=== PATIENT | male | born 1935 | race Caucasian/White ===

== ENCOUNTER → 2016-04-06 | Outpatient (CLI) | payer MEDICARE ==
--- NOTE | 2016-04-07 08:28 | XR ---
EXAMINATION TYPE: XR chest 2V DATE OF EXAM: 04/06/2016 4:08 PM COMPARISON: 01/22/2016 INDICATION: Short of breath heart failure TECHNIQUE: Frontal and lateral views of the chest are obtained. FINDINGS: The heart size is enlarged. The pulmonary vasculature is normal. Small left pleural effusion is present. Minimal right pleural effusion may be present. There are smal l infiltrates adjacent to the pleural effusions IMPRESSION: 1. Small bilateral pleural effusions with mild adjacent atelectasis. 2. Follow-up is recommended.
== END | disposition home or self-care (01) ==
LOC: RADXRMAIN 15:45
PROVIDERS: ATTEND Internal Medicine
DX: J90 Pleural effusion, not elsewhere classified (principal); J98.11 Atelectasis
CPT/HCPCS: 71020

== ENCOUNTER 2016-04-16 10:09 | Inpatient (IN) | payer MEDICARE, SELFPAY ==
[2016-04-16] MEDS ORDERED: SODIUM CHLORIDE 0.9% 1,000 ML IV STA (10:25)
[2016-04-16] MEDS ORDERED: HYDROmorphone 1 MG/ML 1 ML SYRINGE IVP STA (10:25)
[2016-04-16] MEDS ORDERED: ONDANSETRON 4 MG/2 ML VIAL IVP STA (10:25)
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
[2016-04-16 11:35] LABS: Anisocytosis Slight; Basophils # (A) 0.1 k/uL (0-0.2); Basophils % (A) 1 %; CH 25.6; CHCM 29.8; Eosinophils # (A) 0.1 k/uL (0-0.7); Eosinophils % (A) 2 %; HCT 42.2 % (39.0-53.0); HDW 3.63; HGB 12.7 gm/dL (13.0-17.5); Hypochromasia Marked; Luc # (Auto) 0.24; Luc % (Auto) 4; Lymphocytes # (A) 1.1 k/uL (1.0-4.8); Lymphocytes % (A) 17 %; MCH 25.9 pg (25.0-35.0); MCHC 30.1 g/dL (31.0-37.0); MCV 86.2 fL (80.0-100.0); Mean Platelet Volume 7.8; Monocytes # (A) 0.6 k/uL (0-1.0); Monocytes % (A) 10 %; Neutrophils # (A) 4.3 k/uL (1.3-7.7); Neutrophils % (A) 67 %; Poikilocytosis Slight; RBC 4.89 m/uL (4.30-5.90); WBC 6.5 k/uL (3.8-10.6); WBC (Perox) 6.78
[2016-04-16 11:43] LABS: Potassium 4.9 mmol/L (3.5-5.1); Total Bilirubin 0.5 mg/dL (0.2-1.3); Total Protein 7.2 g/dL (6.3-8.2)
--- NOTE | 2016-04-16 11:46 | XR ---
EXAMINATION TYPE: XR chest 1V DATE OF EXAM: 04/16/2016 11:39 AM COMPARISON: Chest x-ray April 06, 2016. Older chest x-ray January 22, 2016. HISTORY: Difficulty breathing and chest pain TECHNIQUE: Single frontal view of the chest is obtained. FINDINGS: Sternal wires are redemonstrated. Superior wire is broken similar prior. There is cardiome candace with dual lead pacemaker in aftereffect thoracic aorta redemonstrated. There is persistent small to moderate size left pleural effusion and left basilar atelectasis and/or infiltrate. There is tiny right pleural effusion with patchy right basilar atelectasis again seen. Upper lungs are clear witho ut pneumothorax. Osseous structures are intact. IMPRESSION: Cardiomegaly with small to moderate-sized left and tiny right pleural effusion with left basilar infiltrate and/or atelectasis and patchy right basilar atelectasis all redemonstrated. No si gnificant change from most recent study.
--- NOTE | 2016-04-16 11:48 | XR ---
EXAMINATION TYPE: XR KUB DATE OF EXAM: 04/16/2016 11:37 AM CLINICAL HISTORY: Difficulty breathing and right upper quadrant pain for 2 days. TECHNIQUE: 2 upright KUB images of the abdomen are obtained. COMPARISON: CT abdomen and pelvis December 18, 2015. FINDINGS: Scattered gas is seen in non-distended small bowel loops. Gas and fecal material is seen in non-distended colon. There is cardiomegaly with small to moderate size left greater than right ple ural effusions and associated left basilar atelectasis and/or infiltrate. Cholecystectomy clips are n ow present. Mild to moderate joint space loss in both hips is redemonstrated. No pneumoperitoneum is seen. IMPRESSION: Overall nonobstructive bowel gas pattern.
[2016-04-16] MEDS ORDERED: RX INFO: IV CONTRAST WAS GIVEN 1 EACH MISC MISCELLANE PRN (12:01)
[2016-04-16 12:48] LABS: INR 1.2 (<1.1); Partial Thromboplastin Time 25.6 sec (22.0-30.0); Prothrombin Time 11.9 sec (9.0-12.0)
--- NOTE | 2016-04-16 12:58 | CT ---
EXAMINATION TYPE: CT abdomen pelvis wo con DATE OF EXAM: 04/16/2016 12:50 PM COMPARISON: NONE INDICATION: RUQ pain DLP: 1639 mGycm, Automated exposure control for dose reduction was used. CONTRAST: None Study performed without Oral Contrast TECHNIQUE: Axial images were obtained from above the diaphragm to the pubic rami in the axial plane a t 5 mm thick sections. Reconstructed images are reviewed on the computer in the coronal plane. FINDINGS: Limited CT sections are obtained the lung bases. There is a small right minimal left pleural effusio n. Some adjacent atelectasis the left base.. CT ABDOMEN: Ascites is within the abdomen adjacent to the liver and spleen. Some fluid is within the mesentery and paracolic gutters. Fluid is within the pelvis. Liver: Normal Spleen: Normal Pancreas: Normal Adrenal glands: The adrenal glands are normal. Gallbladder: Surgically absent Kidneys: No masses are evident. No hydronephrosis is present. 2.8 cm cyst measuring 30 Houn[place] u nits on the posterior lateral mid right kidney. Aorta: Vascular calcification is within the aorta. Inferior vena cava: Normal. CT PELVIS: Loops of bowel within the abdomen and pelvis are normal. Appendix: Normal as visualized. Urinary bladder: Normal. Genitourinary structures: Prostate is slight prominence with calcification. Osseous structures: No suspicious lytic or sclerotic lesions. Sacroiliac joint degenerative changes a re present. L5-S1 degenerative disc changes are present. Some facet degenerative changes are in the l ower lumbar spine. IMPRESSIONS: 1. Ascites. 2. Bilateral pleural effusions
[2016-04-16] MEDS ORDERED: ONDANSETRON 4 MG/2 ML VIAL IVP PRN (13:32)
[2016-04-16] MEDS ORDERED: HYDROcodone/APAP 5-325MG 1 EACH TAB PO PRN (13:32)
[2016-04-16] MEDS ORDERED: NALOXONE 0.4 MG/ML 1 ML VIAL IV PRN (13:32)
[2016-04-16 14:40] LABS: Appearance,Urine Cloudy (Clear); Bacteria,Urine Rare /hpf; Bilirubin,Urine Negative (Negative); Glucose,Urine (UA) Negative (Negative); Ketones,Urine Trace (Negative); Leukocyte Esterase,Urine Negative (Negative); Mucus,Urine Occasional /hpf; Nitrite,Urine Negative (Negative); PH, Urine 5.5 (5.0-8.0); Particle Count 17674; Protein,Urine 1+ (Negative); RBC,Urine 2 /hpf (0-5); Specific Gravity,Urine 1.025 (1.001-1.035); Squamous Epithelial Cell,Urine <1 /hpf (0-4); UA Billing (MACRO vs. MICRO) MICRO; WBC,Urine 2 /hpf (0-5)
[2016-04-16] MEDS: CARBIDOPA-LEVODOPA ER 50-200MG 1 EACH TABLET.ER PO SCH ×2 (16:28→21:05)
[2016-04-16 16:51] LABS: Glucose,Whole Blood 110 mg/dL (75-99)
[2016-04-16] MEDS ORDERED: FUROSEMIDE 10 MG/ML 10 ML VIAL IV STA (16:54)
[2016-04-16] MEDS: INSULIN LISPRO (humaLOG) 300 UNIT/3 ML VIAL SQ SCH (17:20)
[2016-04-16] MEDS: glipiZIDE 5 MG TAB PO SCH (17:22)
[2016-04-16] MEDS: metFORMIN 500 MG TAB PO SCH (17:22)
[2016-04-16] MEDS: PRIMIDONE 50 MG TAB PO SCH ×2 (17:22→21:05)
--- NOTE | 2016-04-16 20:25 | HP ---
DATE OF ADMISSION: Mr. Paiz is an 80-year-old gentleman whose chief complaint is abdominal pain. HISTORY OF PRESENT ILLNESS: The patient this morning developed abdominal pain, right upper quadrant area. He states it bothered him to the point where he could not breathe. He has also been having abdominal distention for the past several days. He states he was unable to get his pants on because of the abdominal distention. No fever or chills associated with this. No nausea or vomiting. He states he has been having his bowel movements without any evidence of hematochezia. The patient does have a history of gallbladder surgery back in December of 2015. He was also admitted back in February, when a dual-chamber pacemaker was exchanged for sick sinus syndrome. The patient does have a history of coronary artery disease along with the above and does have chronic systolic congestive heart failure with ejection fraction depressed at 40% on his last echo back in January of last year. He does have history of hypertension, hyperlipidemia and type 2 diabetes along with obesity. His coronary artery disease bypass grafting was done back in the year 1999. His initial dual-chamber pacemaker for syncope was placed back in 2007 and apparently redone last year. He has also had a history of tremors along with Parkinson disease, for which he has been followed by Dr. Mcfarlane. There is a history of BPH, diffuse degenerative joint disease, underlying history of depression. There is also history of colonic polyps with previous cecal ( ) polyps removed in 2013 and he has had previous carpal tunnel release besides the coronary artery bypass. MEDICATIONS: Please refer to the list. Should include: 1. Metformin 500 mg twice a day. 2. Glipizide 10 mg twice a day. 3. Amlodipine 5 mg twice a day. 4. Mysoline 50 mg 4 times a day for his tremor. 5. Pravastatin 20 mg at bedtime. 6. Potassium chloride 10 mEq daily. 7. Paxil 20 mg in the morning. 8. Multiple vitamin. 9. Centrum Silver daily. 10. Losartan 25 mg daily. 11. Insulin NovoLog 14 units before supper and 14 before breakfast. 12. Lasix 40 mg a twice a day at home now. 13. Pepcid 20 mg daily. 14. Sinemet 50/200 three times a day, and his carbidopa-levodopa ER. 15. Vitamin D replacement with calcium 600/400 daily. 16. Lioresal 10 mg at bedtime. 17. Atenolol 50 mg twice a day. 18. Aspirin 325 mg daily. NO KNOWN ALLERGIES. REVIEW OF SYSTEMS: At this point negative for any fever or chills. Minimal cough. He did have shortness of breath associated with his abdominal pain. GI symptoms as mentioned above in history of present illness. He has had some increasing edema intermittently. FAMILY HISTORY: Positive for coronary artery disease. SOCIAL HISTORY: He does live locally with his in an apartment. He is a former smoker. He does not drink alcohol to any great extent. On physical examination, temperature is 97.1, pulse of 88 and regular. Respirations are 18 and unlabored, blood pressure 122/85. He is 98% saturated on 4 L. He did apparently drop his oxygen saturation down into the 80s, requiring high-flow cannula. HEENT is unremarkable. NECK: Supple without adenopathy or bruits detected. Lungs reveal diminished breath sounds at the bases bilaterally. Heart tones were regular without definitive murmur or rubs heard. Abdomen is markedly distended with high-pitched bowel sounds; at this point no marked tenderness elicited on exam. No marked organomegaly found. Genital and rectal deferred. EXTREMITIES: Two plus edema bilaterally with some streaking erythema bilaterally, but mostly on the left in the lower extremity. Neurologically he is alert and oriented. Cranial nerves are intact. He is moving all extremities without focal weakness. Patient's chest x-ray revealed some atelectatic and possible effusion in the left lung base and cardiomegaly. CT scan of the abdomen showed ascites present. OVERALL IMPRESSION: 1. New-onset ascites with abdominal pain and some increasing shortness of breath, likely related to the abdominal distention. Question ascites from fluid backup versus spontaneous peritonitis versus other underlying etiologies, although no definite other cause is seen on the initial CT scan. Liver function tests were good. Also underlying pancreatitis with elevated amylase. The patient may have an element of acute on chronic congestive heart failure with systolic dysfunction and fluid overload. 2. Underlying cellulitis of the lower extremities. 3. Past medical problems as related and stated above in the past medical history. OVERALL IMPRESSIONS AND PLANS: At this point patient has been admitted. He is receiving IV Lasix. We will repeat labs, including his amylase, lipase, electrolytes in the morning along with checking cholesterol and thyroid function. Antibiotics initiated for the lower leg cellulitis; question possible peritonitis pending evaluation by Gastroenterology and Surgery. Also will ask Cardiology to see in light of his multiple problems and risk factors for further recommendations and treatment. This was discussed with staff today and at bedside with the patient.
[2016-04-16 21:00] LABS: Glucose,Whole Blood 147 mg/dL (75-99)
[2016-04-16] MEDS: HEPARIN SODIUM,PORCINE 5,000 UNIT/ML 1 ML VIAL SQ SCH (21:05)
[2016-04-16] MEDS: amLODIPine 5 MG TAB PO SCH (21:05)
[2016-04-16] MEDS: PRAVASTATIN SODIUM 20 MG TAB PO SCH (21:06)
[2016-04-16] MEDS: ATENOLOL 50 MG TAB PO SCH (21:06)
[2016-04-16] MEDS: BACLOFEN 10 MG TAB PO SCH (21:06)
[2016-04-17] MEDS: FUROSEMIDE 10 MG/ML 10 ML VIAL IV SCH ×3 (00:17→20:48)
[2016-04-17 07:09] LABS: Glucose,Whole Blood 112 mg/dL (75-99)
[2016-04-17] MEDS: INSULIN LISPRO (humaLOG) 300 UNIT/3 ML VIAL SQ SCH ×2 (07:35→17:51)
--- NOTE | 2016-04-17 08:28 | P.PN ---
Progress Note - Text The patient is an 80-year-old gentleman who presented yesterday to the emergency room with abdominal pain along with increasing shortness of breath and abdominal distention. A CAT scan did show the development of ascites. He did have a elevated amylase on presentation. And there is a history of chronic congestive heart failure with systolic dysfunction. Patient has been receiving IV Lasix and IV Kefzol through the night. He did have an area of cellulitis of the lower extremities. This morning he is sitting up in bed and feels somewhat better. Denies any abdominal pain or shortness of breath. No chest pain. Vital signs reveal temperature of 96.9 with a pulse of 105. Respirations were 21 but her down to 15 now. Blood pressure is 123/78 and he is 99% saturated on high flow. Lungs are generally clear but diminished at bases. Heart tones are regular. Abdomen is still somewhat distended but no tenderness to palpation or organomegaly detected. Grade 1 edema. The previous erythema is somewhat silo tender on the left lower extremity. No new neurological deficits. Laboratory values from this morning are pending. His blood sugar is 112. Impressions and plan: We will continue present treatment with antibiotics and IV Lasix. Consultations have been placed with gastroenterology and his surgeon Dr. 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 Repeat labs are pending. Further recommendations pending results of above.
[2016-04-17] MEDS: metFORMIN 500 MG TAB PO SCH ×2 (08:29→17:51)
[2016-04-17] MEDS: glipiZIDE 5 MG TAB PO SCH ×2 (08:29→17:50)
[2016-04-17] MEDS: amLODIPine 5 MG TAB PO SCH ×2 (08:30→20:49)
[2016-04-17] MEDS: CARBIDOPA-LEVODOPA ER 50-200MG 1 EACH TABLET.ER PO SCH ×3 (08:31→20:48)
[2016-04-17] MEDS: HEPARIN SODIUM,PORCINE 5,000 UNIT/ML 1 ML VIAL SQ SCH ×2 (08:31→20:48)
[2016-04-17] MEDS: FAMOTIDINE 20 MG TAB PO SCH (08:31)
[2016-04-17] MEDS: ATENOLOL 50 MG TAB PO SCH ×2 (08:31→20:49)
[2016-04-17] MEDS: PARoxetine 20 MG TAB PO SCH (08:32)
[2016-04-17] MEDS: PRIMIDONE 50 MG TAB PO SCH ×4 (08:33→20:49)
[2016-04-17 08:43] LABS: Calcium 8.9 mg/dL (8.4-10.2)
[2016-04-17] MEDS ORDERED: LOSARTAN 25 MG TAB PO SCH (09:00)
[2016-04-17] MEDS ORDERED: POTASSIUM CHLORIDE ER 10 MEQ TAB.ER.PRT PO SCH (09:00)
[2016-04-17] MEDS ORDERED: FUROSEMIDE 40 MG TAB PO SCH (09:00)
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
[2016-04-17 09:44] LABS: ALT 19 U/L (21-72); AST 37 U/L (17-59); Alkaline Phosphatase 159 U/L (38-126); Anion Gap 11 mmol/L; Blood Urea Nitrogen 45 mg/dL (9-20); Calcium 8.8 mg/dL (8.4-10.2); Carbon Dioxide 30 mmol/L (22-30); Chloride 99 mmol/L (98-107); Glucose 131 mg/dL (74-99); Iron 23 ug/dL (49-181); Non-African American GFR(MDRD) 36 (>60 ml/min/1.73 sqM); Potassium 6.1 mmol/L (3.5-5.1); Sodium 140 mmol/L (137-145); Total Bilirubin 0.4 mg/dL (0.2-1.3); Total Protein 6.5 g/dL (6.3-8.2)
[2016-04-17 09:54] LABS: % Iron Saturation 7.8 % (20-50); Total Iron Binding Capacity 296 ug/dL (261-462)
[2016-04-17] MEDS ORDERED: SODIUM POLYSTYRENE SULFONATE 15 GM/60 ML BOTTLE PO STA (10:55)
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
[2016-04-17 13:29] LABS: Hepatitis B Surface Ag Index 0.06
--- NOTE | 2016-04-17 13:30 | US ---
EXAMINATION TYPE: US paracentesis abd w/image DATE OF EXAM: 04/17/2016 1:20 PM CLINICAL HISTORY: Ascites The procedure was discussed with the patient. The risks, complications, benefits, and alternatives we re discussed and any questions were answered. Informed consent was obtained. The patient was placed s upine on the ultrasound table and prepped and draped in the usual sterile fashion. All elements of maximal barrier technique were utilized. Under ultrasound guidance, access into the left lower quadrant was obtained, via the paracentesis catheter system and direct ultrasound guidance . Approximately 3.2 liters of straw-colored fluid was removed. The patient was stable throughout the pr ocedure and remained stable upon discharge from Department of Radiology. Sample sent to the departmen t of pathology for analysis. IMPRESSION: Successful therapeutic and diagnostic paracentesis under ultrasound guidance.
[2016-04-17 13:34] LABS: Hepatitis B Core IgM Index 0.04
[2016-04-17 13:46] LABS: Hepatitis C Virus IgG Index 0.03
[2016-04-17 13:54] LABS: Hepatitis C Virus IgG Ab Negative (Negative)
[2016-04-17 15:28] VITALS: BMI 19.8
[2016-04-17 17:07] LABS: Glucose,Whole Blood 156 mg/dL (75-99)
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
[2016-04-17 18:53] LABS: RBC, Body Fluid 2590 /uL
[2016-04-17 19:34] LABS: ANA w/Reflex to Titer NEGATIVE (NEGATIVE)
[2016-04-17] MEDS: BISACODYL 5 MG TABLET.DR PO PRN (20:48)
[2016-04-17] MEDS: BACLOFEN 10 MG TAB PO SCH (20:49)
[2016-04-17] MEDS: PRAVASTATIN SODIUM 20 MG TAB PO SCH (20:54)
[2016-04-17 21:54] LABS: Glucose,Whole Blood 96 mg/dL (75-99)
[2016-04-18 07:48] LABS: Anisocytosis Slight; Aty Lym Flag Slight; CH 25.4; CHCM 28.9; HCT 38.5 % (39.0-53.0); HDW 3.46; HGB 11.5 gm/dL (13.0-17.5); Hypochromasia Marked; MCH 26.2 pg (25.0-35.0); MCHC 29.8 g/dL (31.0-37.0); MCV 88.1 fL (80.0-100.0); Mean Platelet Volume 8.1; Poikilocytosis Slight; RBC 4.37 m/uL (4.30-5.90); RDW 17.6 % (11.5-15.5); WBC 6.4 k/uL (3.8-10.6); WBC (Perox) 6.93
[2016-04-18 08:10] LABS: Calcium 8.1 mg/dL (8.4-10.2)
[2016-04-18 08:16] LABS: Potassium 5.3 mmol/L (3.5-5.1)
[2016-04-18 08:27] LABS: Add Differential Manual Differential
[2016-04-18 08:28] LABS: Manual Review Performed; Nucleated Red Blood Cells 0 /100 WBC (0-0); Total Cells Counted 100
[2016-04-18] MEDS: HEPARIN SODIUM,PORCINE 5,000 UNIT/ML 1 ML VIAL SQ SCH ×2 (08:37→20:34)
[2016-04-18] MEDS: FUROSEMIDE 10 MG/ML 10 ML VIAL IV SCH ×2 (08:37→20:35)
[2016-04-18] MEDS: PRIMIDONE 50 MG TAB PO SCH ×4 (08:37→20:34)
[2016-04-18] MEDS: FAMOTIDINE 20 MG TAB PO SCH (08:37)
[2016-04-18] MEDS: amLODIPine 5 MG TAB PO SCH ×2 (08:37→20:34)
[2016-04-18] MEDS: CARBIDOPA-LEVODOPA ER 50-200MG 1 EACH TABLET.ER PO SCH ×3 (08:38→20:34)
[2016-04-18] MEDS: ATENOLOL 50 MG TAB PO SCH ×2 (08:38→20:34)
[2016-04-18] MEDS: PARoxetine 20 MG TAB PO SCH (08:38)
[2016-04-18 08:46] LABS: Glucose,Whole Blood 68 mg/dL (75-99)
[2016-04-18 08:46] LABS: Glucose,Whole Blood 80 mg/dL (75-99)
[2016-04-18 08:46] LABS: Glucose,Whole Blood 45 mg/dL (75-99)
[2016-04-18 08:46] LABS: Glucose,Whole Blood 60 mg/dL (75-99)
[2016-04-18 08:46] LABS: Glucose,Whole Blood 47 mg/dL (75-99)
[2016-04-18 08:46] LABS: Glucose,Whole Blood 48 mg/dL (75-99)
[2016-04-18 08:46] LABS: Glucose,Whole Blood 57 mg/dL (75-99)
[2016-04-18] MEDS: INSULIN LISPRO (humaLOG) 300 UNIT/3 ML VIAL SQ SCH ×2 (09:07→17:55)
[2016-04-18] MEDS: metFORMIN 500 MG TAB PO SCH ×2 (10:28→17:56)
[2016-04-18] MEDS: glipiZIDE 5 MG TAB PO SCH ×2 (10:28→17:56)
--- NOTE | 2016-04-18 10:52 | P.PN ---
Progress Note - Text The patient is an 80-year-old gentleman who presented 2 days previous to the emergency room with abdominal pain and distention associated with increasing shortness of breath. Patient was found to have new onset of ascites. Patient has been seen by gastroenterology and has had lab testing and abdominal paracentesis with removal of about 3 L of fluid yesterday. Patient is seen ambulating in his room and feels better. He has had some constipation. Denies any nausea or vomiting. No chest pain or shortness of breath at this time. He has also been on Kefzol for cellulitis of the lower extremities along with possibility of spontaneous peritonitis. Notes from surgery, gastroenterology and cardiology have been regarded. Vital signs reveal temperature of 97.6 with a pulse of 99 respirations 18. Blood pressure is 112/73 and he is 95% saturated on 2 L. Head and neck exam unremarkable. Lung and heart exam was clear. Abdomen is a little less tense. No marked tenderness. No unusual edema. Erythema is clearing. No focal neurological deficits. Laboratory values: White count 6.4 with a hemoglobin 11.5 and a platelet count of 163. Sodium was 138 with a potassium of 5.3 which is down from yesterday. BUN of 47 with creatinine of 1.5 giving him a GFR of 44. Blood sugars were running low this morning in the 40-60 range. Other fluid studies have revealed 2590 RBCs with 100 nucleated cells, 28% polynuclear and 72% mononuclear. Serology studies for hepatitis A, B, C have been negative. Distress impressions and plans: Discussed with patient and staff. With physical therapy today. We will await further consultation recommendations. Plans are for likely discharge to home tomorrow. And will likely need to await further results of pending studies. Patient's medications for blood sugar have been held this morning and decrease dose have been ordered for this evening.
[2016-04-18 11:32] LABS: Glucose,Whole Blood 163 mg/dL (75-99)
--- NOTE | 2016-04-18 11:50 | P.PN ---
Subjective Principal diagnosis: Congestive heart failure This is an 80-year-old gentleman who follows regularly with Dr. Cardona in the office, he has a known history of coronary artery disease with prior bypass surgery, hypertension, hyperlipidemia, diabetes, peripheral vascular disease, underwent an echocardiogram with Doppler study in January 2016 which revealed an ejection fraction of 40-45% with evidence of moderate tricuspid regurg and moderate to severe pulmonary hypertension. Patient also has history of prior pacemaker implantation. Patient presented to the hospital with symptoms mainly of progressive abdominal distention as well as associated discomfort in the abdomen. He has also noticed an increase in the amount of swelling in his bilateral legs. He has gained approximately 60 pounds over the past few months. Patient underwent a CAT scan of the abdomen and pelvis which revealed bilateral pleural effusion and associated ascites. He also underwent a chest x- ray which revealed pleural effusion, BNP level was elevated and for this reason patient was initiated on IV Lasix by Dr. White. GI consult is also requested to rule out any gastrointestinal etiology for the patient's ascites. According to the patient, he has been putting out significant amounts of urine in the past 24 hours although his weight is not reflective of this. Laboratory data was reviewed this morning, potassium 5.3, BUN 47, creatinine 1.5, down from 1.8 yesterday. was seen and examined, states that his breathing is stable, he does feel that he has lost a significant amount of weight although again the scale was not reflective of this. Continues to have a significant amount of peripheral edema, and associated abdominal distention. Patient also underwent a paracentesis under ultrasound guidance. 3.2 L of straw-colored fluid was removed. Objective - Vital Signs Vital signs: Vital Signs Temp 97.6 F 04/18/16 07:00 Pulse 99 04/18/16 07:00 Resp 18 04/18/16 07:00 BP 112/73 04/18/16 07:00 Pulse Ox 95 04/18/16 07:00 Intake & Output 04/17/16 04/18/16 04/18/16 18:59 06:59 18:59 Intake Total 200 865 Output Total 3210 Balance -3210 200 865 Weight 62.5 kg Intake: Oral 200 865 Output: Other 3210 Other: # Voids 4 3 # Bowel Movements 1 - Exam PHYSICAL EXAMINATION: HEENT: [Head is atraumatic, normocephalic. Pupils equal, round. Neck is supple. There is elevated jugular venous pressure.] HEART EXAMINATION: Heart S1 and S2 systolic murmur is heard. CHEST EXAMINATION: Lungs are clear with diminished air entry to bilateral bases. ABDOMEN: [ Firm, distended, mild tenderness noted EXTREMITIES:[ 1+ peripheral pulses with 3+ evidence of peripheral edema bilaterally ,significant redness noted to the left lower leg. NEUROLOGIC [patient is awake, alert and oriented -3.] . - Labs CBC & Chem 7: 04/18/16 07:28 04/18/16 07:28 Labs: Abnormal Lab Results - Last 24 Hours (Table) 04/17/16 04/17/16 04/18/16 Range/Units 07:48 17:01 07:23 Hgb (13.0-17.5) gm/dL Hct (39.0-53.0) % MCHC (31.0-37.0) g/dL RDW (11.5-15.5) % Potassium 6.1 H (3.5-5.1) mmol/L BUN 45 H (9-20) mg/dL Creatinine 1.80 H (0.66-1.25) mg/dL Glucose 131 H (74-99) mg/dL POC Glucose (mg/dL) 156 H 60 L (75-99) mg/dL Calcium (8.4-10.2) mg/dL Iron 23 L (49-181) ug/dL % Saturation 7.8 L (20-50) % ALT 19 L (21-72) U/L Alkaline Phosphatase 159 H (38-126) U/L Albumin 3.2 L (3.5-5.0) g/dL 04/18/16 04/18/16 04/18/16 Range/Units 07:28 07:28 07:39 Hgb 11.5 L (13.0-17.5) gm/dL Hct 38.5 L (39.0-53.0) % MCHC 29.8 L (31.0-37.0) g/dL RDW 17.6 H (11.5-15.5) % Potassium 5.3 H (3.5-5.1) mmol/L BUN 47 H (9-20) mg/dL Creatinine 1.51 H (0.66-1.25) mg/dL Glucose 54 L (74-99) mg/dL POC Glucose (mg/dL) 45 L (75-99) mg/dL Calcium 8.1 L (8.4-10.2) mg/dL Iron (49-181) ug/dL % Saturation (20-50) % ALT (21-72) U/L Alkaline Phosphatase (38-126) U/L Albumin (3.5-5.0) g/dL 04/18/16 04/18/16 04/18/16 Range/Units 07:41 07:53 08:09 Hgb (13.0-17.5) gm/dL Hct (39.0-53.0) % MCHC (31.0-37.0) g/dL RDW (11.5-15.5) % Potassium (3.5-5.1) mmol/L BUN (9-20) mg/dL Creatinine (0.66-1.25) mg/dL Glucose (74-99) mg/dL POC Glucose (mg/dL) 48 L 47 L 57 L (75-99) mg/dL Calcium (8.4-10.2) mg/dL Iron (49-181) ug/dL % Saturation (20-50) % ALT (21-72) U/L Alkaline Phosphatase (38-126) U/L Albumin (3.5-5.0) g/dL 04/18/16 04/18/16 Range/Units 08:25 11:14 Hgb (13.0-17.5) gm/dL Hct (39.0-53.0) % MCHC (31.0-37.0) g/dL RDW (11.5-15.5) % Potassium (3.5-5.1) mmol/L BUN (9-20) mg/dL Creatinine (0.66-1.25) mg/dL Glucose (74-99) mg/dL POC Glucose (mg/dL) 68 L 163 H (75-99) mg/dL Calcium (8.4-10.2) mg/dL Iron (49-181) ug/dL % Saturation (20-50) % ALT (21-72) U/L Alkaline Phosphatase (38-126) U/L Albumin (3.5-5.0) g/dL Microbiology - Last 24 Hours (Table) 04/17/16 12:29 Gram Stain - Preliminary Ascites Fluid Body Fluid Culture - Preliminary 04/17/16 12:29 Anaerobic Culture - Preliminary Ascites Fluid Assessment and Plan (1) Systolic CHF, acute on chronic Status: Acute (2) Ischemic cardiomyopathy Status: Acute (3) Tricuspid regurgitation Status: Acute (4) Pulmonary HTN Status: Acute (5) Renal failure Status: Acute (6) Hx of CABG Status: Acute (7) Pacemaker Status: Acute (8) HTN (hypertension) Status: Acute (9) Diabetes Status: Acute (10) Hyperlipemia Status: Acute (11) Ascites Status: Acute Plan: Cardiology's perspective, we'll recommend to continue current dose of IV Lasix. Patient has been encouraged to keep his legs elevated. TE to monitor intake and output along with daily weights closely. We will convert his IV over to a Hep-Lock. DNP note has been reviewed, I agree with a documented findings and plan of care. Patient was seen and examined.
--- NOTE | 2016-04-18 12:16 | P.PN ---
Subjective Principal diagnosis: Abdominal pain, ascites The patient is seen on rounds. He underwent a large-volume paracentesis yesterday. He feels better. No nausea or vomiting. Objective - Vital Signs Vital signs: Vital Signs Temp 97.6 F 04/18/16 07:00 Pulse 99 04/18/16 07:00 Resp 18 04/18/16 07:00 BP 112/73 04/18/16 07:00 Pulse Ox 95 04/18/16 07:00 Intake & Output 04/17/16 04/18/16 04/18/16 18:59 06:59 18:59 Intake Total 200 865 Output Total 3210 Balance -3210 200 865 Weight 62.5 kg Intake: Oral 200 865 Output: Other 3210 Other: # Voids 4 3 # Bowel Movements 1 - Constitutional General appearance: Present: cooperative, no acute distress - Gastrointestinal General gastrointestinal: Present: distended. Absent: tenderness - Labs CBC & Chem 7: 04/18/16 07:28 04/18/16 07:28 Labs: Abnormal Lab Results - Last 24 Hours (Table) 04/17/16 04/17/16 04/18/16 Range/Units 07:48 17:01 07:23 Hgb (13.0-17.5) gm/dL Hct (39.0-53.0) % MCHC (31.0-37.0) g/dL RDW (11.5-15.5) % Potassium 6.1 H (3.5-5.1) mmol/L BUN 45 H (9-20) mg/dL Creatinine 1.80 H (0.66-1.25) mg/dL Glucose 131 H (74-99) mg/dL POC Glucose (mg/dL) 156 H 60 L (75-99) mg/dL Calcium (8.4-10.2) mg/dL Iron 23 L (49-181) ug/dL % Saturation 7.8 L (20-50) % ALT 19 L (21-72) U/L Alkaline Phosphatase 159 H (38-126) U/L Albumin 3.2 L (3.5-5.0) g/dL 04/18/16 04/18/16 04/18/16 Range/Units 07:28 07:28 07:39 Hgb 11.5 L (13.0-17.5) gm/dL Hct 38.5 L (39.0-53.0) % MCHC 29.8 L (31.0-37.0) g/dL RDW 17.6 H (11.5-15.5) % Potassium 5.3 H (3.5-5.1) mmol/L BUN 47 H (9-20) mg/dL Creatinine 1.51 H (0.66-1.25) mg/dL Glucose 54 L (74-99) mg/dL POC Glucose (mg/dL) 45 L (75-99) mg/dL Calcium 8.1 L (8.4-10.2) mg/dL Iron (49-181) ug/dL % Saturation (20-50) % ALT (21-72) U/L Alkaline Phosphatase (38-126) U/L Albumin (3.5-5.0) g/dL 04/18/16 04/18/16 04/18/16 Range/Units 07:41 07:53 08:09 Hgb (13.0-17.5) gm/dL Hct (39.0-53.0) % MCHC (31.0-37.0) g/dL RDW (11.5-15.5) % Potassium (3.5-5.1) mmol/L BUN (9-20) mg/dL Creatinine (0.66-1.25) mg/dL Glucose (74-99) mg/dL POC Glucose (mg/dL) 48 L 47 L 57 L (75-99) mg/dL Calcium (8.4-10.2) mg/dL Iron (49-181) ug/dL % Saturation (20-50) % ALT (21-72) U/L Alkaline Phosphatase (38-126) U/L Albumin (3.5-5.0) g/dL 04/18/16 04/18/16 Range/Units 08:25 11:14 Hgb (13.0-17.5) gm/dL Hct (39.0-53.0) % MCHC (31.0-37.0) g/dL RDW (11.5-15.5) % Potassium (3.5-5.1) mmol/L BUN (9-20) mg/dL Creatinine (0.66-1.25) mg/dL Glucose (74-99) mg/dL POC Glucose (mg/dL) 68 L 163 H (75-99) mg/dL Calcium (8.4-10.2) mg/dL Iron (49-181) ug/dL % Saturation (20-50) % ALT (21-72) U/L Alkaline Phosphatase (38-126) U/L Albumin (3.5-5.0) g/dL Microbiology - Last 24 Hours (Table) 04/17/16 12:29 Gram Stain - Preliminary Ascites Fluid Body Fluid Culture - Preliminary 04/17/16 12:29 Anaerobic Culture - Preliminary Ascites Fluid Assessment and Plan (1) Abdominal pain Status: Acute (2) Ascites Status: Acute Plan: The patient's pain is likely on the basis of an acute development of the ascites. He is currently nonsurgical. Continue medical workup. We'll follow on a prn basis.
--- NOTE | 2016-04-18 15:13 | PN ---
DATE OF SERVICE: 04/18/2016 Patient is an 80-year-old pleasant, white male admitted to the hospital with new onset ascites. He underwent large volume paracentesis yesterday and approximately 3.5 L of fluid was removed. The patient is feeling much better today. He is still having lower extremity edema, presently on IV Lasix 80 mg q.12 hours and diuresing well. He reports no symptoms. On physical examination, he appears comfortable. No apparent distress. Vital signs are stable. Blood pressure is 126/86, pulse rate 82, temperature 97.6. HEENT EXAMINATION: Unremarkable. Conjunctivae pink. Sclerae anicteric. Oral cavity, no lesions. NECK: No JVD or lymph node enlargement. Chest was clear to auscultation. HEART: Regular rate and rhythm. ABDOMEN: Slightly distended. Some free fluid noted. EXTREMITIES: 3+ pedal edema. SKIN: No rashes. NEURO: He is alert and oriented x3. No focal deficits. LABS: WBC 6.4, hemoglobin 11.5, platelets are 163. BUN 47, creatinine 1.51. Iron studies so far have been negative. Iron saturation 7.8%. Fluid analysis showed RBC 2590, WBC 28. Hepatitis A, B, and C were negative. IMPRESSION: New onset ascites, status post large volume paracentesis for diagnostic and therapeutic purposes yesterday. Fluid analysis for albumin and protein are still pending. At this point possibility of underlying cirrhosis of the liver is being considered probably related to fatty liver disease. He is on IV Lasix 80 mg q.12 hours and diuresing well. RECOMMENDATIONS: 1. Continue with gentle diuresis. 2. Low salt diet. 3. If the patient is discharged home tomorrow he can follow up with me on an outpatient basis in 1 to 2 weeks for further management of ascites and workup for the etiology.
[2016-04-18 16:45] LABS: Glucose,Whole Blood 160 mg/dL (75-99)
[2016-04-18] MEDS: PRAVASTATIN SODIUM 20 MG TAB PO SCH (20:34)
[2016-04-18] MEDS: BACLOFEN 10 MG TAB PO SCH (20:34)
[2016-04-18 21:41] LABS: Glucose,Whole Blood 92 mg/dL (75-99)
[2016-04-19 07:26] LABS: Glucose,Whole Blood 126 mg/dL (75-99)
[2016-04-19 08:32] VITALS: BP 128/83; PULSE 101; RESP 18; TEMP 97
[2016-04-19] MEDS: FUROSEMIDE 10 MG/ML 10 ML VIAL IV SCH (08:36)
[2016-04-19] MEDS: PRIMIDONE 50 MG TAB PO SCH (08:36)
[2016-04-19] MEDS: metFORMIN 500 MG TAB PO SCH (08:37)
[2016-04-19] MEDS: HEPARIN SODIUM,PORCINE 5,000 UNIT/ML 1 ML VIAL SQ SCH (08:37)
[2016-04-19] MEDS: CARBIDOPA-LEVODOPA ER 50-200MG 1 EACH TABLET.ER PO SCH (08:37)
[2016-04-19] MEDS: ATENOLOL 50 MG TAB PO SCH (08:37)
[2016-04-19] MEDS: glipiZIDE 5 MG TAB PO SCH (08:38)
[2016-04-19] MEDS: amLODIPine 5 MG TAB PO SCH (08:38)
[2016-04-19] MEDS: FAMOTIDINE 20 MG TAB PO SCH (08:38)
[2016-04-19] MEDS: PARoxetine 20 MG TAB PO SCH (08:38)
[2016-04-19] MEDS: INSULIN LISPRO (humaLOG) 300 UNIT/3 ML VIAL SQ SCH (08:39)
[2016-04-19] MEDS: BISACODYL 5 MG TABLET.DR PO PRN (08:43)
--- NOTE | 2016-04-19 10:50 | P.PN ---
Progress Note - Text The patient is a 80-year-old gentleman who presented 3 days previous to emergency room with abdominal pain and distention with increasing shortness of breath and was found to have new onset of ascites. He has undergone large volume paracentesis 2 days ago and is feeling better. Patient did have some lower extremity edema and cellulitis and he has been on furosemide. He has also been on Kefzol. Physical therapy has been up and around ambulating on his own. No nausea vomiting or chest pain. Vital signs reveal temperature of 97 with a pulse of 100 and respirations 18 and nonlabored. Blood pressure is 128/83 and he is 100% saturated on 2 L nasal cannula. Head and neck exam unremarkable. Lung and heart exam clear. Abdomen is still distended but nontender. Improved from previous prior to paracentesis. Patient still has 1+ edema and mild erythema of the right lower extremity. Blood sugars presently in the low 100s. Impressions and plans Anticipating discharge home today. Patient to follow-up with myself in the office next week. He will call tomorrow for appointment. He is also to keep his regular appointments with cardiology. It is recommended he make an appointment with Dr. Roxie Nogueira, gastroenterology over the next 1-2 weeks. Patient has follow-up with testing and peritoneal fluid follow-up. Patient can resume his home medications. With acetaminophen for pain if needed. He is to hold his losartan. Decrease metformin to 500 mg before dinner only. Decrease his Glucotrol to 10 mg before breakfast, once daily only. Continue amlodipine at 5 mg twice a day. Continue primidone at 50 mg 4 times a day for tremors. Continue Pravastatin 20 mg at at bedtime for cholesterol Patient to stop his potassium replacement at this time. Can continue his Paxil 20 mg daily. Can continue with vitamin replacement Centrum Silver. Continue with his 14 units of insulin before breakfast and supper. NovoLog. Lasix to be 40 mg tablets 1-1/2 or 60 mg total twice a day. Pepcid 20 mg daily. Carbidopa/levodopa 50-200 extended release 13 times a day. For Parkinson. Can resume his calcium replacement. Baclofen 10 mg at at bedtime. Atenolol 50 mg twice a day. And aspirin 325 mg daily. We will send in Keflex 500 mg 3 times a day for another 5 days to complete his course. This will be sent to his [facility]'s pharmacy. Patient to monitor daily weights.
--- NOTE | 2016-04-19 11:31 | PN ---
Patient is an 80-year-old white male admitted to the hospital with new onset ascites and underwent large volume paracentesis 2 days ago and approximately 3.5 liters removed. Since then he is feeling better. He continues to be on aggressive IV diuresis with Lasix and his lower extremity swelling also improving. He denies any abdominal pain. Reports no nausea or vomiting. On physical examination appears comfortable in no apparent distress. Vitals as are stable. Blood pressure 126/71, temperature 97.4, pulse rate 84, respirations 18. HEENT examination unremarkable. Conjunctivae pink. Sclerae anicteric. Oral cavity, no lesions. NECK: No JVD or lymph node enlargement. Chest was clear to auscultation. HEART: Regular rate and rhythm. ABDOMEN: Distended. Free fluid noted. EXTREMITIES: 2+ pedal edema. SKIN: No rashes. NEURO: Alert and oriented x3. No focal deficits. Labs from today, not done. IMPRESSION: 1. New onset ascites, possibly underlying occult chronic liver disease, cirrhosis cannot be excluded, status post large volume paracentesis, analysis of the fluid is still pending at the time of this dictation. 2. History of congestive heart failure. 3. Long-standing history of diabetes mellitus. 4. Morbid obesity. RECOMMENDATIONS: 1. At this time will await the results of the paracentesis. 2. He can be discharged home today with outpatient follow up in a week and further management plans will be made in regards to the ascites. Thank you for this consultation.
[2016-04-19 11:53] LABS: Glucose,Whole Blood 202 mg/dL (75-99)
--- NOTE | 2016-04-21 18:42 | DS ---
DATE OF ADMISSION: 04/16/2016 DATE OF DISCHARGE: 04/19/2016 Mr. Bob Paiz is an 80-year-old gentleman who presented to the emergency room with abdominal distention and pain associated with shortness of breath, gradually worsening over the past 10 to 14 days despite outpatient diuretics. He also developed some lower extremity edema and erythema. Patient has no history of liver disease but did have a history of heavy alcohol usage for many years, but he apparently quit over 30 years ago. On presentation to the ER, a CT scan showed ascites and some bilateral pleural effusions. Patient was admitted and started on antibiotics. Consultation was obtained with Gastroenterology and Surgery, who had performed a laparoscopic cholecystectomy back last December, and Cardiology, who sees the patient regularly as an outpatient. Please refer to their respective notes. Initial labs revealed a BUN of 36, creatinine 1.4, bilirubin 0.5, AST 40 with an ALT 30, alkaline phosphatase of 187 and lipase of 355, amylase 90, albumin 3.6 and white count 6.5 with hemoglobin 12.7, MCV 86, platelet count of 212. His INR was 1.2. With Lasix, patient did diuresis to some extent but was still fairly uncomfortable. EKG revealed an accelerated junctional rhythm with low-voltage QRS. Patient underwent laboratory evaluation for the underlying osteoporosis. SIMONE screen was negative tumor marker. AFP was 2.2. Alpha-1 antitrypsin 232. Ceruloplasmin of 41.5. Hepatitis A, B and C workup was negative, with hepatitis A IgM antibodies, hepatitis B surface antigen, hepatitis B core, IgM antibody and hepatitis C IgG antibody. All were negative. Anti-smooth muscle antibody was 12. Iron was 23 with iron-binding capacity 296 with percent saturation of 7.8. TSH was normal at 1.9. Lipase was elevated up to 824 at one point. Potassium did also increase up to 6.1 with a BUN of 45 and creatinine of 1.8, giving him a GFR of 36. Ferritin level was normal at 41. Approximately 3 liters of fluid was removed revealing 2590 RBCs, 100 nucleated cells, 28 polynuclear WBCs and 72 mononuclear WBCs. Potassium improved down to 5.3, BUN was 47, creatinine 1.51 with a GFR of 44 on discharge. The patient was ambulated. Physical Therapy also treated the patient. Medications were adjusted and it was recommended: 1. Continue with acetaminophen for pain. 2. Recommend he hold his losartan. 3. Decrease his metformin to 500 mg before dinner only. 4. Decrease his Glucotrol to 10 mg before breakfast. 5. Continue amlodipine at 5 mg twice a day. 6. Continue his Primidone at 50 mg 4 times a day. 7. Continue pravastatin 20 mg at bedtime. 8. Recommend he stop potassium. 9. Recommend he continue his Paxil at 20 mg daily. 10. He may continue with his Centrum Silver vitamins. 11. Continue with his 14 units of insulin before breakfast and supper. 12. Lasix to be continued at 40 mg tablets with 1-1/2 or 60 mg total twice a day. 13. He is to continue taking his Pepcid 20 mg daily. 14. Continue his carbidopa/levodopa 50/200 extended-release 1 tablet 3 times daily for his Parkinson's. 15. Continue calcium replacement. 16. Baclofen 10 mg at night. 17. Atenolol 50 mg twice a day. 18. Aspirin 325 daily. 19. Keflex 500 mg 3 times a day for another 5 days. This was sent to his [facility]. He is to follow up with me next week in the office, follow up regularly with Cardiology, and also an appointment with Dr. Roxie Nogueira over the next 10 to 14 days. FINAL DISCHARGE DIAGNOSES: 1. 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 Other etiologies and cytology still pending of the peritoneal fluid. 2. Patient also had acute hyperkalemia that has improved. 3. Patient has a history of cholecystectomy back in December 2015. 4. History of dual-chamber pacemaker for sick sinus syndrome. 5. History of coronary artery disease. 6. Chronic systolic congestive heart failure with ejection fraction of 40% on echo in January 2016. 7. Underlying hypertension. 8. Hyperlipidemia. 9. Type 2 diabetes with obesity. 10. Previous coronary artery bypass done in the year 1999. 11. History of Parkinson's. 12. History of tremors, which is followed by neurology Dr. Mcfarlane. 13. Underlying history of benign prostatic hypertrophy. 14. History of degenerative joint disease. 15. History of depression. 16. Previous history of colonic polyps with removal in 2013. 17. Previous carpal tunnel release bilaterally. Prognosis is overall guarded. Activities as tolerated. Diabetic diet as tolerated.
== END 2016-04-19 13:28 | disposition home health service (06) | DRG 432 ==
LOC: EC 10:09 → 5MS5E 13:32 → 4MS4W 14:51
PROVIDERS: ADMIT Internal Medicine; ATTEND Internal Medicine
PROC: 0W9G3ZZ Drainage of Peritoneal Cavity, Percutaneous Approach (ICD-10-PCS; principal; 2016-04-17)
DX: K70.31 Alcoholic cirrhosis of liver with ascites (principal); I50.23 Acute on chronic systolic (congestive) heart failure; E11.22 Type 2 diabetes mellitus with diabetic chronic kidney disease; E11.51 Type 2 diabetes mellitus with diabetic peripheral angiopathy without gangrene; K86.1 Other chronic pancreatitis; K85.90 Acute pancreatitis without necrosis or infection, unspecified; I27.2 Other secondary pulmonary hypertension; I13.0 Hypertensive heart and chronic kidney disease with heart failure and stage 1 through stage 4 chronic kidney disease, or unspecified chronic kidney disease; L03.115 Cellulitis of right lower limb; L03.116 Cellulitis of left lower limb; E78.5 Hyperlipidemia, unspecified; E87.5 Hyperkalemia; G20 Parkinson's disease; I07.1 Rheumatic tricuspid insufficiency; I25.10 Atherosclerotic heart disease of native coronary artery without angina pectoris; I25.2 Old myocardial infarction; I25.5 Ischemic cardiomyopathy; I48.2 Chronic atrial fibrillation; N18.9 Chronic kidney disease, unspecified; N40.0 Benign prostatic hyperplasia without lower urinary tract symptoms; Z79.82 Long term (current) use of aspirin; Z82.49 Family history of ischemic heart disease and other diseases of the circulatory system; Z86.010 Personal history of colon polyps; Z87.891 Personal history of nicotine dependence; Z95.0 Presence of cardiac pacemaker; Z95.1 Presence of aortocoronary bypass graft; Z96.1 Presence of intraocular lens; Z79.899 Other long term (current) drug therapy; Z79.4 Long term (current) use of insulin
CPT/HCPCS: 36415; 49083; 71010; 74000; 74176; 80048; 80053; 80061; 80074; 81001; 82042; 82103; 82105; 82150; 82390; 82728; 82945; 83516; 83540; 83550; 83690; 83880; 84157; 84165; 84443; 85025; 85610; 85730; 86038; 87070; 87075; 87205; 88108; 88305; 89050; 96361; 96374; 96375; 99285

== ENCOUNTER 2016-04-22 12:17 | Day surgery (SDC) | payer MEDICARE ==
[2016-04-22 12:41] VITALS: BP 153/85; PULSE 64; RESP 20; TEMP 97.4
[2016-04-22 12:56] LABS: Mean Platelet Volume 8.1
[2016-04-22 13:19] LABS: INR 1.3 (<1.1); Prothrombin Time 12.8 sec (9.0-12.0)
--- NOTE | 2016-04-22 16:16 | US ---
Discontinued paracentesis HISTORY: Ascites Ultrasound scanning shows moderate ascites. Patient rescheduled due to anticoagulation.
== END 2016-04-22 13:50 | disposition other institution (70) ==
LOC: RADPROMAIN 12:17
PROVIDERS: ATTEND Internal Medicine Gastroenterology
DX: R18.8 Other ascites (principal); Z53.8 Procedure and treatment not carried out for other reasons; Z79.01 Long term (current) use of anticoagulants
CPT/HCPCS: 36415; 76705; 82565; 85049; 85610

== ENCOUNTER 2016-04-22 13:43 | Inpatient (IN) | payer MEDICARE, SELFPAY ==
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
[2016-04-22 14:59] LABS: Anisocytosis Slight; Basophils # (A) 0.1 k/uL (0-0.2); Basophils % (A) 1 %; CH 25.4; CHCM 29.8; Eosinophils % (A) 1 %; HCT 42.1 % (39.0-53.0); HDW 3.66; HGB 12.6 gm/dL (13.0-17.5); Hypochromasia Marked; Luc # (Auto) 0.23; Luc % (Auto) 4; Lymphocytes # (A) 0.8 k/uL (1.0-4.8); Lymphocytes % (A) 13 %; MCH 25.6 pg (25.0-35.0); MCHC 29.9 g/dL (31.0-37.0); MCV 85.6 fL (80.0-100.0); Mean Platelet Volume 8.1; Monocytes # (A) 0.7 k/uL (0-1.0); Monocytes % (A) 11 %; Neutrophils # (A) 4.3 k/uL (1.3-7.7); Neutrophils % (A) 71 %; Poikilocytosis Slight; RBC 4.92 m/uL (4.30-5.90); WBC (Perox) 6.12
[2016-04-22 15:07] LABS: ALT 22 U/L (21-72); AST 67 U/L (17-59); Alkaline Phosphatase 192 U/L (38-126); Anion Gap 11 mmol/L; Blood Urea Nitrogen 42 mg/dL (9-20); Calcium 8.7 mg/dL (8.4-10.2); Carbon Dioxide 31 mmol/L (22-30); Chloride 96 mmol/L (98-107); Glucose 129 mg/dL (74-99); Non-African American GFR(MDRD) 52 (>60 ml/min/1.73 sqM); Potassium 4.8 mmol/L (3.5-5.1); Sodium 138 mmol/L (137-145); Total Bilirubin 0.6 mg/dL (0.2-1.3)
--- NOTE | 2016-04-22 15:07 | XR ---
EXAMINATION TYPE: XR chest 2V DATE OF EXAM: 04/22/2016 3:01 PM COMPARISON: Chest x-ray from 6 days ago. HISTORY: Left-sided chest pain and difficulty in breathing. TECHNIQUE: Frontal and lateral views of the chest are obtained. FINDINGS: Sternal wires and mediastinal clips are redemonstrated. Superior wire is broken similar to prior. There is persistent cardiomegaly with small to moderate-sized left greater than right pleural effusions. There is associated bibasilar atelectasis and/or infiltrate. Upper lungs are clear without pneumothorax. Osseous structures are intact. IMPRESSION: Overall stable findings, cardiomegaly with small to moderate-sized left greater than rig ht pleural effusions and associated bibasilar atelectasis and/or infiltrate all redemonstrated.
[2016-04-22 15:20] LABS: INR 1.3 (<1.1); Prothrombin Time 12.7 sec (9.0-12.0)
[2016-04-22 15:27] LABS: Creatine Kinase MB 1.1 ng/mL (0.0-2.4); Troponin I 0.013 ng/mL (0.000-0.034)
[2016-04-22] MEDS ORDERED: NITROGLYCERIN OINT 1 INCH/GM PACKET TOPICAL STA (16:26)
[2016-04-22] MEDS ORDERED: FUROSEMIDE 10 MG/ML 10 ML VIAL IV STA (16:26)
[2016-04-22] MEDS ORDERED: NITROGLYCERIN OINT 1 INCH/GM PACKET TOPICAL SCH (18:00)
[2016-04-22 18:34] LABS: Glucose,Whole Blood 113 mg/dL (75-99)
[2016-04-22] MEDS: INSULIN LISPRO (humaLOG) 300 UNIT/3 ML VIAL SQ SCH (18:34)
[2016-04-22] MEDS: glipiZIDE 5 MG TAB PO SCH (18:46)
[2016-04-22] MEDS: PRIMIDONE 50 MG TAB PO SCH ×2 (18:47→21:30)
[2016-04-22] MEDS: ATENOLOL 50 MG TAB PO SCH (21:29)
[2016-04-22] MEDS: CARBIDOPA-LEVODOPA ER 50-200MG 1 EACH TABLET.ER PO SCH (21:30)
[2016-04-22] MEDS: NITROGLYCERIN OINT 1 INCH/GM PACKET TOPICAL SCH (21:30)
[2016-04-22 22:09] LABS: Glucose,Whole Blood 140 mg/dL (75-99)
[2016-04-22] MEDS: FUROSEMIDE 10 MG/ML 10 ML VIAL IV SCH (23:05)
[2016-04-23 05:17] LABS: Glucose,Whole Blood 126 mg/dL (75-99)
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
[2016-04-23] MEDS: glipiZIDE 5 MG TAB PO SCH ×2 (08:47→17:02)
[2016-04-23] MEDS: INSULIN LISPRO (humaLOG) 300 UNIT/3 ML VIAL SQ SCH ×2 (08:48→17:19)
[2016-04-23] MEDS: FUROSEMIDE 10 MG/ML 10 ML VIAL IV SCH ×2 (08:49→17:03)
[2016-04-23] MEDS: BACLOFEN 10 MG TAB PO SCH (08:49)
[2016-04-23] MEDS: ATENOLOL 50 MG TAB PO SCH ×2 (08:49→20:55)
[2016-04-23] MEDS: ATORVASTATIN 20 MG TAB PO SCH (08:49)
[2016-04-23] MEDS: CARBIDOPA-LEVODOPA ER 50-200MG 1 EACH TABLET.ER PO SCH ×3 (08:50→20:55)
[2016-04-23] MEDS: CALCIUM CARB-VIT D 500MG-200UN 1 EACH TAB PO SCH (08:50)
[2016-04-23] MEDS: FAMOTIDINE 20 MG TAB PO SCH (08:51)
[2016-04-23] MEDS: LOSARTAN 25 MG TAB PO SCH (08:51)
[2016-04-23] MEDS: PARoxetine 20 MG TAB PO SCH (08:51)
[2016-04-23] MEDS: POTASSIUM CHLORIDE ER 10 MEQ TAB.ER.PRT PO SCH (08:52)
[2016-04-23] MEDS: MULTIVITAMINS, THERA 1 EACH TAB PO SCH (08:52)
[2016-04-23] MEDS: PRIMIDONE 50 MG TAB PO SCH ×4 (08:52→20:55)
[2016-04-23] MEDS: NITROGLYCERIN OINT 1 INCH/GM PACKET TOPICAL SCH ×4 (09:26→20:55)
[2016-04-23 11:38] LABS: Glucose,Whole Blood 246 mg/dL (75-99)
--- NOTE | 2016-04-23 12:19 | CONS ---
DATE OF CONSULTATION: CHIEF COMPLAINT: Leg edema and shortness of breathReyes Rojas is an 80-year-old gentleman with history of coronary artery disease, status post CABG, ischemic cardiomyopathy with an ejection fraction of 40 to 45% moderate to severe pulmonary hypertension, sick sinus syndrome, status post permanent pacemaker placement who presented to hospital with bilateral leg edema, and abdominal distention. He presented to the hospital complaining of bilateral leg edema. Patient was in the hospital last week with very similar symptoms was discharged home, comes back in as the symptoms are not improving. He denies chest pain, paroxysmal nocturnal dyspnea or orthopnea. His admission weight was 120 kg. Today it is 117. Patient is being treated with intravenous diuretics for acute exacerbation of chronic systolic heart failure. I am going to continue the Lasix, probably add Metalazone to what he is on currently and I expect him to diurese well and hopefully discharge home over the next 24 to 48 hours. Past medical history is significant for coronary artery disease, status post CABG, chronic systolic heart failure, insulin-requiring diabetes, hypertension, valvular heart disease. Medications at home included: 1. Coumadin 5 mg daily. 2. Lasix 60 mg b.i.d. 3. Keflex 500 t.i.d. 4. Lipitor 20 mg daily. 5. Tenormin 50 b.i.d. 6. Insulin. 7. Pepcid. 8. Glucophage. 9. Glucotrol. 10. Norvasc 5 b.i.d. 11. Mysoline q.i.d. 12. K-Dur 10 mEq daily. 13. Paxil. 14. Multivitamins. 15. Cozaar. Known drug allergies. FAMILY HISTORY: Negative for premature coronary artery disease. SOCIAL HISTORY: Denies current smoking, ETOH abuse, or drug abuse. REVIEW OF SYSTEMS: HEENT: Is unremarkable. CARDIAC: As described above. RESPIRATORY: As described above. GI: Significant for abdominal distention. GENITOURINARY: Negative. MUSCULOSKELETAL: Significant for arthritis. PSYCHOSOCIAL: Negative. ENDOCRINE: Negative. CONSTITUTIONAL: Negative. Oncological: Negative. DERM: Negative. HEMATOLOGICAL: Negative. The rest of the system review is not relevant. On exam, heart rate is 70 beats per minute, blood pressure is 130/70, respirations 18, O2 sat is 95% on room air. There is no jugular venous distention. Chest exam reveals good air entry bilaterally. I do not have any crackles or rhonchi. Heart exam reveals first and second heart sounds. Systolic murmur at the left lower sternal border. ABDOMEN: Soft. Abdomen soft appears distended. Exam of the extremities reveal bilateral pitting edema. His chest x-ray shows cardiomegaly with bilateral pleural effusions, left more than right. Labs show that the hemoglobin is 12.6, platelet count is 197. Potassium is 4.8. Creatinine is 1.3 with a BUN of 42. The patient usually runs a BUN of 22 and definitely this has worsened. Three sets of cardiac enzymes are negative. BNP is elevated. ASSESSMENT: 1. Acute exacerbation of chronic systolic heart failure. 2. Ascites. 3. Coronary artery disease, status post coronary artery bypass grafting. 4. Hypertension. 5. Insulin-requiring diabetes. PLAN: We will continue the IV Lasix and add Metalazone.
[2016-04-23 14:46] VITALS: BMI 37.0
[2016-04-23 16:46] LABS: Glucose,Whole Blood 92 mg/dL (75-99)
[2016-04-23] MEDS: WARFARIN 5 MG TAB PO SCH (17:02)
[2016-04-23 20:43] LABS: Glucose,Whole Blood 43 mg/dL (75-99)
[2016-04-23 20:58] LABS: Glucose,Whole Blood 76 mg/dL (75-99)
[2016-04-24 00:34] LABS: Glucose,Whole Blood 128 mg/dL (75-99)
[2016-04-24 00:34] LABS: Glucose,Whole Blood 123 mg/dL (75-99)
[2016-04-24] MEDS: FUROSEMIDE 10 MG/ML 10 ML VIAL IV SCH ×4 (00:37→23:47)
[2016-04-24 06:10] LABS: Anisocytosis Slight; Aty Lym Flag Slight; CH 25.2; CHCM 28.7; HCT 40.9 % (39.0-53.0); HDW 3.39; HGB 11.9 gm/dL (13.0-17.5); Hypochromasia Marked; MCH 25.6 pg (25.0-35.0); MCHC 29.1 g/dL (31.0-37.0); MCV 87.9 fL (80.0-100.0); Mean Platelet Volume 8.4; RBC 4.66 m/uL (4.30-5.90); RDW 17.9 % (11.5-15.5); WBC 6.3 k/uL (3.8-10.6)
[2016-04-24 06:19] LABS: Calcium 8.7 mg/dL (8.4-10.2); Potassium 4.9 mmol/L (3.5-5.1); Total Bilirubin 0.4 mg/dL (0.2-1.3); Total Protein 6.4 g/dL (6.3-8.2)
[2016-04-24 06:23] LABS: INR 1.4 (<1.1); Prothrombin Time 13.7 sec (9.0-12.0)
[2016-04-24 06:39] LABS: Add Differential Manual Differential
[2016-04-24 06:43] LABS: Large Platelets Present; Manual Review Performed; Nucleated Red Blood Cells 0 /100 WBC (0-0); Polychromasia Present; Target Cells Present; Total Cells Counted 200
[2016-04-24 06:55] LABS: Glucose,Whole Blood 136 mg/dL (75-99)
[2016-04-24] MEDS ORDERED: INSULIN LISPRO (humaLOG) 300 UNIT/3 ML VIAL SQ ONE (07:47)
[2016-04-24] MEDS: glipiZIDE 5 MG TAB PO SCH ×2 (08:19→18:19)
[2016-04-24] MEDS: ATORVASTATIN 20 MG TAB PO SCH (08:20)
[2016-04-24] MEDS: CALCIUM CARB-VIT D 500MG-200UN 1 EACH TAB PO SCH (08:20)
[2016-04-24] MEDS: ATENOLOL 50 MG TAB PO SCH ×2 (08:20→20:13)
[2016-04-24] MEDS: BACLOFEN 10 MG TAB PO SCH (08:20)
[2016-04-24] MEDS: NITROGLYCERIN OINT 1 INCH/GM PACKET TOPICAL SCH ×4 (08:21→20:13)
[2016-04-24] MEDS: CARBIDOPA-LEVODOPA ER 50-200MG 1 EACH TABLET.ER PO SCH ×3 (08:21→20:13)
[2016-04-24] MEDS: LOSARTAN 25 MG TAB PO SCH (08:21)
[2016-04-24] MEDS: FAMOTIDINE 20 MG TAB PO SCH (08:21)
[2016-04-24] MEDS: METOLAZONE 2.5 MG TAB PO SCH (08:21)
[2016-04-24] MEDS: PRIMIDONE 50 MG TAB PO SCH ×4 (08:22→20:13)
[2016-04-24] MEDS: PARoxetine 20 MG TAB PO SCH (08:22)
[2016-04-24] MEDS: MULTIVITAMINS, THERA 1 EACH TAB PO SCH (08:22)
[2016-04-24] MEDS: POTASSIUM CHLORIDE ER 10 MEQ TAB.ER.PRT PO SCH (08:22)
--- NOTE | 2016-04-24 08:30 | P.PN ---
Progress Note - Text The patient is an 80-year-old gentleman who presented with shortness of breath, edema and abdominal distention. This was not responding to outpatient Lasix. Along with his other cardiac medications. Patient does have acute on chronic systolic congestive heart failure as he has had a previous ejection fraction of 40% and along with this he has underlying coronary artery disease with previous bypass, atrial fibrillation, and hypertensive heart disease. Plus he does have underlying diabetes and does have a dual-chamber pacemaker. And patient is obese. Patient has been seen by cardiology. Patient has been maintained on his Lasix 60 mg every 8 hours and Zaroxolyn 2.5 mg has been added. Chest x-ray did show a left pleural effusion. His weight apparently is staying at about 119.6 kg. It does not appear that we are getting accurate outputs. Although it does appear that he is voiding numerous times. Vital signs reveal temperature 97.4 with a pulse of 86 and respirations 20. Blood pressure is 162/93 and he is 92% saturated on 2 L. Lung sounds do seem to be somewhat improved on the left base. No wheezing. Heart tones irregular but controlled. Abdomen obese. 2-3+ grade edema bilaterally. No new neurological changes. Patient does have Parkinson disease. Laboratory values: White count is 6.3 with a hemoglobin 11.9 and a platelet count of 170. INR this morning is 1.4 he is on 5 mg of Coumadin. Sodium is 135 with a potassium 4.9. CO2 content is 25. BUN has risen to 57 with creatinine of 1.7 given him a GFR of 39. Blood sugars 136. Albumin is 3.1. AST is elevated at 87 and alk phos is 174 but bilirubin was normal at 0.4. Impressions and plans: He has been seen by cardiology. Metolazone added. Continue with IV Lasix. Patient clinically feels better. He is still appearing fluid overloaded. Discussed with cardiology Dr. Nogueira. Discussed with patient at bedside. We'll continue hopefully to diuresis. Basic metabolic panel and INR ordered for tomorrow.
[2016-04-24] MEDS: INSULIN LISPRO (humaLOG) 300 UNIT/3 ML VIAL SQ SCH ×2 (08:49→18:21)
[2016-04-24 11:52] LABS: Glucose,Whole Blood 176 mg/dL (75-99)
--- NOTE | 2016-04-24 11:58 | PN ---
This is an 80-year-old gentleman who is admitted to the hospital with acute exacerbation of chronic systolic heart failure and moderate to severe pulmonary hypertension. The patient is on IV diuretics and I added metolazone to what he was on. He is putting out urine okay, but we still do not see much change in his weight, but weights have been notoriously unreliable on this floor. On exam, patient is afebrile, heart rate is 93 beats per minutes, blood pressure is 131/81, respiratory rate is 18. Chest exam reveals diminished air entry at the bases. Heart exam reveals first and second heart sounds and a systolic murmur in the left lower sternal border. Abdomen is soft. Exam of extremities revealed bilateral pitting edema. Chest x-ray shows bilateral effusions. Labs showed that the hemoglobin is 11.9, platelet count is 170. Potassium is 4.9. BUN is 57. Creatinine is 1.7. ASSESSMENT: Acute exacerbation of chronic systolic heart failure. PLAN: Patient will continue with the IV diuretics and Zaroxolyn that he is currently on. If he does not improve any further, we will increase the dose of Zaroxolyn. INR today is subtherapeutic, but he is on Coumadin, which we will optimize.
[2016-04-24 14:37] LABS: Glucose,Whole Blood 207 mg/dL (75-99)
[2016-04-24 16:51] LABS: Glucose,Whole Blood 190 mg/dL (75-99)
[2016-04-24] MEDS: WARFARIN 5 MG TAB PO SCH (18:20)
[2016-04-24 20:34] LABS: Glucose,Whole Blood 129 mg/dL (75-99)
[2016-04-25 05:26] LABS: Glucose,Whole Blood 93 mg/dL (75-99)
[2016-04-25] MEDS: glipiZIDE 5 MG TAB PO SCH ×2 (06:47→17:24)
[2016-04-25 06:51] LABS: INR 1.5 (<1.1); Prothrombin Time 15.1 sec (9.0-12.0)
[2016-04-25 07:13] LABS: Calcium 8.6 mg/dL (8.4-10.2); Potassium 4.6 mmol/L (3.5-5.1)
[2016-04-25] MEDS: INSULIN LISPRO (humaLOG) 300 UNIT/3 ML VIAL SQ SCH ×2 (07:19→17:24)
[2016-04-25] MEDS: FUROSEMIDE 10 MG/ML 10 ML VIAL IV SCH ×3 (08:06→23:34)
[2016-04-25] MEDS: ATORVASTATIN 20 MG TAB PO SCH (08:07)
[2016-04-25] MEDS: ATENOLOL 50 MG TAB PO SCH ×2 (08:07→20:25)
[2016-04-25] MEDS: BACLOFEN 10 MG TAB PO SCH (08:08)
[2016-04-25] MEDS: CARBIDOPA-LEVODOPA ER 50-200MG 1 EACH TABLET.ER PO SCH ×3 (08:08→20:25)
[2016-04-25] MEDS: FAMOTIDINE 20 MG TAB PO SCH (08:08)
[2016-04-25] MEDS: METOLAZONE 2.5 MG TAB PO SCH (08:08)
[2016-04-25] MEDS: LOSARTAN 25 MG TAB PO SCH (08:08)
[2016-04-25] MEDS: PRIMIDONE 50 MG TAB PO SCH ×4 (08:09→20:25)
[2016-04-25] MEDS: NITROGLYCERIN OINT 1 INCH/GM PACKET TOPICAL SCH ×4 (08:09→20:25)
[2016-04-25] MEDS: PARoxetine 20 MG TAB PO SCH (08:09)
[2016-04-25] MEDS: POTASSIUM CHLORIDE ER 10 MEQ TAB.ER.PRT PO SCH (08:09)
--- NOTE | 2016-04-25 10:13 | P.PN ---
Progress Note - Text The patient is an 80-year-old gentleman who presented with shortness of breath, edema and abdominal distention which he was not responding to outpatient Lasix and his other cardiac medications. He does have acute on chronic systolic congestive heart failure with previous ejection fraction of 40% and underlying coronary artery disease with previous bypass, atrial fibrillation and hypertensive heart disease. He also has history of diabetes and a previous dual chamber pacemaker placement. He is obese. 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 He appears to be diuresing with Lasix 60 every 8 hours and cardiology has added Zaroxolyn 2.5 mg daily. Patient states he feels somewhat better. He is going to the bathroom a lot. Less short of breath with exertion. His weight is down about 2-1/2 kg this morning. Vital signs reveal temperature of 96.7 with a pulse of 79 and respirations 20. Blood pressure is 119/67 and he is 94% saturated on 2 L nasal cannula. Breath sounds are diminished at bases. Heart tones are slightly irregular but rate is controlled. Abdomen feels a bit better but still somewhat tight. No tenderness. Also there still 2+ lower extremity edema. No new neurological changes. Laboratory values: INR is 1.5 this morning. Sodium is 139 with potassium 4.6. BUN is 61 with a creatinine 1.61 given him a GFR 41. Blood sugar was 93. Impressions and plans: We will continue at this time to diuresis with Lasix and Zaroxolyn pending further recommendations from cardiology. We will increase his Coumadin from 5 up to 7.5 mg daily and repeat INR. Also need to follow his blood sugars and renal function. A basic metabolic panel ordered for the morning. Discussed with patient at bedside.
[2016-04-25 12:28] LABS: Glucose,Whole Blood 185 mg/dL (75-99)
[2016-04-25] MEDS: CALCIUM CARB-VIT D 500MG-200UN 1 EACH TAB PO SCH (12:33)
[2016-04-25] MEDS: MULTIVITAMINS, THERA 1 EACH TAB PO SCH (12:33)
[2016-04-25 16:54] LABS: Glucose,Whole Blood 213 mg/dL (75-99)
[2016-04-25] MEDS ORDERED: WARFARIN 7.5 MG TAB PO SCH (18:00)
[2016-04-25] MEDS ORDERED: DOCUSATE 100 MG CAP PO PRN (18:20)
[2016-04-25 20:36] LABS: Glucose,Whole Blood 172 mg/dL (75-99)
[2016-04-26 06:02] LABS: Glucose,Whole Blood 187 mg/dL (75-99)
[2016-04-26 06:15] LABS: INR 2.4 (<1.1); Prothrombin Time 23.2 sec (9.0-12.0)
[2016-04-26 06:19] LABS: Calcium 8.8 mg/dL (8.4-10.2); Potassium 3.9 mmol/L (3.5-5.1)
[2016-04-26] MEDS: glipiZIDE 5 MG TAB PO SCH ×2 (06:51→17:17)
[2016-04-26] MEDS: INSULIN LISPRO (humaLOG) 300 UNIT/3 ML VIAL SQ SCH ×2 (07:16→17:19)
[2016-04-26] MEDS: FUROSEMIDE 10 MG/ML 10 ML VIAL IV SCH (08:05)
[2016-04-26] MEDS: POTASSIUM CHLORIDE ER 10 MEQ TAB.ER.PRT PO SCH (08:08)
[2016-04-26] MEDS: PRIMIDONE 50 MG TAB PO SCH ×4 (08:08→22:17)
[2016-04-26] MEDS: PARoxetine 20 MG TAB PO SCH (08:08)
[2016-04-26] MEDS: ATORVASTATIN 20 MG TAB PO SCH (08:09)
[2016-04-26] MEDS: BACLOFEN 10 MG TAB PO SCH (08:09)
[2016-04-26] MEDS: ATENOLOL 50 MG TAB PO SCH ×2 (08:10→22:17)
[2016-04-26] MEDS: CALCIUM CARB-VIT D 500MG-200UN 1 EACH TAB PO SCH (08:10)
[2016-04-26] MEDS: CARBIDOPA-LEVODOPA ER 50-200MG 1 EACH TABLET.ER PO SCH ×3 (08:10→22:17)
[2016-04-26] MEDS: NITROGLYCERIN OINT 1 INCH/GM PACKET TOPICAL SCH ×4 (08:11→22:19)
[2016-04-26] MEDS: FAMOTIDINE 20 MG TAB PO SCH (08:13)
[2016-04-26] MEDS: METOLAZONE 2.5 MG TAB PO SCH (08:13)
[2016-04-26] MEDS: LOSARTAN 25 MG TAB PO SCH (08:14)
--- NOTE | 2016-04-26 09:45 | P.PN ---
Progress Note - Text The patient is a 80-year-old gentleman who was admitted on the with shortness of breath and increasing edema and ascites. He was not responding to outpatient Lasix and his other medications. Patient has been on IV Lasix 60 mg every 8 hours along with Zaroxolyn 2.5 mg daily. Clinically the patient states he feels better. Less short of breath. It appears yesterday he had almost a liter of fluid out. Weight is down from 117.1 kg to 114.3 kg. Temperature is 97.3 with a pulse of 76 and irregular. Respirations are 18. Blood pressure 145/71 and he is 98% saturated on 2 L. Head and neck exam unremarkable. Lungs seem to be clear at the left base than previous. No wheezing or rhonchi. Abdomen is still somewhat distended but nontender. Still grade 2 edema of the lower extremities with pitting. Laboratory values reveal his INR to be 2.4 this morning Sodium is 141 with potassium 3.9 and a CO2 content of 39. BUN is 58 with creatinine 1.45 resulting in a GFR of 47. Blood sugar is 172. Impressions and plans: Patient overall does appear to be responding to treatment with decreasing weight and improvement in his respiratory status. Patient still has fluid retention especially of the abdomen with ascites and lower extremities. We will continue with his IV Lasix and Zaroxolyn. We have decreased his Coumadin back to 5 mg. Labs to be checked again in the morning. Lantus insulin at 6 units at night will be started also. Patient to be educated on its use as may need to take as an outpatient.
[2016-04-26 12:01] LABS: Glucose,Whole Blood 145 mg/dL (75-99)
[2016-04-26] MEDS: MULTIVITAMINS, THERA 1 EACH TAB PO SCH (12:27)
[2016-04-26] MEDS: FUROSEMIDE 20 MG TAB PO SCH (15:25)
[2016-04-26] MEDS ORDERED: FUROSEMIDE 40 MG TAB PO SCH (16:00)
--- NOTE | 2016-04-26 16:10 | PN ---
This is an 80-year-old gentleman with a history of CAD, previous bypass surgery. Presented here with exacerbation of CHF. On a combination of metolazone, Lasix. He seems to have improved clinically. He is doing much better this morning, breathing is easier. Denies any chest pain. Will switch him from IV to oral Lasix, increase activity and continue metolazone for now. I will obtain a BMP level tomorrow morning and based on clinical course, I will make further recommendations. Patient is now on a combination of metolazone 2.5 mg daily and Lasix and switch from IV to oral and patient has shown some improvement clinically. Will continue current medical regimen. Physical exam revealed blood pressure of 140/70, pulse rate of 68 per minute. He remains in atrial fib. PT, INR is acceptable at 2.4. JVD is 1 cm, no carotid bruit. S1, S2 with irregular rhythm. Short systolic murmur noted. Lungs reveal improved air entry. Abdomen is soft. Lower extremities reveal bilateral 1+ edema. Central nervous system grossly within normal limits. Plan is to continue diuresis from switching from IV to oral and continue current medications. Check BMP in the morning.
[2016-04-26 17:05] LABS: Glucose,Whole Blood 175 mg/dL (75-99)
[2016-04-26] MEDS ORDERED: WARFARIN 5 MG TAB PO SCH (18:00)
[2016-04-26 20:48] LABS: Glucose,Whole Blood 150 mg/dL (75-99)
[2016-04-26] MEDS: INSULIN GLARGINE 100 UNIT/ML 10 ML VIAL SQ SCH (22:18)
[2016-04-27 05:53] LABS: Glucose,Whole Blood 141 mg/dL (75-99)
[2016-04-27 06:28] LABS: Blood Urea Nitrogen 43 mg/dL (9-20); Calcium 8.6 mg/dL (8.4-10.2); Chloride 88 mmol/L (98-107); Glucose 151 mg/dL (74-99); Non-African American GFR(MDRD) >60 (>60 ml/min/1.73 sqM); Sodium 137 mmol/L (137-145)
[2016-04-27 06:29] LABS: INR 3.1 (<1.1)
[2016-04-27 06:34] LABS: Anion Gap 9 mmol/L
[2016-04-27 06:39] LABS: Carbon Dioxide 40 mmol/L (22-30)
[2016-04-27] MEDS ORDERED: Potassium Replacement Protocol 1 EACH MISC MISCELLANE PRN (06:59)
[2016-04-27] MEDS: glipiZIDE 5 MG TAB PO SCH ×2 (07:06→17:01)
[2016-04-27] MEDS: INSULIN LISPRO (humaLOG) 300 UNIT/3 ML VIAL SQ SCH ×2 (07:55→17:01)
--- NOTE | 2016-04-27 08:12 | P.PN ---
Progress Note - Text The patient is an 80-year-old gentleman who approximately 5 days ago presented with shortness of breath, increasing edema and ascites. Zaroxolyn was added to his Lasix and he has been apparently diuresing better. He states he is less short of breath. Denies any chest pain. No nausea or vomiting. Patient's weight has decreased further from 114.3 kg to 112 kg. Other vitals reveal temperature 98.5 with a pulse of 95 irregular and respirations 18. Blood pressure is 154/102 and he is 92% saturated on 2 L. Lungs are generally clear. Heart tones are regular. Abdomen is still somewhat tense but nontender. Lower extremity edema persists 2+ bilaterally. No neurological changes. Laboratory: INR this morning is 3.1. Sodium was 137 with potassium of 3.0. Carbon dioxide is 40. BUN is 43 with a creatinine of 1.1 given him a GFR greater than 60. Impressions and plans: Patient will be placed on potassium protocol. Coumadin to be held today with INR 3.1. Cardiology notes regarded. Blood sugars appear to be stabilizing.
[2016-04-27] MEDS: CARBIDOPA-LEVODOPA ER 50-200MG 1 EACH TABLET.ER PO SCH ×3 (09:22→21:10)
[2016-04-27] MEDS: POTASSIUM CHLORIDE ER 20 MEQ TAB.ER PO SCH ×4 (09:22→17:01)
[2016-04-27] MEDS: ATORVASTATIN 20 MG TAB PO SCH (09:22)
[2016-04-27] MEDS: ATENOLOL 50 MG TAB PO SCH ×2 (09:22→21:07)
[2016-04-27] MEDS: CALCIUM CARB-VIT D 500MG-200UN 1 EACH TAB PO SCH (09:23)
[2016-04-27] MEDS: BACLOFEN 10 MG TAB PO SCH (09:23)
[2016-04-27] MEDS: LOSARTAN 25 MG TAB PO SCH (09:23)
[2016-04-27] MEDS: FAMOTIDINE 20 MG TAB PO SCH (09:23)
[2016-04-27] MEDS: METOLAZONE 2.5 MG TAB PO SCH (09:24)
[2016-04-27] MEDS: FUROSEMIDE 20 MG TAB PO SCH ×2 (09:24→15:09)
[2016-04-27] MEDS: NITROGLYCERIN OINT 1 INCH/GM PACKET TOPICAL SCH ×4 (09:24→21:08)
[2016-04-27] MEDS: PARoxetine 20 MG TAB PO SCH (09:24)
[2016-04-27] MEDS: PRIMIDONE 50 MG TAB PO SCH ×4 (09:25→21:08)
[2016-04-27] MEDS: POTASSIUM CHLORIDE ER 10 MEQ TAB.ER.PRT PO SCH (09:25)
[2016-04-27 11:33] LABS: Glucose,Whole Blood 130 mg/dL (75-99)
[2016-04-27] MEDS: MULTIVITAMINS, THERA 1 EACH TAB PO SCH (11:34)
[2016-04-27 16:35] LABS: Glucose,Whole Blood 227 mg/dL (75-99)
[2016-04-27] MEDS ORDERED: POTASSIUM CHLORIDE ER 20 MEQ TAB.ER PO ONE (20:00)
[2016-04-27 20:37] LABS: Glucose,Whole Blood 134 mg/dL (75-99)
[2016-04-27] MEDS: INSULIN GLARGINE 100 UNIT/ML 10 ML VIAL SQ SCH (21:07)
[2016-04-28 05:51] LABS: Glucose,Whole Blood 220 mg/dL (75-99)
[2016-04-28 06:50] LABS: Blood Urea Nitrogen 35 mg/dL (9-20); Calcium 8.3 mg/dL (8.4-10.2); Chloride 88 mmol/L (98-107); Glucose 241 mg/dL (74-99); Non-African American GFR(MDRD) >60 (>60 ml/min/1.73 sqM); Potassium 3.8 mmol/L (3.5-5.1); Sodium 137 mmol/L (137-145)
[2016-04-28 06:51] LABS: INR 2.1 (<1.1); Prothrombin Time 19.7 sec (9.0-12.0)
[2016-04-28 06:58] LABS: Anion Gap 8 mmol/L
[2016-04-28 07:08] LABS: Carbon Dioxide 41 mmol/L (22-30)
[2016-04-28] MEDS: glipiZIDE 5 MG TAB PO SCH (07:29)
[2016-04-28] MEDS: INSULIN LISPRO (humaLOG) 300 UNIT/3 ML VIAL SQ SCH (07:29)
[2016-04-28 07:47] VITALS: RESP 17; TEMP 98.4
[2016-04-28] MEDS: ATORVASTATIN 20 MG TAB PO SCH (07:48)
[2016-04-28] MEDS: FAMOTIDINE 20 MG TAB PO SCH (07:48)
[2016-04-28] MEDS: METOLAZONE 2.5 MG TAB PO SCH (07:48)
[2016-04-28] MEDS: CARBIDOPA-LEVODOPA ER 50-200MG 1 EACH TABLET.ER PO SCH (07:48)
[2016-04-28] MEDS: FUROSEMIDE 20 MG TAB PO SCH (07:49)
[2016-04-28] MEDS: POTASSIUM CHLORIDE ER 10 MEQ TAB.ER.PRT PO SCH (07:49)
[2016-04-28] MEDS: BACLOFEN 10 MG TAB PO SCH (07:49)
[2016-04-28] MEDS: ATENOLOL 50 MG TAB PO SCH (07:49)
[2016-04-28] MEDS: CALCIUM CARB-VIT D 500MG-200UN 1 EACH TAB PO SCH (07:49)
[2016-04-28] MEDS: NITROGLYCERIN OINT 1 INCH/GM PACKET TOPICAL SCH ×2 (07:50→11:04)
[2016-04-28] MEDS: LOSARTAN 25 MG TAB PO SCH (07:50)
[2016-04-28] MEDS: PARoxetine 20 MG TAB PO SCH (07:51)
[2016-04-28] MEDS: PRIMIDONE 50 MG TAB PO SCH ×2 (07:51→12:08)
--- NOTE | 2016-04-28 08:36 | P.DS ---
Providers Date of admission: 04/22/16 16:30 The patient is a 80-year-old gentleman who presented with shortness of breath. Increasing abdominal and lower leg edema. Has been hospitalized for new onset ascites and alcoholic cirrhosis. Patient also has acute on chronic systolic congestive heart failure with ejection fraction of 40%. Along with chronic atrial fibrillation. On presentation his chest x-ray showed a left pleural effusion and cardiomegaly and he had 2-3+ edema bilaterally and was short of breath. Laboratory values revealed a white count of 6 with a hemoglobin 12.6 and a platelet count of 197. BUN was 42 with creatinine 1.3 giving him stage III renal failure. GFR was 52. BNP was elevated 7360. Patient's EKG G showed atrial fibrillation with a controlled response and no ischemic changes. Patient was admitted. He received IV Lasix. He was seen by cardiology and please refer to their consultation and notes. Metolazone was added to his regimen. Patient appears to have clinically improved and has diuresed with a continuing weight loss and decrease in his edema and ascites. He has been seen by physical therapy to help with his endurance. His latest labs from today reveal an INR of 2.1. Sodium is 137 with potassium 3.8 and a CO2 content of 41. His BUN is 35 with creatinine of 1.11 given him a GFR now greater than 60. Blood sugar randomly was 241 and calcium 8.3. Discharge diagnoses: 1. Acute on chronic congestive heart failure with systolic dysfunction and ejection fraction of 40% associated with left pleural effusion and edema and ascites. 2. Chronic atrial fibrillation in the face of diastolic dysfunction. 3. Ascites secondary to liver cirrhosis and previous alcohol intake. 4. Coronary artery disease with previous bypass surgery in the year 1999 5. Hypertension and hypertensive heart disease 6. Hyperlipidemia 7. Type 2 diabetes and obesity 8. History of dual-chamber pacemaker placement for sick sinus syndrome 9. Previous cholecystectomy back in December 2015 10. Chronic kidney disease stage 3-4. 11. History of tremors and Parkinson's disease followed by neurology Dr. Maier on medication at 12. BPH 13. Degenerative joint disease diffuse 14. History of previous colonic polyps removed in 2013. 15. History of depression on Paxil. Discharge medications 1. Atenolol 50 mg twice a day 2. Lipitor 20 mg daily 3. Baclofen 10 mg daily 4. Calcium with vitamin D replacement of 500 one daily. 5. Sinemet ER 50-200, 1 tablet 3 times a day 6. Pepcid 20 mg daily 7. Glucotrol 10 mg twice a day 8. Lantus insulin increased to 10 units at bedtime nightly. 9. Humalog 10 units before breakfast and supper subcu. 10. Losartan 25 mg daily 11. Zaroxolyn 2.5 mg daily. 12. Potassium chloride 10 mEq twice a day. 13. Paxil 20 mg daily. 14. Mysoline 50 mg 4 times a day for tremors. 15. Coumadin 5 mg daily to alternate with 2.5 mg every day. To have INR and basic metabolic panel to be done weekly. Admission labs. Accu-Cheks to be done at breakfast and supper. Continue with physical and occupational therapy. Overall long-term prognosis is guarded. Although patient should do well with the physical and occupational therapies. Attending physician: Dalton Santiago Primary care physician: Dalton Santiago Plan - Discharge Summary Discharge Medication List Atenolol [Tenormin] 50 mg PO BID 11/20/13 [History] Baclofen [Lioresal] 10 mg PO DAILY 11/20/13 [History] Carbidopa/Levodopa [Carbidopa-Levo ER 50-200 Tab] 1 tab PO TID 11/20/13 [History ] Famotidine [Pepcid] 20 mg PO DAILY 11/20/13 [History] PARoxetine [Paxil] 20 mg PO QAM 11/20/13 [History] Potassium Chloride [K-Tab ER] 10 meq PO DAILY 11/20/13 [History] Primidone [Mysoline] 50 mg PO QID 11/20/13 [History] amLODIPine BESYLATE [Norvasc] 5 mg PO BID 11/20/13 [History] glipiZIDE [Glucotrol] 10 mg PO AC-BID 11/20/13 [History] metFORMIN HCL [Glucophage] 500 mg PO AC-BID 11/20/13 [History] Calcium Carbonate/Vitamin D3 [Calcium 600-Vit D3 400 Caplet] 1 tab PO DAILY 02/20 [History] Multivit-Min/FA/Lycopene/Lut [Centrum Silver Tablet] 1 tab PO DAILY 12/18/15 [ History] Aspirin 325 mg PO DAILY@1200 01/22/16 [History] Insulin Aspart [NovoLOG] 14 unit SQ AC-BRKFST 01/22/16 [History] Insulin Aspart [NovoLOG] 14 unit SQ AC-SUPPER 01/22/16 [History] Losartan [Cozaar] 25 mg PO DAILY 02/12/16 [History] Atorvastatin [Lipitor] 20 mg PO DAILY 04/22/16 [History] Cephalexin [Keflex] 500 mg PO TID 04/22/16 [History] Furosemide [Lasix] 60 mg PO BID 04/22/16 [History] Warfarin [Coumadin] 5 mg PO DAILY 04/22/16 [History] Follow up Appointment(s)/Referral(s): Dalton Santiago MD [Primary Care Provider] - 1-2 days
[2016-04-28 11:40] LABS: Glucose,Whole Blood 154 mg/dL (75-99)
[2016-04-28] MEDS: MULTIVITAMINS, THERA 1 EACH TAB PO SCH (12:08)
[2016-04-28 12:12] VITALS: BP 133/65; PULSE 80
--- NOTE | 2016-04-28 12:52 | P.PN ---
Subjective Principal diagnosis: Congestive heart failure This is an 80-year-old gentleman with history of coronary artery disease and prior bypass surgery, hypertension, hyperlipidemia, he presented to the hospital with symptoms of shortness of breath, had been diuresed on IV Lasix , changed over to oral diuretics. Feeling much better overall. Potassium today is 3.8, BUN 35, creatinine 1.1. Weight is down 1 kg today. Being scheduled to be transferred to rehab today. Objective - Vital Signs Vital signs: Vital Signs Temp 98.4 F 04/28/16 07:46 Pulse 80 04/28/16 12:00 Resp 17 04/28/16 12:00 BP 133/65 04/28/16 12:00 Pulse Ox 94 L 04/28/16 12:00 Intake & Output 04/27/16 04/28/16 04/28/16 18:59 06:59 18:59 Intake Total 1560 10 540 Balance 1560 10 540 Weight 111.9 kg Intake: IV 10 0.9 10 Oral 1560 540 Other: Voiding Method Toilet Toilet Urinal Urinal # Voids 1 - Exam PHYSICAL EXAMINATION: HEENT: Head is atraumatic, normocephalic. Pupils equal, round. Neck is supple. There is no elevated jugular venous pressure. HEART EXAMINATION: Heart S1, S2 normal. No murmur or gallop heard. CHEST EXAMINATION: Lungs are clear to auscultation and precussion. No chest wall tenderness is noted on palpation or with deep breathing. ABDOMEN: Soft, nontender. Bowel sounds are heard. No organomegaly noted. EXTREMITIES: 2+ peripheral pulses with 1+ evidence of peripheral edema and no calf tenderness noted. NEUROLOGIC patient is awake, alert and oriented -3. . - Labs CBC & Chem 7: 04/24/16 05:56 04/28/16 05:49 Labs: Abnormal Lab Results - Last 24 Hours (Table) 04/27/16 04/27/16 04/27/16 Range/Units 14:15 16:29 20:34 PT (9.0-12.0) sec Potassium 3.4 L (3.5-5.1) mmol/L Chloride (98-107) mmol/L Carbon Dioxide (22-30) mmol/L BUN (9-20) mg/dL Glucose (74-99) mg/dL POC Glucose (mg/dL) 227 H 134 H (75-99) mg/dL Calcium (8.4-10.2) mg/dL 04/28/16 04/28/16 04/28/16 Range/Units 05:42 05:49 05:49 PT 19.7 H (9.0-12.0) sec Potassium (3.5-5.1) mmol/L Chloride 88 L (98-107) mmol/L Carbon Dioxide 41 H* (22-30) mmol/L BUN 35 H (9-20) mg/dL Glucose 241 H (74-99) mg/dL POC Glucose (mg/dL) 220 H (75-99) mg/dL Calcium 8.3 L (8.4-10.2) mg/dL 04/28/16 Range/Units 11:38 PT (9.0-12.0) sec Potassium (3.5-5.1) mmol/L Chloride (98-107) mmol/L Carbon Dioxide (22-30) mmol/L BUN (9-20) mg/dL Glucose (74-99) mg/dL POC Glucose (mg/dL) 154 H (75-99) mg/dL Calcium (8.4-10.2) mg/dL Assessment and Plan (1) Systolic CHF, acute on chronic Status: Acute (2) Hx of CABG Status: Acute (3) Cellulitis Status: Acute (4) Diabetes Status: Acute (5) Hyperlipemia Status: Acute (6) Ischemic cardiomyopathy Status: Acute (7) Pacemaker Status: Acute (8) Pulmonary HTN Status: Acute (9) Renal failure Status: Acute Plan: From cardiology's perspective, we'll continue the patient on his current medications. He may be able to be transferred to rehab facility today. We will make him a follow-up appointment in the office post discharge. DNP note has been reviewed, I agree with a documented findings and plan of care. Patient was seen and examined.
== END 2016-04-28 13:23 | disposition home or self-care (01) | DRG 291 ==
LOC: EC 13:43 → 6SEL 16:30
PROVIDERS: ADMIT Internal Medicine; ATTEND Internal Medicine
DX: I13.0 Hypertensive heart and chronic kidney disease with heart failure and stage 1 through stage 4 chronic kidney disease, or unspecified chronic kidney disease (principal); I50.23 Acute on chronic systolic (congestive) heart failure; N18.4 Chronic kidney disease, stage 4 (severe); E11.22 Type 2 diabetes mellitus with diabetic chronic kidney disease; G20 Parkinson's disease; I27.2 Other secondary pulmonary hypertension; K86.1 Other chronic pancreatitis; I48.2 Chronic atrial fibrillation; K70.31 Alcoholic cirrhosis of liver with ascites; G25.0 Essential tremor; L03.90 Cellulitis, unspecified; E78.5 Hyperlipidemia, unspecified; I25.2 Old myocardial infarction; I25.10 Atherosclerotic heart disease of native coronary artery without angina pectoris; I25.5 Ischemic cardiomyopathy; I73.9 Peripheral vascular disease, unspecified; M19.90 Unspecified osteoarthritis, unspecified site; N40.0 Benign prostatic hyperplasia without lower urinary tract symptoms; Z79.01 Long term (current) use of anticoagulants; Z79.4 Long term (current) use of insulin; Z79.82 Long term (current) use of aspirin; Z82.49 Family history of ischemic heart disease and other diseases of the circulatory system; Z87.891 Personal history of nicotine dependence; Z95.0 Presence of cardiac pacemaker; Z95.1 Presence of aortocoronary bypass graft; Z96.1 Presence of intraocular lens; F32.9 Major depressive disorder, single episode, unspecified; Z79.84 Long term (current) use of oral hypoglycemic drugs
CPT/HCPCS: 36415; 71020; 76705; 80048; 80053; 82550; 82553; 82565; 83880; 84132; 84484; 85025; 85049; 85610; 85730; 93005; 96374; 99291

== ENCOUNTER 2016-07-15 08:48 | Day surgery (SDC) | payer MEDICARE, SELFPAY ==
[2016-07-10 15:18] VITALS: BMI 28.7
[~2016-07-15 08:48] MED LIST: LACTATED RINGERS 1,000 ML IV SCH; LIDOCAINE 1% 20 ML VIAL (10MG/ML) FOR IV START INTRADERMA PRN
[2016-07-15 09:21] VITALS: PULSE 70; RESP 18; TEMP 97
[2016-07-15 09:37] LABS: Glucose,Whole Blood 219 mg/dL (75-99)
[2016-07-15] MEDS ORDERED: PROPOFOL 10 MG/ML 20 ML VIAL IV ONE (10:56)
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
--- NOTE | 2016-07-15 11:23 | P.OP ---
Date of Procedure: 07/15/16 Preoperative Diagnosis: GI bleed History of colonic polyps Postoperative Diagnosis: Severe diverticulosis of sigmoid colon Procedure(s) Performed: Colonoscopy Anesthesia: MAC Surgeon: Taras Patel Pathology: none sent Condition: stable Disposition: PACU Description of Procedure: The patient's placed on the endoscopy table lateral position. He received IV sedation. Digital rectal exam was performed which revealed a few external hemorrhoids. The flexible colonoscope was then placed patient anus passed throughout the entire colon. The ileocecal valve sutures. The cecum, ascending and transverse colon appeared normal. In the descending colon was a few scattered diverticula. The sigmoid colon there was extensive diverticular changes with some scarring of the sigmoid colon. Scope was then brought back the rectum and this appeared normal. Scope was withdrawn for patient.
[2016-07-15 11:31] LABS: Glucose,Whole Blood 205 mg/dL (75-99)
[2016-07-15 11:51] VITALS: BP 117/67
== END 2016-07-15 12:07 | disposition home or self-care (01) ==
LOC: ORWHC2ENDO 08:48
PROVIDERS: ATTEND Surgery
DX: K57.30 Diverticulosis of large intestine without perforation or abscess without bleeding (principal); K64.4 Residual hemorrhoidal skin tags; Z86.010 Personal history of colon polyps; Z87.19 Personal history of other diseases of the digestive system; E11.9 Type 2 diabetes mellitus without complications; Z79.4 Long term (current) use of insulin; Z79.84 Long term (current) use of oral hypoglycemic drugs; I25.10 Atherosclerotic heart disease of native coronary artery without angina pectoris; I11.0 Hypertensive heart disease with heart failure; I50.9 Heart failure, unspecified; Z87.891 Personal history of nicotine dependence; E78.5 Hyperlipidemia, unspecified; I25.2 Old myocardial infarction; I48.2 Chronic atrial fibrillation; G20 Parkinson's disease; G25.0 Essential tremor; Z95.1 Presence of aortocoronary bypass graft; Z95.5 Presence of coronary angioplasty implant and graft; Z95.0 Presence of cardiac pacemaker; Z79.01 Long term (current) use of anticoagulants; Z79.899 Other long term (current) drug therapy
CPT/HCPCS: 45378; J2704

== ENCOUNTER → 2017-07-27 | Outpatient (CLI) | payer MEDICARE ==
[2017-07-27 10:26] LABS: Albumin 3.8 g/dL (3.5-5.0); Calcium 8.9 mg/dL (8.4-10.2); Potassium 4.9 mmol/L (3.5-5.1); Total Bilirubin 0.3 mg/dL (0.2-1.3); Total Protein 6.9 g/dL (6.3-8.2)
== END | disposition home or self-care (01) ==
LOC: LABWHC1 09:13
PROVIDERS: ATTEND Internal Medicine Interventional Cardiology
DX: E78.2 Mixed hyperlipidemia (principal)
CPT/HCPCS: 36415; 80053; 80061

== ENCOUNTER 2017-08-24 06:20 | Day surgery (SDC) | payer MEDICARE ==
[2017-08-18 11:57] VITALS: BMI 35.4
[~2017-08-24 06:20] MED LIST changes: +ALPRAZolam 0.25 MG TAB PO PRN; +ASPIRIN 325 MG TAB PO ONE; -LACTATED RINGERS 1,000 ML IV SCH; -LIDOCAINE 1% 20 ML VIAL (10MG/ML) FOR IV START INTRADERMA PRN; +SODIUM CHLORIDE 0.9% 1,000 ML in EMPTY BAG 1 BAG IV ONE
[2017-08-24] MEDS ORDERED: VERAPAMIL 2.5 MG/ML 2 ML AMP ONE (07:12)
[2017-08-24 07:19] VITALS: PULSE 70; TEMP 99.4
[2017-08-24] MEDS ORDERED: IV FLUID CONTINUATION 1,000 ML IV ONE (07:32)
[2017-08-24 07:38] LABS: Basophils % (A) 1 %; Eosinophils # (A) 0.2 k/uL (0-0.7); Eosinophils % (A) 3 %; HCT 39.6 % (39.0-53.0); HGB 13.6 gm/dL (13.0-17.5); Lymphocytes # (A) 1.1 k/uL (1.0-4.8); Lymphocytes % (A) 18 %; MCH 30.8 pg (25.0-35.0); MCHC 34.2 g/dL (31.0-37.0); Mean Platelet Volume 8.2; Monocytes # (A) 0.6 k/uL (0-1.0); Monocytes % (A) 10 %; Neutrophils # (A) 4.1 k/uL (1.3-7.7); Neutrophils % (A) 67 %; Platelet Count 157 k/uL (150-450); RDW 15.4 % (11.5-15.5); WBC 6.1 k/uL (3.8-10.6)
[2017-08-24] MEDS ORDERED: LIDOCAINE 1% INJ 10MG/ML (20 ML MDV) ONE (07:40)
[2017-08-24] MEDS ORDERED: fentaNYL (PF) 50 MCG/ML 2 ML AMP IV ONE (07:41)
[2017-08-24] MEDS ORDERED: fentaNYL (PF) 50 MCG/ML 2 ML AMP ONE (07:42)
[2017-08-24] MEDS ORDERED: LIDOCAINE 2% SYG (PF) 100 MG/5 ML MISCELLANE ONE (07:44)
[2017-08-24 07:47] LABS: Glucose,Whole Blood 165 mg/dL (75-99)
[2017-08-24 07:47] LABS: Calcium 8.8 mg/dL (8.4-10.2); Potassium 4.2 mmol/L (3.5-5.1)
[2017-08-24] MEDS ORDERED: diphenhydrAMINE 50 MG/ML 1 ML VIAL ONE (07:51)
[2017-08-24] MEDS ORDERED: diphenhydrAMINE 50 MG/ML 1 ML VIAL IVP ONE (07:53)
[2017-08-24] MEDS ORDERED: IOPAMIDOL-370 50ML BTL INJ ONE (08:13)
[2017-08-24] MEDS ORDERED: IOPAMIDOL-370 125ML BTL INJ ONE (08:13)
[2017-08-24] MEDS ORDERED: RX INFO: IV CONTRAST WAS GIVEN 1 EACH MISC MISCELLANE PRN (08:19)
[2017-08-24] MEDS ORDERED: SODIUM CHLORIDE 0.9% 1,000 ML IV SCH (08:30)
--- NOTE | 2017-08-24 08:56 | CC ---
CARDIAC CATHETERIZATION REPORT Mr. Paiz is an 82-year-old male with known history of persistent chronic atrial fibrillation, history of coronary artery disease who is scheduled to undergo total knee arthroplasty and was found to have evidence of lateral wall ischemia and has been complaining of chest discomfort. Because of his findings, recommendation was made regarding cardiac catheterization. The procedure as well as the risks and the complications were discussed with the patient who is in full understanding and agreement. PROCEDURE: Patient was brought to the laboratory tech in a fasting semi-sedated state after receiving fentanyl and Benadryl and achieving moderate conscious sedated state. Using Xylocaine anesthesia in the Seldinger technique, a 6-[place] sheath was introduced in the right femoral artery. Selective right and left coronary angiography performed using 5- [place], 4 bend right and left Dontae catheter. Multiple views of the coronary artery including hemiaxial views were obtained. Following that, the 5-[place] right Dontae catheter was used to cannulate the CRAWFORD to LAD, saphenous vein graft to diagonal and radial artery to the RCA. Images of the grafts were obtained. Following that, 6- [place] tight pigtail catheter was introduced in left ventricle and a 30-degree PONCE view of the left ventricle was obtained. Following that, catheter and sheaths were removed. Hemostasis was obtained with deployment of an Angio-Seal. There was no immediate complication. Patient was returned to his room in stable condition. FINDINGS: FLUOROSCOPY: There was severe calcification involving the left main and the LAD. LEFT MAIN: This is a large-sized vessel bifurcating in the left circumflex and left anterior descending artery. Left main coronary artery has a 40% plaque distally. LEFT ANTERIOR DESCENDING ARTERY: This vessel is heavily calcified in the proximal segment and shortly after that it is totally occluded with no antegrade flow. LEFT CIRCUMFLEX: This is a nondominant vessel, moderate in caliber giving rise to 4 obtuse marginal branches. The left circumflex is heavily calcified proximally, has a 67% stenosis in the proximal segment, has diffuse intimal disease throughout the course of the vessel. RIGHT CORONARY ARTERY: This vessel is dominant bifurcating distally to PDA and PLV. The stented segment in the mid RCA is patent. Prior to the stenting, there is an area of stenosis of about 70%. The rest of the vessel has diffuse intimal disease without any evidence of high-grade stenosis. CRAWFORD TO LAD: The distal anastomotic site is patent. The flow into the LAD is brisk. The LAD has 70% to 80% stenosis at the apex. The rest of the vessel has no high-grade stenosis. SAPHENOUS VEIN GRAFT TO THE DIAGONAL BRANCH: This graft is totally occluded with no antegrade flow. RADIAL ARTERY TO THE PDA: The proximal and distal anastomotic sites are patent. The flow into the PDA is brisk. There is no evidence of high-grade stenosis. COLLATERALS: There is collateral from the right PDA toward the diagonal branch. LEFT VENTRICULOGRAM: The left ventriculogram is performed in 30-degree PONCE view and revealed an overall preserved systolic function. Ejection fraction is estimated at 50% to 55%. There was mild inferior wall hypokinesis. There was no significant mitral regurgitation. HEMODYNAMICS: There was no gradient across the aortic valve. The left ventricle end- diastolic pressure was 16 to 18 mmHg. CONCLUSION: 1. Heavily calcified coronary arteries. 2. 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 3. Significant disease in the ostium of the left circumflex. 4. Significant disease in the proximal right coronary artery. 5. Patent CRAWFORD to LAD. 6. Patent radial graft to the RCA. 7. Totally occluded saphenous vein graft to diagonal branch. 8. Mildly impaired left ventricular systolic function. RECOMMENDATION: After reviewing the images and compared with the images obtained in 2007, his symptoms more likely are related to the occlusion of the graft to the diagonal branch. At this time, will maximize his medical therapy and depending on his progress, further recommendations will be made. Those findings and recommendation were discussed with the patient and his family who are in full understanding and agreement. Duration of the procedure is 20 minutes. MMODL / IJN: [id number] /
[2017-08-24] MEDS ORDERED: SPIRONOLACTONE 25 MG TAB PO SCH (09:00)
[2017-08-24] MEDS ORDERED: PRIMIDONE 50 MG TAB PO SCH (09:00)
[2017-08-24] MEDS ORDERED: NON-FORMULARY DRUG (Multivit-Min/Fa/Lycopen/Lutein [Centrum Silver Tablet] 1 TAB) PO SCH (09:00)
[2017-08-24] MEDS ORDERED: INSULIN NPL SQ SCH ×2 (09:00→17:30)
[2017-08-24] MEDS ORDERED: ISOSORBIDE MONONITRATE ER 30 MG TAB.ER.24H PO SCH (09:00)
[2017-08-24] MEDS ORDERED: NON-FORMULARY DRUG (Calcium Carbonate/Vitamin D3 [Calcium 600-Vit D3 400 Caplet] 1 TAB) PO SCH (09:00)
[2017-08-24] MEDS ORDERED: INSULIN LISPRO SQ SCH ×2 (09:00→17:30)
[2017-08-24] MEDS ORDERED: LOSARTAN 25 MG TAB PO SCH (09:00)
[2017-08-24] MEDS ORDERED: PARoxetine 20 MG TAB PO SCH (09:00)
[2017-08-24] MEDS ORDERED: CARBIDOPA-LEVODOPA ER 50-200MG 1 EACH TABLET.ER PO SCH (09:00)
[2017-08-24] MEDS ORDERED: FAMOTIDINE 20 MG TAB PO SCH (09:00)
[2017-08-24] MEDS ORDERED: ATENOLOL 25 MG TAB PO SCH (09:00)
[2017-08-24] MEDS ORDERED: ASPIRIN 325 MG TAB PO SCH (09:00)
--- NOTE | 2017-08-24 09:02 | LTR ---
August 24, 2017 Re: ChenchoBob Dear Dr. Santiago: I had the opportunity to perform cardiac catheterization on Mr. Paiz at [facility] on the 24 of August and a full copy of the procedure note will be forwarded to you. In brief, he was found to have chronic total occlusion of the right coronary artery with significant disease in the left circumflex, left main and the proximal right coronary artery. His graft to the LAD and to the right coronary artery are patent with chronic occlusion of the saphenous vein graft to the diagonal branch, which explains his symptoms and the results of his stress test. At this time, I will maximize his medical therapy and depending on his progress, further recommendation will be made. Thank you again for allowing me the opportunity to participate in his care. Please feel free to call for any questions. Sincerely yours, MD IMLLI Bianchi / ISABEL: [id number] /
[2017-08-24 09:19] VITALS: RESP 18
[2017-08-24] MEDS ORDERED: NON-FORMULARY DRUG (Potassium Chloride [K-Tab Er] 20 MEQ) PO SCH (12:30)
[2017-08-24 14:01] VITALS: BP 134/63
[2017-08-24] MEDS ORDERED: glipiZIDE 5 MG TAB PO SCH (17:30)
[2017-08-24] MEDS ORDERED: FUROSEMIDE 20 MG TAB PO SCH (21:00)
[2017-08-24] MEDS ORDERED: ATORVASTATIN 20 MG TAB PO SCH (21:00)
[2017-08-24] MEDS ORDERED: BACLOFEN 10 MG TAB PO SCH (21:00)
== END 2017-08-24 15:00 | disposition home or self-care (01) ==
LOC: CATHCVL 06:20
PROVIDERS: ATTEND Internal Medicine Interventional Cardiology
DX: I25.810 Atherosclerosis of coronary artery bypass graft(s) without angina pectoris (principal); I25.82 Chronic total occlusion of coronary artery; I25.10 Atherosclerotic heart disease of native coronary artery without angina pectoris; R94.39 Abnormal result of other cardiovascular function study; I48.2 Chronic atrial fibrillation; E78.2 Mixed hyperlipidemia; E11.22 Type 2 diabetes mellitus with diabetic chronic kidney disease; I12.9 Hypertensive chronic kidney disease with stage 1 through stage 4 chronic kidney disease, or unspecified chronic kidney disease; N18.9 Chronic kidney disease, unspecified; G20 Parkinson's disease; Z95.0 Presence of cardiac pacemaker; Z95.5 Presence of coronary angioplasty implant and graft; Z82.49 Family history of ischemic heart disease and other diseases of the circulatory system; Z79.82 Long term (current) use of aspirin; Z79.4 Long term (current) use of insulin; Z79.899 Other long term (current) drug therapy
CPT/HCPCS: 93459; 80048; 85025; C1760; C1894 ×2; C1769; J1200; J2001; J3010; Q9967 ×2

== ENCOUNTER 2017-10-03 10:36 | Inpatient (IN) | payer MEDICARE, OTHER ==
[2017-10-03] MEDS ORDERED: MORPHINE SULFATE 4 MG/ML SYRINGE IVP STA (10:55)
[2017-10-03] MEDS ORDERED: ASPIRIN 325 MG TAB PO STA (10:55)
[2017-10-03 10:59] LABS: Anisocytosis Slight; Basophils % (A) 1 %; Eosinophils # (A) 0.2 k/uL (0-0.7); Eosinophils % (A) 4 %; HGB 13.2 gm/dL (13.0-17.5); Lymphocytes # (A) 0.8 k/uL (1.0-4.8); Lymphocytes % (A) 15 %; MCH 29.8 pg (25.0-35.0); MCHC 32.1 g/dL (31.0-37.0); MCV 92.7 fL (80.0-100.0); Mean Platelet Volume 7.4; Monocytes # (A) 0.5 k/uL (0-1.0); Monocytes % (A) 9 %; Neutrophils # (A) 3.8 k/uL (1.3-7.7); Neutrophils % (A) 69 %; Platelet Count 165 k/uL (150-450); RBC 4.43 m/uL (4.30-5.90); WBC 5.6 k/uL (3.8-10.6)
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
[2017-10-03 11:07] LABS: Partial Thromboplastin Time 23.3 sec (22.0-30.0); Prothrombin Time 10.1 sec (9.0-12.0)
[2017-10-03 11:11] LABS: Calcium 8.8 mg/dL (8.4-10.2); Potassium 4.2 mmol/L (3.5-5.1); Total Bilirubin 0.4 mg/dL (0.2-1.3); Total Protein 7.3 g/dL (6.3-8.2)
[2017-10-03 11:12] LABS: Magnesium 2.2 mg/dL (1.6-2.3)
--- NOTE | 2017-10-03 11:13 | XR ---
EXAMINATION TYPE: XR chest 2V DATE OF EXAM: 10/03/2017 HISTORY: Chest Pain. REFERENCE: Previous study dated 04/22/2016. FINDINGS: There has been a midline sternotomy. There is a bipolar pacemaker in place on the left. The heart is enlarged. The left-sided pleural reaction has partially resolved. The right pleural effu teja has resolved. The right lung is clear. There is some atelectasis or pneumonia left lung base. IMPRESSION: 1. CARDIOMEGALY. 2. OVERALL IMPROVED APPEARANCE OF BOTH LUNGS.
[2017-10-03 11:35] LABS: Creatine Kinase MB 1.6 ng/mL (0.0-2.4); Troponin I 0.026 ng/mL (0.000-0.034)
[2017-10-03] MEDS ORDERED: NITROGLYCERIN-D5W PMX 50 MG in DEXTROSE/WATER 1 250ML.BAG IV ONE (15:10)
[2017-10-03] MEDS ORDERED: MORPHINE SULFATE 4 MG/ML SYRINGE IV PRN (15:46)
[2017-10-03] MEDS ORDERED: NALOXONE 0.4 MG/ML 1 ML VIAL IV PRN (15:46)
[2017-10-03] MEDS ORDERED: HYDROcodone/APAP 5-325MG 1 EACH TAB PO PRN (15:53)
[2017-10-03 16:33] LABS: Glucose,Whole Blood 145 mg/dL (75-99)
[2017-10-03 18:09] LABS: Glucose,Whole Blood 184 mg/dL (75-99)
[2017-10-03] MEDS: CARBIDOPA-LEVODOPA ER 50-200MG 1 EACH TABLET.ER PO SCH ×2 (18:16→22:13)
[2017-10-03] MEDS: FUROSEMIDE 40 MG TAB PO SCH (18:17)
[2017-10-03] MEDS: glipiZIDE 5 MG TAB PO SCH (18:17)
[2017-10-03] MEDS: metFORMIN 500 MG TAB PO SCH (18:17)
[2017-10-03] MEDS: INSULN ASP PRT/INSULIN ASPART 100 UNIT/ML 10 ML VIAL SQ SCH (18:29)
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
[2017-10-03] MEDS ORDERED: TEMAZEPAM 7.5 MG CAP PO PRN (20:35)
[2017-10-03] MEDS ORDERED: ACETAMINOPHEN TAB 500 MG TAB PO PRN (20:35)
[2017-10-03] MEDS: ATENOLOL 25 MG TAB PO SCH (20:46)
[2017-10-03] MEDS: BACLOFEN 10 MG TAB PO SCH (20:47)
[2017-10-03] MEDS ORDERED: ATORVASTATIN 20 MG TAB PO SCH (21:00)
[2017-10-03 21:07] LABS: Glucose,Whole Blood 187 mg/dL (75-99)
[2017-10-03] MEDS: PRIMIDONE 50 MG TAB PO SCH (22:13)
[2017-10-03 22:53] LABS: Creatine Kinase MB 3.4 ng/mL (0.0-2.4)
[2017-10-03 22:55] LABS: Troponin I 1.04 ng/mL (0.000-0.034)
[2017-10-04 06:37] LABS: Glucose,Whole Blood 115 mg/dL (75-99)
[2017-10-04 07:17] LABS: Anisocytosis Slight; Basophils % (A) 1 %; Eosinophils # (A) 0.2 k/uL (0-0.7); Eosinophils % (A) 4 %; HCT 37.7 % (39.0-53.0); HGB 12.1 gm/dL (13.0-17.5); Lymphocytes # (A) 0.8 k/uL (1.0-4.8); Lymphocytes % (A) 17 %; MCH 29.7 pg (25.0-35.0); MCHC 32.1 g/dL (31.0-37.0); MCV 92.7 fL (80.0-100.0); Mean Platelet Volume 7.1; Monocytes # (A) 0.4 k/uL (0-1.0); Monocytes % (A) 8 %; Neutrophils # (A) 3.2 k/uL (1.3-7.7); Neutrophils % (A) 67 %; Platelet Count 153 k/uL (150-450); RBC 4.06 m/uL (4.30-5.90); RDW 16.1 % (11.5-15.5); WBC 4.8 k/uL (3.8-10.6)
[2017-10-04 07:22] LABS: Albumin 3.7 g/dL (3.5-5.0); Calcium 8.7 mg/dL (8.4-10.2); Potassium 4.1 mmol/L (3.5-5.1); Total Bilirubin 0.2 mg/dL (0.2-1.3); Total Protein 6.8 g/dL (6.3-8.2)
[2017-10-04] MEDS: metFORMIN 500 MG TAB PO SCH (08:01)
[2017-10-04] MEDS: glipiZIDE 5 MG TAB PO SCH ×2 (08:01→17:17)
[2017-10-04] MEDS: INSULN ASP PRT/INSULIN ASPART 100 UNIT/ML 10 ML VIAL SQ SCH ×2 (08:02→17:17)
[2017-10-04] MEDS: CALCIUM CARBONATE 500 MG CHEWABLE PO SCH (08:05)
[2017-10-04] MEDS: ISOSORBIDE MONONITRATE ER 30 MG TAB.ER.24H PO SCH (08:05)
[2017-10-04] MEDS: PARoxetine 20 MG TAB PO SCH (08:05)
[2017-10-04] MEDS: CARBIDOPA-LEVODOPA ER 50-200MG 1 EACH TABLET.ER PO SCH ×3 (08:05→21:02)
[2017-10-04] MEDS: LOSARTAN 25 MG TAB PO SCH (08:05)
[2017-10-04] MEDS: FUROSEMIDE 40 MG TAB PO SCH ×2 (08:05→15:10)
[2017-10-04] MEDS: HYDROCHLOROTHIAZIDE 25 MG TAB PO SCH (08:05)
[2017-10-04] MEDS: PRIMIDONE 50 MG TAB PO SCH ×4 (08:05→21:02)
[2017-10-04] MEDS: SPIRONOLACTONE 25 MG TAB PO SCH (08:05)
[2017-10-04] MEDS: ATENOLOL 25 MG TAB PO SCH ×2 (08:06→19:46)
[2017-10-04] MEDS: amLODIPine 5 MG TAB PO SCH (08:06)
[2017-10-04] MEDS: FAMOTIDINE 20 MG TAB PO SCH (08:06)
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
[2017-10-04 08:20] LABS: Creatine Kinase MB 2.6 ng/mL (0.0-2.4); Troponin I 0.673 ng/mL (0.000-0.034)
--- NOTE | 2017-10-04 08:23 | P.PN ---
Progress Note - Text The patient is a 82-year-old gentleman who has known coronary artery disease but presented yesterday morning with chest pain and has been found to have increased troponin levels on the second and third determinations. Chest pain for the most part is gone although he states he had some episodes of jabbing pain that came and went. He denies any unusual shortness of breath at this time. He has had a previous catheterization back in August. He has had previous bypass surgery and does have chronic atrial fibrillation. Vital signs show a temperature of 97.6 with a pulse of 57 and respirations 18. Blood pressure 137/76 and he is 98% saturated on 2 L. Lung and heart exam is clear. Patient has some grade 1 edema bilaterally. He is alert and oriented. No focal weakness or cranial nerve deficits. Laboratory White count 4.8 with a hemoglobin 12.1 and a platelet count of 153. Sodium 139 with potassium 4.1. CO2 content was 35. BUN of 35 with creatinine 1.38 given him a GFR of 47. Blood sugar 1:15. Third troponin value increased to 1.04. CK is 90 but CK MBs were elevated at 3.4. Initial EKG showed some ST segment depressions in V5 and V6. Impressions and plans Patient with history of coronary artery disease presents with chest pain and enzymes consistent with a non-ST segment elevated myocardial infarction. Patient does have history of coronary artery bypass and atrial fibrillation. He is presently on a nitroglycerin drip. Other than aspirin though he is not on anticoagulation. Cardiology evaluation is in progress. Recommendations to follow. Discussed with patient and nursing staff this morning.
[2017-10-04] MEDS ORDERED: ASPIRIN 325 MG TAB PO SCH (09:00)
[2017-10-04] MEDS ORDERED: FUROSEMIDE 40 MG TAB PO SCH (09:00)
[2017-10-04] MEDS ORDERED: METOLAZONE 2.5 MG TAB PO SCH (09:00)
[2017-10-04] MEDS ORDERED: ATORVASTATIN 80 MG TAB PO STA (10:17)
[2017-10-04] MEDS ORDERED: ASPIRIN 325 MG TAB PO STA (10:17)
[2017-10-04] MEDS ORDERED: ALPRAZolam 0.5 MG TAB PO PRN (10:17)
[2017-10-04] MEDS ORDERED: ALPRAZolam 0.25 MG TAB PO PRN (10:17)
[2017-10-04] MEDS ORDERED: NITROGLYCERIN SL TABS 0.4 MG TAB SUBLINGUAL PRN (10:17)
[2017-10-04] MEDS ORDERED: SODIUM CHLORIDE 0.9% 1,000 ML in EMPTY BAG 1 BAG IV ONE (10:17)
[2017-10-04] MEDS ORDERED: HEPARIN SODIUM,PORCINE 5,000 UNIT/ML 1 ML VIAL IV PRN (10:19)
[2017-10-04] MEDS ORDERED: HEPARIN SODIUM,PORCINE 5,000 UNIT/ML 1 ML VIAL IV ONE (10:19)
--- NOTE | 2017-10-04 10:25 | P.PN ---
Progress Note - Text This is an addendum to the dictated cardiology consultation. The patient has a known history of CAD, post CABG, occluded graft to the diagonal branch with severe diffuse disease in the left circumflex who presented with symptoms of chest discomfort with mild elevation of the troponin. He has a history of chronic persistent atrial fibrillation, history of chronic kidney disease, hypertension and diabetes. He has dyspnea on exertion. On his physical examination his lungs are clear and he has a heart murmur with no significant peripheral edema. His EKG shows no acute changes but his troponin is mildly elevated. His renal functions are abnormal. The patient his family at length the options of repeating coronary angiography, the risk including worsening renal function in the limited options versus maximizing medical therapy. He'll be hydrated today and proceed with coronary angiography tomorrow unless there is a change in the status. I would add to his regimen heparin, Ranexa and Plavix. Depending on his progress further recommendations will be made. Thank you for this consult we will follow with you.
[2017-10-04] MEDS: HEPARIN SOD,PORK IN 0.45% NACL 25,000 UNIT in 0.45% NACL 1 500ML.BAG IV SCH (10:51)
[2017-10-04] MEDS: RANOLAZINE 500 MG TAB.ER.12H PO SCH ×2 (10:54→19:46)
[2017-10-04] MEDS: CLOPIDOGREL 75 MG TAB PO SCH (10:54)
[2017-10-04] MEDS: NITROGLYCERIN-D5W PMX 50 MG in DEXTROSE/WATER 1 250ML.BAG IV SCH (11:07)
[2017-10-04 12:15] LABS: Glucose,Whole Blood 150 mg/dL (75-99)
[2017-10-04] MEDS ORDERED: POTASSIUM CHLORIDE ER 20 MEQ TAB.ER PO SCH (12:30)
[2017-10-04 17:07] LABS: Glucose,Whole Blood 184 mg/dL (75-99)
[2017-10-04 17:18] LABS: Basophils % (A) 1 %; Eosinophils # (A) 0.2 k/uL (0-0.7); Eosinophils % (A) 3 %; HCT 37.4 % (39.0-53.0); HGB 12.3 gm/dL (13.0-17.5); Lymphocytes # (A) 1.1 k/uL (1.0-4.8); Lymphocytes % (A) 21 %; MCH 30.1 pg (25.0-35.0); MCV 91.3 fL (80.0-100.0); Mean Platelet Volume 7.3; Monocytes # (A) 0.4 k/uL (0-1.0); Monocytes % (A) 8 %; Neutrophils # (A) 3.3 k/uL (1.3-7.7); Neutrophils % (A) 64 %; Platelet Count 161 k/uL (150-450); RBC 4.09 m/uL (4.30-5.90); RDW 15.7 % (11.5-15.5); WBC 5.2 k/uL (3.8-10.6)
[2017-10-04 17:35] LABS: Partial Thromboplastin Time 38.2 sec (22.0-30.0); Prothrombin Time 10.2 sec (9.0-12.0)
[2017-10-04] MEDS: ATORVASTATIN 40 MG TAB PO SCH (19:46)
[2017-10-04] MEDS: BACLOFEN 10 MG TAB PO SCH (19:46)
[2017-10-04 20:54] LABS: Glucose,Whole Blood 139 mg/dL (75-99)
[2017-10-05 02:58] LABS: Glucose,Whole Blood 64 mg/dL (75-99)
[2017-10-05 03:35] LABS: Glucose,Whole Blood 136 mg/dL (75-99)
[2017-10-05] MEDS: RANOLAZINE 500 MG TAB.ER.12H PO SCH (05:53)
[2017-10-05] MEDS: CLOPIDOGREL 75 MG TAB PO SCH (05:53)
[2017-10-05] MEDS: PRIMIDONE 50 MG TAB PO SCH ×4 (05:53→20:43)
[2017-10-05] MEDS: amLODIPine 5 MG TAB PO SCH (05:53)
[2017-10-05] MEDS: CALCIUM CARBONATE 500 MG CHEWABLE PO SCH (05:53)
[2017-10-05] MEDS: PARoxetine 20 MG TAB PO SCH (05:53)
[2017-10-05] MEDS: FAMOTIDINE 20 MG TAB PO SCH (05:53)
[2017-10-05] MEDS: LOSARTAN 25 MG TAB PO SCH (05:53)
[2017-10-05] MEDS: CARBIDOPA-LEVODOPA ER 50-200MG 1 EACH TABLET.ER PO SCH ×3 (05:53→20:43)
[2017-10-05] MEDS: ATENOLOL 25 MG TAB PO SCH ×2 (05:53→20:42)
[2017-10-05] MEDS: ISOSORBIDE MONONITRATE ER 30 MG TAB.ER.24H PO SCH (05:53)
[2017-10-05] MEDS: ASPIRIN 81 MG PO SCH (05:53)
[2017-10-05 06:07] LABS: Glucose,Whole Blood 163 mg/dL (75-99)
[2017-10-05 06:37] LABS: Basophils % (A) 0 %; Eosinophils # (A) 0.1 k/uL (0-0.7); Eosinophils % (A) 2 %; HCT 36.6 % (39.0-53.0); HGB 11.6 gm/dL (13.0-17.5); Lymphocytes % (A) 21 %; MCH 29.2 pg (25.0-35.0); MCHC 31.6 g/dL (31.0-37.0); MCV 92.4 fL (80.0-100.0); Mean Platelet Volume 7.7; Monocytes # (A) 0.3 k/uL (0-1.0); Monocytes % (A) 6 %; Neutrophils # (A) 3.2 k/uL (1.3-7.7); Neutrophils % (A) 66 %; Platelet Count 147 k/uL (150-450); RBC 3.96 m/uL (4.30-5.90); RDW 15.7 % (11.5-15.5); WBC 4.9 k/uL (3.8-10.6)
[2017-10-05 07:05] LABS: Calcium 8.7 mg/dL (8.4-10.2); Potassium 3.6 mmol/L (3.5-5.1)
[2017-10-05] MEDS: glipiZIDE 5 MG TAB PO SCH ×2 (07:40→17:42)
[2017-10-05] MEDS: INSULN ASP PRT/INSULIN ASPART 100 UNIT/ML 10 ML VIAL SQ SCH ×2 (07:40→17:42)
--- NOTE | 2017-10-05 08:31 | P.PN ---
Progress Note - Text The patient is a 82-year-old gentleman with a history of coronary artery disease that presented 2 days ago with chest pain and blood testing consistent with a non-ST segment elevated myocardial infarction. Patient is known to have coronary artery disease and has had previous coronary artery bypass in the past and catheterization back in August of this year. Presently he denies any chest pain. Vital signs were temperature of 98.1 with a pulse of 66 and respirations 18. Blood pressure 142/65 and is 95% saturated on room air. Lung and heart examination is clear and regular. Abdomen nontender. No unusual edema. No focal neurological deficits. Laboratory White count 4.9 with a hemoglobin 11.6 and a platelet count of 147. PTT is 64.6 Sodium 137 with potassium 3.6. BUN of 33 with creatinine 1.4 given him a GFR of 46. Blood sugar of 147. Impressions and plans Discussed with the patient and son at bedside this morning. Patient himself seems to be somewhat agitated stating that if testing was not to be performed today that he would leave the hospital. A long discussion with again patient and son trying to explain overall situation with the patient. Need to be patient to work out a plan for his underlying coronary artery disease. Once again told patient that he just had a myocardial infarction and that we are trying with medications and possible other intervention to prevent future episodes of coronary artery disease with future myocardial infarctions or angina. Son at bedside appears to understand although patient still appears to be somewhat disagreeable. We'll await for further opinion from cardiology today.
[2017-10-05] MEDS ORDERED: fentaNYL (PF) 50 MCG/ML 2 ML AMP ONE (10:21)
[2017-10-05] MEDS ORDERED: diphenhydrAMINE 50 MG/ML 1 ML VIAL ONE (10:21)
[2017-10-05] MEDS ORDERED: LIDOCAINE 1% INJ 10MG/ML (20 ML MDV) ONE (10:22)
[2017-10-05] MEDS ORDERED: fentaNYL (PF) 50 MCG/ML 2 ML AMP IVP ONE (11:12)
[2017-10-05] MEDS ORDERED: diphenhydrAMINE 50 MG/ML 1 ML VIAL IVP ONE (11:12)
[2017-10-05] MEDS ORDERED: IV FLUID CONTINUATION 1,000 ML IV ONE (11:12)
[2017-10-05] MEDS ORDERED: LIDOCAINE 1% INJ 10MG/ML (20 ML MDV) SQ ONE (11:15)
[2017-10-05] MEDS ORDERED: CLOPIDOGREL 75 MG TAB ONE (11:27)
[2017-10-05] MEDS ORDERED: BIVALIRUDIN BOLUS 250 MG/50 ML IV ONE (11:35)
[2017-10-05] MEDS ORDERED: CLOPIDOGREL 75 MG TAB PO ONE (11:35)
[2017-10-05] MEDS ORDERED: BIVALIRUDIN 250 MG in SODIUM CHLORIDE 0.9% 50 ML IV ONE (11:50)
[2017-10-05] MEDS ORDERED: IOPAMIDOL-370 125ML BTL INJ ONE (11:52)
[2017-10-05] MEDS ORDERED: MAG HYDROX/AL HYDROX/SIMETH 30 ML CUP PO PRN (12:05)
[2017-10-05] MEDS ORDERED: RX INFO: IV CONTRAST WAS GIVEN 1 EACH MISC MISCELLANE PRN (12:05)
[2017-10-05] MEDS ORDERED: ATROPINE SULFATE 0.1 MG/ML 10ML SYRINGE IV PRN (12:05)
[2017-10-05] MEDS ORDERED: ZOLPIDEM 5 MG TAB PO PRN (12:05)
[2017-10-05] MEDS ORDERED: NITROGLYCERIN SL TABS 0.4 MG TAB SUBLINGUAL PRN (12:05)
[2017-10-05] MEDS: HEPARIN SOD,PORK IN 0.45% NACL 25,000 UNIT in 0.45% NACL 1 500ML.BAG IV SCH (12:12)
[2017-10-05] MEDS: NITROGLYCERIN-D5W PMX 50 MG in DEXTROSE/WATER 1 250ML.BAG IV SCH (12:13)
[2017-10-05] MEDS: FUROSEMIDE 40 MG TAB PO SCH (12:13)
[2017-10-05] MEDS ORDERED: SODIUM CHLORIDE 0.9% 1,000 ML IV SCH (12:15)
[2017-10-05] MEDS: HYDROCHLOROTHIAZIDE 25 MG TAB PO SCH (12:16)
[2017-10-05] MEDS: MULTIVITAMINS, THERA 1 EACH TAB PO SCH (12:16)
[2017-10-05] MEDS: SPIRONOLACTONE 25 MG TAB PO SCH (12:16)
--- NOTE | 2017-10-05 12:23 | CC ---
CARDIAC CATHETERIZATION REPORT Mr. Paiz is an 82-year-old male with known history of coronary artery disease, status post coronary artery bypass grafting, history of chronic kidney disease, persistent atrial fibrillation who presented with symptoms of chest discomfort and non ST-segment elevation myocardial infarction. A long discussion with the patient and his family were made regarding both options of medical maximizing medical therapy versus coronary angiography. The patient was in favor of coronary angiography. The procedures, risks and complication were discussed with the patient who is in full understanding and agreement. PROCEDURE: Patient was brought to the dental laboratory assistant in the fasting semi-sedated state after receiving fentanyl and Benadryl and achieving moderate conscious sedated state. Using Xylocaine anesthesia and Seldinger technique, a 6-Swazi sheath was introduced in the right femoral artery. Selective right and left angiography performed 6-Swazi 4 bend right and left Dontae catheter. Multiple views of the coronary artery including hemiaxial views were obtained. Following that, the 6-Swazi right Dontae was used to cannulate the saphenous vein graft to the right coronary artery. Following that, catheter removed, images were reviewed. 1. FLUOROSCOPY: There was severe calcification involving all the coronary arteries. 2. LEFT MAIN: This is a large-sized vessel bifurcating into left circumflex, left anterior descending artery, left main coronary artery, has a 40% to 50% plaque distally. 3. LEFT ANTERIOR DESCENDING ARTERY: This vessel is totally occluded proximally at the takeoff of the first septal move coordinator with no antegrade flow. 4. LEFT CIRCUMFLEX: This is a nondominant vessel, moderate in caliber, giving rise to four obtuse marginal branch. The left circumflex is heavily calcified. The proximal left circumflex has an area of stenosis of about 60% to 70% with diffuse disease throughout the course of the vessel. 5. RIGHT CORONARY ARTERY: This is a dominant vessel, bifurcating distally into PDA, posterolateral single branches, heavily calcified in the proximal mid segment of the right coronary artery. There is an 80% to 90% stenosis distally. The vessel feeds the PLV. The PDA appears to be totally occluded. 6. SAPHENOUS VEIN GRAFT TO THE RIGHT CORONARY ARTERY: The proximal distal anastomotic sites are patent. The flow into the PDA is brisk. There is no evidence of high- grade stenosis. 7. LEFT VENTRICULOGRAM: Left ventriculogram is not performed. CONCLUSION: 1. Heavily calcified coronary arteries. 2. Chronic occluded proximal left anterior descending artery. 3. Moderate diffuse disease in the left circumflex affecting the proximal segment of the circumflex. 4. Significant disease in the proximal mid segment of the right coronary artery was occluded PDA. The right coronary artery feeds the PLV. 5. Patent saphenous vein graft to the PDA. RECOMMENDATION: In view of the finding, I have recommended proceeding with angioplasty and stenting of the right coronary artery. The procedures, risks and complications were discussed with the patient who is in full understanding and agreement. MMBITA / LASHONN: [id number] /
[2017-10-05 12:53] LABS: Glucose,Whole Blood 127 mg/dL (75-99)
--- NOTE | 2017-10-05 15:05 | PTCA ---
PERCUTANEOUSTRANS CORORONARY ANGIOGRAPHY Mr. Paiz is an 82-year-old male with a known history of coronary disease status post bypass grafting, percutaneous revascularization who presented with non ST-segment elevation myocardial infarction, underwent cardiac catheterization, was found to have significant disease in the proximal mid segment of the right coronary artery. Recommendation was made regarding angioplasty and stenting. The procedures, risks and complication were discussed with the patient who is in full understanding and agreement. PROCEDURE: A 6-Pashto FR4 guiding catheter in the system. After cannulating the ostium of the vessel, a 0.014 balanced medium weight J-wire was advanced across the lesion, positioned distally. Then a 2.5 x 12 mm Trek balloon was advanced and one inflation at 14 atmospheres was done. Following that the balloon was removed and a 2.75 x 15 mm Xience Alpine stent was deployed post dilated at 16 atmospheres. After removing the balloon a 3.0 x 12 mm NC Trek balloon was advanced and one inflation at 14 atmospheres was done. Following that, the balloon and the guidewire were withdrawn back in the guiding catheter. Images were obtained and repeated. Those images reveal stable successful stenting. At that point, the guiding catheter, the balloon and the guidewire removed. The sheath was removed. Hemostasis was obtained with deployment of an Angio-Seal. There was no immediate complication. The patient was returned to his room in stable condition. Of note, the patient received Angiomax per protocol as well as oral loading dose of clopidogrel. He had no chest discomfort or significant EKG changes with the inflation. RESULTS: Successful stenting of the proximal mid segment of the right coronary artery with reduction of stenosis from 80% to less than 5%. RECOMMENDATION: The patient will be continued on aspirin, Plavix, beta emerson, and statin. The importance of dual antiplatelet treatment were discussed with the patient his family and they in full understanding and agreement. DURATION PROCEDURE: 35 minutes. MMODL / IJN: [id number] /
[2017-10-05 15:10] VITALS: BMI 35.4
--- NOTE | 2017-10-05 15:11 | LTR ---
October 05, [address] Santiago: I had the pleasure of performing cardiac catheterization, coronary angioplasty and stenting on Mr. Paiz at [facility] on October 05 and a full copy of the procedure note will be forwarded to you. In brief, he was found to have critical stenosis involving a heavily calcified proximal right coronary artery and underwent successful stenting of that vessel using a drug- eluting stent. I am hopeful this procedure will stabilized his status. Thank you again for allowing me to participate in his care. Please feel free to call for any questions. Sincerely, MILLI / LASHONN: [id number] /
[2017-10-05 16:25] LABS: Glucose,Whole Blood 149 mg/dL (75-99)
[2017-10-05] MEDS: BACLOFEN 10 MG TAB PO SCH (20:42)
[2017-10-05] MEDS: ATORVASTATIN 40 MG TAB PO SCH (20:42)
[2017-10-05 21:03] LABS: Glucose,Whole Blood 164 mg/dL (75-99)
[2017-10-06 02:10] LABS: Glucose,Whole Blood 91 mg/dL (75-99)
[2017-10-06] MEDS: glipiZIDE 5 MG TAB PO SCH (06:24)
[2017-10-06 06:57] LABS: Basophils % (A) 0 %; Eosinophils # (A) 0.1 k/uL (0-0.7); Eosinophils % (A) 2 %; HCT 33.9 % (39.0-53.0); HGB 11.2 gm/dL (13.0-17.5); Lymphocytes # (A) 0.8 k/uL (1.0-4.8); Lymphocytes % (A) 18 %; MCH 30.2 pg (25.0-35.0); MCHC 33.2 g/dL (31.0-37.0); Mean Platelet Volume 7.7; Monocytes # (A) 0.4 k/uL (0-1.0); Monocytes % (A) 9 %; Neutrophils # (A) 3.1 k/uL (1.3-7.7); Neutrophils % (A) 67 %; Platelet Count 116 k/uL (150-450); RBC 3.72 m/uL (4.30-5.90); RDW 15.8 % (11.5-15.5); WBC 4.5 k/uL (3.8-10.6)
[2017-10-06 07:32] LABS: Calcium 8.8 mg/dL (8.4-10.2); Potassium 3.7 mmol/L (3.5-5.1)
[2017-10-06] MEDS ORDERED: INSULN ASP PRT/INSULIN ASPART 100 UNIT/ML 10 ML VIAL SQ SCH ×2 (08:00→17:30)
--- NOTE | 2017-10-06 08:21 | P.PN ---
Progress Note - Text The patient is an 82-year-old gentleman who presented with an non-ST segment elevated of myocardial infarction. And was found on catheterization to have a proximal midsegment's blockage in the right coronary artery. The patient yesterday underwent successful stenting of the proximal midsegment. With stenosis ranging from 80% down to less than 5%. This morning he is sitting up in bed. States his pain is all gone. Denies any shortness of breath. No nausea or vomiting. Vital signs show a pulse 75 respirations 18 and blood pressure 121/65. He is 96 % saturated on room air and last recorded temperature was 98.9. Lung and heart examination is clear. Heart tones were regular. Abdomen is nontender. No unusual edema. No focal neurological changes. Laboratory White count 4.5 with a hemoglobin 11.2 and a platelet count of 116. Sodium is 136 with a potassium 3.7. BUN of 29 with creatinine 1.4 for given him a GFR 44. Blood sugar was 136 this morning. Impressions and plans Discussed with patient along with nursing staff and cardiology nurse this morning. Awaiting final opinion from cardiology regarding possible discharge. We will decrease his insulin from 40 units down to 30 units twice a day. Otherwise further recommendations pending cardiology.
[2017-10-06] MEDS: amLODIPine 5 MG TAB PO SCH (09:30)
[2017-10-06] MEDS: ASPIRIN 81 MG PO SCH (09:30)
[2017-10-06] MEDS: ATENOLOL 25 MG TAB PO SCH (09:30)
[2017-10-06] MEDS: CALCIUM CARBONATE 500 MG CHEWABLE PO SCH (09:31)
[2017-10-06] MEDS: CLOPIDOGREL 75 MG TAB PO SCH (09:32)
[2017-10-06] MEDS: FAMOTIDINE 20 MG TAB PO SCH (09:32)
[2017-10-06] MEDS: CARBIDOPA-LEVODOPA ER 50-200MG 1 EACH TABLET.ER PO SCH (09:32)
[2017-10-06] MEDS: ISOSORBIDE MONONITRATE ER 30 MG TAB.ER.24H PO SCH (09:33)
[2017-10-06] MEDS: LOSARTAN 25 MG TAB PO SCH (09:33)
[2017-10-06] MEDS: SPIRONOLACTONE 25 MG TAB PO SCH (09:33)
[2017-10-06] MEDS: HYDROCHLOROTHIAZIDE 25 MG TAB PO SCH (09:33)
[2017-10-06] MEDS: PRIMIDONE 50 MG TAB PO SCH ×2 (09:33→12:18)
[2017-10-06 09:36] LABS: Glucose,Whole Blood 297 mg/dL (75-99)
[2017-10-06] MEDS: PARoxetine 20 MG TAB PO SCH (09:41)
[2017-10-06 10:55] VITALS: RESP 20
--- NOTE | 2017-10-06 11:10 | P.PN ---
Subjective Progress Note Date: 10/06/17 This is a pleasant 82-year-old gentleman who follows regularly with Dr. Chaves in the office. He has a known history of coronary artery disease with prior bypass surgery in 1999 at which time he underwent a CRAWFORD to the LAD, saphenous vein graft to diagonal 1 and a radial RCA, subsequent to that patient did undergo angioplasty and stenting of the RCA in 2006. He has history also of hypertension, hyperlipidemia, diabetes, chronic persistent atrial fibrillation, prior pacemaker implantation family history of premature coronary artery disease. Most recently patient underwent a cardiac catheterization in August of this year by Dr. Chaves which revealed heavily calcified coronary arteries. Chronic total occlusion of the LAD. Significant disease in the ostium of the left circumflex, significant disease in the proximal RCA, patent CRAWFORD to the LAD, patent radial to the RCA, totally occluded saphenous vein graft to the diagonal branch and mildly impaired left ventricular systolic function. Medical therapy was advised at that time. Patient presents to the hospital on this occasion with symptoms of mid to left-sided chest pain which she states started while he was in confucianism yesterday, patient states the pain was quite severe, who was short of breath and mildly diaphoretic. Patient did have an episode of chest discomfort this morning as well which she described as a sharp pain. Chest wall very tender to touch this morning. Patient also mentioned that his in April of this year. EKG on arrival here showed atrial fibrillation subsequent EKG shows paced rhythm with underlying atrial fibrillation. Chest x-ray shows cardiomegaly. White blood cell count 4.8, hemoglobin 12.1, platelet count 153. Sodium 139, potassium 4.1 , BUN 35, creatinine 1.3. Troponins 0.026, 0.53, 1.04. Blood pressure this morning 137/76, heart rate in the 60s, temperature 97.6, 98% on 2 L. At the time of my exam this morning, patient is sitting up in a chair, denies any chest discomfort unless he touches chest wall which appears to be quite tender this morning. 10/06/2017 Patient was taken to the cardiac catheterization lab yesterday where he underwent angioplasty and stenting of the right coronary artery. He was seen and examined this morning, denied any chest pain or difficulty in breathing. Hemodynamically he is stable. Creatinine today is 1.4. EKG shows normal sinus rhythm with no changes from post-PCI. Objective - Vital Signs Vital signs: Vital Signs Temp 99.0 F 10/06/17 08:00 Pulse 64 10/06/17 08:00 Resp 20 10/06/17 08:00 BP 136/70 10/06/17 08:00 Pulse Ox 96 10/06/17 08:00 Intake & Output 10/05/17 10/06/17 10/06/17 18:59 06:59 18:59 Intake Total 755 500 300 Output Total 500 2 Balance 255 500 298 Weight 112.2 kg 113.9 kg Intake: IV 115 500 120 IV Fluid Continuation 1, 500 120 000 ml @ 0 mls/hr IV .STK -MED ONE Rx#:[id number] Nitroglycerin-D5w Pmx 50 3 mg In Dextrose/Water 1 250ml.bag @ 5 MCG/MIN 1.5 mls/hr IV .Q24H ONE Rx#: [id number] Intake, IV Titration 400 Amount Sodium Chloride 0.9% 1, 400 000 ml @ 100 mls/hr IV . Q10H [facility] Rx#:[id number] Oral 240 180 Output: Urine 500 2 Other: Voiding Method Toilet Toilet Urinal - Exam PHYSICAL EXAMINATION: GENERAL: 82-year-old gentleman in no acute distress at the time of my examination HEENT: Head is atraumatic, normocephalic. Pupils equal, round. Sclera anicteric. Conjunctiva are clear. Mucous membranes of the mouth are moist. Neck is supple. There is no elevated jugular venous pressure. No carotid bruit is heard. HEART EXAMINATION: Heart S1 S2 1 systolic ejection murmur is heard. CHEST EXAMINATION: Lungs are clear to auscultation and precussion. No chest wall tenderness is noted on palpation or with deep breathing. ABDOMEN: Soft, nontender. Bowel sounds are heard. No organomegaly noted. EXTREMITIES: 2+ peripheral pulses with no evidence of peripheral edema and no calf tenderness noted. Right groin is soft, no evidence of any hematoma. NEUROLOGIC patient is awake, alert and oriented ?-3. . - Labs CBC & Chem 7: 10/06/17 05:56 10/06/17 05:56 Labs: Abnormal Lab Results - Last 24 Hours (Table) 10/05/17 10/05/17 10/05/17 Range/Units 12:28 16:11 21:02 RBC (4.30-5.90) m/uL Hgb (13.0-17.5) gm/dL Hct (39.0-53.0) % RDW (11.5-15.5) % Plt Count (150-450) k/uL Lymphocytes # (1.0-4.8) k/uL Sodium (137-145) mmol/L BUN (9-20) mg/dL Creatinine (0.66-1.25) mg/dL Glucose (74-99) mg/dL POC Glucose (mg/dL) 127 H 149 H 164 H (75-99) mg/dL 10/06/17 10/06/17 10/06/17 Range/Units 05:56 05:56 09:32 RBC 3.72 L (4.30-5.90) m/uL Hgb 11.2 L (13.0-17.5) gm/dL Hct 33.9 L (39.0-53.0) % RDW 15.8 H (11.5-15.5) % Plt Count 116 L (150-450) k/uL Lymphocytes # 0.8 L (1.0-4.8) k/uL Sodium 136 L (137-145) mmol/L BUN 29 H (9-20) mg/dL Creatinine 1.44 H (0.66-1.25) mg/dL Glucose 136 H (74-99) mg/dL POC Glucose (mg/dL) 297 H (75-99) mg/dL Assessment and Plan Plan: Assessment and plan #1 non-ST elevation myocardial infarction, status post angioplasty and stenting of the RCA. #2 known history of coronary artery disease with prior bypass surgery in 1999, subsequent stenting of the mid RCA in 2006, patient did undergo cardiac catheterization in August of this year advised medical therapy at that time #3 persistent atrial fibrillation, patient had been on Coumadin in the past, this was discontinued because of GI bleed #4 hypertension #5 hyperlipidemia #6 diabetes #7 prior pacemaker implantation #8 renal insufficiency Plan From cardiology's perspective, patient may be able to be discharged home today. We will make him a follow-up appointment with Dr. Chaves in the office in one week. He will be discharged home on aspirin 81 mg daily, Plavix 75 mg daily, Norvasc 5 mg daily, atenolol 25 mg twice a day, Lipitor 40 mg daily, Imdur 30 mg daily, losartan 25 mg daily, Aldactone 25 mg daily, and sublingual nitroglycerin as needed for chest pain. DNP note has been reviewed, I agree with a documented findings and plan of care. Patient was seen and examined.
[2017-10-06 11:46] LABS: Glucose,Whole Blood 168 mg/dL (75-99)
[2017-10-06] MEDS: MULTIVITAMINS, THERA 1 EACH TAB PO SCH (12:17)
[2017-10-06 12:40] VITALS: BP 133/72; PULSE 63; TEMP 98
--- NOTE | 2017-10-07 08:49 | P.DS ---
Providers Date of admission: 10/03/17 15:46 Attending physician: Dalton Santiago Consults: 10/03/17 15:50 Consult Physician Routine Consulting Provider: Tierney Chaves Consult Reason/Comments: NSTEMI Do you want consulting provider notified?: Yes 10/05/17 12:05 Consult Physician Routine Consulting Provider: Cardiology Aubrey Consult Reason/Comments: Post Interventional patient Do you want consulting provider notified?: Already Contacted Primary care physician: Dalton Santiago The patient is a 82-year-old gentleman who initially presented with chest pain. Patient was found on second reading to have elevated troponin values. This was consistent with a non-ST segment elevated myocardial infarction. Patient was admitted and placed on IV nitroglycerin along with his other cardiac medications. Consultation was obtained with cardiology. The patient was taken to the cardiac catheterization lab on October 06 and underwent angioplasty and stenting of the right coronary artery. Patient did well with no post stenting changes in his EKG and no further chest pain or shortness of breath. The patient was ambulated on the floor without difficulties. Monitor pattern and vital signs were stable. Chest x-ray showed signs of cardiomegaly. Laboratory values revealed a white count of 4.8 with a hemoglobin of 12.1 and a platelet count of 153. Sodium was 139 with potassium 4.1. BUN of 35 with a creatinine 1.3. Troponin values 1 from initial 0.026 up to a high of 1.04 on the third determination. Plans are for discharge patient back to home. Patient is not on any Coumadin secondary to previous gastrointestinal hemorrhage per cardiology. Patient is to take Aspirin 81 mg daily Atorvastatin 40 mg at bedtime Plavix 75 mg daily His insulin because of some borderline sugars will be decreased from 40 units twice a day down to 30 units twice a day of his 70/30 NovoLog Mix. This may need to be adjusted further since family states patient very noncompliant with a diabetic diet. Nitroglycerin sublingual 0.4 mg when necessary Patient to continue atenolol 25 mg twice a day Baclofen 10 mg at bedtime Calcium carbonate 600 mg daily Carbidopa/levodopa 50-200, 3 times a day Pepcid 20 mg every morning Lasix 40 mg twice a day Patient will finish up course of cephalexin 500 mg 3 times a day for 7 days. He does have [place] one tablet daily when necessary for pain Hydrochlorothiazide 25 mg daily Isorbid mononitrate 30 mg daily Cozaar 25 mg daily Zaroxolyn 2.5 mg daily Paxil 20 mg daily Potassium chloride 10 mg tablets. 2 at lunch daily Mysoline 50 mg 4 times a day for tremors Aldactone 25 mg daily Amlodipine 5 mg daily Glucotrol 5 mg daily Metformin 500 mg daily Discharge diagnosis 1. Non-ST segment elevated myocardial infarction and now status post angioplasty and stenting of the right coronary artery. Patient presented with acute chest pain and myocardial infarction. With history of underlying coronary artery disease as per previous catheterizations. Also previous history of coronary artery bypass surgery and stenting. 2. Chronic atrial fibrillation. Not on anticoagulation secondary to previous gastrointestinal hemorrhage. 3. Type 2 diabetes on insulin. 4. Parkinson disease with tremor 5. Hypertension and hypertensive heart disease 6. Hyperlipidemia 7. Chronic systolic congestive heart failure 8. Obesity 9. History of depression 10. History of chronic kidney disease stage III 11. Diffuse degenerative joint disease 12. Previous surgeries that include coronary artery bypass, cardiac pacemaker, left carpal tunnel release, laparoscopic cholecystectomy in 2016. Patient to follow diabetic diet and resume home Accu-Cheks and monitoring. He is to follow-up with cardiology and myself over the next 3-5 days. He is to call office if any concerns or problems. Gradual increase in activity without heavy exertional activity. Prognosis is guarded at this time in light of advanced age and multiple problems as outlined above. Patient Condition at Discharge: Stable Plan - Discharge Summary New Discharge Prescriptions: New Aspirin 81 mg PO DAILY #30 chew Atorvastatin [Lipitor] 40 mg PO HS #30 tab Clopidogrel [Plavix] 75 mg PO DAILY #30 tab Nitroglycerin Sl Tabs [Nitrostat] 0.4 mg SUBLINGUAL Q5M PRN #25 tab PRN Reason: Chest Pain Insuln Asp Prt/Insulin Aspart [NovoLOG MIX 70-30 VIAL] 30 unit SQ AC-BRKFST vial Insuln Asp Prt/Insulin Aspart [NovoLOG MIX 70-30 VIAL] 30 unit SQ AC-SUPPER vial Continue Atenolol [Tenormin] 25 mg PO BID Potassium Chloride [K-Tab ER] 20 meq PO W/LUNCH Losartan [Cozaar] 25 mg PO QAM Furosemide [Lasix] 40 mg PO QAM Spironolactone [Aldactone] 25 mg PO QAM Isosorbide Mononitrate ER [Imdur] 30 mg PO DAILY #90 tab Hydrochlorothiazide [Hydrodiuril] 25 mg PO DAILY amLODIPine [Norvasc] 5 mg PO DAILY Furosemide [Lasix] 40 mg PO BID Discontinued Atorvastatin [Lipitor] 20 mg PO HS Aspirin 325 mg PO DAILY Insulin NPL/Insulin Lispro [humaLOG MIX 75-25 VIAL] 40 unit SQ QAM Insulin NPL/Insulin Lispro [humaLOG MIX 75-25 VIAL] 40 unit SQ W/SUPPER No Action PARoxetine [Paxil] 20 mg PO QAM Famotidine [Pepcid] 20 mg PO QAM Baclofen [Lioresal] 10 mg PO HS Primidone [Mysoline] 50 mg PO QID glipiZIDE [Glucotrol] 5 mg PO AC-BID Carbidopa/Levodopa [Carbidopa-Levo ER 50-200 Tab] 1 tab PO TID metFORMIN HCL [Glucophage] 500 mg PO AC-BID Cephalexin [Keflex] 500 mg PO TID Metolazone [Zaroxolyn] 2.5 mg PO DAILY HYDROcodone/APAP 5-325MG [[place] 5-325] 1 tab PO DAILY PRN PRN Reason: Pain Calcium Carbonate [Calcium] 600 mg PO DAILY Discharge Medication List Atenolol [Tenormin] 25 mg PO BID 11/20/13 [History] Baclofen [Lioresal] 10 mg PO HS 11/20/13 [History] Carbidopa/Levodopa [Carbidopa-Levo ER 50-200 Tab] 1 tab PO TID 11/20/13 [History ] Famotidine [Pepcid] 20 mg PO QAM 11/20/13 [History] PARoxetine [Paxil] 20 mg PO QAM 11/20/13 [History] Potassium Chloride [K-Tab ER] 20 meq PO W/LUNCH 11/20/13 [History] Primidone [Mysoline] 50 mg PO QID 11/20/13 [History] glipiZIDE [Glucotrol] 5 mg PO AC-BID 11/20/13 [History] Losartan [Cozaar] 25 mg PO QAM 02/12/16 [History] Furosemide [Lasix] 40 mg PO QAM 04/22/16 [History] Spironolactone [Aldactone] 25 mg PO QAM 07/10/16 [History] metFORMIN HCL [Glucophage] 500 mg PO AC-BID 08/18/17 [History] Isosorbide Mononitrate ER [Imdur] 30 mg PO DAILY #90 tab 08/24/17 [Rx] Calcium Carbonate [Calcium] 600 mg PO DAILY 10/03/17 [History] Cephalexin [Keflex] 500 mg PO TID 10/03/17 [History] Furosemide [Lasix] 40 mg PO BID 10/03/17 [History] HYDROcodone/APAP 5-325MG [[place] 5-325] 1 tab PO DAILY PRN 10/03/17 [History] Hydrochlorothiazide [Hydrodiuril] 25 mg PO DAILY 10/03/17 [History] Metolazone [Zaroxolyn] 2.5 mg PO DAILY 10/03/17 [History] amLODIPine [Norvasc] 5 mg PO DAILY 10/03/17 [History] Aspirin 81 mg PO DAILY #30 chew 10/06/17 [Rx] Atorvastatin [Lipitor] 40 mg PO HS #30 tab 10/06/17 [Rx] Clopidogrel [Plavix] 75 mg PO DAILY #30 tab 10/06/17 [Rx] Insuln Asp Prt/Insulin Aspart [NovoLOG MIX 70-30 VIAL] 30 unit SQ AC-BRKFST vial 10/06/17 [Rx] Insuln Asp Prt/Insulin Aspart [NovoLOG MIX 70-30 VIAL] 30 unit SQ AC-SUPPER vial 10/06/17 [Rx] Nitroglycerin Sl Tabs [Nitrostat] 0.4 mg SUBLINGUAL Q5M PRN #25 tab 10/06/17 [Rx ] Follow up Appointment(s)/Referral(s): [facility], [NON-STAFF] - Tierney Chaves MD [STAFF PHYSICIAN] - 10/11/17 3:30 pm Dalton Santiago MD [Primary Care Provider] - 10/12/17 2:30 pm () Patient Instructions/Handouts: *Surgery [facility] - After Heart Catheterization - Hvac Technician Residential Instructions, Heart Failure (DC), Heart Healthy Diet (DC), Safe Use of Antiplatelet Medication (DC), Coronary Intravascular Stent Placement (DC) Discharge Disposition: HOME WITH HOME HEALTH SERVICES
== END 2017-10-06 13:00 | disposition home health service (06) | DRG 247 ==
LOC: EC 10:36 → 6SEL 15:46
PROVIDERS: ADMIT Internal Medicine; ATTEND Internal Medicine
PROC: B2121ZZ Fluoroscopy of Single Coronary Artery Bypass Graft using Low Osmolar Contrast (ICD-10-PCS; 2017-10-05)
PROC: B2111ZZ Fluoroscopy of Multiple Coronary Arteries using Low Osmolar Contrast (ICD-10-PCS; 2017-10-05)
PROC: B2151ZZ Fluoroscopy of Left Heart using Low Osmolar Contrast (ICD-10-PCS; 2017-10-05)
PROC: 4A023N7 Measurement of Cardiac Sampling and Pressure, Left Heart, Percutaneous Approach (ICD-10-PCS; principal; 2017-10-05 10:30)
PROC: 027034Z Dilation of Coronary Artery, One Artery with Drug-eluting Intraluminal Device, Percutaneous Approach (ICD-10-PCS; 2017-10-05 10:30)
DX: I21.4 Non-ST elevation (NSTEMI) myocardial infarction (principal); I13.0 Hypertensive heart and chronic kidney disease with heart failure and stage 1 through stage 4 chronic kidney disease, or unspecified chronic kidney disease; I48.1 Persistent atrial fibrillation; I50.22 Chronic systolic (congestive) heart failure; E11.22 Type 2 diabetes mellitus with diabetic chronic kidney disease; E11.51 Type 2 diabetes mellitus with diabetic peripheral angiopathy without gangrene; E66.9 Obesity, unspecified; Z68.36 Body mass index [BMI] 36.0-36.9, adult; E78.5 Hyperlipidemia, unspecified; F32.9 Major depressive disorder, single episode, unspecified; F41.9 Anxiety disorder, unspecified; G20 Parkinson's disease; G25.0 Essential tremor; I25.10 Atherosclerotic heart disease of native coronary artery without angina pectoris; I25.2 Old myocardial infarction; I48.2 Chronic atrial fibrillation; M19.90 Unspecified osteoarthritis, unspecified site; N18.3 Chronic kidney disease, stage 3 (moderate); N40.0 Benign prostatic hyperplasia without lower urinary tract symptoms; Z79.4 Long term (current) use of insulin; Z79.82 Long term (current) use of aspirin; Z79.899 Other long term (current) drug therapy; Z80.0 Family history of malignant neoplasm of digestive organs; Z82.49 Family history of ischemic heart disease and other diseases of the circulatory system; Z86.010 Personal history of colon polyps; Z87.891 Personal history of nicotine dependence; Z95.0 Presence of cardiac pacemaker; Z98.49 Cataract extraction status, unspecified eye; Z96.1 Presence of intraocular lens; Z60.2 Problems related to living alone; Z80.8 Family history of malignant neoplasm of other organs or systems; Z95.1 Presence of aortocoronary bypass graft; Z95.5 Presence of coronary angioplasty implant and graft
CPT/HCPCS: 36415; 71046; 80048; 80053; 82272; 82550; 82553; 83036; 83735; 83880; 84484; 85025; 85610; 85730; 93005; 93455; 96365; 96366; 96375; 99285

== ENCOUNTER → 2017-12-16 | Outpatient (CLI) | payer MEDICARE, OTHER ==
[2017-12-16 11:27] LABS: Albumin 3.8 g/dL (3.5-5.0); Calcium 9.1 mg/dL (8.4-10.2); Total Bilirubin 0.3 mg/dL (0.2-1.3); Total Protein 7.4 g/dL (6.3-8.2)
== END ==
LOC: LABWHC1 09:38
PROVIDERS: ATTEND Internal Medicine Interventional Cardiology
DX: E78.2 Mixed hyperlipidemia (principal)
CPT/HCPCS: 36415; 80053; 80061

== ENCOUNTER → 2018-06-30 | Outpatient (CLI) | payer MEDICARE ==
[2018-06-30 16:13] LABS: LDL Cholesterol,Calculated 85.4 mg/dL (0.0-131.0); VLDL Calculation 25.6 mg/dL (5.00-40.00)
== END | disposition home or self-care (01) ==
LOC: LABWHC1 07:43
PROVIDERS: ATTEND Internal Medicine Interventional Cardiology
DX: E78.2 Mixed hyperlipidemia (principal)
CPT/HCPCS: 36415; 80061

== ENCOUNTER 2018-07-11 13:47 | Inpatient (IN) | payer MEDICARE, OTHER ==
[2018-07-11] MEDS ORDERED: SODIUM CHLORIDE 0.9% 500 ML 500 ML IV STA (14:25)
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
[2018-07-11 15:07] LABS: Basophils # (A) 0.1 k/uL (0-0.2); Basophils % (A) 1 %; Eosinophils # (A) 0.2 k/uL (0-0.7); Eosinophils % (A) 3 %; HGB 12.8 gm/dL (13.0-17.5); Lymphocytes # (A) 0.7 k/uL (1.0-4.8); Lymphocytes % (A) 14 %; MCH 30.1 pg (25.0-35.0); MCHC 32.8 g/dL (31.0-37.0); Mean Platelet Volume 7.6; Monocytes # (A) 0.4 k/uL (0-1.0); Monocytes % (A) 7 %; Neutrophils % (A) 74 %; Platelet Count 188 k/uL (150-450); RBC 4.26 m/uL (4.30-5.90); RDW 15.6 % (11.5-15.5); WBC 5.4 k/uL (3.8-10.6)
--- NOTE | 2018-07-11 15:07 | CT ---
EXAMINATION TYPE: CT brain wo con for TPA DATE OF EXAM: 07/11/2018 HISTORY: Neuro deficits. Automated Exposure Control for Dose Reduction was Utilized. TECHNIQUE: CT scan of the head is performed without contrast. COMPARISON: CT brain March 31, 2018. FINDINGS: There is no acute intracranial hemorrhage or midline shift identified. There is diffuse v entricular and sulcal prominence consistent with diffuse age-related cerebral atrophy. There is low- attenuation in the periventricular white matter consistent with chronic small vessel ischemic change. The globes are intact and the visualized sinuses are clear. Interval improvement in left maxillar y sinus disease noted. IMPRESSION: No acute intracranial hemorrhage or midline shift. There is moderate diffuse age-relate d cerebral atrophy and chronic small vessel ischemic change redemonstrated. No significant change fro m prior CT.
[2018-07-11 15:10] LABS: Albumin 3.8 g/dL (3.5-5.0); Calcium 8.9 mg/dL (8.4-10.2); Potassium 4.2 mmol/L (3.5-5.1); Total Bilirubin 0.5 mg/dL (0.2-1.3)
[2018-07-11 15:11] LABS: INR 0.9 (<1.2); Partial Thromboplastin Time 23.2 sec (22.0-30.0); Prothrombin Time 10.1 sec (9.0-12.0)
[2018-07-11 15:20] LABS: MCV 91.6 fL (80.0-100.0)
[2018-07-11 15:27] LABS: Creatine Kinase MB 0.9 ng/mL (0.0-2.4); Troponin I 0.017 ng/mL (0.000-0.034)
--- NOTE | 2018-07-11 15:37 | CT ---
EXAMINATION TYPE: CT angio head neck DATE OF EXAM: 07/11/2018 HISTORY: neuro deficits COMPARISON: NONE CT DLP: 640.9 mGycm. Automated Exposure Control for Dose Reduction was Utilized. TECHNIQUE: CTA scan of the head and neck are performed with IV Contrast, patient injected with 60 mL of Isovue 370, axial images are obtained, coronal and sagittal reformatted images are reviewed. Thre e-D reconstructed images are created on an independent workstation and reviewed. FINDINGS: Carotid/Vascular Structures: There is mild to moderate peripheral calcified plaque in the aortic arch . There is normal three-vessel origin from the aorta. Right common carotid artery shows normal origin from the right brachiocephalic artery. There is mild mixed plaque in the distal right common carotid artery. There is mild calcified plaque at right carotid bulb extending to proximal internal carotid artery. Mild calcified plaque supraclinoid segment is seen. No significant stenosis is present. There is patent right external carotid artery without significant stenosis. The left common carotid artery shows mild calcified plaque near origin as well as in the mid to dista l aspects. There is more moderate calcified plaque left carotid bulb extending into proximal internal carotid artery. A patent external carotid artery without significant plaque or stenosis. There is mi ld calcified plaque supraclinoid segment. No significant stenosis internal carotid artery is seen. There is mild calcified plaque along course of vertebral arteries. Vertebral arteries are patent to b asilar junction. There is a patent left posterior communicating artery. There is hypoplastic right po sterior communicating artery. No significant focal stenosis or aneurysmal changes seen. There is faustin nt anterior communicating artery filling right A2 segment. There is hypoplastic right A1 segment. No aneurysmal change is noted. Other: Partial visualization of left-sided pacemaker. Partial visualization of sternal wires and med iastinal clips from CABG procedure. IMPRESSION: 1. No significant stenosis in common or internal carotid arteries bilaterally. 2. No aneurysmal change at level of [place]. No significant stenosis is evident.
--- NOTE | 2018-07-11 16:37 | XR ---
EXAMINATION TYPE: XR chest 2V DATE OF EXAM: 07/11/2018 COMPARISON: Chest x-ray March 31, 2018. HISTORY: Altered mental status and weakness. TECHNIQUE: Frontal and lateral views of the chest are obtained. FINDINGS: There is chronic parenchymal changes with increasing lateral left basilar opacity. Overlyi ng sternal wires and mediastinal clips are redemonstrated. The cardiac silhouette size remains enlarg ed. Superior sternal wire is broken similar to prior. The osseous structures are intact. IMPRESSION: Cardiomegaly and chronic parenchymal changes with increasing lateral left basilar masslik e opacity, cannot exclude underlying neoplasm though likely reflects effusion with associated atelect asis and/or infiltrate. Advise follow-up CT.
[2018-07-11] MEDS ORDERED: NITROGLYCERIN SL TABS 0.4 MG TAB SUBLINGUAL PRN (18:24)
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
[2018-07-11 20:24] LABS: Glucose,Whole Blood 211 mg/dL (75-99)
[2018-07-11] MEDS: ATENOLOL 50 MG TAB PO SCH (21:49)
[2018-07-11] MEDS: INSULN ASP PRT/INSULIN ASPART 100 UNIT/ML 10 ML VIAL SQ SCH (21:49)
[2018-07-11] MEDS: PRIMIDONE 50 MG TAB PO SCH (21:49)
[2018-07-11] MEDS: ATORVASTATIN 40 MG TAB PO SCH (21:49)
[2018-07-11] MEDS: CARBIDOPA-LEVODOPA ER 50-200MG 1 EACH TABLET.ER PO SCH (21:49)
[2018-07-12 01:45] LABS: Cholesterol 164 mg/dL (<200); HDL Cholesterol 39 mg/dL (40-60); LDL Cholesterol,Calculated 89 mg/dL (0-99); Triglycerides 180 mg/dL (<150)
--- NOTE | 2018-07-12 03:20 | HP ---
HISTORY AND PHYSICAL CHIEF COMPLAINT: Mr. Paiz is an 83-year-old gentleman with chief complaint of left arm weakness and the paresthesias associated with this. HISTORY OF PRESENT ILLNESS: The patient presented to the emergency room earlier today. Apparently at 2 o'clock in the morning, he started having symptoms of left-sided numbness and weakness and when he woke up he denied any unusual visual disturbances or speech problems at that time. No headache, nausea, or vomiting. He states that he had paresthesias with tingling sensation down the left arm and the left. The patient apparently was able to walk around and eventually called his son. Family members apparently had further discussions amongst themselves and in the morning, brought the patient to the emergency room. PAST MEDICAL HISTORY: Is positive for chronic atrial fibrillation, but in the past he has been off of Coumadin for the past couple years because of some gastrointestinal rectal bleeding. I did not have records exactly the etiology. Apparently his cardiology took him off the Coumadin. He does have a history of diverticulosis of the colon and also colonic polyps. Other past medical history is positive for myocardial infarction which he had stenting of his right coronary artery. He also has type 2 diabetes for which he is on insulin. Parkinson disease with tremor, hypertension and hypertensive heart disease, hyperlipidemia, chronic systolic congestive heart failure, obesity, depression, chronic kidney disease stage 3, diffuse degenerative joint disease. PREVIOUS SURGERIES: Include also coronary artery bypass, previous pacemaker placement, left carpal tunnel release. He had a laparoscopic cholecystectomy in 2016. REVIEW OF SYSTEMS: He does have some intermittent headaches, but no major ones associated with this episode. He did have some decreased visual acuity he states with blurred vision of the left eye temporarily. He did not seem to have any speech problems according to him and his family. No nausea, vomiting. No unusual urinary or bowel symptoms. No blood in his stool. Apparently, he has been having some pain in the left flank when walking and has been worked up by Dr. Browne from Cardiology and does have an appointment with him later this week. FAMILY HISTORY: Positive for heart disease. SOCIAL HISTORY: Denies any alcohol intake. He is a former smoker. Apparently, he still lives by himself with family support and his approximately a couple years ago. PHYSICAL EXAMINATION: The patient is alert, lying in bed. He does have some diffuse tremors mostly of his upper extremities, more so on the right knee. The vital signs show temperature 98.3, pulse of 62, respirations 18, blood pressure 119/66, and he is 98% saturated on 2 L nasal cannula. Head is not stiff. No definite carotid bruits or adenopathy. Extraocular movements were intact. Pupils are equal and reactive. 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 Otherwise tremors makes it a little difficult, but otherwise he was able to lift his arms up without drifting. He seemed to have fairly preserved strength of the lower extremities. Neurologically on motor exam, he was clear. Heart exam is slightly irregular, but rate controlled. ABDOMEN: Obese and nontender. The extremities revealed somewhat cool extremities left with diminished pulses and somewhat cooler than the right and some discoloration on the dorsal insides of the left foot. LABORATORY VALUES: Revealed a white count of 5.4, hemoglobin 12.8, and a platelet count of 188. INR is 0.9 with a PTT of 23.2. Sodium 136 with a potassium 4.2 with a CO2 content of 35, BUN of 33 with creatinine 1.6. Initial blood sugar was 290. This has come down to 211, and his troponin was less than 0.017. Albumin was 3.8. Other liver tests were good. The patient's chest x-ray showed what appeared to be a somewhat increasing left lateral basilar opacity. There was some recommendation for possible followup CT scan of that area, but he did have a CT of the brain which did not show evidence of hemorrhage, and he did have a CT angiogram, which revealed no significant stenosis, no internal carotid arteries and no aneurysmal changes or no stenosis was noted of significance. IMPRESSION: 1. Transient ischemic attack with left arm weakness and paresthesias of the left upper and lower extremities with normal carotids on CT angiogram. Likely source could be the atrial fibrillation and left atrium and in the past Coumadin was held because of rectal possible diverticular bleeding, though I do not have definitive records. 2. Other history is the underlying atrial fibrillation. 3. Coronary artery disease with previous bypass surgery. 4. Abnormal chest x-ray as described above. 5. Other medical problems and comorbidities such as diabetes, hypertension, hyperlipidemia, Parkinson disease. 6. Please see list in the body of the past medical history. PLAN: At this time plans are for further neurology evaluation along with Cardiology evaluation and decide whether the patient should be tried back on any anticoagulation or not. Also, cardiology Dr. Browne has been evaluating the circulation of the left leg. At this time, we will continue his home medications for control of his chronic medical problems as stated above and as discussed with the patient and family at bedside this evening. MILLI / ISABEL: [id number] / MTDD
[2018-07-12 06:09] LABS: Glucose,Whole Blood 87 mg/dL (75-99)
[2018-07-12] MEDS ORDERED: RX INFO: IV CONTRAST WAS GIVEN 1 EACH MISC MISCELLANE PRN (07:41)
--- NOTE | 2018-07-12 07:43 | P.PN ---
Progress Note - Text Mr. Paiz is a 83-year-old gentleman who presented yesterday with left arm paresthesias and weakness. Patient does have a history of atrial fibrillation but has been off Coumadin in the past regarding previous gastrointestinal bleeding. Patient was on aspirin and Plavix. He has had coronary artery bypass surgery. He also has underlying Parkinson disease, hypertension, hyperlipidemia chronic systolic congestive heart failure, obesity, chronic kidney disease and diffuse degenerative joint disease. This morning he is sitting up at the side of the bed. He states he seems to have better use of his left arm and hand this morning. A vital sign show blood pressure 121/56 with a pulse of 62 and respirations 18. Lung and heart exam is clear and rate is controlled. He does have compression stockings intact. He seems to have better control and strength of his left arm this morning. Speech is intact. Blood Sugar 87 this morning. cholesterol was 164 with triglycerides 180 and LDL cholesterol of 89. HDL low at 39. Impressions and plans Patient with CVA and left upper extremity weakness which seems to have improved overnight. Please refer to neurology evaluation/consult. A possible source is his left atrium and atrial fibrillation. Carotid vascular study appears to be within normal limits. We'll await for further recommendations from cardiology. CT of the chest to evaluate the left lower lung mass.
[2018-07-12] MEDS ORDERED: SPIRONOLACTONE 25 MG TAB PO SCH (09:00)
[2018-07-12] MEDS ORDERED: ISOSORBIDE MONONITRATE ER 30 MG TAB.ER.24H PO SCH (09:00)
[2018-07-12] MEDS ORDERED: FAMOTIDINE 20 MG TAB PO SCH (09:00)
[2018-07-12] MEDS ORDERED: METOLAZONE 2.5 MG TAB PO SCH (09:00)
[2018-07-12] MEDS ORDERED: CLOPIDOGREL 75 MG TAB PO SCH (09:00)
[2018-07-12] MEDS ORDERED: PARoxetine 20 MG TAB PO SCH (09:00)
[2018-07-12] MEDS ORDERED: LOSARTAN 25 MG TAB PO SCH (09:00)
[2018-07-12] MEDS ORDERED: NON-FORMULARY DRUG (Aspirin Ec 81 MG) PO SCH (09:00)
[2018-07-12] MEDS ORDERED: INSULN ASP PRT/INSULIN ASPART 100 UNIT/ML 10 ML VIAL SQ SCH (09:00)
[2018-07-12] MEDS ORDERED: CALCIUM CARB-VIT D 500MG-200UN 1 EACH TAB PO SCH (09:00)
[2018-07-12] MEDS ORDERED: ASPIRIN 325 MG TAB PO SCH (09:00)
[2018-07-12] MEDS: PRIMIDONE 50 MG TAB PO SCH ×4 (09:02→20:18)
[2018-07-12] MEDS: ATENOLOL 50 MG TAB PO SCH ×2 (09:03→20:18)
[2018-07-12] MEDS: FUROSEMIDE 40 MG TAB PO SCH ×2 (09:03→19:41)
[2018-07-12] MEDS: CARBIDOPA-LEVODOPA ER 50-200MG 1 EACH TABLET.ER PO SCH ×3 (09:04→20:23)
--- NOTE | 2018-07-12 10:00 | CT ---
EXAMINATION TYPE: CT chest wo con DATE OF EXAM: 07/12/2018 COMPARISON: Radiograph 07/11/2018 HISTORY: 83-year-old male Left lower mass on CXR TECHNIQUE: Contiguous axial scanning of the chest without IV contrast. Coronal and sagittal reconstru ctions performed. CT DLP: 625.8 mGycm Automated exposure control for dose reduction was used. FINDINGS: Median sternotomy wires are present with post-CABG changes. Left anterior chest wall pacemaker genera tor with right atrial and right ventricular leads. Heart borderline to mildly enlarged without pericardial effusion. Ascending aorta is ectatic at 3.9 cm. Proximal arch ectatic at 2.8 cm. Mild atherosclerotic arch calc ifications with conventional arch vessel branching anatomy. Ectatic upper descending thoracic aorta a t 3.0 cm. Large caliber to the main right and left pulmonary artery segment 2.9 and 2.7 cm, respectively, sugge sting underlying pulmonary artery hypertension. No thoracic lymphadenopathy by CT size criteria. There is some narrowing of the lower trachea, iman, and mainstem bronchi that could reflect trachea l bronchomalacia. There is a small left pleural effusion with a subpleural mass in the left lower lobe measuring 5.2 cm . There are curvilinear densities extending from the mass to the infrahilar region. Additional patchy opacity with a curvilinear densities extending to the infrahilar region at the inferior lingula. Respiratory motion at the lower lungs limits assessment for small pulmonary nodules. Otherwise, no consolidation or pleural effusion seen. Visualized upper abdomen show some hypodense lesions within the kidneys measuring up to 2.8 cm mild t hickening of the left adrenal gland without discrete nodularity. Cholecystectomy clips. Subcentimeter hypodensity inferior mid liver to small for accurate CT characterization, probable cyst. Bones: No osseous destructive process. Moderate degenerative disc disease thoracolumbar junction. Ant erior endplate spondylosis thoracic spine. IMPRESSION: 1. SMALL LEFT PLEURAL EFFUSION. THERE IS AN ADJACENT 5.2 CM SUBPLEURAL LEFT LOWER LOBE MASS. HOWEVER, GIVEN THE CURVILINEAR DENSITIES EXTENDING FROM THE MASS TO THE INFRAHILAR REGION, ROUNDED ATELECTASI S IS SUSPECTED. THREE-MONTH FOLLOW-UP CT RECOMMENDED TO ENSURE STABILITY AND EXCLUDE NEOPLASM. ALSO, CORRELATE TO THE ETIOLOGY OF THE PATIENT'S PLEURAL EFFUSION, POSSIBLY INFLAMMATORY OR EXUDATIVE EF FUSION IF IT IS TO CAUSE ROUNDED ATELECTASIS. 2. SUSPECT ADDITIONAL PATCHY SCARRING/ATELECTASIS AT THE INFERIOR LINGULA WHICH SHOULD ALSO BE REASSE SSED AT FOLLOW-UP. 3. BORDERLINE TO MILD CARDIOMEGALY AND PULMONARY ARTERIAL HYPERTENSION.
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
[2018-07-12 10:49] VITALS: BMI 36.4
[2018-07-12 11:35] LABS: Glucose,Whole Blood 142 mg/dL (75-99)
--- NOTE | 2018-07-12 11:36 | P.PN ---
Subjective Progress Note Date: 07/12/18 Patient states his numbness of the left facial and left brachial region has resolved. No new neuro symptoms. He feels fine. Objective - Vital Signs Vital signs: Vital Signs Temp 98.2 F 07/11/18 19:20 Pulse 60 07/12/18 08:00 Resp 18 07/12/18 08:00 BP 121/57 07/12/18 08:00 Pulse Ox 92 L 07/12/18 08:00 Intake & Output 07/11/18 07/12/18 07/12/18 18:59 06:59 18:59 Intake Total 120 480 Balance 120 480 Weight 113.852 kg 112 kg 112 kg Intake: Oral 120 480 Other: Voiding Method Toilet # Voids 2 - Exam Patient is an elderly male, in no distress. Speech and language functions are normal. Cranial nerves are normal. Muscle strength normal - Labs CBC & Chem 7: 07/11/18 14:35 07/11/18 14:35 Labs: Abnormal Lab Results - Last 24 Hours (Table) 07/11/18 07/11/18 07/11/18 Range/Units 14:35 14:35 14:35 RBC 4.26 L (4.30-5.90) m/uL Hgb 12.8 L (13.0-17.5) gm/dL RDW 15.6 H (11.5-15.5) % Lymphocytes # 0.7 L (1.0-4.8) k/uL Sodium 136 L (137-145) mmol/L Chloride 92 L (98-107) mmol/L Carbon Dioxide 35 H (22-30) mmol/L BUN 33 H (9-20) mg/dL Creatinine 1.60 H (0.66-1.25) mg/dL Glucose 290 H (74-99) mg/dL POC Glucose (mg/dL) (75-99) mg/dL ALT 16 L (21-72) U/L Triglycerides 180 H (<150) mg/dL HDL Cholesterol 39 L (40-60) mg/dL 07/11/18 Range/Units 20:20 RBC (4.30-5.90) m/uL Hgb (13.0-17.5) gm/dL RDW (11.5-15.5) % Lymphocytes # (1.0-4.8) k/uL Sodium (137-145) mmol/L Chloride (98-107) mmol/L Carbon Dioxide (22-30) mmol/L BUN (9-20) mg/dL Creatinine (0.66-1.25) mg/dL Glucose (74-99) mg/dL POC Glucose (mg/dL) 211 H (75-99) mg/dL ALT (21-72) U/L Triglycerides (<150) mg/dL HDL Cholesterol (40-60) mg/dL Assessment and Plan Assessment: * Probable TIA, presenting with paresthesias involving the left facial brachial region. * Atrial fibrillation, currently not on anticoagulation * Hypertension * Diabetes, not well controlled * Obesity * CAD * PVD * Essential tremor Plan: Patient has TIA/small CVA, likely related to cardioembolism from atrial fibrillation. Suggest starting anticoagulation, unless contraindicated for any reasons. CTA of head and neck showed no large vessel stenosis. Optimize control of stroke risk factors including diabetes to target hemoglobin A1c <7.0, LDL <70. Cardiology has seen the patient, and patient apparently had GI bleed from Eliquis. Patient being considered for watchman device. Cardiology following.
[2018-07-12] MEDS ORDERED: MULTIVITAMINS, THERA 1 EACH TAB PO SCH (12:00)
[2018-07-12] MEDS ORDERED: POTASSIUM CHLORIDE ER 20 MEQ TAB.ER PO SCH (12:30)
--- NOTE | 2018-07-12 15:27 | CDI ---
Documentation Clarification Form Date: 07/12/2018 2:53:31 PM From: Oriana Goyal RN, CCDS Admit Date: 07/11/2018 4:20:00 PM Patient Name: Bob Paiz Visit Number: [id number] Discharge Date: ATTENTION: The Clinical Documentation Specialists (CDI) and [facility] Coding Staff appreciate your assistance in clarifying documentation. Please respond to the clarification below the line at the bottom and electronically sign. The CDI & [facility] Coding staff will review the response and follow-up if needed. Please note: Queries are made part of the Legal Health Record. If you have any questions, please contact the author of this message via ITS. Dr. Amarilys Amato Conflicting documentation has been found in the medical record: TIA or CVA. To accurately code the most clinically appropriate diagnosis clarification is needed History/Risk Factors: Chronic Afib, NIDDM type II, Coronary Artery disease, Hypertension, Vascular Disorder, Former smoker Clinical Indicators: 83 year-old male presents with complaints of left-sided facial numbness, left arm numbness and left arm weakness. CT brain: no acute intracranial hemorrhage or midline shift. There is moderate diffuse age-related cerebral atrophy and chronic small vessel ischemic change redemonstrated. ED impression: CVA 07/12/18 Attending: (Dr. Santiago) Patient with CVA with left arm weakness and paresthesias of the left upper lower extremities with normal carotids on CT angiogram. 07/11 Neurology consult: possible stroke/TIA, Plan: patient has TIA/small CVA, likely related to cardoembolism from afib. 07/12 Neurology consult probable TIA, Plan: patient has TIA/small CVA Treatment: Neurology consultation CT brain CTA of head and neck Neurological assessment per orders In your opinion, what is the most clinically appropriate diagnosis for this patient? CVA ruled in CVA ruled out TIA ruled in TIA ruled out Other explanation of clinical findings Unable to determine (no explanation for clinical findings) (Last Revision: June 2017) Initially CVA was suspected, however the symptoms resolved in 24 hours, therefore will call it a TIA. COCOD
[2018-07-12 16:56] LABS: Glucose,Whole Blood 129 mg/dL (75-99)
--- NOTE | 2018-07-12 17:57 | ECHOF ---
Referral Reason:afib MEASUREMENTS -------- HEIGHT: 175.3 cm WEIGHT: 111.6 kg BP: 121/57 IVSd: 1.5 cm (0.6 - 1.1) LVIDd: 4.8 cm (3.9 - 5.3) LVPWd: 1.4 cm (0.6 - 1.1) IVSs: 1.7 cm LVIDs: 4.1 cm LVPWs: 1.6 cm LA Diam: 4.4 cm (2.7 - 3.8) RVIDd: 4.0 cm (< 3.3) LAESV Index (A-L): 46.30 ml/m Ao Diam: 3.2 cm (2.0 - 3.7) AV Cusp: 1.1 cm (1.5 - 2.6) EPSS: 1.0 cm MV E Jamey: 1.19 m/s MV DecT: 196 ms MV A Jamey: 0.57 m/s MV E/A Ratio: 2.10 AV maxP.99 mmHg AV meanP.36 mmHg RAP: 5.00 mmHg RVSP: 41.89 mmHg MV EF SLOPE: 118.04 mm/s (70 - 150) MV EXCURSION: 17.57 mm (> 18.000) FINDINGS -------- Paced rhythm. This was a technically difficult study with suboptimal views. The left ventricular size is normal. There is moderate concentric left ventricular hypertrophy. O verall left ventricular systolic function is mild-moderately impaired with, an EF between 40 - 45 %. The right ventricle is moderately enlarged. LA is severely dilated >40 ml/m2 The right atrium is normal in size. 5 ml of Lumason was utilized for enhancement of images. Interatrial and interventricular septum intact. There is moderate aortic valve sclerosis. Peak/mean gradient across the Aortic Valve is 10.99mmHg / 6.36mmHg. The mitral valve leaflets are mildly thickened. Mild mitral annular calcification present. Modera te mitral regurgitation is present. Moderate tricuspid regurgitation present. There is mild pulmonary hypertension. The right ventric ular systolic pressure, as measured by Doppler, is 41.89mmHg. Trace/mild (physiologic) pulmonic regurgitation. The aortic root size is normal. Normal inferior vena cava with normal inspiratory collapse consistent with estimated right atrial pre ssure of 5 mmHg. There is no pericardial effusion. CONCLUSIONS -------- 1. Paced rhythm. 2. This was a technically difficult study with suboptimal views. 3. The left ventricular size is normal. 4. There is moderate concentric left ventricular hypertrophy. 5. Overall left ventricular systolic function is mild-moderately impaired with, an EF between 40 - 45 %. 6. The right ventricle is moderately enlarged. 7. LA is severely dilated >40 ml/m2 8. The right atrium is normal in size. 9. 5 ml of Lumason was utilized for enhancement of images. 10. Interatrial and interventricular septum intact. 11. There is moderate aortic valve sclerosis. 12. Peak/mean gradient across the Aortic Valve is 10.99mmHg / 6.36mmHg. 13. The mitral valve leaflets are mildly thickened. 14. Mild mitral annular calcification present. 15. Moderate mitral regurgitation is present. 16. Moderate tricuspid regurgitation present. 17. There is mild pulmonary hypertension. 18. The right ventricular systolic pressure, as measured by Doppler, is 41.89mmHg. 19. Trace/mild (physiologic) pulmonic regurgitation. 20. The aortic root size is normal. 21. Normal inferior vena cava with normal inspiratory collapse consistent with estimated right atrial pressure of 5 mmHg. 22. There is no pericardial effusion. ORE DIGGER: Christine Sky RDCS
[2018-07-12 20:11] VITALS: RESP 20
[2018-07-12] MEDS: ATORVASTATIN 40 MG TAB PO SCH (20:18)
[2018-07-12] MEDS: INSULN ASP PRT/INSULIN ASPART 100 UNIT/ML 10 ML VIAL SQ SCH (20:19)
[2018-07-12 21:01] LABS: Glucose,Whole Blood 157 mg/dL (75-99)
[2018-07-13 01:50] LABS: Glucose,Whole Blood 58 mg/dL (75-99)
[2018-07-13 02:07] LABS: Glucose,Whole Blood 96 mg/dL (75-99)
--- NOTE | 2018-07-13 07:59 | P.PN ---
Progress Note - Text The patient is an 83-year-old gentleman who presented 2 days previous with left arm paresthesias and weakness. He does have a history of atrial fibrillation and has been off anticoagulants because of previous serious gastrointestinal hemorrhage and he declines resuming any anticoagulants. Presently he is on aspirin. Clinically, neurologically he has improved. Speech and strength have been normalizing. Patient does have several comorbidities that have been previously listed. This morning his temperature is 98.5 with a pulse of 64 and respirations 20. Blood pressure 120/55 and he is 96% saturated on room air. Lung and heart exam is clear. No unusual edema. Once again neurologically he appears overall intact. He does have Parkinson disease and tremors. Strength though it appears to be fairly equal bilaterally this time. Blood sugar was 96 although he has had some lower blood sugars early in the morning. Impressions and plans Patient this morning is somewhat irritable. States that he wants to go home. Cardiology apparently discussed with him possibility of the workman procedure to prevent further blood clots from the left atrium. Also discussed with patient need to follow-up CAT scan of the chest in 3 months. Follow-up on abnormal findings in the left lower lung field as recommended by radiology. If okay with cardiology plans will be to discharge on aspirin therapy and follow-up as outpatient on the above matters with myself and cardiology.
[2018-07-13] MEDS ORDERED: ASPIRIN 81 MG PO SCH (09:00)
[2018-07-13 10:23] VITALS: BP 142/67; PULSE 68; TEMP 98.2
--- NOTE | 2018-07-13 12:38 | P.PN ---
Subjective Progress Note Date: 07/13/18 This is a pleasant 83-year-old gentleman who follows with Dr. Chaves in the office. He has a known history of coronary artery disease with prior bypass surgery in 1999 at which time he underwent a CRAWFORD to the LAD, saphenous vein graft to diagonal 1 and a radial to the RCA, subsequent to that patient did undergo angioplasty and stenting of the RCA in 2006. He also has a history of hypertension, hyperlipidemia, diabetes, chronic persistent atrial fibrillation, prior pacemaker implantation and family history of premature coronary artery disease. Patient did undergo cardiac catheterization in August at 2018 which revealed heavily calcified coronary arteries. Chronic total occlusion of the LAD. If he can disease in the ostium of the left circumflex, significant disease in the proximal RCA, patent CRAWFORD to the LAD, patent radial to the RCA, totally occluded saphenous vein graft to the diagonal branch and mildly impaired left ventricular systolic function, medical therapy was advised at that time. Patient presents to the hospital on this occasion with symptoms of left arm numbness and weakness,, patient states he also had numbness in the left side of his face, some visual disturbance in his left eye and mild facial drooping on the left. At the time of my examination this morning his symptoms have resolved. CAT scan of the brain was performed on arrival here which did not rev eal any acute intracranial hemorrhage or midline shift. There is moderate diffuse age-related cerebral atrophy and chronic small vessel ischemic change redemonstrated. Chest x-ray showed cardiomegaly and chronic parenchymal changes with increasing lateral left basilar masslike obesity, cannot exclude underlying neoplasm. CT angiography was performed which did not reveal any significant stenosis in the common or internal carotid arteries bilaterally. No aneurysmal change at the level of the ewiiaapaayp of Rudolph. EKG showed atrial fibrillation with a controlled ventricular response. CT of the chest was also performed which revealed small left pleural effusion. There is an adjacent 5.2 cm verduzco bpleural left lower lobe mass however given the curb Densities extending from the mass into the infrahilar region, rounded atelectasis is suspected. Additional patchy scarring or atelectasis is noted at the inferior lingula. Blood pressure on arrival here 158/80, heart rate in the 60s to 70s, 97% on room air. Afebrile. White blood cell count 5.4, hemoglobin 12.8, platelet count 188. Sodium 136, potassium 4.2, BUN 33 and creatinine 1.6. Troponin 0.017. 07/13/2018 Patient was seen and examined this morning, quite ornery with the staff and eager to be discharged home. Blood pressure 120/60 with a heart rate in the 60s, 96% on room air. Objective - Vital Signs Vital signs: Vital Signs Temp 98.2 F 07/13/18 08:00 Pulse 68 07/13/18 08:00 Resp 20 07/13/18 08:00 BP 142/67 07/13/18 08:00 Pulse Ox 96 07/13/18 08:00 Intake & Output 07/12/18 07/13/18 07/13/18 18:59 06:59 18:59 Intake Total 1320 150 240 Balance 1320 150 240 Weight 112 kg 112.4 kg Intake: Oral 1320 150 240 Other: Voiding Method Toilet Toilet # Voids 2 1 # Bowel Movements 0 - Exam PHYSICAL EXAMINATION: GENERAL: 83-year-old gentleman in no acute distress at the time of my examination HEENT: Head is atraumatic, normocephalic. Pupils equal, round. Sclera anicteric. Conjunctiva are clear. Mucous membranes of the mouth are moist. Neck is supple. There is no elevated jugular venous pressure. No carotid bruit is heard. HEART EXAMINATION: S1 and S2 irregularly irregular a systolic ejection murmur is heard CHEST EXAMINATION: Lungs are clear to auscultation and precussion. No chest wall tenderness is noted on palpation or with deep breathing. ABDOMEN: Soft, nontender. Bowel sounds are heard. No organomegaly noted. EXTREMITIES: 2+ peripheral pulses with no evidence of peripheral edema and no calf tenderness noted. NEUROLOGIC patient is awake, alert and oriented 3 - Labs CBC & Chem 7: 07/11/18 14:35 07/11/18 14:35 Labs: Abnormal Lab Results - Last 24 Hours (Table) 07/12/18 07/12/18 07/13/18 Range/Units 16:55 20:59 01:49 POC Glucose (mg/dL) 129 H 157 H 58 L (75-99) mg/dL Assessment and Plan Plan: Assessment and plan #1 possible TIA, presenting with paracentesis involving the left facial and arm #2 chronic persistent atrial fibrillation, patient had been on Coumadin in the past, this was discontinued in August 2017 because of GI bleed #3 hypertension #4 diabetes #5 coronary artery disease with prior bypass surgery in 1999 with subsequent stenting of the RCA in 2006 #6 hyperlipidemia #7 PVD #8 essential tremors #9 prior pacemaker implantation #10 renal insufficiency Plan Echocardiogram with Doppler study revealed an ejection fraction of 40-45%, LA is severely dilated, moderate aortic stenosis, moderate mitral regurgitation and moderate tricuspid regurg. Patient will be discharged home today, he has a follow-up appointment with Dr. Chaves in the office on which he has been advised to keep. DNP note has been reviewed, I agree with a documented findings and plan of care. Patient was seen and examined.
--- NOTE | 2018-07-14 11:25 | CDI ---
Documentation Clarification Form Date: 07/14/2018 10:50:39 AM From: Oriana Goyal RN, CCDS Admit Date: 07/11/2018 4:20:00 PM Patient Name: Bob Paiz Visit Number: [id number] Discharge Date: 07/13/2018 10:05:00 AM ATTENTION: The Clinical Documentation Specialists (CDI) and [facility] Coding Staff appreciate your assistance in clarifying documentation. Please respond to the clarification below the line at the bottom and electronically sign. The CDI & [facility] Coding staff will review the response and follow-up if needed. Please note: Queries are made part of the Legal Health Record. If you have any questions, please contact the author of this message via ITS. Dr. Dalton Santiago The patients principal diagnosis has not been clearly identified and requires clarification. 07/12 in your progress note: Patient with CVA and left upper extremity weakness which seems to have improved overnight. (See neurology response below) History/Risk factors: Chronic persistent Atrial Fibrillation, Hypertension, Diabetes, Mellitus, PVD, Hyperlipidemia Clinical Indicators: 83-year-old male present to ED complaining of left-sided facial numbness and arm numbness. CT Brain: No acute intracranial hemorrhage or midline shift. There is moderate diffuse age-related cerebral atrophy and chronic small vessel ischemic change redemonstrated. Vital Signs: 157/79 65 18 97.6 97 % RA 07/13 Cardiology: Possible TIA, presenting with paracentesis involving the left facial and arm. Other Clinical Indicators: 07/12 neurology progress notes. The patient states his numbness of the left facial and left brachial region has resolved. Treatment: Neurological assessment per orders Optimize control of stroke risk factors including diabetes. Neurology: Dr. Amato: Initially CVA was suspected, however the symptoms resoled in 24 hours, therefore will call it a TIA In your professional opinion, can you please clarify which diagnosis, after study, accounted for the patients presenting symptoms and was the reason chiefly responsible for the admission? TIA CVA (Last Revision: June 2017) COCOD
--- NOTE | 2018-07-15 08:50 | DS ---
DISCHARGE SUMMARY Mr. Paiz is an 83-year-old gentleman who presented to the emergency room with left arm, face paresthesias with numbness and weakness. The patient was seen in the emergency room and underwent studies with a brain CT, chest x-ray and an angiographic CT studies which the original CAT scan did not show evidence of any hemorrhage. A carotid angiogram did not show any evidence of significant blockage or calcifications. EKG showed chronic atrial fib. Chest x-ray was consistent with a left lower lung mass and initial labs showed a white count of 5.4, hemoglobin 12.8, platelet count of 188. His INR was 0.9. Sodium was 136 with a potassium 4.2, CO2 content of 35, BUN of 33 with a creatinine 1.6 and initial blood sugar was elevated at 290. Troponin was less than 0.017. Albumin 3.8. Liver function tests were good. The patient was admitted. Consultation obtained with Neurology and Cardiology. Initially, his symptoms persisted but then improved during his hospitalization with decreased weakness and paresthesias. The patient had been on Coumadin in the past and had episode of significant lower GI bleed and was taken off of his anticoagulants because of that and in discussion with myself and Cardiology and family apparently, the patient declined restarting any anticoagulation. He was started back on aspirin. A followup CT scan of the chest was done which revealed a 5.2 cm subpleural left lower lobe mass extending from the mass to the infrahilar region. It was kind of suspected to be more of atelectasis but a neoplasm could not be excluded and was recommended for followup CAT scan of the chest without enhancement in a 3-month period and this was discussed with the patient. The patient was able to ambulate without difficulties. Neurologic exam returned to his baseline and at this point, plans are to discharge to home continuing on his aspirin at 81 mg a day. He will also be on his atenolol 50 mg twice a day, apparently he takes a 25 mg tablet, atorvastatin for his cholesterol 40 mg at bedtime. He is also on calcium replacement and vitamin D3 500-200 one daily. For his Parkinson's, he is on carbidopa/levodopa 50-200 one tablet 3 times a day. He is on Plavix 75 mg daily, Pepcid 20 mg in the morning, furosemide 40 mg twice a day. He is on insulin, lispro 75- 25, thirty-five units at bedtime and 40 units in the morning, glipizide 5 mg daily and metformin 500 mg daily. FINAL DISCHARGE DIAGNOSES BEIN. Transient ischemic attack affecting the left upper arm and face with weakness and paresthesias. 2. Chronic atrial fibrillation with controlled ventricular response, but not able to tolerate anticoagulation because of significant gastrointestinal bleeding in the past. 3. He does have a history of diverticulosis of the colon and colon polyps. 4. Also, history of myocardial infarction, post stenting of the right coronary artery. 5. Diabetes type 2 for which he is on insulin. 6. Parkinson disease with tremor. 7. Hypertension and hypertensive heart disease. 8. Hyperlipidemia. 9. Chronic systolic congestive heart failure. 10.Obesity. 11.Depression. 12.Chronic kidney disease stage 3. 13.Diffuse degenerative joint disease. 14.He has had pacemaker placement along with his bypass surgery and stenting and previous laparoscopic cholecystectomy in 2016. The patient will follow up with myself and Cardiology over the next week. Family and patient are aware if any concerns or problems, he is to call or return to the emergency room. DIET: Diabetic as tolerated. ACTIVITIES: As tolerated. MMODL / IJN: [id number] / BISI
== END 2018-07-13 10:05 | disposition home or self-care (01) | DRG 69 ==
LOC: EC 13:47 → 3SCARD 16:20
PROVIDERS: ADMIT Internal Medicine; ATTEND Internal Medicine
DX: G45.9 Transient cerebral ischemic attack, unspecified (principal); I50.22 Chronic systolic (congestive) heart failure; I48.1 Persistent atrial fibrillation; I13.0 Hypertensive heart and chronic kidney disease with heart failure and stage 1 through stage 4 chronic kidney disease, or unspecified chronic kidney disease; K86.1 Other chronic pancreatitis; E11.22 Type 2 diabetes mellitus with diabetic chronic kidney disease; E11.51 Type 2 diabetes mellitus with diabetic peripheral angiopathy without gangrene; N18.3 Chronic kidney disease, stage 3 (moderate); I25.10 Atherosclerotic heart disease of native coronary artery without angina pectoris; E78.5 Hyperlipidemia, unspecified; M19.90 Unspecified osteoarthritis, unspecified site; Z96.1 Presence of intraocular lens; F32.9 Major depressive disorder, single episode, unspecified; I48.2 Chronic atrial fibrillation; G25.0 Essential tremor; E66.9 Obesity, unspecified; G20 Parkinson's disease; N40.0 Benign prostatic hyperplasia without lower urinary tract symptoms; R29.810 Facial weakness; Z68.36 Body mass index [BMI] 36.0-36.9, adult; Z79.01 Long term (current) use of anticoagulants; Z79.4 Long term (current) use of insulin; Z79.899 Other long term (current) drug therapy; Z79.02 Long term (current) use of antithrombotics/antiplatelets; Z79.82 Long term (current) use of aspirin; Z79.84 Long term (current) use of oral hypoglycemic drugs; I25.2 Old myocardial infarction; Z95.5 Presence of coronary angioplasty implant and graft; Z95.1 Presence of aortocoronary bypass graft; Z95.0 Presence of cardiac pacemaker; Z90.49 Acquired absence of other specified parts of digestive tract; Z98.42 Cataract extraction status, left eye; Z98.41 Cataract extraction status, right eye; Z98.890 Other specified postprocedural states; Z87.891 Personal history of nicotine dependence; Z80.0 Family history of malignant neoplasm of digestive organs; Z82.49 Family history of ischemic heart disease and other diseases of the circulatory system; Z80.8 Family history of malignant neoplasm of other organs or systems; Z87.19 Personal history of other diseases of the digestive system; Z86.010 Personal history of colon polyps
CPT/HCPCS: 36415; 70450; 70496; 70498; 71046; 71250; 80053; 80061; 82550; 82553; 84484; 85025; 85610; 85730; 93005; 93306; 96360; 99285

== ENCOUNTER 2018-09-25 12:11 | Emergency (ER) | payer MEDICARE, OTHER ==
[2018-09-25] MEDS ORDERED: DIPH,PERTUS(ACELL)TETVAC-LF 0.5 ML VIAL IM ONE (12:15)
[2018-09-25] MEDS ORDERED: SODIUM CHLORIDE 0.9% 500 ML 500 ML IV STA (12:15)
[2018-09-25 12:40] LABS: Anisocytosis Slight; Basophils # (A) 0.1 k/uL (0-0.2); Basophils % (A) 1 %; Eosinophils # (A) 0.2 k/uL (0-0.7); Eosinophils % (A) 2 %; HCT 39.6 % (39.0-53.0); HGB 12.8 gm/dL (13.0-17.5); Lymphocytes # (A) 0.7 k/uL (1.0-4.8); Lymphocytes % (A) 8 %; MCH 29.4 pg (25.0-35.0); MCHC 32.3 g/dL (31.0-37.0); MCV 91.1 fL (80.0-100.0); Mean Platelet Volume 7.5; Monocytes # (A) 0.5 k/uL (0-1.0); Monocytes % (A) 6 %; Neutrophils # (A) 7.3 k/uL (1.3-7.7); Neutrophils % (A) 83 %; Platelet Count 216 k/uL (150-450); RBC 4.35 m/uL (4.30-5.90); RDW 16.8 % (11.5-15.5); WBC 8.8 k/uL (3.8-10.6)
[2018-09-25 12:43] LABS: INR 0.9 (<1.2)
--- NOTE | 2018-09-25 12:43 | XR ---
EXAMINATION TYPE: XR chest 1V portable DATE OF EXAM: 09/25/2018 HISTORY: trauma. REFERENCE: Previous study dated 07/11/2018. FINDINGS: There has been a midline sternotomy. There is a bipolar pacemaker place on the left. The heart is mildly enlarged. There is continuing left basilar airspace disease. There is a left effu teja. IMPRESSION: NO SIGNIFICANT INTERVAL CHANGE IN THE CHEST.
[2018-09-25 12:44] LABS: ALT <6 U/L (21-72); AST 29 U/L (17-59); African American GFR (CKD) 49 (>60 ml/min/1.73 sqM); Albumin 4.3 g/dL (3.5-5.0); Alcohol <10 mg/dL; Alkaline Phosphatase 95 U/L (38-126); Amylase 91 U/L (30-110); Anion Gap 10 mmol/L; Blood Urea Nitrogen 31 mg/dL (9-20); Calcium 9.5 mg/dL (8.4-10.2); Carbon Dioxide 34 mmol/L (22-30); Chloride 95 mmol/L (98-107); Glucose 117 mg/dL (74-99); Lipase 284 U/L (23-300); Potassium 3.7 mmol/L (3.5-5.1); Sodium 139 mmol/L (137-145); Total Bilirubin 0.4 mg/dL (0.2-1.3)
--- NOTE | 2018-09-25 12:44 | XR ---
EXAMINATION TYPE: XR pelvis AP view , ONE VIEW DATE OF EXAM ORDERED: 09/25/2018 HISTORY: Trauma. COMPARISON: None. FINDINGS: Study is compromised by the patient's extreme size. No acute osseous lesion is seen. No fractures identified. There are degenerative changes within the h ips. IMPRESSION: SUBOPTIMAL EXAMINATION DEMONSTRATING NO ACUTE OSSEOUS LESION.
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
[2018-09-25 12:53] VITALS: PULSE 67; RESP 18
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
[2018-09-25 13:08] LABS: Creatine Kinase MB 1.2 ng/mL (0.0-2.4); Troponin I 0.02 ng/mL (0.000-0.034)
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
[2018-09-25 13:23] LABS: Appearance,Urine Clear (Clear); Bilirubin,Urine Negative (Negative); Blood,Urine Negative (Negative); Color,Urine Yellow; Glucose,Urine (UA) Negative (Negative); Ketones,Urine Negative (Negative); Leukocyte Esterase,Urine Negative (Negative); Nitrite,Urine Negative (Negative); Protein,Urine Trace (Negative); Specific Gravity,Urine 1.015 (1.001-1.035); Urobilinogen,Urine <2.0 mg/dL (<2.0)
[2018-09-25 13:37] LABS: Phencyclidine Screen,Urine Not Detected (NotDetected); Urn Cannabinoid Scrn Not Detected (NotDetected)
[2018-09-25 13:38] LABS: Amphetamine Screen,Urine Not Detected (NotDetected); Barbiturate Screen,Urine Detected (NotDetected); Benzodiazepines Screen,Urine Not Detected (NotDetected); Cocaine Screen,Urine Not Detected (NotDetected); Methadone Screen, Urine Not Detected (NotDetected); Opiate Screen,Urine Not Detected (NotDetected); Oxycodone Screen, Urine Not Detected (NotDetected); Tricyclic Antidepressant,Urine Not Detected (NotDetected)
[2018-09-26 01:57] VITALS: BP 144/89; TEMP 98.2
== END 2018-09-25 14:07 | disposition other institution (70) ==
LOC: EC 12:11
DX: S06.309A Unspecified focal traumatic brain injury with loss of consciousness of unspecified duration, initial encounter (principal); S40.212A Abrasion of left shoulder, initial encounter; I25.10 Atherosclerotic heart disease of native coronary artery without angina pectoris; I11.0 Hypertensive heart disease with heart failure; I50.9 Heart failure, unspecified; E11.9 Type 2 diabetes mellitus without complications; E78.5 Hyperlipidemia, unspecified; I48.2 Chronic atrial fibrillation; I25.2 Old myocardial infarction; M19.90 Unspecified osteoarthritis, unspecified site; N40.0 Benign prostatic hyperplasia without lower urinary tract symptoms; G20 Parkinson's disease; F32.9 Major depressive disorder, single episode, unspecified; Z87.891 Personal history of nicotine dependence; Z79.01 Long term (current) use of anticoagulants; Z79.4 Long term (current) use of insulin; Z79.52 Long term (current) use of systemic steroids; Z79.899 Other long term (current) drug therapy; Z79.82 Long term (current) use of aspirin; Z95.1 Presence of aortocoronary bypass graft; Z95.5 Presence of coronary angioplasty implant and graft; Z95.0 Presence of cardiac pacemaker; Z23 Encounter for immunization; V43.92XA Unspecified car occupant injured in collision with other type car in traffic accident, initial encounter; Y92.410 Unspecified street and highway as the place of occurrence of the external cause
CPT/HCPCS: 99285; 90471; 36415; 86900; 86901; 80053; 82150; 82550; 82553; 83605; 83690; 84484; 85025; 85610; 85730; 86850; 81003; 80306; 80320; 72170; 71045; 72129; 72125; 72132; 70450; 71260; 74177; 90715; Q9967

== ENCOUNTER 2019-02-08 15:20 | Emergency (ER) | payer MEDICARE, OTHER ==
[2019-02-08 15:36] VITALS: TEMP 98.4
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
--- NOTE | 2019-02-08 16:23 | XR ---
EXAMINATION TYPE: XR ankle complete RT, XR foot complete RT DATE OF EXAM: 02/08/2019 COMPARISON: NONE HISTORY: Pain TECHNIQUE: Frontal, lateral and oblique images of the right ankle are obtained. COMPARISON: None. FINDINGS: There is no acute fracture/dislocation evident. The joint spaces appear within normal goodson its. Lateral soft tissue swelling noted. IMPRESSION: There is no acute fracture or dislocation seen. EXAMINATION TYPE: XR ankle complete RT, XR foot complete RT DATE OF EXAM: 02/08/2019 CLINICAL HISTORY: pain TECHNIQUE: Frontal, lateral and oblique images of the right foot are obtained. COMPARISON: None. FINDINGS: There is no acute fracture/dislocation evident. The joint spaces appear within normal goodson its. The overlying soft tissue appears unremarkable. IMPRESSION: There is no acute fracture or dislocation. ICD 10 NO FRACTURE, INITIAL EVALUATION
--- NOTE | 2019-02-08 17:00 | US ---
EXAMINATION TYPE: US venous doppler duplex LE RT DATE OF EXAM: 02/08/2019 3:48 PM COMPARISON: NONE CLINICAL HISTORY: pain, swelling. Right foot pain and edema SIDE PERFORMED: right TECHNIQUE: The lower extremity deep venous system is examined utilizing real time linear array sonog albertina with graded compression, doppler sonography and color-flow sonography. VESSELS IMAGED: External Iliac Vein (EIV) Common Femoral Vein Deep Femoral Vein Greater Saphenous Vein * Femoral Vein Popliteal Vein Small Saphenous Vein * Proximal Calf Veins (* superficial vessels) Right Leg: No evidence of DVT IMPRESSION: No evidence for DVT at this time.
[2019-02-08 17:41] LABS: Basophils % (A) 0 %; Eosinophils # (A) 0.1 k/uL (0-0.7); Eosinophils % (A) 1 %; HCT 36.4 % (39.0-53.0); HGB 11.8 gm/dL (13.0-17.5); Lymphocytes # (A) 0.8 k/uL (1.0-4.8); Lymphocytes % (A) 10 %; MCH 30.1 pg (25.0-35.0); MCHC 32.6 g/dL (31.0-37.0); MCV 92.5 fL (80.0-100.0); Mean Platelet Volume 7.1; Monocytes # (A) 0.5 k/uL (0-1.0); Monocytes % (A) 7 %; Neutrophils # (A) 6.3 k/uL (1.3-7.7); Neutrophils % (A) 80 %; Platelet Count 194 k/uL (150-450); RBC 3.93 m/uL (4.30-5.90); RDW 15.3 % (11.5-15.5); WBC 7.9 k/uL (3.8-10.6)
[2019-02-08 17:50] LABS: ALT <6 U/L (21-72); AST 48 U/L (17-59); African American GFR (CKD) 62 (>60 ml/min/1.73 sqM); Albumin 3.9 g/dL (3.5-5.0); Alkaline Phosphatase 101 U/L (38-126); Anion Gap 9 mmol/L; Blood Urea Nitrogen 28 mg/dL (9-20); Calcium 9.3 mg/dL (8.4-10.2); Carbon Dioxide 31 mmol/L (22-30); Chloride 94 mmol/L (98-107); Glucose 310 mg/dL (74-99); Non-African American GFR(CKD) 54 (>60 ml/min/1.73 sqM); Sodium 134 mmol/L (137-145); Total Bilirubin 0.8 mg/dL (0.2-1.3); Total Protein 7.4 g/dL (6.3-8.2)
[2019-02-08 18:41] LABS: C Reactive Protein 55.5 mg/L (<10.0)
[2019-02-08 18:51] LABS: Erythrocyte Sedimentation Rate 95 mm/hr (0-15)
[2019-02-08] MEDS ORDERED: cefTRIAXone IN SWFI 1,000 MG/10 ML SYRINGE IVP STA (19:11)
[2019-02-08 19:27] VITALS: BP 151/80; PULSE 80; RESP 18
== END 2019-02-08 19:24 | disposition home or self-care (01) ==
LOC: EC 15:20
DX: L03.115 Cellulitis of right lower limb (principal); M79.671 Pain in right foot; I25.10 Atherosclerotic heart disease of native coronary artery without angina pectoris; I11.0 Hypertensive heart disease with heart failure; I50.9 Heart failure, unspecified; E78.5 Hyperlipidemia, unspecified; I25.2 Old myocardial infarction; I48.91 Unspecified atrial fibrillation; E11.51 Type 2 diabetes mellitus with diabetic peripheral angiopathy without gangrene; G20 Parkinson's disease; F32.9 Major depressive disorder, single episode, unspecified; Z79.899 Other long term (current) drug therapy; Z79.4 Long term (current) use of insulin; Z79.82 Long term (current) use of aspirin; Z79.01 Long term (current) use of anticoagulants; Z79.51 Long term (current) use of inhaled steroids; Z95.0 Presence of cardiac pacemaker; Z95.1 Presence of aortocoronary bypass graft
CPT/HCPCS: 99284 ×2; 96374 ×2; 36415; 80053; 85652; 85025; 86140; 73610; 73630; 93971; J0696

== ENCOUNTER → 2019-02-16 | Outpatient (CLI) | payer MEDICARE, OTHER ==
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
== END | disposition home or self-care (01) ==
LOC: RADCTMAIN 12:21
PROVIDERS: ATTEND Internal Medicine Pulmonary Disease
DX: S22.029A Unspecified fracture of second thoracic vertebra, initial encounter for closed fracture (principal); I71.2 Thoracic aortic aneurysm, without rupture
CPT/HCPCS: 71250

== ENCOUNTER → 2019-04-28 | Outpatient (CLI) | payer MEDICARE, OTHER ==
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
== END | disposition home or self-care (01) ==
LOC: RADCTMAIN 12:02
PROVIDERS: ATTEND Nurse Practitioner Family
DX: R10.11 Right upper quadrant pain (principal)
CPT/HCPCS: 74150

== ENCOUNTER 2019-07-13 19:44 | Inpatient (IN) | payer MEDICARE, OTHER ==
[2019-07-13] MEDS ORDERED: NITROGLYCERIN SL TABS 0.4 MG TAB SUBLINGUAL STA (20:15)
[2019-07-13] MEDS ORDERED: HEPARIN SODIUM,PORCINE 5,000 UNIT/ML 1 ML VIAL IV ONE (20:16)
[2019-07-13] MEDS ORDERED: HEPARIN SODIUM,PORCINE 5,000 UNIT/ML 1 ML VIAL IV PRN (20:16)
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
[2019-07-13 20:26] LABS: Basophils % (A) 1 %; Eosinophils # (A) 0.3 k/uL (0-0.7); Eosinophils % (A) 5 %; HCT 38.7 % (39.0-53.0); HGB 12.8 gm/dL (13.0-17.5); Lymphocytes # (A) 0.9 k/uL (1.0-4.8); Lymphocytes % (A) 17 %; Mean Platelet Volume 7.7; Monocytes # (A) 0.4 k/uL (0-1.0); Monocytes % (A) 7 %; Neutrophils # (A) 3.5 k/uL (1.3-7.7); Neutrophils % (A) 69 %; Platelet Count 194 k/uL (150-450); RBC 4.12 m/uL (4.30-5.90); RDW 15.1 % (11.5-15.5); WBC 5.1 k/uL (3.8-10.6)
[2019-07-13 20:34] LABS: INR 0.9 (<1.2); Partial Thromboplastin Time 22.3 sec (22.0-30.0); Prothrombin Time 9.3 sec (9.0-12.0)
[2019-07-13 20:35] LABS: Albumin 3.9 g/dL (3.5-5.0); Calcium 8.9 mg/dL (8.4-10.2); Potassium 4.5 mmol/L (3.5-5.1); Total Bilirubin 0.2 mg/dL (0.2-1.3); Total Protein 7.3 g/dL (6.3-8.2)
--- NOTE | 2019-07-13 20:35 | XR ---
EXAMINATION TYPE: XR chest 1V portable DATE OF EXAM: 07/13/2019 COMPARISON: Chest x-ray September 25, 2018. CT chest February 16, 2019. HISTORY: Chest pain and shortness of breath. TECHNIQUE: Single frontal view of the chest is obtained. FINDINGS: Overlying sternal wires and mediastinal clips are redemonstrated. Persisting cardiomegaly with upper sclerotic thoracic aorta and dual lead pacemaker. Persistent mild to moderate left pleural effusion and/or pleural thickening with left basilar scarring and volume loss. Right lung remains cl ear. Osseous structures are intact.. IMPRESSION: Chronic changes and cardiomegaly without new acute pulmonary process.
[2019-07-13] MEDS: HEPARIN SOD,PORK IN 0.45% NACL 25,000 UNIT in 0.45% NACL 1 250ML.BAG IV SCH (20:43)
[2019-07-13] MEDS: ASPIRIN 81 MG PO STA ×2 (20:43→21:03)
[2019-07-13] MEDS ORDERED: NITROGLYCERIN SL TABS 0.4 MG TAB SUBLINGUAL PRN (21:16)
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
[2019-07-14] MEDS: INSULIN DETEMIR (LEVEMIR) 100 UNIT/ML SYR SQ SCH ×2 (02:30→20:40)
[2019-07-14 03:19] LABS: Calcium 8.8 mg/dL (8.4-10.2); Potassium 4.8 mmol/L (3.5-5.1)
[2019-07-14 07:04] LABS: Glucose,Whole Blood 229 mg/dL (75-99)
[2019-07-14] MEDS: INSULIN ASPART (NovoLOG) 100 UNIT/ML VIAL SQ SCH ×3 (07:04→17:20)
[2019-07-14] MEDS: ATENOLOL 25 MG TAB PO SCH ×2 (08:06→20:41)
[2019-07-14] MEDS: MULTIVITAMINS, THERA 1 EACH TAB PO SCH (08:06)
[2019-07-14] MEDS: PARoxetine 20 MG TAB PO SCH (08:06)
[2019-07-14] MEDS: LOSARTAN 25 MG TAB PO SCH (08:06)
[2019-07-14] MEDS: PRIMIDONE 50 MG TAB PO SCH ×4 (08:06→20:41)
[2019-07-14] MEDS: SPIRONOLACTONE 25 MG TAB PO SCH (08:07)
[2019-07-14] MEDS: POTASSIUM CHLORIDE ER 20 MEQ TAB.ER PO SCH (08:07)
[2019-07-14] MEDS: BACLOFEN 10 MG TAB PO SCH (08:07)
[2019-07-14] MEDS: FUROSEMIDE 40 MG TAB PO SCH ×2 (08:07→20:41)
[2019-07-14] MEDS: CARBIDOPA-LEVODOPA ER 50-200MG 1 EACH TABLET.ER PO SCH ×3 (08:09→20:41)
[2019-07-14] MEDS ORDERED: ASPIRIN 325 MG TAB PO SCH (09:00)
--- NOTE | 2019-07-14 12:00 | PN ---
PROGRESS NOTE Mr. Paiz is an 84-year-old male with known history of coronary artery disease, status post coronary artery bypass grafting. History of percutaneous revascularization in 2018, history of atrial fibrillation, not anticoagulated because of GI bleeding, chronic kidney disease, and history of diabetes who presented with an episode of chest discomfort yesterday. He also has a history of chronic obstructive lung disease. He has chronic stable chest discomfort but yesterday had worse episode than before. He is pain-free at this time. He is denying any chest pain. He continues to be dyspneic. No dizziness. No palpitation. His first troponin was 0.014. Subsequently 0.095 and then 0.054. I had a long discussion with him today regarding the options including cardiac catheterization or maximizing medical therapy. The risk of cardiac catheterization and all the options were discussed with him in detail. He is in favor of continuing clinical observation at this time on maximal medical therapy and depending on his symptoms, further adjustment will be made. At this time will optimize his medical treatment. MMZAHIDAL / IJN: [id number] /
[2019-07-14 12:01] LABS: Glucose,Whole Blood 214 mg/dL (75-99)
[2019-07-14] MEDS: RANOLAZINE 500 MG TAB.ER.12H PO SCH ×2 (12:29→20:41)
[2019-07-14] MEDS: ISOSORBIDE MONONITRATE ER 60 MG TAB.ER.24H PO SCH (12:29)
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
[2019-07-14 14:13] LABS: Hemoglobin A1C 8.6 % (4.0-6.0)
[2019-07-14 16:55] LABS: Glucose,Whole Blood 226 mg/dL (75-99)
[2019-07-14] MEDS: HEPARIN SOD,PORK IN 0.45% NACL 25,000 UNIT in 0.45% NACL 1 250ML.BAG IV SCH (17:29)
--- NOTE | 2019-07-14 17:59 | P.PN ---
Subjective Progress Note Date: 07/14/19 Principal diagnosis: Unstable angina Patient was seen and examined. No acute events overnight. Patient reports complete resolution of his chest pain. He denies any chest pain, shortness of breath or palpitations. No nausea or vomiting. No fever or chills. Back to baseline. Objective - Vital Signs Vital signs: Vital Signs Temp 98.4 F 07/14/19 08:00 Pulse 57 L 07/14/19 12:00 Resp 18 07/14/19 12:00 BP 156/65 07/14/19 12:00 Pulse Ox 98 07/14/19 12:00 Intake & Output 07/13/19 07/14/19 07/14/19 18:59 06:59 18:59 Intake Total 66.793 602.556 Balance 66.793 602.556 Weight 107.1 kg Intake: Intake, IV Titration 66.793 182.556 Amount Heparin Sod,Pork in 0.45% 66.793 182.556 NaCl 25,000 unit In 0.45 % NaCl 1 250ml.bag @ 9.58 UNITS/KG/HR 9.994 mls/hr IV .Q24H COUNTS INCLUDE 234 BEDS AT [facility] Rx#: [id number] Oral 420 Other: Voiding Method Toilet # Voids 1 2 # Bowel Movements 1 - Exam General: [non toxic], [no distress], [appears at stated age] Derm: [warm], [dry] Head: [atraumatic], [normocephalic], [symmetric] Eyes: [EOMI], [no lid lag], [anicteric sclera] Mouth: [no lip lesion], [mucus membranes moist] Cardiovascular: [S1S2 reg], [no murmur], [positive posterior tibial pulse bilateral], Lungs: [CTA bilateral], [no rhonchi, no rales] , [no accessory muscle use] Abdominal: [soft], [ nontender to palpation], [no guarding], [no appreciable organomegaly] Ext: [no gross muscle atrophy], [no edema], [no contractures] Neuro: [ CN II-XI grossly intact], [no focal neuro deficits] Psych: [Alert], [oriented], [appropriate affect] - Labs CBC & Chem 7: 07/13/19 20:13 07/14/19 02:32 Labs: Abnormal Lab Results - Last 24 Hours (Table) 07/13/19 07/13/19 07/14/19 Range/Units 20:13 20:13 02:32 RBC 4.12 L (4.30-5.90) m/uL Hgb 12.8 L (13.0-17.5) gm/dL Hct 38.7 L (39.0-53.0) % Lymphocytes # 0.9 L (1.0-4.8) k/uL APTT (22.0-30.0) sec Sodium 136 L (137-145) mmol/L Chloride 96 L (98-107) mmol/L Carbon Dioxide 33 H (22-30) mmol/L BUN 25 H (9-20) mg/dL Creatinine 1.36 H (0.66-1.25) mg/dL Glucose 301 H (74-99) mg/dL POC Glucose (mg/dL) (75-99) mg/dL Hemoglobin A1c (4.0-6.0) % Troponin I 0.095 H* (0.000-0.034) ng/mL Triglycerides (<150) mg/dL Lipase 422 H (23-300) U/L 07/14/19 07/14/19 07/14/19 Range/Units 02:32 02:32 02:32 RBC (4.30-5.90) m/uL Hgb (13.0-17.5) gm/dL Hct (39.0-53.0) % Lymphocytes # (1.0-4.8) k/uL APTT 36.0 H (22.0-30.0) sec Sodium (137-145) mmol/L Chloride (98-107) mmol/L Carbon Dioxide (22-30) mmol/L BUN 26 H (9-20) mg/dL Creatinine 1.35 H (0.66-1.25) mg/dL Glucose 197 H (74-99) mg/dL POC Glucose (mg/dL) (75-99) mg/dL Hemoglobin A1c 8.6 H (4.0-6.0) % Troponin I (0.000-0.034) ng/mL Triglycerides 268 H (<150) mg/dL Lipase (23-300) U/L 07/14/19 07/14/19 07/14/19 Range/Units 07:02 10:01 10:01 RBC (4.30-5.90) m/uL Hgb (13.0-17.5) gm/dL Hct (39.0-53.0) % Lymphocytes # (1.0-4.8) k/uL APTT 40.6 H (22.0-30.0) sec Sodium (137-145) mmol/L Chloride (98-107) mmol/L Carbon Dioxide (22-30) mmol/L BUN (9-20) mg/dL Creatinine (0.66-1.25) mg/dL Glucose (74-99) mg/dL POC Glucose (mg/dL) 229 H (75-99) mg/dL Hemoglobin A1c (4.0-6.0) % Troponin I 0.054 H* (0.000-0.034) ng/mL Triglycerides (<150) mg/dL Lipase (23-300) U/L 07/14/19 07/14/19 Range/Units 12:00 16:53 RBC (4.30-5.90) m/uL Hgb (13.0-17.5) gm/dL Hct (39.0-53.0) % Lymphocytes # (1.0-4.8) k/uL APTT (22.0-30.0) sec Sodium (137-145) mmol/L Chloride (98-107) mmol/L Carbon Dioxide (22-30) mmol/L BUN (9-20) mg/dL Creatinine (0.66-1.25) mg/dL Glucose (74-99) mg/dL POC Glucose (mg/dL) 214 H 226 H (75-99) mg/dL Hemoglobin A1c (4.0-6.0) % Troponin I (0.000-0.034) ng/mL Triglycerides (<150) mg/dL Lipase (23-300) U/L Assessment and Plan Assessment: Non-ST elevation TN -Continue with heparin infusion and aspirin, Lipitor and atenolol -Cardiology consulted, plans for medical management over cardiac catheterization at this time, Imdur and Ranexa added. -Cardiac monitoring -Supplemental oxygen -Patient will need pacemaker interrogation CKD stage 3, at baseline -Monitor BMP Type 2 DM -Start Levemir 25 U qhs with Lispro 8 U TIDAC (takes Humalog 75-25 35 U bid) -NOAH with FS -A1c 8.6 HTN -C/w home meds: Aldactone, Losartan, Atenolol Parkinson's -C/w Sinemet home dose HLD -C/w Lipitor DVT prophylaxis -Heparin infusion [Patient admitted for chest pain. Elevated troponins. Cardiology consulted. Decision for medical management over cardiac catheterization. Medications adjusted. Patient is pending clinical improvement. Likely DC in 1-2 days.]
[2019-07-14 20:18] LABS: Glucose,Whole Blood 157 mg/dL (75-99)
[2019-07-14] MEDS: ATORVASTATIN 40 MG TAB PO SCH (20:41)
[2019-07-15] MEDS: INSULIN ASPART (NovoLOG) 100 UNIT/ML VIAL SQ SCH ×3 (06:59→17:16)
[2019-07-15 07:00] LABS: Glucose,Whole Blood 179 mg/dL (75-99)
[2019-07-15] MEDS: POTASSIUM CHLORIDE ER 20 MEQ TAB.ER PO SCH (07:50)
[2019-07-15] MEDS: ATENOLOL 25 MG TAB PO SCH ×2 (07:50→20:07)
[2019-07-15] MEDS: CARBIDOPA-LEVODOPA ER 50-200MG 1 EACH TABLET.ER PO SCH ×3 (07:50→20:07)
[2019-07-15] MEDS: SPIRONOLACTONE 25 MG TAB PO SCH (07:50)
[2019-07-15] MEDS: PRIMIDONE 50 MG TAB PO SCH ×4 (07:51→20:07)
[2019-07-15] MEDS: PARoxetine 20 MG TAB PO SCH (07:51)
[2019-07-15] MEDS: ASPIRIN 81 MG PO SCH (07:51)
[2019-07-15] MEDS: LOSARTAN 25 MG TAB PO SCH (07:51)
[2019-07-15] MEDS: ISOSORBIDE MONONITRATE ER 60 MG TAB.ER.24H PO SCH (07:51)
[2019-07-15] MEDS: FUROSEMIDE 40 MG TAB PO SCH ×2 (07:51→20:07)
[2019-07-15] MEDS: BACLOFEN 10 MG TAB PO SCH (07:51)
[2019-07-15] MEDS: RANOLAZINE 500 MG TAB.ER.12H PO SCH ×2 (07:51→20:07)
[2019-07-15] MEDS: MULTIVITAMINS, THERA 1 EACH TAB PO SCH (07:51)
[2019-07-15 08:05] LABS: Calcium 8.7 mg/dL (8.4-10.2); Potassium 4.8 mmol/L (3.5-5.1)
--- NOTE | 2019-07-15 10:35 | PN ---
PROGRESS NOTE Mr. Paiz is an 84 year old male with a known history of coronary artery disease status post percutaneous revascularization who presented with symptoms of chest discomfort and mild troponin elevation. He has a known history of chronic kidney disease. I had a long discussion with him yesterday regarding the options of coronary angiography versus conservative medical treatment. He is in favor of medical treatment. He is doing well today. He has no further chest pain. His breathing has been stable. He denies any dizziness. No palpitation. He denies any nausea. He continues to be on IV heparin, aspirin, atenolol 50 mg twice a day, Lipitor 40 mg daily, Sinemet, furosemide 40 in the morning, 20 in the afternoon, isosorbide mononitrate 60 mg daily, losartan 25 mg daily and Ranexa 500 mg twice a day and Aldactone 25 mg daily. PHYSICAL EXAMINATION: Blood pressure running in the 130s to 140s with the heart rate in the 60s. LUNGS: Clear. HEART: Regular rate and rhythm S1, S2. No S3 with systolic murmur at the base. No diastolic murmur. No rub. ABDOMEN: Soft and nontender. EXTREMITIES: No edema. LAB DATA: BUN and creatinine 26 and 1.31, potassium 4.8. IMPRESSION: 1. Non ST-segment elevation, stable. 2. History of coronary artery disease. 3. Hypertension. 4. Hyperlipidemia. 5. Chronic tobacco use. RECOMMENDATIONS: Patient has elected to proceed with maximum medical therapy. I will stop the IV heparin at this time. Increase his activity. Observe him for another 24 hours. If he remains stable I am hopeful he will be able to be discharged home tomorrow and followed as an outpatient. MMODL / IJN: [id number] / MTDD
[2019-07-15 12:00] LABS: Glucose,Whole Blood 305 mg/dL (75-99)
--- NOTE | 2019-07-15 12:12 | P.PN ---
Subjective Progress Note Date: 07/15/19 Principal diagnosis: NSTEMI Doing well. Asking to go home. No cp or sob. Objective - Vital Signs Vital signs: Vital Signs Temp 97.6 F 07/15/19 11:27 Pulse 59 L 07/15/19 11:59 Resp 18 07/15/19 11:27 BP 129/63 07/15/19 11:27 Pulse Ox 94 L 07/15/19 11:27 Intake & Output 07/14/19 07/15/19 07/15/19 18:59 06:59 18:59 Intake Total 1076.556 Balance 1076.556 Weight 107 kg Intake: IV 234 0.9 ns 140 Heparin Sod,Pork in 0.45% 94 NaCl 25,000 unit In 0.45 % NaCl 1 250ml.bag @ 9.58 UNITS/KG/HR 9.994 mls/hr IV .Q24H SUKH Rx#: [id number] Intake, IV Titration 182.556 Amount Heparin Sod,Pork in 0.45% 182.556 NaCl 25,000 unit In 0.45 % NaCl 1 250ml.bag @ 9.58 UNITS/KG/HR 9.994 mls/hr IV .Q24H SUKH Rx#: [id number] Oral 660 Other: Voiding Method Toilet # Voids 3 1 # Bowel Movements 1 - Exam Constitutional: No acute distress, conversant, pleasant Eyes:Anicteric sclerae, moist conjunctiva, no lid-lag, PERRLA, ENMT: Oropharynx clear, no erythema, exudates Neck: Supple, FROM, no masses, or JVD, No carotid bruits, No thyromegaly Lungs: Clear to auscultation, Clear to percussion, Normal respiratory effort, no accessory muscle use Cardiovascular: Heart regular in rate and rhythm, No murmurs, gallops, or rubs, No peripheral edema Abdominal: Soft, Nontender, no guarding, rebound or rigidity, Normoactive bowel sounds, No hepatomegaly, No splenomegaly, No palpable mass Skin: Normal temperature, tone, texture, turgor, no induration, No subcutaneous nodules, No rash, lesions, No ulcers Extremities: No digital cyanosis, No clubbing, Pedal pulses intact and symmetrical, Radial pulses intact and symmetrical, No calf tenderness Psychiatric: Alert and oriented to person, place and time, appropriate affect, intact judgement Neuro: Muscles Strength 5/5 in all 4 extremities, Sensation to light touch grossly present throughout, Cranial nerves II-XII grossly intact, no focal sensory deficits - Labs CBC & Chem 7: 07/13/19 20:13 07/15/19 06:58 Labs: Abnormal Lab Results - Last 24 Hours (Table) 07/14/19 07/14/19 07/14/19 Range/Units 02:32 16:53 18:08 APTT 48.9 H (22.0-30.0) sec Sodium (137-145) mmol/L BUN (9-20) mg/dL Creatinine (0.66-1.25) mg/dL Glucose (74-99) mg/dL POC Glucose (mg/dL) 226 H (75-99) mg/dL Hemoglobin A1c 8.6 H (4.0-6.0) % 07/14/19 07/15/19 07/15/19 Range/Units 20:17 06:58 06:58 APTT 60.5 H (22.0-30.0) sec Sodium 135 L (137-145) mmol/L BUN 26 H (9-20) mg/dL Creatinine 1.31 H (0.66-1.25) mg/dL Glucose 174 H (74-99) mg/dL POC Glucose (mg/dL) 157 H (75-99) mg/dL Hemoglobin A1c (4.0-6.0) % 07/15/19 07/15/19 Range/Units 06:59 11:59 APTT (22.0-30.0) sec Sodium (137-145) mmol/L BUN (9-20) mg/dL Creatinine (0.66-1.25) mg/dL Glucose (74-99) mg/dL POC Glucose (mg/dL) 179 H 305 H (75-99) mg/dL Hemoglobin A1c (4.0-6.0) % Assessment and Plan Plan: Non-ST elevation RI -D/C heparin infusion per cardio -Continue aspirin, Lipitor and atenolol -Cardiology consulted, plans for medical management over cardiac catheterization at this time, Imdur and Ranexa added. -Cardiac monitoring -Supplemental oxygen -Patient will need pacemaker interrogation CKD stage 3, at baseline -Monitor BMP Type 2 DM -Levemir 25 U qhs with Lispro 8 U TIDAC (takes Humalog 75-25 35 U bid) -NOAH with FS -A1c 8.6 HTN -C/w home meds: Aldactone, Losartan, Atenolol Parkinson's -C/w Sinemet home dose HLD -C/w Lipitor
[2019-07-15 17:04] LABS: Glucose,Whole Blood 148 mg/dL (75-99)
[2019-07-15] MEDS: INSULIN DETEMIR (LEVEMIR) 100 UNIT/ML SYR SQ SCH (20:07)
[2019-07-15] MEDS: ATORVASTATIN 40 MG TAB PO SCH (20:07)
[2019-07-15 20:16] LABS: Glucose,Whole Blood 246 mg/dL (75-99)
[2019-07-16 03:39] VITALS: TEMP 97.6
[2019-07-16 06:58] LABS: Glucose,Whole Blood 202 mg/dL (75-99)
[2019-07-16 07:02] LABS: Calcium 8.7 mg/dL (8.4-10.2); Potassium 4.7 mmol/L (3.5-5.1)
[2019-07-16] MEDS: INSULIN ASPART (NovoLOG) 100 UNIT/ML VIAL SQ SCH (07:03)
[2019-07-16 08:03] VITALS: BP 154/75; PULSE 62; RESP 18
[2019-07-16] MEDS: LOSARTAN 25 MG TAB PO SCH (08:07)
[2019-07-16] MEDS: PARoxetine 20 MG TAB PO SCH (08:07)
[2019-07-16] MEDS: FUROSEMIDE 40 MG TAB PO SCH (08:07)
[2019-07-16] MEDS: ATENOLOL 25 MG TAB PO SCH (08:07)
[2019-07-16] MEDS: ASPIRIN 81 MG PO SCH (08:07)
[2019-07-16] MEDS: POTASSIUM CHLORIDE ER 20 MEQ TAB.ER PO SCH (08:07)
[2019-07-16] MEDS: MULTIVITAMINS, THERA 1 EACH TAB PO SCH (08:07)
[2019-07-16] MEDS: PRIMIDONE 50 MG TAB PO SCH (08:07)
[2019-07-16] MEDS: SPIRONOLACTONE 25 MG TAB PO SCH (08:07)
[2019-07-16] MEDS: ISOSORBIDE MONONITRATE ER 60 MG TAB.ER.24H PO SCH (08:07)
[2019-07-16] MEDS: RANOLAZINE 500 MG TAB.ER.12H PO SCH (08:07)
[2019-07-16] MEDS: BACLOFEN 10 MG TAB PO SCH (08:07)
[2019-07-16] MEDS: CARBIDOPA-LEVODOPA ER 50-200MG 1 EACH TABLET.ER PO SCH (08:07)
--- NOTE | 2019-07-16 09:21 | PN ---
PROGRESS NOTE Mr. Paiz is an 84-year-old male with known history of coronary artery disease who presented with an episode of chest discomfort. He is doing quite well this morning. He had no further pain since yesterday. He is off the IV heparin. He denies any dizziness or palpitations. He denies any nausea or vomiting. He denies any cough or fever. He continues to be at this time on atenolol 50 mg twice a day, aspirin once a day, Lipitor 40 mg daily, Lasix 40 in the morning 20 in the afternoon, insulin, isosorbide mononitrate 60 mg daily, Ranexa 500 mg twice a day, losartan 25 mg daily and Aldactone 25 mg daily. PHYSICAL EXAMINATION: Blood pressure running in the 130s with a heart rate in the 60s. LUNGS: Clear. HEART: Regular rate and rhythm, S1, S2. No S3. No rub with a systolic murmur. ABDOMEN: Soft, nontender. EXTREMITIES: No edema. LAB DATA: Lab data revealed BUN and creatinine 24 and 1.34, potassium 4.7. IMPRESSION: 1. Chest discomfort with possible non ST elevation myocardial infarction, stable, patient elected medical treatment. 2. Hypertension. 3. Hyperlipidemia. 4. History of chronic kidney disease. RECOMMENDATIONS: I will continue his same medication. Increase his activity. He should be able to be discharged home today and followed as an outpatient. MMODL / IJN: [id number] /
--- NOTE | 2019-07-16 10:49 | P.DS ---
Providers Date of admission: 07/15/19 12:33 Expected date of discharge: 07/16/19 Attending physician: Saúl Suárez MD Consults: 07/13/19 21:16 Consult Physician Urgent Consulting Provider: Tierney Chaves Consult Reason/Comments: unstable angina Do you want consulting provider notified?: Yes Primary care physician: [facility] Course: 84-year-old male with a PMH of CAD status post CABG as well as stenting (follows with Dr Chaves), chronic systolic CHF, Afib (not on AC due to hx of GI bleeding), pacemaker, CKD stage 3, type II DM, hypertension, hyperlipidemia, and Parkinson's disease presented to the ED with complaints of sudden onset of chest pain, sharp, 10/10 at onset, radiating to his jaw, constant, worsened with deep breathing, with no alleviating features, with associated nausea, shortness of breath, and diaphoresis. Pain was very similar to when he previously had his TN. He denied fever, chills, or cough. He also denied headache, visual disturbanc es, weakness, numbness, or tingling. He underwent an extensive evaluation in the emergency room with a chest x-ray showing cardiomegaly and chronic changes without any acute findings. EKG revealed a sinus rhythm with a first-degree AV block at 82 bpm with left axis deviation (unchanged from EKG in 2019). Laboratory evaluation revealed a troponin of 0.014, WBC 5.1, hemoglobin 12.8, platelets 194, sodium 136, potassium 4.5, CO2 33, BUN 25, creatinine 1.36, and glucose of 301. Upon admission troponin was cycled, it peaked at 0.095 then came back down to 0.054. He did not have recurrent chest pains throughout the admission. Patient was seen by nursing unit clerk Dr. Chaves was decided to pursue medical management. Ranexa and Imdur were added to his regimen. He is currently stable for discharge. Today he was cleared for discharge by cardiology. He will be discharged home in stable condition. Time for discharge 35 minutes. Patient Condition at Discharge: Fair Plan - Discharge Summary New Discharge Prescriptions: New Isosorbide Mononitrate ER [Imdur] 60 mg PO DAILY 30 Days #30 tab.er.24h Ranolazine [Ranolazine ER] 500 mg PO BID 30 Days #60 tab.er.12h Continue PARoxetine [Paxil] 20 mg PO DAILY Famotidine [Pepcid] 20 mg PO DAILY Primidone [Mysoline] 50 mg PO QID Atenolol [Tenormin] 50 mg PO BID Potassium Chloride [K-Tab ER] 20 meq PO DAILY Carbidopa/Levodopa [Carbidopa-Levo ER 50-200 Tab] 1 tab PO TID Losartan [Cozaar] 25 mg PO DAILY Spironolactone [Aldactone] 25 mg PO DAILY Metolazone [Zaroxolyn] 2.5 mg PO DAILY Furosemide [Lasix] 40 mg PO DAILY Multivitamins, Thera [Multivitamin (formulary)] 1 tab PO DAILY Atorvastatin [Lipitor] 40 mg PO HS Aspirin EC [Ecotrin Low Dose] 162 mg PO DAILY Insulin NPL/Insulin Lispro [humaLOG MIX 75-25 VIAL] 35 units SQ BID Ranolazine [Ranexa] 500 mg PO BID Baclofen 10 mg PO DAILY metFORMIN HCL [Glucophage] 500 mg PO DAILY Calcium Carbonate [Calcium] 600 mg PO DAILY Furosemide [Lasix] 20 mg PO HS Discharge Medication List Atenolol [Tenormin] 50 mg PO BID 11/20/13 [History] Carbidopa/Levodopa [Carbidopa-Levo ER 50-200 Tab] 1 tab PO TID 11/20/13 [History] Famotidine [Pepcid] 20 mg PO DAILY 11/20/13 [History] PARoxetine [Paxil] 20 mg PO DAILY 11/20/13 [History] Potassium Chloride [K-Tab ER] 20 meq PO DAILY 11/20/13 [History] Primidone [Mysoline] 50 mg PO QID 11/20/13 [History] Losartan [Cozaar] 25 mg PO DAILY 02/12/16 [History] Spironolactone [Aldactone] 25 mg PO DAILY 07/10/16 [History] Furosemide [Lasix] 40 mg PO DAILY 10/03/17 [History] Metolazone [Zaroxolyn] 2.5 mg PO DAILY 10/03/17 [History] Multivitamins, Thera [Multivitamin (formulary)] 1 tab PO DAILY 03/31/18 [History] Aspirin EC [Ecotrin Low Dose] 162 mg PO DAILY 07/11/18 [History] Atorvastatin [Lipitor] 40 mg PO HS 07/11/18 [History] Insulin NPL/Insulin Lispro [humaLOG MIX 75-25 VIAL] 35 units SQ BID 07/11/18 [History] Baclofen 10 mg PO DAILY 09/25/18 [History] Ranolazine [Ranexa] 500 mg PO BID 09/25/18 [History] metFORMIN HCL [Glucophage] 500 mg PO DAILY 09/25/18 [History] Calcium Carbonate [Calcium] 600 mg PO DAILY 07/13/19 [History] Furosemide [Lasix] 20 mg PO HS 07/13/19 [History] Isosorbide Mononitrate ER [Imdur] 60 mg PO DAILY 30 Days #30 tab.er.24h 07/16/19 [Rx] Ranolazine [Ranolazine ER] 500 mg PO BID 30 Days #60 tab.er.12h 07/16/19 [Rx] Follow up Appointment(s)/Referral(s): Tierney Chaves MD [STAFF PHYSICIAN] - 1 Week (Please call the office on Wednesday for a follow up with Dr. Chaves in office or over the phone. ) Lissa Lua MD [Primary Care Provider] - 1-2 days (Please call the office Wednesday for a follow up appointment with your primary provider. ) Patient Instructions/Handouts: Angina (DC), Low-Sodium Diet (DC), Hypertension (DC)
== END 2019-07-16 11:27 | disposition home or self-care (01) | DRG 281 ==
LOC: EC 19:44 → 3SCARD 21:16 → OBSVTOIN 07-15 12:33
PROVIDERS: ADMIT Internal Medicine; ATTEND Internal Medicine
DX: I21.4 Non-ST elevation (NSTEMI) myocardial infarction (principal); I13.0 Hypertensive heart and chronic kidney disease with heart failure and stage 1 through stage 4 chronic kidney disease, or unspecified chronic kidney disease; I50.22 Chronic systolic (congestive) heart failure; E87.3 Alkalosis; I48.19 Other persistent atrial fibrillation; I42.9 Cardiomyopathy, unspecified; I25.110 Atherosclerotic heart disease of native coronary artery with unstable angina pectoris; I44.0 Atrioventricular block, first degree; J44.9 Chronic obstructive pulmonary disease, unspecified; I44.7 Left bundle-branch block, unspecified; G20 Parkinson's disease; F32.9 Major depressive disorder, single episode, unspecified; E78.5 Hyperlipidemia, unspecified; E11.51 Type 2 diabetes mellitus with diabetic peripheral angiopathy without gangrene; E11.22 Type 2 diabetes mellitus with diabetic chronic kidney disease; M19.90 Unspecified osteoarthritis, unspecified site; N18.3 Chronic kidney disease, stage 3 (moderate); Z96.1 Presence of intraocular lens; N40.0 Benign prostatic hyperplasia without lower urinary tract symptoms; Z11.59 Encounter for screening for other viral diseases; Z79.899 Other long term (current) drug therapy; Z95.1 Presence of aortocoronary bypass graft; Z95.0 Presence of cardiac pacemaker; Z87.19 Personal history of other diseases of the digestive system; Z80.0 Family history of malignant neoplasm of digestive organs; Z79.82 Long term (current) use of aspirin; Z79.4 Long term (current) use of insulin; I25.2 Old myocardial infarction; Z90.49 Acquired absence of other specified parts of digestive tract; Z90.89 Acquired absence of other organs; Z98.890 Other specified postprocedural states; Z98.42 Cataract extraction status, left eye; Z98.41 Cataract extraction status, right eye
CPT/HCPCS: 36415; 71045; 80048; 80053; 80061; 83036; 83690; 83735; 84484; 85025; 85610; 85730; 87635; 93005; 93306; 96365; 96366; 96376; 99285

== ENCOUNTER 2020-01-16 05:23 | Inpatient (IN) | payer MEDICARE ==
[2020-01-16] MEDS ORDERED: SODIUM CHLORIDE 0.9% 1,000 ML IV ONE (06:20)
[2020-01-16] MEDS ORDERED: ONDANSETRON 4 MG/2 ML VIAL IVP STA (06:29)
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
[2020-01-16 06:50] LABS: Basophils # (A) 0.1 k/uL (0-0.2); Basophils % (A) 1 %; Eosinophils % (A) 1 %; HCT 40.7 % (39.0-53.0); HGB 13.3 gm/dL (13.0-17.5); Lymphocytes # (A) 0.5 k/uL (1.0-4.8); Lymphocytes % (A) 7 %; MCH 30.3 pg (25.0-35.0); MCHC 32.5 g/dL (31.0-37.0); MCV 93.1 fL (80.0-100.0); Mean Platelet Volume 8.4; Monocytes # (A) 0.4 k/uL (0-1.0); Monocytes % (A) 5 %; Neutrophils # (A) 6.4 k/uL (1.3-7.7); Neutrophils % (A) 87 %; Platelet Count 161 k/uL (150-450); RBC 4.38 m/uL (4.30-5.90); RDW 15.4 % (11.5-15.5); WBC 7.3 k/uL (3.8-10.6)
--- NOTE | 2020-01-16 06:50 | XR ---
EXAM: XR Chest, 1 View CLINICAL HISTORY: Suspected COVID-19 pneumonia TECHNIQUE: Frontal view of the chest. COMPARISON: 07/13/2019. FINDINGS: Lungs: See below. Pleural space: Left pleural effusion and/or left basilar atelectasis/infiltrates, as seen on prior study. No pneumothorax. Heart: Cardiomegaly, as seen on prior study, with findings suggestive of mild pulmonary vascular congestion/pulmonary edema, not seen on prior study. Status post CABG. Mediastinum: Unchanged. Bones/joints: Unchanged. Tubes, lines and devices: Left-sided chest wall pacemaker is again noted with unchanged lead tips. IMPRESSION: 1. Cardiomegaly, as seen on prior study, with findings suggestive of mild pulmonary vascular congestion/pulmonary edema, not seen on prior study. 2. Left pleural effusion and/or left basilar atelectasis/infiltrates, as seen on prior study.
[2020-01-16 07:03] LABS: C Reactive Protein 46.1 mg/L (<10.0); INR 0.9 (<1.2); Partial Thromboplastin Time 22.4 sec (22.0-30.0); Prothrombin Time 9.9 sec (9.0-12.0); Total Bilirubin 0.5 mg/dL (0.2-1.3); Total Protein 7.3 g/dL (6.3-8.2)
[2020-01-16 07:05] LABS: D-Dimer 0.72 mg/L FEU (<0.60)
[2020-01-16 07:21] LABS: SARS-CoV-2 RNA Rapid Abbott Not Detected (Not Detectd)
[2020-01-16] MEDS ORDERED: FUROSEMIDE 10 MG/ML 4 ML VIAL IV STA (07:58)
--- NOTE | 2020-01-16 09:50 | CT ---
EXAMINATION TYPE: CT chest angio for PE DATE OF EXAM: 01/16/2020 COMPARISON: 02/16/2019 HISTORY: 84-year-old male Elevated d-dimer, chest pains, SOB TECHNIQUE: Contiguous axial scanning of the chest performed with IV Contrast, patient injected with 8 0 mL of Isovue 300. Coronal/sagittal MIP reconstructions performed. CT DLP: 514.5 mGycm Automated exposure control for dose reduction was used. FINDINGS: Median sternotomy wires are present. Left anterior chest wall pacemaker generator with right atrial a nd ventricular leads. Heart borderline to mildly enlarged. No pericardial effusion. No flattening of the interventricular s eptum though there is reflux of contrast into the hepatic veins. Ectatic ascending aorta 3.8 cm. Mild atherosclerotic arch calcifications with conventional branching anatomy. Ectatic upper descending thoracic aorta 3.2 cm. Large caliber to the main right and left pulmonary arteries measuring up to 2.9 cm there is satisfact ory opacification of the pulmonary arterial system. Some heterogeneity of lower lobe segmental and mo re distal arterial branches due to breathing motion. No large central lobar branch embolus. No defini te segmental branch embolus. Borderline sized mediastinal lymph nodes measuring up to 1.1 cm in the AP window. Otherwise, no thora cic lymphadenopathy. Likely reactive/post inflammatory. Again, diffuse breathing motion artifact. Focal masslike subpleural opacity posterior left base measu ring up to 6.0 cm, unchanged from 02/16/2019 suggesting area of rounded atelectasis. There are trace bilateral pleural effusions. Tiny hiatal hernia. Visualized upper abdomen shows prominent reflux of contrast into the hepatic vein s. Bones: Anterior endplate spondylosis lower thoracic spine. Anterior wedging deformity of T12 vertebra l body unchanged from 02/16/2019. IMPRESSION: 1. THE PATIENT WAS BREATHING DURING THE SCAN. THIS DEGRADES ASSESSMENT FOR PULMONARY EMBOLUS. NO DEFI NITE EMBOLUS TO THE SEGMENTAL BRANCH. SMALLER BRANCHES ARE LARGELY NONDIAGNOSTIC. 2. BORDERLINE TO MILD CARDIOMEGALY, PULMONARY ARTERIAL HYPERTENSION, AND REFLUX OF CONTRAST INTO THE HEPATIC VEINS. CORRELATE FOR ELEVATED CARDIAC PRESSURES AND MILD CHF GIVEN TRACE EFFUSIONS. 3. CHRONIC ROUNDED ATELECTASIS AT THE LEFT BASE.
--- NOTE | 2020-01-16 09:57 | CT ---
EXAMINATION TYPE: CT abdomen pelvis w con DATE OF EXAM: 01/16/2020 COMPARISON: 04/28/2019 HISTORY: 84-year-old male with vomiting, body aches TECHNIQUE: Contiguous axial scanning of the abdomen and pelvis following administration of 80 ml Isov ue 300 IV contrast. Delayed images through the kidneys and coronal/sagittal reconstructions performe d. CT DLP: 1658.6 mGycm Automated exposure control for dose reduction was used. FINDINGS: Chest reported separately. Liver enlarged at 19.7 cm. Nonspecific tiny 8 mm mid hepatic density, too small for accurate CT dinorah cterization, probable cyst. Portal venous system is patent. No biliary ductal dilatation. Cholecystec rashi clips. Mild diffuse thickening of the left adrenal gland without discrete nodularity. Right adrenal gland, spleen, pancreas appear within normal limits. Numerous bilateral renal cortical cysts measuring up to 2.8 cm. No dilated small bowel, free fluid, free air. No mesenteric or retroperitoneal lymphadenopathy. Moderate atherosclerotic calcifications abdominal aorta and iliac arteries. Normal appendix. Redundant mid to distal sigmoid. Mild diverticulosis of the mid sigmoid. Mild stool distally in the colon. No peritransplant inflammatory change. Bladder partially distended. Prostate gland enlargement 5.3 cm wide with central calcifications. No a bnormal fluid collection in the pelvis or pelvic lymphadenopathy. Bones: Mild degenerative change of the hips. Mild degenerative change SI joints. Moderate degenerativ e disc disease scattered throughout and hypertrophic facet arthropathy lower lumbar spine. IMPRESSION: 1. MILD HEPATOMEGALY (19.7 CM). 2. NUMEROUS RENAL CORTICAL CYSTS MEASURING UP TO 2.8 CM. MANY OF THE LESIONS ARE TOO SMALL FOR ACCURA TE CT CHARACTERIZATION. 3. MID SIGMOID DIVERTICULOSIS WITHOUT ACUTE DIVERTICULITIS. 4. PROSTATOMEGALY AT 5.3 CM WIDE.
[2020-01-16] MEDS ORDERED: HEPARIN SODIUM,PORCINE 5,000 UNIT/ML 1 ML VIAL IV ONE (10:04)
[2020-01-16] MEDS ORDERED: NITROGLYCERIN SL TABS 0.4 MG TAB SUBLINGUAL PRN (10:04)
[2020-01-16] MEDS: SODIUM CHLORIDE 0.9% 1,000 ML IV SCH ×2 (13:27→21:23)
[2020-01-16] MEDS: atenoloL 50 MG TAB PO SCH ×2 (13:27→21:30)
[2020-01-16] MEDS: LOSARTAN 25 MG TAB PO SCH (13:27)
[2020-01-16] MEDS: HEPARIN SOD,PORK IN 0.45% NACL 25,000 UNIT in 0.45% NACL 1 250ML.BAG IV SCH (13:30)
--- NOTE | 2020-01-16 15:29 | XR ---
EXAMINATION TYPE: XR KUB DATE OF EXAM: 01/16/2020 COMPARISON: NONE HISTORY: Pain TECHNIQUE: Single supine KUB image of the abdomen is obtained FINDINGS: Small bowel demonstrates no evidence for dilatation or air fluid levels. Gas and fecal material is seen in non-distended colon. No convincing evidence for pneumoperitoneum. No unusual calcifications. The lung bases are clear. The osseous structures are intact. IMPRESSION: 1. Overall nonobstructive bowel gas pattern.
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
[2020-01-16] MEDS ORDERED: MELATONIN 5 MG TABLET PO STA (19:24)
[2020-01-16 19:27] LABS: Glucose,Whole Blood 335 mg/dL (75-99)
[2020-01-16] MEDS: PRIMIDONE 50 MG TAB PO SCH (21:24)
[2020-01-16] MEDS: CARBIDOPA-LEVODOPA ER 50-200MG 1 EACH TABLET.ER PO SCH (21:24)
[2020-01-16] MEDS: RANOLAZINE 500 MG TAB.ER.12H PO SCH (21:24)
[2020-01-16] MEDS: INSULN ASP PRT/INSULIN ASPART 100 UNIT/ML 10 ML VIAL SQ SCH (21:24)
[2020-01-16] MEDS: ATORVASTATIN 40 MG TAB PO SCH (21:29)
[2020-01-17 02:42] LABS: Basophils # (A) 0.1 k/uL (0-0.2); Basophils % (A) 1 %; Eosinophils # (A) 0.1 k/uL (0-0.7); Eosinophils % (A) 1 %; HCT 37.6 % (39.0-53.0); HGB 12.2 gm/dL (13.0-17.5); Lymphocytes # (A) 0.7 k/uL (1.0-4.8); Lymphocytes % (A) 10 %; MCH 30.3 pg (25.0-35.0); MCHC 32.4 g/dL (31.0-37.0); MCV 93.6 fL (80.0-100.0); Mean Platelet Volume 7.8; Monocytes # (A) 0.5 k/uL (0-1.0); Monocytes % (A) 8 %; Neutrophils # (A) 5.2 k/uL (1.3-7.7); Neutrophils % (A) 78 %; Platelet Count 158 k/uL (150-450); RBC 4.01 m/uL (4.30-5.90); RDW 15.5 % (11.5-15.5); WBC 6.7 k/uL (3.8-10.6)
[2020-01-17 03:11] LABS: Calcium 8.6 mg/dL (8.4-10.2); Potassium 4.5 mmol/L (3.5-5.1)
[2020-01-17] MEDS: SODIUM CHLORIDE 0.9% 1,000 ML IV SCH ×3 (06:33→22:01)
[2020-01-17] MEDS ORDERED: metFORMIN 500 MG TAB PO SCH (09:00)
[2020-01-17] MEDS: ASPIRIN 325 MG TAB PO SCH (09:44)
[2020-01-17] MEDS: CALCIUM CARBONATE 500 MG CHEWABLE PO SCH (09:44)
[2020-01-17] MEDS: FAMOTIDINE 20 MG TAB PO SCH (09:44)
[2020-01-17] MEDS: FUROSEMIDE 40 MG TAB PO SCH (09:45)
[2020-01-17] MEDS: atenoloL 50 MG TAB PO SCH ×2 (09:45→21:44)
[2020-01-17] MEDS: MULTIVITAMINS, THERA 1 EACH TAB PO SCH (09:45)
[2020-01-17] MEDS: CARBIDOPA-LEVODOPA ER 50-200MG 1 EACH TABLET.ER PO SCH ×3 (09:45→22:01)
[2020-01-17] MEDS: PARoxetine 20 MG TAB PO SCH (09:45)
[2020-01-17] MEDS: SPIRONOLACTONE 25 MG TAB PO SCH (09:45)
[2020-01-17] MEDS: LOSARTAN 25 MG TAB PO SCH (09:45)
[2020-01-17] MEDS: RANOLAZINE 500 MG TAB.ER.12H PO SCH ×2 (09:46→21:43)
[2020-01-17] MEDS: PRIMIDONE 50 MG TAB PO SCH ×4 (10:23→21:44)
[2020-01-17] MEDS: HEPARIN SOD,PORK IN 0.45% NACL 25,000 UNIT in 0.45% NACL 1 250ML.BAG IV SCH (10:26)
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
--- NOTE | 2020-01-17 16:33 | P.PN ---
Subjective Progress Note Date: 01/17/20 Objective - Vital Signs Vital signs: Vital Signs Temp 98 F 01/17/20 12:00 Pulse 54 L 01/17/20 12:00 Resp 18 01/17/20 12:00 BP 138/80 01/17/20 12:00 Pulse Ox 96 01/17/20 12:00 Intake & Output 01/16/20 01/17/20 01/17/20 18:59 06:59 18:59 Intake Total 250 873.652 164.808 Balance 250 873.652 164.808 Weight 107.501 kg Intake: Intake, IV Titration 873.652 164.808 Amount Heparin Sod,Pork in 0.45% 73.652 164.808 NaCl 25,000 unit In 0.45 % NaCl 1 250ml.bag @ 9.3 UNITS/KG/HR 9.998 mls/hr IV .Q24H [facility] Rx#: [id number] Sodium Chloride 0.9% 1, 800 000 ml @ 100 mls/hr IV . Q10H [facility] Rx#:[id number] Oral 250 Other: Voiding Method Toilet # Voids 1 3 0 # Bowel Movements 0 - Constitutional General appearance: Present: no acute distress - Respiratory Respiratory: bilateral: CTA - Cardiovascular Rhythm: regular - Gastrointestinal General gastrointestinal: Present: normal bowel sounds - Integumentary Integumentary: Present: normal - Labs CBC & Chem 7: 01/17/20 02:09 01/17/20 02:09 Labs: Abnormal Lab Results - Last 24 Hours (Table) 01/16/20 01/16/20 01/17/20 Range/Units 19:24 19:46 02:09 RBC (4.30-5.90) m/uL Hgb (13.0-17.5) gm/dL Hct (39.0-53.0) % Lymphocytes # (1.0-4.8) k/uL APTT 37.5 H (22.0-30.0) sec BUN 29 H (9-20) mg/dL Creatinine 1.40 H (0.66-1.25) mg/dL Glucose 128 H (74-99) mg/dL POC Glucose (mg/dL) 335 H (75-99) mg/dL 11/11/20 11/11/20 Range/Units 02:09 02:09 RBC 4.01 L (4.30-5.90) m/uL Hgb 12.2 L (13.0-17.5) gm/dL Hct 37.6 L (39.0-53.0) % Lymphocytes # 0.7 L (1.0-4.8) k/uL APTT 60.1 H (22.0-30.0) sec BUN (9-20) mg/dL Creatinine (0.66-1.25) mg/dL Glucose (74-99) mg/dL POC Glucose (mg/dL) (75-99) mg/dL Microbiology - Last 24 Hours (Table) 01/16/20 06:29 Blood Culture - Preliminary Blood No Growth after 24 hours Assessment and Plan (1) NSTEMI (non-ST elevated myocardial infarction) Narrative/Plan: Appreciate cardiology input plan medical management Current Visit: Yes Status: Acute Code(s): I21.4 - NON-ST ELEVATION (NSTEMI) MYOCARDIAL INFARCTION SNOMED Code(s): 05365037 (2) Abdominal pain Narrative/Plan: CT of the abdomen is negative, nausea abdominal pain have resolved Current Visit: No Status: Acute Code(s): R10.9 - UNSPECIFIED ABDOMINAL PAIN SNOMED Code(s): 36642196 (3) Chest pain Narrative/Plan: Chest pain has resolved Current Visit: No Status: Acute Code(s): R07.9 - CHEST PAIN, UNSPECIFIED SNOMED Code(s): 63250765 (4) Diabetes Narrative/Plan: Continue to optimize Current Visit: No Status: Acute Code(s): E11.9 - TYPE 2 DIABETES MELLITUS WITHOUT COMPLICATIONS SNOMED Code(s): 73219122 (5) HTN (hypertension) Current Visit: No Status: Acute Code(s): I10 - ESSENTIAL (PRIMARY) HYPERTENSION SNOMED Code(s): 17510072
[2020-01-17 16:45] LABS: Glucose,Whole Blood 164 mg/dL (75-99)
[2020-01-17 20:06] LABS: Glucose,Whole Blood 327 mg/dL (75-99)
[2020-01-17] MEDS: ATORVASTATIN 40 MG TAB PO SCH (21:43)
[2020-01-17] MEDS: INSULN ASP PRT/INSULIN ASPART 100 UNIT/ML 10 ML VIAL SQ SCH (21:45)
[2020-01-18] MEDS ORDERED: ACETAMINOPHEN TAB 325 MG TAB PO STA (01:44)
[2020-01-18 06:25] LABS: Glucose,Whole Blood 93 mg/dL (75-99)
[2020-01-18] MEDS: HEPARIN SOD,PORK IN 0.45% NACL 25,000 UNIT in 0.45% NACL 1 250ML.BAG IV SCH (09:31)
[2020-01-18] MEDS: ASPIRIN 325 MG TAB PO SCH (09:33)
[2020-01-18] MEDS: PARoxetine 20 MG TAB PO SCH (09:33)
[2020-01-18] MEDS: CARBIDOPA-LEVODOPA ER 50-200MG 1 EACH TABLET.ER PO SCH ×3 (09:33→20:53)
[2020-01-18] MEDS: SPIRONOLACTONE 25 MG TAB PO SCH (09:33)
[2020-01-18] MEDS: PRIMIDONE 50 MG TAB PO SCH ×4 (09:33→20:52)
[2020-01-18] MEDS: MULTIVITAMINS, THERA 1 EACH TAB PO SCH (09:33)
[2020-01-18] MEDS: atenoloL 50 MG TAB PO SCH ×2 (09:33→20:52)
[2020-01-18] MEDS: LOSARTAN 25 MG TAB PO SCH (09:34)
[2020-01-18] MEDS: FUROSEMIDE 40 MG TAB PO SCH (09:34)
[2020-01-18] MEDS: CALCIUM CARBONATE 500 MG CHEWABLE PO SCH (09:34)
[2020-01-18] MEDS: FAMOTIDINE 20 MG TAB PO SCH (09:34)
[2020-01-18] MEDS: RANOLAZINE 500 MG TAB.ER.12H PO SCH ×2 (09:34→20:52)
[2020-01-18] MEDS: SODIUM CHLORIDE 0.9% 1,000 ML IV SCH ×2 (09:55→13:54)
--- NOTE | 2020-01-18 12:33 | P.PN ---
Subjective Progress Note Date: 01/18/20 This is a very pleasant 84-year-old gentleman who sees Dr. Chaves in the office on regular basis with extensive cardiac history consistent of coronary artery disease and prior coronary artery bypass grafting as well as a stenting, paroxysmal atrial fibrillation, chronic kidney disease, hypertension, and d yslipidemia who presented to the emergency department not feeling well. The patient somewhat is a poor historian and overall he is very frail. He stated that he was experiencing discomfort mainly in the lower chest as well as upper abdomen started a few days ago. No increasing in the shortness of breath and no dizziness or lightheadedness or heart racing or fluttering or syncope. No symptoms of fever or chills. Because the pain was consistent he decided to come to the emergency department. In the emergency department he underwent a computed tomography scan of the abdomen which did not show any acute abnormalities and also a computed tomography scan of the chest which did not show any acute abnormalities including no evidence of pulmonary embolism. The EKG showed sinus rhythm was nonspecific changes only. The blood work came in to be slightly abnormal was mildly abnormal troponin. The creatinine is 1.4 which is his baseline. The rest of his workup came in to be unremarkable. He underwent a heart catheterization in 2018 where he was found to have severe triple-vessel coronary artery disease with occluded LAD which was not grafted, patent graft to the left circumflex, and severe disease involving the right coronary artery which was stented at that point. The last echocardiogram was from July 2019 and that revealed impaired LV function with EF around 35% was evidence of mild aortic stenosis and moderate mitral as well as tricuspid regurgitation. We consulted to see the patient mainly because of abnormal troponin. 01/18/2020 Patient seen and examined this morning, blood pressure 140/70 with a heart rate in the 50s, 95% on room air. No laboratory data today. Echocardiogram with Doppler study remains pending. Objective - Vital Signs Vital signs: Vital Signs Temp 97.9 F 01/18/20 08:00 Pulse 54 L 01/18/20 08:00 Resp 18 01/18/20 08:45 BP 141/77 01/18/20 08:00 Pulse Ox 95 01/18/20 08:00 Intake & Output 01/17/20 01/18/20 01/18/20 18:59 06:59 18:59 Intake Total 989.572 8381 370 Balance 167.144 9531 370 Weight 104.5 kg Intake: Intake, IV Titration 164.808 800 250 Amount Heparin Sod,Pork in 0.45% 164.808 250 NaCl 25,000 unit In 0.45 % NaCl 1 250ml.bag @ 9.3 UNITS/KG/HR 9.998 mls/hr IV .Q24H [facility] Rx#: [id number] Sodium Chloride 0.9% 1, 800 000 ml @ 100 mls/hr IV . Q10H [facility] Rx#:[id number] Oral 240 240 120 Other: Voiding Method Toilet Toilet # Voids 0 1 # Bowel Movements 0 - Exam PHYSICAL EXAMINATION: GENERAL: 84 stroke gentleman in no acute distress at the time of my examination HEENT: Head is atraumatic, normocephalic. Pupils equal, round. Sclera anicteric. Conjunctiva are clear. Mucous membranes of the mouth are moist. Neck is supple. There is no elevated jugular venous pressure. No carotid bruit is heard. HEART EXAMINATION: S1 and S2 1 systolic murmur is heard CHEST EXAMINATION: Lungs are clear with diminished air entry to the bases bilaterally ABDOMEN: Soft, nontender. Bowel sounds are heard. No organomegaly noted. EXTREMITIES: 2+ peripheral pulses with no evidence of peripheral edema and no calf tenderness noted. NEUROLOGIC patient is awake, alert and oriented 3 . - Labs CBC & Chem 7: 01/17/20 02:09 01/17/20 02:09 Labs: Abnormal Lab Results - Last 24 Hours (Table) 01/17/20 01/17/20 01/18/20 Range/Units 16:44 20:02 07:07 APTT 54.6 H (22.0-30.0) sec POC Glucose (mg/dL) 164 H 327 H (75-99) mg/dL Microbiology - Last 24 Hours (Table) 01/16/20 06:29 Blood Culture - Preliminary Blood No Growth after 48 hours Assessment and Plan Plan: Assessment and plan #1 Upper abdominal and mid epigastric discomfort, acute intra-abdominal process ruled out by CT of the abdomen and pelvis #2 mildly abnormal troponin, not consistent with acute coronary syndrome, likely secondary to abnormal renal function #3 severe coronary artery disease with prior revascularization #4 severe ischemic cardiomyopathy #5 Valvular heart disease with mild aortic stenosis, moderate mitral and tricuspid regurg #6 paroxysmal atrial fibrillation #7 chronic kidney disease Plan From cardiology's perspective, we'll continue current medical therapy. We will review the patient's echocardiogram with Doppler study. DNP note has been reviewed, I agree with a documented findings and plan of care. Patient was seen and examined.
[2020-01-18 12:43] LABS: Glucose,Whole Blood 114 mg/dL (75-99)
[2020-01-18] MEDS ORDERED: SENNOSIDES 8.6 MG TAB PO PRN (14:32)
--- NOTE | 2020-01-18 16:42 | P.PN ---
Subjective Progress Note Date: 01/18/20 Objective - Vital Signs Vital signs: Vital Signs Temp 97.6 F 01/18/20 16:00 Pulse 54 L 01/18/20 16:00 Resp 20 01/18/20 16:00 BP 157/76 01/18/20 16:00 Pulse Ox 98 01/18/20 16:00 Intake & Output 01/17/20 01/18/20 01/18/20 18:59 06:59 18:59 Intake Total 566.371 4940 610 Balance 852.045 9838 610 Weight 104.5 kg Intake: Intake, IV Titration 164.808 800 250 Amount Heparin Sod,Pork in 0.45% 164.808 250 NaCl 25,000 unit In 0.45 % NaCl 1 250ml.bag @ 9.3 UNITS/KG/HR 9.998 mls/hr IV .Q24H [facility] Rx#: [id number] Sodium Chloride 0.9% 1, 800 000 ml @ 100 mls/hr IV . Q10H [facility] Rx#:[id number] Oral 240 240 360 Other: Voiding Method Toilet Toilet # Voids 0 1 3 # Bowel Movements 0 - Constitutional General appearance: Present: no acute distress - Respiratory Respiratory: bilateral: diminished - Cardiovascular Rhythm: regular - Gastrointestinal General gastrointestinal: Present: normal bowel sounds - Labs CBC & Chem 7: 01/17/20 02:09 01/17/20 02:09 Labs: Abnormal Lab Results - Last 24 Hours (Table) 01/17/20 01/17/20 01/18/20 Range/Units 16:44 20:02 07:07 APTT 54.6 H (22.0-30.0) sec POC Glucose (mg/dL) 164 H 327 H (75-99) mg/dL 01/18/20 Range/Units 12:30 APTT (22.0-30.0) sec POC Glucose (mg/dL) 114 H (75-99) mg/dL Microbiology - Last 24 Hours (Table) 01/16/20 06:29 Blood Culture - Preliminary Blood No Growth after 48 hours Assessment and Plan (1) NSTEMI (non-ST elevated myocardial infarction) Narrative/Plan: Patient continues with medical therapy with heparin awaiting echocardiogram appreciate cardiology input Current Visit: Yes Status: Acute Code(s): I21.4 - NON-ST ELEVATION (NSTEMI) MYOCARDIAL INFARCTION SNOMED Code(s): 65078819 (2) Abdominal pain Narrative/Plan: The patient's abdominal pain has resolved CTA showed mild hepatomegaly on enlarged prostate but this can be followed up as an outpatient Current Visit: No Status: Acute Code(s): R10.9 - UNSPECIFIED ABDOMINAL PAIN SNOMED Code(s): 57831316 (3) Chest pain Narrative/Plan: His chest pain has resolved he denies any shortness of breath any nausea or vomiting Current Visit: No Status: Acute Code(s): R07.9 - CHEST PAIN, UNSPECIFIED SNOMED Code(s): 59648726 (4) Diabetes Narrative/Plan: Uncontrolled hyperglycemia Current Visit: No Status: Acute Code(s): E11.9 - TYPE 2 DIABETES MELLITUS WITHOUT COMPLICATIONS SNOMED Code(s): 47870610 (5) HTN (hypertension) Narrative/Plan: Continue outpatient regiment and titrate as needed Current Visit: No Status: Acute Code(s): I10 - ESSENTIAL (PRIMARY) HYPERTENSION SNOMED Code(s): 84852555
[2020-01-18 17:03] LABS: Glucose,Whole Blood 131 mg/dL (75-99)
--- NOTE | 2020-01-18 20:00 | ECHOF ---
Referral Reason:abn trop MEASUREMENTS -------- HEIGHT: 177.8 cm WEIGHT: 104.3 kg BP: 141/77 IVSd: 1.4 cm (0.6 - 1.1) LVIDd: 5.3 cm (3.9 - 5.3) LVPWd: 1.4 cm (0.6 - 1.1) IVSs: 1.8 cm LVIDs: 4.4 cm LVPWs: 1.4 cm LA Diam: 4.4 cm (2.7 - 3.8) RVIDd: 4.5 cm (< 3.3) Ao Diam: 3.5 cm (2.0 - 3.7) AV Cusp: 0.8 cm (1.5 - 2.6) EPSS: 1.1 cm AV maxP.90 mmHg AV meanP.67 mmHg RAP: 5.00 mmHg RVSP: 48.37 mmHg MV EF SLOPE: 91.35 mm/s (70 - 150) MV EXCURSION: 16.59 mm (> 18.000) FINDINGS -------- This was a technically difficult study with suboptimal views. The left ventricle is mildly dilated. There is mild concentric left ventricular hypertrophy. Over all left ventricular systolic function is moderate-severely impaired with, an EF between 30 - 35 %. Septal wall motion is delayed and consistent with prior cardiac surgery. The right ventricle is severely enlarged. The left atrium is moderately dilated. The right atrium was not well visualized. Electronic pacemaker lead seen in the right atrial cavity . Interatrial and interventricular septum intact. There is mild aortic regurgitation. There is moderate aortic stenosis present. Peak/mean gradient across the Aortic Valve is 32.90mmHg / 20.67mmHg. Moderate mitral regurgitation is present. Moderate to severe tricuspid regurgitation present. There is moderate pulmonary hypertension. The right ventricular systolic pressure, as measured by Doppler, is 48.37mmHg. There is no pulmonic regurgitation present. The aortic root size is normal. IVC Not well visulized. There is no pericardial effusion. 5.0mg of Lumason was utilized for enhancement of images CONCLUSIONS -------- 1. The left ventricle is mildly dilated. 2. There is mild concentric left ventricular hypertrophy. 3. Overall left ventricular systolic function is moderate-severely impaired with, an EF between 30 - 35 %. 4. The right ventricle is severely enlarged. 5. The left atrium is moderately dilated. 6. There is mild aortic regurgitation. 7. There is moderate aortic stenosis present. 8. Peak/mean gradient across the Aortic Valve is 32.90mmHg / 20.67mmHg. 9. Moderate mitral regurgitation is present. 10. Moderate to severe tricuspid regurgitation present. 11. There is moderate pulmonary hypertension. 12. The right ventricular systolic pressure, as measured by Doppler, is 48.37mmHg. 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
[2020-01-18] MEDS: ATORVASTATIN 40 MG TAB PO SCH (20:52)
[2020-01-18] MEDS: INSULN ASP PRT/INSULIN ASPART 100 UNIT/ML 10 ML VIAL SQ SCH (20:54)
[2020-01-18 20:55] LABS: Glucose,Whole Blood 138 mg/dL (75-99)
[2020-01-19 00:08] VITALS: RESP 18
[2020-01-19] MEDS: HEPARIN SOD,PORK IN 0.45% NACL 25,000 UNIT in 0.45% NACL 1 250ML.BAG IV SCH (05:50)
[2020-01-19] MEDS: SODIUM CHLORIDE 0.9% 1,000 ML IV SCH (05:52)
[2020-01-19 06:22] LABS: Glucose,Whole Blood 151 mg/dL (75-99)
[2020-01-19] MEDS: LOSARTAN 25 MG TAB PO SCH (09:38)
[2020-01-19] MEDS: CARBIDOPA-LEVODOPA ER 50-200MG 1 EACH TABLET.ER PO SCH (09:38)
[2020-01-19] MEDS: FAMOTIDINE 20 MG TAB PO SCH (09:38)
[2020-01-19] MEDS: PRIMIDONE 50 MG TAB PO SCH ×2 (09:38→13:10)
[2020-01-19] MEDS: ASPIRIN 325 MG TAB PO SCH (09:38)
[2020-01-19] MEDS: CALCIUM CARBONATE 500 MG CHEWABLE PO SCH (09:38)
[2020-01-19] MEDS: atenoloL 50 MG TAB PO SCH (09:38)
[2020-01-19] MEDS: MULTIVITAMINS, THERA 1 EACH TAB PO SCH (09:38)
[2020-01-19] MEDS: SPIRONOLACTONE 25 MG TAB PO SCH (09:38)
[2020-01-19] MEDS: RANOLAZINE 500 MG TAB.ER.12H PO SCH (09:38)
[2020-01-19] MEDS: FUROSEMIDE 40 MG TAB PO SCH (09:38)
[2020-01-19] MEDS: PARoxetine 20 MG TAB PO SCH (09:39)
[2020-01-19 09:49] VITALS: BP 145/68; PULSE 62; TEMP 97.8
[2020-01-19 11:11] LABS: Calcium 8.5 mg/dL (8.4-10.2); Potassium 4.8 mmol/L (3.5-5.1)
[2020-01-19 11:28] LABS: Glucose,Whole Blood 213 mg/dL (75-99)
--- NOTE | 2020-01-19 12:09 | P.PN ---
Subjective Progress Note Date: 01/19/20 This is a very pleasant 84-year-old gentleman who sees Dr. Chaves in the office on regular basis with extensive cardiac history consistent of coronary artery disease and prior coronary artery bypass grafting as well as a stenting, paroxysmal atrial fibrillation, chronic kidney disease, hypertension, and d yslipidemia who presented to the emergency department not feeling well. The patient somewhat is a poor historian and overall he is very frail. He stated that he was experiencing discomfort mainly in the lower chest as well as upper abdomen started a few days ago. No increasing in the shortness of breath and no dizziness or lightheadedness or heart racing or fluttering or syncope. No symptoms of fever or chills. Because the pain was consistent he decided to come to the emergency department. In the emergency department he underwent a computed tomography scan of the abdomen which did not show any acute abnormalities and also a computed tomography scan of the chest which did not show any acute abnormalities including no evidence of pulmonary embolism. The EKG showed sinus rhythm was nonspecific changes only. The blood work came in to be slightly abnormal was mildly abnormal troponin. The creatinine is 1.4 which is his baseline. The rest of his workup came in to be unremarkable. He underwent a heart catheterization in 2018 where he was found to have severe triple-vessel coronary artery disease with occluded LAD which was not grafted, patent graft to the left circumflex, and severe disease involving the right coronary artery which was stented at that point. The last echocardiogram was from July 2019 and that revealed impaired LV function with EF around 35% was evidence of mild aortic stenosis and moderate mitral as well as tricuspid regurgitation. We consulted to see the patient mainly because of abnormal troponin. 01/18/2020 Patient seen and examined this morning, blood pressure 140/70 with a heart rate in the 50s, 95% on room air. No laboratory data today. Echocardiogram with Doppler study remains pending. 01/19/2020 Patient was seen and examined this morning, feels well overall, quite eager to be discharged home today. His echocardiogram with Doppler study showed an ejection fraction of 30-35%, moderate aortic stenosis, moderate mitral regurgitation with moderate to severe tricuspid regurg. Blood pressure 144/60 with a heart rate in the 60s, 97% on room air. Sodium 135, potassium 4.8, BUN 41, creatinine 1.7. Objective - Vital Signs Vital signs: Vital Signs Temp 97.8 F 01/19/20 08:20 Pulse 62 01/19/20 08:20 Resp 18 01/19/20 08:20 BP 145/68 01/19/20 08:20 Pulse Ox 97 01/19/20 08:20 Intake & Output 01/18/20 01/19/20 01/19/20 18:59 06:59 18:59 Intake Total 832 726.807 240 Balance 832 726.807 240 Weight 104.7 kg Intake: Intake, IV Titration 250 246.807 Amount Heparin Sod,Pork in 0.45% 250 246.807 NaCl 25,000 unit In 0.45 % NaCl 1 250ml.bag @ 9.3 UNITS/KG/HR 9.998 mls/hr IV .Q24H SUKH Rx#: [id number] Oral 582 480 240 Other: Voiding Method Toilet Toilet # Voids 3 1 1 - Exam PHYSICAL EXAMINATION: GENERAL: 84 stroke gentleman in no acute distress at the time of my examination HEENT: Head is atraumatic, normocephalic. Pupils equal, round. Sclera anicteric. Conjunctiva are clear. Mucous membranes of the mouth are moist. Neck is supple. There is no elevated jugular venous pressure. No carotid bruit is heard. HEART EXAMINATION: S1 and S2 1 systolic murmur is heard CHEST EXAMINATION: Lungs are clear with diminished air entry to the bases bilaterally ABDOMEN: Soft, nontender. Bowel sounds are heard. No organomegaly noted. EXTREMITIES: 2+ peripheral pulses with no evidence of peripheral edema and no calf tenderness noted. NEUROLOGIC patient is awake, alert and oriented 3 . - Labs CBC & Chem 7: 01/17/20 02:09 01/19/20 09:48 Labs: Abnormal Lab Results - Last 24 Hours (Table) 01/18/20 01/18/20 01/18/20 Range/Units 12:30 16:46 20:32 Sodium (137-145) mmol/L Carbon Dioxide (22-30) mmol/L BUN (9-20) mg/dL Creatinine (0.66-1.25) mg/dL Glucose (74-99) mg/dL POC Glucose (mg/dL) 114 H 131 H 138 H (75-99) mg/dL 01/19/20 01/19/20 01/19/20 Range/Units 06:17 09:48 11:27 Sodium 135 L (137-145) mmol/L Carbon Dioxide 20 L (22-30) mmol/L BUN 41 H (9-20) mg/dL Creatinine 1.72 H (0.66-1.25) mg/dL Glucose 210 H (74-99) mg/dL POC Glucose (mg/dL) 151 H 213 H (75-99) mg/dL Microbiology - Last 24 Hours (Table) 01/16/20 06:29 Blood Culture - Preliminary Blood No Growth after 72 hours Assessment and Plan Plan: Assessment and plan #1 Upper abdominal and mid epigastric discomfort, acute intra-abdominal process ruled out by CT of the abdomen and pelvis #2 mildly abnormal troponin, not consistent with acute coronary syndrome, likely secondary to abnormal renal function #3 severe coronary artery disease with prior revascularization #4 severe ischemic cardiomyopathy #5 Valvular heart disease with mild aortic stenosis, moderate mitral and t ricuspid regurg #6 paroxysmal atrial fibrillation #7 chronic kidney disease Plan From cardiology's perspective, we'll continue current medical therapy. Hold Lasix for 24 hours, check lytes BUN and creatinine in 3 days. Discharged home to follow-up in the office in one week with Dr. Chaves. DNP note has been reviewed, I agree with a documented findings and plan of care. Patient was seen and examined.
--- NOTE | 2020-01-19 18:19 | P.DS ---
Providers Date of admission: 01/16/20 10:05 Attending physician: Jaylyn Hodge MD Consults: 01/16/20 08:26 Consult Physician Stat Consulting Provider: Brigido Browne Reason/Comments: NSTEMI, CHF Do you want consulting provider notified?: Yes Primary care physician: Lissa Lua - Discharge Diagnosis(es) (1) NSTEMI (non-ST elevated myocardial infarction) Seen by cardiology who recommended medical management Status: Acute (2) Abdominal pain CT of the abdomen showed hepatomegaly enlarged prostate his symptoms have improved Status: Acute (3) Chest pain Secondary to non-ST elevation DE Status: Acute (4) Diabetes Status: Acute (5) HTN (hypertension) Status: Acute Hospital Course: The patient is a 84-year-old male who was admitted with nausea vomiting chest pain. The patient had evidence of non-ST elevation DE. He was placed on heparin drip, cardiology was consulted. The patient had echocardiogram that showed in. E of 30-35%. On admission patient had a creatinine of 1.4 risk versus benefit were discussed and the patient is high risk given his renal dysfunction. The plan was worked optimize him medically. There was no wall motion abnormalities present on his echocardiogram. The patient today had a creatinine of 1.7. It was recommended by cardiology for him to hold his Lasix for 3 days he has a follow-up BMP ordered as an outpatient. The patient denied any chest pain and his abdominal pain and nausea and vomiting that were present on admission have resolved he had an enlarged prostate. Patient should follow- up with his outpatient physician On the day of discharge seen by me and had no complaints Time spent 32 minutes Patient Condition at Discharge: Good Plan - Discharge Summary New Discharge Prescriptions: New Multivitamins, Thera [Multivitamin (formulary)] 1 each PO DAILY tab Nitroglycerin Sl Tabs [Nitrostat] 0.4 mg SUBLINGUAL Q5M PRN tab PRN Reason: Chest Pain metFORMIN HCL [Glucophage Xr] 500 mg PO DAILY 30 Days #30 tab Multivit-Min/FA/Lycopen/Lutein [Centrum Silver Tablet] 1 each PO DAILY 30 Days #30 tablet Continue PARoxetine [Paxil] 20 mg PO DAILY Famotidine [Pepcid] 20 mg PO DAILY Primidone [Mysoline] 50 mg PO QID Atenolol [Tenormin] 50 mg PO BID Potassium Chloride [K-Tab ER] 20 meq PO DAILY Carbidopa/Levodopa [Carbidopa-Levo ER 50-200 Tab] 1 tab PO TID Losartan [Cozaar] 25 mg PO DAILY Spironolactone [Aldactone] 25 mg PO DAILY Furosemide [Lasix] 40 mg PO DAILY Atorvastatin [Lipitor] 40 mg PO HS Aspirin EC [Ecotrin Low Dose] 162 mg PO DAILY Insulin NPL/Insulin Lispro [humaLOG MIX 75-25 VIAL] 35 units SQ HS Baclofen 10 mg PO DAILY Calcium Carbonate [Calcium] 600 mg PO DAILY Furosemide [Lasix] 20 mg PO W/SUPPER Isosorbide Mononitrate ER [Imdur] 60 mg PO DAILY 30 Days #30 tab.er.24h Ranolazine [Ranolazine ER] 500 mg PO BID 30 Days #60 tab.er.12h Nitroglycerin Sl Tabs [Nitrostat] 0.4 mg SUBLINGUAL Q5M PRN 60 Days #90 tab PRN Reason: Chest Pain Insulin NPL/Insulin Lispro [humaLOG MIX 75-25 VIAL] 40 unit SQ QAM Discontinued metFORMIN HCL [Glucophage] 500 mg PO DAILY Multivit-Min/FA/Lycopen/Lutein [Centrum Silver Men Tablet] 1 tab PO DAILY Discharge Medication List Atenolol [Tenormin] 50 mg PO BID 11/20/13 [History] Carbidopa/Levodopa [Carbidopa-Levo ER 50-200 Tab] 1 tab PO TID 11/20/13 [History] Famotidine [Pepcid] 20 mg PO DAILY 11/20/13 [History] PARoxetine [Paxil] 20 mg PO DAILY 11/20/13 [History] Potassium Chloride [K-Tab ER] 20 meq PO DAILY 11/20/13 [History] Primidone [Mysoline] 50 mg PO QID 11/20/13 [History] Losartan [Cozaar] 25 mg PO DAILY 02/12/16 [History] Spironolactone [Aldactone] 25 mg PO DAILY 07/10/16 [History] Furosemide [Lasix] 40 mg PO DAILY 10/03/17 [History] Aspirin EC [Ecotrin Low Dose] 162 mg PO DAILY 07/11/18 [History] Atorvastatin [Lipitor] 40 mg PO HS 07/11/18 [History] Insulin NPL/Insulin Lispro [humaLOG MIX 75-25 VIAL] 35 units SQ HS 07/11/18 [History] Baclofen 10 mg PO DAILY 09/25/18 [History] Calcium Carbonate [Calcium] 600 mg PO DAILY 07/13/19 [History] Furosemide [Lasix] 20 mg PO W/SUPPER 07/13/19 [History] Isosorbide Mononitrate ER [Imdur] 60 mg PO DAILY 30 Days #30 tab.er.24h 07/16/19 [Rx] Nitroglycerin Sl Tabs [Nitrostat] 0.4 mg SUBLINGUAL Q5M PRN 60 Days #90 tab 07/16/19 [Rx] Ranolazine [Ranolazine ER] 500 mg PO BID 30 Days #60 tab.er.12h 07/16/19 [Rx] Insulin NPL/Insulin Lispro [humaLOG MIX 75-25 VIAL] 40 unit SQ QAM 01/16/20 [History] Multivit-Min/FA/Lycopen/Lutein [Centrum Silver Tablet] 1 each PO DAILY 30 Days #30 tablet 01/18/20 [Rx] Multivitamins, Thera [Multivitamin (formulary)] 1 each PO DAILY tab 01/18/20 [Rx] Nitroglycerin Sl Tabs [Nitrostat] 0.4 mg SUBLINGUAL Q5M PRN tab 01/18/20 [Rx] metFORMIN HCL [Glucophage Xr] 500 mg PO DAILY 30 Days #30 tab 01/18/20 [Rx] Follow up Appointment(s)/Referral(s): Tierney Chaves MD [STAFF PHYSICIAN] - 01/31/20 3:15 pm Lissa Lua MD [Primary Care Provider] - 01/23/20 10:15 am Activity/Diet/Wound Care/Special Instructions: hold lasix for 24 hours bmp one week Discharge Disposition: HOME SELF-CARE
[2020-01-19] MEDS ORDERED: METOPROLOL TARTRATE 50 MG TAB PO SCH (21:00)
[2020-01-20] MEDS ORDERED: ASPIRIN 81 MG PO SCH (09:00)
== END 2020-01-19 13:36 | disposition home or self-care (01) | DRG 281 ==
LOC: EC 05:23 → 3SCARD 10:05
PROVIDERS: ADMIT Internal Medicine; ATTEND Internal Medicine
DX: I21.4 Non-ST elevation (NSTEMI) myocardial infarction (principal); I13.0 Hypertensive heart and chronic kidney disease with heart failure and stage 1 through stage 4 chronic kidney disease, or unspecified chronic kidney disease; I48.20 Chronic atrial fibrillation, unspecified; K55.9 Vascular disorder of intestine, unspecified; I25.10 Atherosclerotic heart disease of native coronary artery without angina pectoris; I25.2 Old myocardial infarction; I25.5 Ischemic cardiomyopathy; I48.0 Paroxysmal atrial fibrillation; I08.3 Combined rheumatic disorders of mitral, aortic and tricuspid valves; I50.9 Heart failure, unspecified; N18.9 Chronic kidney disease, unspecified; N40.0 Benign prostatic hyperplasia without lower urinary tract symptoms; E11.22 Type 2 diabetes mellitus with diabetic chronic kidney disease; E11.51 Type 2 diabetes mellitus with diabetic peripheral angiopathy without gangrene; G20 Parkinson's disease; F32.9 Major depressive disorder, single episode, unspecified; E78.5 Hyperlipidemia, unspecified; E11.65 Type 2 diabetes mellitus with hyperglycemia; R16.0 Hepatomegaly, not elsewhere classified; N28.1 Cyst of kidney, acquired; Z98.42 Cataract extraction status, left eye; Z98.41 Cataract extraction status, right eye; Z96.1 Presence of intraocular lens; Z20.828 Contact with and (suspected) exposure to other viral communicable diseases; Z79.4 Long term (current) use of insulin; Z79.82 Long term (current) use of aspirin; Z79.899 Other long term (current) drug therapy; Z80.0 Family history of malignant neoplasm of digestive organs; Z87.19 Personal history of other diseases of the digestive system; Z87.891 Personal history of nicotine dependence; Z95.1 Presence of aortocoronary bypass graft; Z95.0 Presence of cardiac pacemaker; Z95.5 Presence of coronary angioplasty implant and graft; Z90.49 Acquired absence of other specified parts of digestive tract; Z80.8 Family history of malignant neoplasm of other organs or systems; M19.90 Unspecified osteoarthritis, unspecified site; K57.90 Diverticulosis of intestine, part unspecified, without perforation or abscess without bleeding; Z87.11 Personal history of peptic ulcer disease; Z86.010 Personal history of colon polyps
CPT/HCPCS: 36415; 71045; 71275; 74018; 74177; 80048; 80053; 80061; 82728; 83605; 83615; 83735; 83880; 84145; 84484; 85025; 85379; 85610; 85730; 86140; 87040; 87502; 87635; 93005; 93306; 96361; 96365; 96375; 96376; 99285

== ENCOUNTER → 2020-04-29 | Outpatient (CLI) | payer MEDICARE, OTHER ==
--- NOTE | 2020-04-29 17:28 | CT ---
EXAMINATION TYPE: CT abdomen pelvis w con DATE OF EXAM: 04/29/2020 COMPARISON: 01/16/2020. HISTORY: Right flank pain and tenderness. CT DLP: 1819.8 mGycm Automated exposure control for dose reduction was used. TECHNIQUE: Helical acquisition of images was performed from the lung bases through the pelvis. CONTRAST: Performed with Oral Contrast and with IV Contrast, patient injected with 80ml mL of Isovue 300. FINDINGS: LUNG BASES: Chronic left basilar opacity with pleural thickening, may represent rounded atelectasis. LIVER/GB: No significant abnormality is appreciated. PANCREAS: No significant abnormality is seen. SPLEEN: No significant abnormality is seen. ADRENALS: No significant abnormality is seen. KIDNEYS: No bilateral hydronephrosis or nephrolithiasis. Stable multiple renal cysts measuring up to 2.4 cm. FREE AIR: No free air is visualized. RETROPERITONEAL ADENOPATHY: None visualized REPRODUCTIVE ORGANS: No significant abnormality is seen URINARY BLADDER: No significant abnormality is seen. PELVIC ADENOPATHY: None visualized. OSSEOUS STRUCTURES: No significant abnormality is seen. BOWEL: No acute abnormality is seen. Colonic diverticula without acute diverticulitis. OTHER: None. IMPRESSION: NO ACUTE ABNORMALITY OR EVIDENCE OF OBSTRUCTIVE UROPATHY. CHRONIC FINDINGS ABOVE.
== END | disposition home or self-care (01) ==
LOC: RADCTMAIN 14:45
PROVIDERS: ATTEND Family Medicine
DX: N28.1 Cyst of kidney, acquired (principal); K57.30 Diverticulosis of large intestine without perforation or abscess without bleeding
CPT/HCPCS: 82565; 84520; 74177; 36415; Q9967

== ENCOUNTER 2020-05-16 10:24 | Inpatient (IN) | payer MEDICARE, OTHER ==
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
[2020-05-16 11:22] LABS: Basophils % (A) 1 %; Eosinophils # (A) 0.1 k/uL (0-0.7); Eosinophils % (A) 1 %; HGB 12.7 gm/dL (13.0-17.5); Hypochromasia Slight; Lymphocytes # (A) 0.6 k/uL (1.0-4.8); Lymphocytes % (A) 9 %; MCH 29.8 pg (25.0-35.0); MCHC 32.5 g/dL (31.0-37.0); MCV 91.5 fL (80.0-100.0); Mean Platelet Volume 8.8; Monocytes # (A) 0.7 k/uL (0-1.0); Monocytes % (A) 10 %; Neutrophils # (A) 5.7 k/uL (1.3-7.7); Neutrophils % (A) 78 %; Platelet Count 191 k/uL (150-450); RBC 4.26 m/uL (4.30-5.90); RDW 15.6 % (11.5-15.5); WBC 7.3 k/uL (3.8-10.6)
[2020-05-16 11:25] LABS: Calcium 9.4 mg/dL (8.4-10.2); Magnesium 2.2 mg/dL (1.6-2.3); Potassium 5.3 mmol/L (3.5-5.1); Total Bilirubin 0.5 mg/dL (0.2-1.3); Total Protein 7.2 g/dL (6.3-8.2)
--- NOTE | 2020-05-16 11:25 | XR ---
EXAMINATION TYPE: XR chest 2V DATE OF EXAM: 05/16/2020 COMPARISON: 01/16/2020 TECHNIQUE: PA and lateral views submitted. HISTORY: Difficulty breathing FINDINGS: The heart is enlarged and there is postoperative change with cardiac device. Diffuse interstitial pat tern with left-sided consolidation and small effusion. Arthropathy of the shoulders. No pneumothorax. Atherosclerotic change aorta. Degenerative changes of the spine. IMPRESSION: 1. Stable basilar consolidation and small effusion on the left. Correlate for mild interstitial pneum onitis or venous congestion.
[2020-05-16 11:52] LABS: INR 1.1 (<1.2); Partial Thromboplastin Time 22.8 sec (22.0-30.0); Prothrombin Time 11.5 sec (9.0-12.0)
[2020-05-16] MEDS ORDERED: FUROSEMIDE 10 MG/ML 4 ML VIAL IV STA (12:15)
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
[2020-05-16] MEDS ORDERED: NALOXONE 0.4 MG/ML 1 ML VIAL IV PRN (12:54)
[2020-05-16] MEDS: FUROSEMIDE 10 MG/ML 4 ML VIAL IV SCH (13:30)
[2020-05-16] MEDS: CARBIDOPA-LEVODOPA ER 50-200MG 1 EACH TABLET.ER PO SCH (13:59)
[2020-05-16] MEDS: ACETAMINOPHEN TAB 325 MG TAB PO PRN (13:59)
[2020-05-16] MEDS: ASPIRIN 81 MG PO SCH (14:00)
[2020-05-16] MEDS: PRIMIDONE 50 MG TAB PO SCH ×2 (14:13→21:16)
[2020-05-16] MEDS: atenoloL 50 MG TAB PO SCH ×2 (14:14→21:16)
[2020-05-16] MEDS: PARoxetine 20 MG TAB PO SCH (14:14)
[2020-05-16] MEDS: CARBIDOPA-LEVODOPA 25-100 MG 1 EACH TAB PO SCH (14:16)
[2020-05-16 16:34] LABS: Glucose,Whole Blood 284 mg/dL (75-99)
[2020-05-16] MEDS: INSULIN ASPART (NovoLOG) 100 UNIT/ML VIAL SQ SCH ×2 (16:38→21:17)
[2020-05-16 20:41] LABS: Glucose,Whole Blood 192 mg/dL (75-99)
[2020-05-16] MEDS ORDERED: HEPARIN SODIUM,PORCINE 5,000 UNIT/ML 1 ML VIAL SQ SCH (21:00)
[2020-05-16] MEDS: ATORVASTATIN 40 MG TAB PO SCH (21:16)
[2020-05-16] MEDS: HEPARIN SODIUM,PORCINE 5,000 UNIT/ML 1 ML VIAL SQ SCH (21:16)
[2020-05-16] MEDS: INSULN ASP PRT/INSULIN ASPART 100 UNIT/ML 10 ML VIAL SQ SCH (21:16)
[2020-05-17] MEDS: ACETAMINOPHEN TAB 325 MG TAB PO PRN ×2 (05:13→16:06)
[2020-05-17 06:28] LABS: African American GFR (CKD) 53 (>60 ml/min/1.73 sqM); Anion Gap 10 mmol/L; Blood Urea Nitrogen 43 mg/dL (9-20); Calcium 8.9 mg/dL (8.4-10.2); Carbon Dioxide 29 mmol/L (22-30); Chloride 97 mmol/L (98-107); Glucose 96 mg/dL (74-99); Non-African American GFR(CKD) 46 (>60 ml/min/1.73 sqM); Potassium 4.2 mmol/L (3.5-5.1); Sodium 136 mmol/L (137-145)
[2020-05-17] MEDS: INSULIN ASPART (NovoLOG) 100 UNIT/ML VIAL SQ SCH ×4 (07:13→21:09)
[2020-05-17 07:22] LABS: Glucose,Whole Blood 111 mg/dL (75-99)
[2020-05-17] MEDS: HEPARIN SODIUM,PORCINE 5,000 UNIT/ML 1 ML VIAL SQ SCH ×2 (08:36→21:15)
[2020-05-17] MEDS: CARBIDOPA-LEVODOPA 25-100 MG 1 EACH TAB PO SCH (08:36)
[2020-05-17] MEDS: FUROSEMIDE 10 MG/ML 4 ML VIAL IV SCH ×3 (08:36→23:09)
[2020-05-17] MEDS: CARBIDOPA-LEVODOPA ER 50-200MG 1 EACH TABLET.ER PO SCH ×3 (08:37→21:15)
[2020-05-17] MEDS: PARoxetine 20 MG TAB PO SCH (08:37)
[2020-05-17] MEDS: atenoloL 50 MG TAB PO SCH ×2 (08:37→21:15)
[2020-05-17] MEDS: POTASSIUM CHLORIDE ER 20 MEQ TAB.ER PO SCH (08:37)
[2020-05-17] MEDS: FAMOTIDINE 20 MG TAB PO SCH (08:37)
[2020-05-17] MEDS: metOLazone 2.5 MG TAB PO SCH (08:37)
[2020-05-17] MEDS: LOSARTAN 25 MG TAB PO SCH (08:37)
[2020-05-17] MEDS: PRIMIDONE 50 MG TAB PO SCH ×4 (08:37→21:15)
[2020-05-17] MEDS: BACLOFEN 10 MG TAB PO SCH (08:37)
[2020-05-17] MEDS: SPIRONOLACTONE 25 MG TAB PO SCH (08:37)
[2020-05-17] MEDS: CALCIUM CARBONATE 500 MG CHEWABLE PO SCH (08:37)
[2020-05-17] MEDS: ISOSORBIDE MONONITRATE ER 60 MG TAB.ER.24H PO SCH (08:37)
[2020-05-17] MEDS: ASPIRIN 81 MG PO SCH (08:37)
[2020-05-17] MEDS: INSULN ASP PRT/INSULIN ASPART 100 UNIT/ML 10 ML VIAL SQ SCH ×2 (08:38→21:15)
[2020-05-17 11:33] LABS: Magnesium 2.3 mg/dL (1.6-2.3)
[2020-05-17 11:37] LABS: Glucose,Whole Blood 254 mg/dL (75-99)
--- NOTE | 2020-05-17 14:11 | P.PN ---
Subjective Progress Note Date: 05/17/20 Patient is awake and alert today. Shortness of breath is about the same compared to yesterday. He is not diuresing well and nursing staff having difficulty documenting urine output. Objective - Vital Signs Vital signs: Vital Signs Temp 98.4 F 05/17/20 07:36 Pulse 64 05/17/20 07:36 Resp 18 05/17/20 07:36 BP 162/83 05/17/20 07:36 Pulse Ox 97 05/17/20 07:36 Intake & Output 05/16/20 05/17/20 05/17/20 18:59 06:59 18:59 Intake Total 960 Output Total 10 580 Balance 950 -580 Weight 106.594 kg 109.2 kg Intake: Oral 960 Output: Urine 580 Post Void Residual 10 Other: # Voids 1 1 - Exam General: The patient is awake and alert, in no distress Eye: there is normal conjunctiva bilaterally. Neck: The neck is supple, there is no JVD. Cardiovascular: Normal S1-S2, no S3-S4, no murmurs. Respiratory: Lungs clear to auscultation bilaterally Gastrointestinal: Abdomen is soft, nontender Musculoskeletal: There is +1-2 pedal edema. Neurological:. Speech is normal. Skin: Skin is warm and dry - Labs CBC & Chem 7: 05/16/20 10:43 05/17/20 05:37 Labs: Abnormal Lab Results - Last 24 Hours (Table) 05/16/20 05/16/20 05/16/20 Range/Units 14:49 16:33 20:39 Sodium (137-145) mmol/L Chloride (98-107) mmol/L BUN (9-20) mg/dL Creatinine (0.66-1.25) mg/dL POC Glucose (mg/dL) 284 H 192 H (75-99) mg/dL Plasma Lactic Acid Jack 2.1 H* (0.7-2.0) mmol/L 05/17/20 05/17/20 05/17/20 Range/Units 05:37 06:59 11:35 Sodium 136 L (137-145) mmol/L Chloride 97 L (98-107) mmol/L BUN 43 H (9-20) mg/dL Creatinine 1.39 H (0.66-1.25) mg/dL POC Glucose (mg/dL) 111 H 254 H (75-99) mg/dL Plasma Lactic Acid Jack (0.7-2.0) mmol/L Assessment and Plan Assessment: This is a 84-year-old male with complex past medical history noted below who presented to the emergency room with progressive dyspnea and orthopnea. Patient was evaluated in the ER and will be admitted to the hospital for further manag ement of his medical problems noted below. 1. Acute systolic heart failure exacerbation, echocardiogram in January of last year showed EF of 30-35%. Started on IV Lasix 40 mg twice daily and incre ase to every 8 hours due to poor response. Continue home dose of Zaroxolyn again. Strict I's and O's. Daily weights. 2. Coronary artery disease with prior CABG in 1998 and subsequent stent placem ent. Continue optimal medical management 3. Stage IIIB chronic kidney disease with baseline creatinine around 1.5. We will continue to monitor closely while on IV diuresis. 4. Type 2 diabetes, continue home dose of Lantus insulin plus sliding scale insulin. Discontinue metformin secondary to kidney function. A1c last month was 7.9 5. Chronic medical problems: hyperlipidemia, hypertension, Parkinson's disease 6. DVT prophylaxis with subcu heparin 7. CODE STATUS: Patient is DO NOT RESUSCITATE/DO NOT INTUBATE. Discussed with him and his daughter at bedside Today, I reviewed his medication list and lab work results. I ordered a bladder scan to rule out urinary retention and PVR was within acceptable range. I advised nursing staff to continue to monitor urine output closely and provide the patient with a urinal
[2020-05-17 14:45] VITALS: RESP 19
[2020-05-17 16:43] LABS: Glucose,Whole Blood 107 mg/dL (75-99)
[2020-05-17 21:09] LABS: Glucose,Whole Blood 125 mg/dL (75-99)
[2020-05-17] MEDS: ATORVASTATIN 40 MG TAB PO SCH (21:15)
[2020-05-18 03:02] LABS: Glucose,Whole Blood 58 mg/dL (75-99)
[2020-05-18 06:38] LABS: African American GFR (CKD) 54 (>60 ml/min/1.73 sqM); Anion Gap 8 mmol/L; Blood Urea Nitrogen 43 mg/dL (9-20); Calcium 8.8 mg/dL (8.4-10.2); Carbon Dioxide 33 mmol/L (22-30); Chloride 93 mmol/L (98-107); Glucose 182 mg/dL (74-99); Magnesium 1.9 mg/dL (1.6-2.3); Non-African American GFR(CKD) 47 (>60 ml/min/1.73 sqM); Potassium 3.4 mmol/L (3.5-5.1); Sodium 134 mmol/L (137-145)
[2020-05-18 06:55] LABS: Glucose,Whole Blood 232 mg/dL (75-99)
[2020-05-18] MEDS ORDERED: POTASSIUM CHLORIDE 20 MEQ in WATER FOR INJECTION 1 100ML.BAG IVPB STA (07:31)
[2020-05-18 08:00] VITALS: BP 142/68; TEMP 97.4
[2020-05-18] MEDS: HEPARIN SODIUM,PORCINE 5,000 UNIT/ML 1 ML VIAL SQ SCH (08:06)
[2020-05-18] MEDS: FUROSEMIDE 10 MG/ML 4 ML VIAL IV SCH (08:06)
[2020-05-18] MEDS: metOLazone 2.5 MG TAB PO SCH (08:07)
[2020-05-18] MEDS: FAMOTIDINE 20 MG TAB PO SCH (08:07)
[2020-05-18] MEDS: CARBIDOPA-LEVODOPA 25-100 MG 1 EACH TAB PO SCH (08:07)
[2020-05-18] MEDS: PRIMIDONE 50 MG TAB PO SCH ×2 (08:07→12:01)
[2020-05-18] MEDS: BACLOFEN 10 MG TAB PO SCH (08:07)
[2020-05-18] MEDS: CARBIDOPA-LEVODOPA ER 50-200MG 1 EACH TABLET.ER PO SCH (08:07)
[2020-05-18] MEDS: POTASSIUM CHLORIDE ER 20 MEQ TAB.ER PO SCH (08:07)
[2020-05-18] MEDS: PARoxetine 20 MG TAB PO SCH (08:07)
[2020-05-18] MEDS: CALCIUM CARBONATE 500 MG CHEWABLE PO SCH (08:07)
[2020-05-18] MEDS: LOSARTAN 25 MG TAB PO SCH (08:07)
[2020-05-18] MEDS: SPIRONOLACTONE 25 MG TAB PO SCH (08:07)
[2020-05-18] MEDS: ASPIRIN 81 MG PO SCH (08:07)
[2020-05-18] MEDS: ISOSORBIDE MONONITRATE ER 60 MG TAB.ER.24H PO SCH (08:07)
[2020-05-18] MEDS: atenoloL 50 MG TAB PO SCH (08:08)
[2020-05-18 08:18] LABS: Glucose,Whole Blood 204 mg/dL (75-99)
[2020-05-18] MEDS: INSULN ASP PRT/INSULIN ASPART 100 UNIT/ML 10 ML VIAL SQ SCH (08:23)
[2020-05-18] MEDS: INSULIN ASPART (NovoLOG) 100 UNIT/ML VIAL SQ SCH ×2 (08:24→12:01)
[2020-05-18 09:51] VITALS: PULSE 68
--- NOTE | 2020-05-18 10:03 | P.DS ---
Providers Date of admission: 05/16/20 12:54 Expected date of discharge: 05/18/20 Attending physician: Alfredo Claros Primary care physician: Lissa Lua [facility] Course: This is a 84-year-old male with complex past medical history noted below who presented to the emergency room with progressive dyspnea and orthopnea. Patient was evaluated in the ER and will be admitted to the hospital for further management of his medical problems noted below. 1. Acute systolic heart failure exacerbation, echocardiogram in January of last year showed EF of 30-35%. Started on IV Lasix with good response. I would increase his home dose of Lasix to 40 mg twice daily. Continue home dose of Zaroxolyn. Daily weights. 2. Acute on chronic hypoxic respiratory failure secondary to underlying heart failure and possible underlying COPD. Patient O2 sats on room air at rest 92% and 86 percent with ambulation. Improved to greater than 90% on 2 L of oxygen via nasal cannula. Patient will be set up with home oxygen 3. Coronary artery disease with prior CABG in 1998 and subsequent stent placement. Continue optimal medical management 4. Stage IIIB chronic kidney disease with baseline creatinine around 1.5. We will continue to monitor closely while on IV diuresis. 5. Type 2 diabetes, decreased nighttime Lantus dose to 25 units as patient was having episodes of hypoglycemia at night. Discontinue metformin secondary to kidney function. A1c last month was 7.9 6. Chronic medical problems: hyperlipidemia, hypertension, Parkinson's disease 7. CODE STATUS: Patient is DO NOT RESUSCITATE/DO NOT INTUBATE. Discussed with him and his daughter at bedside Patient will be discharged home in a stable condition. Home healthcare will be set up for him. His daughters live nearby and check on him regularly. For further details about this hospitalization please refer to electronic chart. Patient Condition at Discharge: Stable Plan - Discharge Summary Discharge Rx Participant: Yes New Discharge Prescriptions: New Furosemide [Lasix] 40 mg PO BID #60 tablet Continue PARoxetine [Paxil] 20 mg PO DAILY Famotidine [Pepcid] 20 mg PO DAILY Primidone [Mysoline] 50 mg PO QID Atenolol [Tenormin] 50 mg PO BID Potassium Chloride [K-Tab ER] 20 meq PO DAILY Carbidopa/Levodopa [Carbidopa-Levo ER 50-200 Tab] 1 tab PO TID Losartan [Cozaar] 25 mg PO DAILY Spironolactone [Aldactone] 25 mg PO DAILY Atorvastatin [Lipitor] 40 mg PO HS Aspirin EC [Ecotrin Low Dose] 81 mg PO DAILY Baclofen 10 mg PO DAILY Calcium Carbonate [Calcium] 600 mg PO DAILY Isosorbide Mononitrate ER [Imdur] 60 mg PO DAILY 30 Days #30 tab.er.24h Nitroglycerin Sl Tabs [Nitrostat] 0.4 mg SUBLINGUAL Q5M PRN 60 Days #90 tab PRN Reason: Chest Pain Insulin NPL/Insulin Lispro [humaLOG MIX 75-25 VIAL] 40 unit SQ QAM Multivit-Min/FA/Lycopen/Lutein [Centrum Silver Tablet] 1 tab PO DAILY metOLazone [Zaroxolyn] 2.5 mg PO DAILY Carbidopa-Levodopa 25-100 mg [Sinemet 25-100 mg] 1 tab PO DAILY Changed Insulin NPL/Insulin Lispro [humaLOG MIX 75-25 VIAL] 25 units SQ HS #0 Discontinued Furosemide [Lasix] 40 mg PO DAILY Furosemide [Lasix] 20 mg PO W/SUPPER metFORMIN HCL 500 mg PO DAILY Discharge Medication List Atenolol [Tenormin] 50 mg PO BID 11/20/13 [History] Carbidopa/Levodopa [Carbidopa-Levo ER 50-200 Tab] 1 tab PO TID 11/20/13 [History] Famotidine [Pepcid] 20 mg PO DAILY 11/20/13 [History] PARoxetine [Paxil] 20 mg PO DAILY 11/20/13 [History] Potassium Chloride [K-Tab ER] 20 meq PO DAILY 11/20/13 [History] Primidone [Mysoline] 50 mg PO QID 11/20/13 [History] Losartan [Cozaar] 25 mg PO DAILY 02/12/16 [History] Spironolactone [Aldactone] 25 mg PO DAILY 07/10/16 [History] Aspirin EC [Ecotrin Low Dose] 81 mg PO DAILY 07/11/18 [History] Atorvastatin [Lipitor] 40 mg PO HS 07/11/18 [History] Baclofen 10 mg PO DAILY 09/25/18 [History] Calcium Carbonate [Calcium] 600 mg PO DAILY 07/13/19 [History] Isosorbide Mononitrate ER [Imdur] 60 mg PO DAILY 30 Days #30 tab.er.24h 07/16/19 [Rx] Nitroglycerin Sl Tabs [Nitrostat] 0.4 mg SUBLINGUAL Q5M PRN 60 Days #90 tab 07/16/19 [Rx] Insulin NPL/Insulin Lispro [humaLOG MIX 75-25 VIAL] 40 unit SQ QAM 01/16/20 [History] Carbidopa-Levodopa 25-100 mg [Sinemet 25-100 mg] 1 tab PO DAILY 05/16/20 [History] Multivit-Min/FA/Lycopen/Lutein [Centrum Silver Tablet] 1 tab PO DAILY 05/16/20 [History] metOLazone [Zaroxolyn] 2.5 mg PO DAILY 05/16/20 [History] Furosemide [Lasix] 40 mg PO BID #60 tablet 05/18/20 [Rx] Insulin NPL/Insulin Lispro [humaLOG MIX 75-25 VIAL] 25 units SQ HS #0 05/18/20 [Rx] Follow up Appointment(s)/Referral(s): [facility], [NON-STAFF] - Lissa Lua MD [Primary Care Provider] - 1-2 days Discharge Disposition: HOME WITH HOME HEALTH SERVICES
[2020-05-18 11:24] LABS: Glucose,Whole Blood 337 mg/dL (75-99)
[2020-05-18] MEDS ORDERED: INSULN ASP PRT/INSULIN ASPART 100 UNIT/ML 10 ML VIAL SQ SCH (21:00)
== END 2020-05-18 13:34 | disposition home health service (06) | DRG 291 ==
LOC: EC 10:24 → 4SSUR 12:54
PROVIDERS: ADMIT Internal Medicine; ATTEND Internal Medicine
DX: I13.0 Hypertensive heart and chronic kidney disease with heart failure and stage 1 through stage 4 chronic kidney disease, or unspecified chronic kidney disease (principal); I50.21 Acute systolic (congestive) heart failure; J96.21 Acute and chronic respiratory failure with hypoxia; N18.32 Chronic kidney disease, stage 3b; E11.22 Type 2 diabetes mellitus with diabetic chronic kidney disease; Z79.84 Long term (current) use of oral hypoglycemic drugs; I25.5 Ischemic cardiomyopathy; E78.5 Hyperlipidemia, unspecified; Z66 Do not resuscitate; G20 Parkinson's disease; I25.10 Atherosclerotic heart disease of native coronary artery without angina pectoris; Z95.5 Presence of coronary angioplasty implant and graft; Z95.1 Presence of aortocoronary bypass graft; J44.9 Chronic obstructive pulmonary disease, unspecified; E11.649 Type 2 diabetes mellitus with hypoglycemia without coma
CPT/HCPCS: 36415; 51798; 71046; 80048; 80053; 83605; 83735; 83880; 84484; 85025; 85610; 85730; 87635; 93005; 94760

== ENCOUNTER 2020-06-09 09:34 | Inpatient (IN) | payer MEDICARE, OTHER ==
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
[2020-06-09 10:05] LABS: Basophils # (A) 0.1 k/uL (0-0.2); Basophils % (A) 1 %; Eosinophils # (A) 0.2 k/uL (0-0.7); Eosinophils % (A) 3 %; HCT 41.3 % (39.0-53.0); HGB 12.8 gm/dL (13.0-17.5); Hypochromasia Marked; Lymphocytes # (A) 0.4 k/uL (1.0-4.8); Lymphocytes % (A) 5 %; MCH 29.7 pg (25.0-35.0); MCHC 31.1 g/dL (31.0-37.0); MCV 95.6 fL (80.0-100.0); Mean Platelet Volume 8.1; Monocytes # (A) 0.5 k/uL (0-1.0); Monocytes % (A) 6 %; Neutrophils # (A) 6.9 k/uL (1.3-7.7); Neutrophils % (A) 85 %; Platelet Count 213 k/uL (150-450); RBC 4.32 m/uL (4.30-5.90); RDW 15.9 % (11.5-15.5); WBC 8.1 k/uL (3.8-10.6)
[2020-06-09 10:43] LABS: Albumin 3.8 g/dL (3.5-5.0); Total Bilirubin 0.5 mg/dL (0.2-1.3)
--- NOTE | 2020-06-09 10:46 | XR ---
EXAMINATION TYPE: XR chest 1V portable DATE OF EXAM: 06/09/2020 Comparison: 05/16/2020 Clinical History: 84-year-old male shortness of breath, dyspnea, hx of CHF Findings: Left anterior chest wall pacemaker generator with right atrial and right ventricular leads. Median st ernotomy wires are present. Heart remains enlarged. Suggestion of a small to trace effusion on the le ft persists with some patchy lower lung opacities. Mild interstitial/vascular prominence. Impression: Cardiomegaly with interstitial/vascular prominence and suggestion of a small effusion on the left. Co rrelate for mild CHF with pulmonary vascular congestion.
[2020-06-09 10:55] LABS: Potassium 7.8 mmol/L (3.5-5.1)
[2020-06-09] MEDS ORDERED: ALBUTEROL NEB (CONC) 2.5 MG/0.5 ML INHALATION ONE (10:59)
[2020-06-09] MEDS ORDERED: CALCIUM GLUCONATE 1 GM in SODIUM CHLORIDE 0.9% 100 ML IVPB ONE (10:59)
[2020-06-09] MEDS ORDERED: DEXTROSE 50% SYRINGE 50 ML IVP ONE (10:59)
[2020-06-09] MEDS ORDERED: SODIUM BICARB 8.4% 50 ML SYR (1 MEQ/ML) IV ONE (10:59)
[2020-06-09] MEDS ORDERED: INSULIN REGULAR 100 UNIT/ML VIAL IV ONE (10:59)
[2020-06-09] MEDS ORDERED: FUROSEMIDE 10 MG/ML 10 ML VIAL IV STA (12:14)
[2020-06-09] MEDS ORDERED: NALOXONE 0.4 MG/ML 1 ML VIAL IV PRN (12:36)
[2020-06-09] MEDS: SODIUM CHLORIDE 0.9% 1,000 ML IV SCH (12:55)
[2020-06-09] MEDS ORDERED: MELATONIN 3 MG TABLET PO PRN (13:50)
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
[2020-06-09 15:01] LABS: Calcium 9.2 mg/dL (8.4-10.2)
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
[2020-06-09] MEDS: CARBIDOPA-LEVODOPA ER 50-200MG 1 EACH TABLET.ER PO SCH ×2 (15:50→21:32)
--- NOTE | 2020-06-09 16:10 | US ---
EXAMINATION TYPE: US renals and bladder DATE OF EXAM: 06/09/2020 COMPARISON: NONE CLINICAL HISTORY: hydronephrosis. EXAM MEASUREMENTS: Right Kidney: 10.3 x 5.0 x 5.1 cm Left Kidney: 11.7 x 5.3 x 5.9 cm Right Kidney: thin renal cortex, echogenic in appearance, multiple cystic areas noted with largest = 2.5 x 2.2 x 2.5cm Left Kidney: echogenic in appearance, thin renal cortex, cystic area upper pole = 3.2 x 2.1 x 2.3cm Bladder: not fully distended Bilateral Jets seen: no small amount of free fluid adjacent to liver . IMPRESSION: There is bilateral renal atrophy that is worse on the right side. No hydronephrosis. No evidence of s olid renal mass. No evidence of a bladder mass.
[2020-06-09] MEDS: ACETAMINOPHEN TAB 325 MG TAB PO PRN (18:56)
[2020-06-09] MEDS: PRIMIDONE 50 MG TAB PO SCH ×2 (20:24→21:29)
[2020-06-09] MEDS: ATORVASTATIN 40 MG TAB PO SCH (21:29)
[2020-06-09] MEDS: atenoloL 50 MG TAB PO SCH (21:30)
[2020-06-09] MEDS: INSULN ASP PRT/INSULIN ASPART 100 UNIT/ML 10 ML VIAL SQ SCH (22:33)
[2020-06-09] MEDS: FUROSEMIDE 10 MG/ML 4 ML VIAL IV SCH (22:36)
[2020-06-10 02:18] LABS: Glucose,Whole Blood 190 mg/dL (75-99)
[2020-06-10 03:52] LABS: Magnesium 2.3 mg/dL (1.6-2.3); Potassium 5.1 mmol/L (3.5-5.1)
[2020-06-10] MEDS: ACETAMINOPHEN TAB 325 MG TAB PO PRN (04:52)
[2020-06-10] MEDS: FUROSEMIDE 10 MG/ML 4 ML VIAL IV SCH ×3 (04:56→21:17)
[2020-06-10 06:43] LABS: Anisocytosis Slight; HCT 36.5 % (39.0-53.0); HGB 11.7 gm/dL (13.0-17.5); Hypochromasia Moderate; MCH 29.9 pg (25.0-35.0); MCV 93.4 fL (80.0-100.0); Mean Platelet Volume 8.5; Platelet Count 192 k/uL (150-450); RBC 3.91 m/uL (4.30-5.90); RDW 16.1 % (11.5-15.5); WBC 9.4 k/uL (3.8-10.6)
[2020-06-10] MEDS: ISOSORBIDE MONONITRATE ER 60 MG TAB.ER.24H PO SCH (08:29)
[2020-06-10] MEDS: BACLOFEN 10 MG TAB PO SCH (08:29)
[2020-06-10] MEDS: metOLazone 2.5 MG TAB PO SCH (08:29)
[2020-06-10] MEDS: CARBIDOPA-LEVODOPA 25-100 MG 1 EACH TAB PO SCH (08:29)
[2020-06-10] MEDS: CALCIUM CARBONATE 500 MG CHEWABLE PO SCH (08:29)
[2020-06-10] MEDS: CARBIDOPA-LEVODOPA ER 50-200MG 1 EACH TABLET.ER PO SCH ×3 (08:29→23:23)
[2020-06-10] MEDS: atenoloL 50 MG TAB PO SCH ×2 (08:29→21:17)
[2020-06-10] MEDS: ASPIRIN 81 MG PO SCH (08:29)
[2020-06-10] MEDS: PARoxetine 20 MG TAB PO SCH (08:29)
[2020-06-10] MEDS: PRIMIDONE 50 MG TAB PO SCH ×4 (08:29→21:17)
[2020-06-10] MEDS: MULTIVITAMINS, THERA 1 EACH TAB PO SCH (08:29)
[2020-06-10] MEDS: FAMOTIDINE 20 MG TAB PO SCH (08:29)
[2020-06-10] MEDS: INSULN ASP PRT/INSULIN ASPART 100 UNIT/ML 10 ML VIAL SQ SCH ×2 (09:15→21:20)
--- NOTE | 2020-06-10 11:45 | P.PN ---
Subjective Progress Note Date: 06/10/20 Principal diagnosis: delayed charting seen at 0910 Patient is an 84-year-old male with a known history of systolic congestive heart failure with ejection fraction 30-35%, diabetes mellitus type 2, hypertension, dyslipidemia, and multiple other comorbid conditions who presented to the emergency department via EMS secondary to shortness of breath. EMS documented room air pulse ox at 80% and he was placed on a nonrebreather. Laboratory analysis demonstrated a in elevated potassium of 6.7, BUN 56, creatinine 1.69, troponin 0.069, and BNP of 3830. Chest x-ray demonstrated cardiomegaly with vascular prominence and small left pleural effusion. EKG demonstrated A. fib with nonspecific interventricular conduction delay. He was given a dose of Lasix, insulin, dextrose, calcium gluconate, and bicarb. Arrangements were made for admission. His potassium continue to improve. He was seen by nephrology. His fluid status improved overnight. We discussed that he has had 2 admissions [id number] for congestive heart failure. Suggest that he also residential facility on discharge. I'm unsure if he is taking his medications appropriately at home. His daughters do live together his pillbox and encourage him to be compliant. General: non toxic, no distress, appears at stated age Derm: warm, dry Head: atraumatic, normocephalic, symmetric Eyes: EOMI, no lid lag, anicteric sclera Mouth: no lip lesion, mucus membranes moist Cardiovascular: S1-S2 irregular, no murmur, positive posterior tibial pulse bilateral, Lungs: Decreased breath sounds bilateral, no rhonchi, no rales , no accessory muscle use Abdominal: + Distended soft, nontender to palpation, no guarding, no appreciable organomegaly Ext: no gross muscle atrophy, 2+, no contractures Neuro: CN II-XI grossly intact, no focal neuro deficits Psych: Alert, oriented, appropriate affect Assessment and plan: Acute exacerbation of systolic congestive heart failure with ejection fraction 30-35% -Lasix IVP q 8 hours, Zaroxolyn -Hold Aldactone and ARB secondary to hyperkalemia -Strict I's and O's -Daily weights -Continue with beta emerson -Telemetry -Cardiology recs KRIS on CKD stage III, suspect cardiorenal - hold ARB, Aldactone, Potassium supplements - nephro recs appreciated - follow Cr - Avoid additional nephrotoxic agents - renal US with medical renal disease Hyperkalemia, resolved -Hold Aldactone, ARB, and potassium supplements - nephrology recs appreciated - repeat in AM - nephrology recs Weakness - PT/OT evaluation Chronic A. Fib - not on rate control - Not on anticoagulation Elevated troponin -Suspect related to demand ischemia -Troponins are flat -Aspirin -Cardiology recs Diabetes mellitus type 2 insulin requiring -Resume home 75/25, sliding-scale insulin -Follow blood sugars -Await A1C Hypertension controlled -Aldactone and Cozaar on hold -Continue with atenolol, Lasix, Zaroxolyn, and Imdur -Follow blood pressures Dyslipidemia -Statin Parkinson's disease -Continue with Sinemet Chronic: Coronary artery disease, BPH, tremor, ischemic colitis, permanent pacemaker implantation DVT prophylaxis: SCDs Discussed with: Patient,nursing, cardio Anticipated discharge date: 2-[address]: SNF A total of 35 minutes was spent on the care of this complex patient more than 50% of the time was spent in counseling and care coordination. Objective - Vital Signs Vital signs: Vital Signs Temp 97.7 F 06/10/20 07:57 Pulse 102 H 06/10/20 11:19 Resp 18 06/10/20 07:57 BP 148/89 06/10/20 07:57 Pulse Ox 95 06/10/20 11:19 Intake & Output 06/09/20 06/10/20 06/10/20 18:59 06:59 18:59 Output Total 80 Balance -80 Weight 112.491 kg 112.491 kg Output: Post Void Residual 80 - Labs CBC & Chem 7: 06/10/20 02:50 06/10/20 02:50 Labs: Abnormal Lab Results - Last 24 Hours (Table) 06/09/20 06/09/20 06/10/20 Range/Units 11:10 14:22 02:15 RBC (4.30-5.90) m/uL Hgb (13.0-17.5) gm/dL Hct (39.0-53.0) % RDW (11.5-15.5) % Sodium 135 L (137-145) mmol/L Potassium 6.7 H* 6.0 H (3.5-5.1) mmol/L Chloride (98-107) mmol/L Carbon Dioxide 32 H (22-30) mmol/L BUN 57 H (9-20) mg/dL Creatinine 1.66 H (0.66-1.25) mg/dL Glucose 359 H (74-99) mg/dL POC Glucose (mg/dL) 190 H (75-99) mg/dL Troponin I (0.000-0.034) ng/mL 06/10/20 06/10/20 06/10/20 Range/Units 02:50 02:50 02:50 RBC 3.91 L (4.30-5.90) m/uL Hgb 11.7 L (13.0-17.5) gm/dL Hct 36.5 L (39.0-53.0) % RDW 16.1 H (11.5-15.5) % Sodium 136 L (137-145) mmol/L Potassium (3.5-5.1) mmol/L Chloride 97 L (98-107) mmol/L Carbon Dioxide (22-30) mmol/L BUN 58 H (9-20) mg/dL Creatinine 1.77 H (0.66-1.25) mg/dL Glucose 168 H (74-99) mg/dL POC Glucose (mg/dL) (75-99) mg/dL Troponin I 0.071 H* (0.000-0.034) ng/mL
[2020-06-10] MEDS: SODIUM CHLORIDE 0.9% 1,000 ML IV SCH (13:10)
--- NOTE | 2020-06-10 15:08 | PN ---
PROGRESS NOTE Patient is seen for followup for acute kidney injury on top of chronic kidney disease. Serum creatinine staying at about 1.6-1.7 mg/dL. Potassium was significantly elevated at 7.8 on initial admission, currently improved to 5.1. Overall, patient states he is not feeling good. He is complaining of some shortness of breath. PHYSICAL EXAMINATION: This morning blood pressure was 148/89, heart rate 80 per minute. He is afebrile. EXAMINATION OF THE HEART: S1, S2. EXAMINATION OF LUNGS: Decreased breath sounds at bases. Bilateral crackles are heard. Abdomen is soft, nontender, obese. Examination of lower extremities shows edema 1+ bilaterally. [employer] exam grossly intact. LABS: Labs show sodium 136, potassium 5.1, chloride 97, BUN 58, creatinine 1.7, hemoglobin 11.7 g/dL. ASSESSMENT: 1. Acute kidney injury mostly cardiorenal currently being diuresed. Will continue with IV Lasix. Renal function fairly stable. Repeat labs in a.m. 2. Hyperkalemia associated with acute kidney injury, use of angiotensin receptor blockers prior to admission. No evidence of hydronephrosis noted on ultrasound. 3. Volume overload, currently being diuresed. 4. Cardiomyopathy, ejection fraction 30% to 35%. 5. Congestive heart failure acute on top of chronic, mostly systolic. PLAN: Continue with current dose of IV Lasix. Repeat labs in a.m. Continue off of Aldactone and angiotensin receptor blockers/CHE inhibitors. MMODL / IJN: [id number] /
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
--- NOTE | 2020-06-10 18:47 | ECHOF ---
Referral Reason:worsening shortness of breath MEASUREMENTS -------- HEIGHT: 175.3 cm WEIGHT: 112.5 kg BP: 148/89 IVSd: 1.5 cm (0.6 - 1.1) LVIDd: 5.9 cm (3.9 - 5.3) LVPWd: 1.4 cm (0.6 - 1.1) EDV(Teich): 171 ml IVSs: 1.7 cm LVIDs: 4.8 cm LVPWs: 1.7 cm %IVS Thck: 11 % ESV(Teich): 110 ml EF(Teich): 36 % %FS: 17 % SV(Teich): 61 ml RVIDd: 4.2 cm (< 3.3) RA Diam: 6.4 cm LALs A4C: 6.9 cm LAAs A4C: 32.2 cm LAESV A-L A4C: 128 ml LAESV MOD A4C: 115 ml LALs A2C: 6.6 cm LAAs A2C: 35.9 cm LAESV A-L A2C: 167 ml LAESV MOD A2C: 157 ml LAESV(A-L): 149 ml LAESV Index (A-L): 65.83 ml/m Ao Diam: 3.6 cm (2.0 - 3.7) LA Diam: 5.2 cm (2.7 - 3.8) AV Cusp: 1.2 cm (1.5 - 2.6) EPSS: 1.1 cm LVOT Vmax: 0.49 m/s LVOT maxP.96 mmHg AV Vmax: 2.77 m/s AV Vmean: 1.94 m/s AV maxP.60 mmHg AV meanP.95 mmHg AV Env.Ti: 309 ms AV VTI: 61.3 cm TR Vmax: 4.25 m/s TR maxP.17 mmHg RAP: 5.00 mmHg RVSP: 77.17 mmHg MV EF SLOPE: 94.30 mm/s (70 - 150) MV EXCURSION: 15.25 mm (> 18.000) FINDINGS -------- This was a technically difficult study with suboptimal views. The left ventricular size is normal. There is moderate concentric left ventricular hypertrophy. T here is moderate global hypokinesis of LV . Overall left ventricular systolic function is moderate- severely impaired with, an EF between 30 - 35 %. Septal wall motion is delayed and consistent with prior cardiac surgery. The right ventricle is severely enlarged. LA is severely dilated >40 ml/m2 The right atrium is moderately enlarged. 5.0mg of Lumason was utilized for enhancement of images Interatrial and interventricular septum intact. There is mild aortic regurgitation. There is ulfkmiit-df-vxatfa aortic stenosis present. Zkcpfaiq-ue-nvbnyp mitral regurgitation is present. Severe tricuspid regurgitation present. There is severe pulmonary hypertension. The right ventric ular systolic pressure, as measured by Doppler, is 77.17mmHg. The pulmonic valve was not well visualized. There is no pulmonic regurgitation present. The aortic root size is normal. IVC Not well visulized. There is no pericardial effusion. CONCLUSIONS -------- 1. The left ventricular size is normal. 2. There is moderate concentric left ventricular hypertrophy. 3. There is moderate global hypokinesis of LV . 4. Overall left ventricular systolic function is moderate-severely impaired with, an EF between 30 - 35 %. 5. The right ventricle is severely enlarged. 6. LA is severely dilated >40 ml/m2 7. The right atrium is moderately enlarged. 8. There is mild aortic regurgitation. 9. There is jkardfsd-au-gcggtd aortic stenosis present. 10. Xmlfctcl-zi-pnsamy mitral regurgitation is present. 11. Severe tricuspid regurgitation present. 12. There is severe pulmonary hypertension. 13. The right ventricular systolic pressure, as measured by Doppler, is 77.17mmHg. MANAGER OF ENGINEERING: More Mancera RDCS
[2020-06-10 21:09] LABS: Glucose,Whole Blood 87 mg/dL (75-99)
[2020-06-10] MEDS: ATORVASTATIN 40 MG TAB PO SCH (21:17)
[2020-06-10 22:55] LABS: Appearance,Urine Clear (Clear); Bilirubin,Urine Negative (Negative); Blood,Urine Negative (Negative); Color,Urine Light Yellow; Glucose,Urine (UA) Negative (Negative); Ketones,Urine Negative (Negative); Leukocyte Esterase,Urine Negative (Negative); Nitrite,Urine Negative (Negative); PH, Urine 5.5 (5.0-8.0); Protein,Urine Trace (Negative); Specific Gravity,Urine 1.007 (1.001-1.035); Urobilinogen,Urine <2.0 mg/dL (<2.0)
[2020-06-11] MEDS: ACETAMINOPHEN TAB 325 MG TAB PO PRN ×4 (04:43→23:20)
[2020-06-11] MEDS: FUROSEMIDE 10 MG/ML 4 ML VIAL IV SCH ×3 (04:43→20:28)
[2020-06-11 06:15] LABS: Glucose,Whole Blood 88 mg/dL (75-99)
[2020-06-11 09:26] LABS: Anisocytosis Slight; Calcium 8.5 mg/dL (8.4-10.2); HGB 11.6 gm/dL (13.0-17.5); Hypochromasia Moderate; MCH 30.3 pg (25.0-35.0); MCV 91.7 fL (80.0-100.0); Magnesium 2.1 mg/dL (1.6-2.3); Mean Platelet Volume 7.9; Phosphorus 4.9 mg/dL (2.5-4.5); Platelet Count 169 k/uL (150-450); Potassium 4.3 mmol/L (3.5-5.1); RBC 3.82 m/uL (4.30-5.90); RDW 16.1 % (11.5-15.5); WBC 8.3 k/uL (3.8-10.6)
[2020-06-11] MEDS: atenoloL 50 MG TAB PO SCH ×2 (09:54→20:28)
[2020-06-11] MEDS: ASPIRIN 81 MG PO SCH (09:54)
[2020-06-11] MEDS: BACLOFEN 10 MG TAB PO SCH (09:55)
[2020-06-11] MEDS: CALCIUM CARBONATE 500 MG CHEWABLE PO SCH (09:55)
[2020-06-11] MEDS: FAMOTIDINE 20 MG TAB PO SCH (09:56)
[2020-06-11] MEDS: CARBIDOPA-LEVODOPA 25-100 MG 1 EACH TAB PO SCH (09:56)
[2020-06-11] MEDS: CARBIDOPA-LEVODOPA ER 50-200MG 1 EACH TABLET.ER PO SCH ×3 (09:56→20:27)
[2020-06-11] MEDS: MULTIVITAMINS, THERA 1 EACH TAB PO SCH (09:57)
[2020-06-11] MEDS: PRIMIDONE 50 MG TAB PO SCH ×4 (09:57→20:28)
[2020-06-11] MEDS: ISOSORBIDE MONONITRATE ER 60 MG TAB.ER.24H PO SCH (09:57)
[2020-06-11] MEDS: metOLazone 2.5 MG TAB PO SCH (09:57)
[2020-06-11] MEDS: PARoxetine 20 MG TAB PO SCH (09:57)
[2020-06-11] MEDS: INSULN ASP PRT/INSULIN ASPART 100 UNIT/ML 10 ML VIAL SQ SCH ×2 (10:20→20:28)
[2020-06-11 11:26] VITALS: BMI 36.4
[2020-06-11] MEDS ORDERED: LOSARTAN 25 MG TAB PO SCH (11:30)
[2020-06-11 11:58] LABS: Glucose,Whole Blood 116 mg/dL (75-99)
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
[2020-06-11 13:56] LABS: Glucose,Whole Blood 147 mg/dL (75-99)
--- NOTE | 2020-06-11 16:04 | PN ---
PROGRESS NOTE Patient is seen for followup for chronic kidney disease and acute kidney injury, mostly cardiorenal. Patient is being diuresed. Overall he states he is feeling better. Creatinine is down to 1.59 from 1.7 yesterday. Patient has had good urine output. PHYSICAL EXAMINATION: On examination this morning, blood pressure was 149/81, heart rate of 80 per minute. Patient is afebrile. EXAMINATION OF THE HEART: S1 and S2. EXAMINATION OF LUNGS: Decreased breath sounds at bases. ABDOMEN: Soft, non-tender, obese. Examination of lower extremities shows edema 1+ bilaterally. ACCOUNT RECEIVABLE ASSOCIATE exam is grossly intact. LABS: Sodium 134, potassium 4.3, chloride 95. CO2 is 34, BUN 57, creatinine 1.59, hemoglobin 11.6 g/dL. ASSESSMENT: 1. Acute kidney injury, cardiorenal, currently improving. 2. Congestive heart failure volume overload, significantly improved. Lasix is currently 40 mg IV q.8 hours, which I will continue for now. 3. Cardiomyopathy; ejection fraction 30% to 35%. 4. Congestive heart failure, acute on top of chronic, mostly systolic. PLAN: Continue with IV diuretics for now. Repeat labs in a.m. Monitor electrolytes. Patient is advised regarding salt and fluid restriction. MMODL / IJN: [id number] /
[2020-06-11 16:44] LABS: Glucose,Whole Blood 211 mg/dL (75-99)
[2020-06-11] MEDS: SODIUM CHLORIDE 0.9% 1,000 ML IV SCH (17:29)
[2020-06-11] MEDS: traMADol 50 MG TAB PO PRN (18:25)
[2020-06-11] MEDS: bisacodyL 5 MG TABLET.DR PO PRN (18:25)
[2020-06-11 18:37] LABS: Hemoglobin A1C 9.2 % (4.0-6.0)
--- NOTE | 2020-06-11 18:48 | P.PN ---
Subjective Progress Note Date: 06/11/20 (delayed charting seen at 0930) Principal diagnosis: abdominal bloating Patient is an 84-year-old male with a known history of systolic congestive heart failure with ejection fraction 30-35%, diabetes mellitus type 2, hypertension, dyslipidemia, and multiple other comorbid conditions who presented to the emergency department via EMS secondary to shortness of breath. EMS documented room air pulse ox at 80% and he was placed on a nonrebreather. Laboratory analysis demonstrated a in elevated potassium of 6.7, BUN 56, creatinine 1.69, troponin 0.069, and BNP of 3830. Chest x-ray demonstrated cardiomegaly with vascular prominence and small left pleural effusion. EKG demonstrated A. fib with nonspecific interventricular conduction delay. He was given a dose of Lasix, insulin, dextrose, calcium gluconate, and bicarb. Arrangements were made for admission. His potassium continue to improve. He was seen by nephrology. His fluid status improved overnight. He was seen by cardio and will continue with diuresis We discussed that he has had 2 admissions [id number] for congestive heart failure. Suggest that he also long-term facility on discharge. I'm unsure if he is taking his medications appropriately at home. His daughters do live together his pillbox and encourage him to be compliant. Patient seen and examined at bedside. He is feeling better today than yesterday. He denies any nausea or vomiting at this time. His belly is feeling better. He still does not really want to go to long-term. General: non toxic, no distress, appears at stated age Derm: warm, dry Head: atraumatic, normocephalic, symmetric Eyes: EOMI, no lid lag, anicteric sclera Mouth: no lip lesion, mucus membranes moist Cardiovascular: S1-S2 irregular, no murmur, positive posterior tibial pulse bilateral, Lungs: Decreased breath sounds bilateral, no rhonchi, no rales , no accessory muscle use Abdominal: + Distended soft, nontender to palpation, no guarding, no appreciable organomegaly Ext: no gross muscle atrophy, 2+, no contractures Neuro: CN II-XI grossly intact, no focal neuro deficits Psych: Alert, oriented, appropriate affect Assessment and plan: Acute exacerbation of systolic congestive heart failure with ejection fraction 3 0-35%, severe pulm htn -Lasix IVP q 8 hours, Zaroxolyn -Hold Aldactone and ARB secondary to hyperkalemia -Strict I's and O's -Daily weights -Continue with beta emerson -Telemetry -Cardiology recs KRIS on CKD stage III, suspect cardiorenal - hold ARB, Aldactone, Potassium supplements - nephro recs appreciated - follow Cr - Avoid additional nephrotoxic agents - renal US with medical renal disease Hyperkalemia, resolved -Hold Aldactone, ARB, and potassium supplements - nephrology recs appreciated - repeat in AM - nephrology recs Weakness - PT/OT evaluation Chronic A. Fib - not on rate control - Not on anticoagulation Elevated troponin -Suspect related to demand ischemia -Troponins are flat -Aspirin -Cardiology recs Diabetes mellitus type 2 insulin requiring - 75/25, sliding-scale insulin -Follow blood sugars -Await A1C Hypertension controlled -Aldactone and Cozaar on hold -Continue with atenolol, Lasix, Zaroxolyn, and Imdur -Follow blood pressures Dyslipidemia -Statin Parkinson's disease -Continue with Sinemet Chronic: Coronary artery disease, BPH, tremor, ischemic colitis, permanent pacemaker implantation DVT prophylaxis: SCDs Discussed with: Patient,nursing, cardio Anticipated discharge date: 2-[address]: SNF A total of 35 minutes was spent on the care of this complex patient more than 50% of the time was spent in counseling and care coordination. Objective - Vital Signs Vital signs: Vital Signs Temp 97.2 F L 06/11/20 15:49 Pulse 53 L 06/11/20 15:49 Resp 18 06/11/20 15:49 BP 90/49 06/11/20 15:49 Pulse Ox 99 06/11/20 15:49 Intake & Output 06/10/20 06/11/20 06/11/20 18:59 06:59 18:59 Intake Total 1440 Output Total 360 802 Balance -360 638 Weight 112.491 kg 112 kg 112 kg Intake: Oral 1440 Output: Urine 360 800 Stool 2 Other: Voiding Method Bedside Commode Toilet Bedside Commode # Voids 1 1 # Bowel Movements 1 - Labs CBC & Chem 7: 06/11/20 07:50 06/11/20 07:50 Labs: Abnormal Lab Results - Last 24 Hours (Table) 06/10/20 06/11/20 06/11/20 Range/Units 22:34 07:50 07:50 RBC 3.82 L (4.30-5.90) m/uL Hgb 11.6 L (13.0-17.5) gm/dL Hct 35.0 L (39.0-53.0) % RDW 16.1 H (11.5-15.5) % Sodium 134 L (137-145) mmol/L Chloride 95 L (98-107) mmol/L Carbon Dioxide 34 H (22-30) mmol/L BUN 57 H (9-20) mg/dL Creatinine 1.59 H (0.66-1.25) mg/dL POC Glucose (mg/dL) (75-99) mg/dL Phosphorus 4.9 H (2.5-4.5) mg/dL Urine Protein Trace H (Negative) 06/11/20 06/11/20 06/11/20 Range/Units 11:56 13:54 16:42 RBC (4.30-5.90) m/uL Hgb (13.0-17.5) gm/dL Hct (39.0-53.0) % RDW (11.5-15.5) % Sodium (137-145) mmol/L Chloride (98-107) mmol/L Carbon Dioxide (22-30) mmol/L BUN (9-20) mg/dL Creatinine (0.66-1.25) mg/dL POC Glucose (mg/dL) 116 H 147 H 211 H (75-99) mg/dL Phosphorus (2.5-4.5) mg/dL Urine Protein (Negative)
[2020-06-11 20:18] LABS: Glucose,Whole Blood 223 mg/dL (75-99)
[2020-06-11] MEDS: ATORVASTATIN 40 MG TAB PO SCH (20:28)
[2020-06-12 01:07] LABS: Glucose,Whole Blood 46 mg/dL (75-99)
[2020-06-12 01:26] LABS: Glucose,Whole Blood 70 mg/dL (75-99)
[2020-06-12 04:20] LABS: Glucose,Whole Blood 237 mg/dL (75-99)
[2020-06-12 06:10] LABS: Glucose,Whole Blood 170 mg/dL (75-99)
[2020-06-12] MEDS: FUROSEMIDE 10 MG/ML 4 ML VIAL IV SCH ×3 (06:29→20:38)
[2020-06-12] MEDS ORDERED: INSULN ASP PRT/INSULIN ASPART 100 UNIT/ML 10 ML VIAL SQ SCH ×2 (09:00→21:00)
[2020-06-12] MEDS: atenoloL 50 MG TAB PO SCH ×2 (09:12→20:38)
[2020-06-12] MEDS: ASPIRIN 81 MG PO SCH (09:12)
[2020-06-12] MEDS: BACLOFEN 10 MG TAB PO SCH (09:12)
[2020-06-12] MEDS: CALCIUM CARBONATE 500 MG CHEWABLE PO SCH (09:12)
[2020-06-12] MEDS: CARBIDOPA-LEVODOPA 25-100 MG 1 EACH TAB PO SCH (09:12)
[2020-06-12] MEDS: CARBIDOPA-LEVODOPA ER 50-200MG 1 EACH TABLET.ER PO SCH ×3 (09:14→20:38)
[2020-06-12] MEDS: metOLazone 2.5 MG TAB PO SCH (09:15)
[2020-06-12] MEDS: FAMOTIDINE 20 MG TAB PO SCH (09:15)
[2020-06-12] MEDS: ISOSORBIDE MONONITRATE ER 60 MG TAB.ER.24H PO SCH (09:15)
[2020-06-12] MEDS: MULTIVITAMINS, THERA 1 EACH TAB PO SCH (09:16)
[2020-06-12] MEDS: PARoxetine 20 MG TAB PO SCH (09:17)
[2020-06-12] MEDS: PRIMIDONE 50 MG TAB PO SCH ×4 (09:17→20:38)
[2020-06-12] MEDS: bisacodyL 5 MG TABLET.DR PO PRN (09:18)
[2020-06-12 10:31] LABS: HCT 36.8 % (39.0-53.0); HGB 11.8 gm/dL (13.0-17.5); Hypochromasia Moderate; MCH 29.6 pg (25.0-35.0); MCHC 32.2 g/dL (31.0-37.0); MCV 92.1 fL (80.0-100.0); Mean Platelet Volume 7.8; Platelet Count 162 k/uL (150-450); RBC 3.99 m/uL (4.30-5.90); RDW 15.8 % (11.5-15.5); WBC 7.4 k/uL (3.8-10.6)
[2020-06-12] MEDS: INSULN ASP PRT/INSULIN ASPART 100 UNIT/ML 10 ML VIAL SQ SCH ×2 (10:31→20:39)
[2020-06-12 10:49] LABS: Magnesium 2.1 mg/dL (1.6-2.3); Phosphorus 4.4 mg/dL (2.5-4.5); Potassium 4.4 mmol/L (3.5-5.1)
[2020-06-12 12:03] LABS: Glucose,Whole Blood 262 mg/dL (75-99)
[2020-06-12] MEDS: SODIUM CHLORIDE 0.9% 1,000 ML IV SCH (13:50)
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
[2020-06-12 17:07] LABS: Glucose,Whole Blood 295 mg/dL (75-99)
--- NOTE | 2020-06-12 18:08 | P.PN ---
Subjective Progress Note Date: 06/12/20 (delayed charting seen at 0930) Principal diagnosis: abdominal bloating Patient is an 84-year-old male with a known history of systolic congestive heart failure with ejection fraction 30-35%, diabetes mellitus type 2, hypertension, dyslipidemia, and multiple other comorbid conditions who presented to the emergency department via EMS secondary to shortness of breath. EMS documented room air pulse ox at 80% and he was placed on a nonrebreather. Laboratory analysis demonstrated a in elevated potassium of 6.7, BUN 56, creatinine 1.69, troponin 0.069, and BNP of 3830. Chest x-ray demonstrated cardiomegaly with vascular prominence and small left pleural effusion. EKG demonstrated A. fib with nonspecific interventricular conduction delay. He was given a dose of Lasix, insulin, dextrose, calcium gluconate, and bicarb. Arrangements were made for admission. His potassium continue to improve. He was seen by nephrology. His fluid status improved overnight. He was seen by cardio and continued on diuresis We discussed that he has had 2 admissions [id number] for congestive heart failure. Suggest that he also correction facility on discharge. I'm unsu re if he is taking his medications appropriately at home. His daughters do live together his pillbox and encourage him to be compliant. Patient seen and examined at bedside. States he is feeling weak but still refusing to go to rehab. No chest pain. Mild shortness of breath. Edema is getting better. General: non toxic, no distress, appears at stated age Derm: warm, dry Head: atraumatic, normocephalic, symmetric Eyes: EOMI, no lid lag, anicteric sclera Mouth: no lip lesion, mucus membranes moist Cardiovascular: S1-S2 irregular, no murmur, positive posterior tibial pulse bilateral, Lungs: Decreased breath sounds bilateral, no rhonchi, no rales , no accessory muscle use Abdominal: On Distended soft, nontender to palpation, no guarding, no appreciable organomegaly Ext: no gross muscle atrophy, 1+ edema left greater than right, no contractures Neuro: CN II-XI grossly intact, no focal neuro deficits Psych: Alert, oriented, appropriate affect Assessment and plan: Acute exacerbation of systolic congestive heart failure with ejection fraction 30-35%, severe pulm htn -Lasix IVP Zaroxolyn -Hold Aldactone and ARB secondary to hyperkalemia -Strict I's and O's -Daily weights -Continue with beta emerson -Telemetry -Cardiology recs KRIS on CKD stage III, suspect cardiorenal - hold ARB, Aldactone, Potassium supplements - nephro recs appreciated - follow Cr - Avoid additional nephrotoxic agents - renal US with medical renal disease Hyperkalemia, resolved -Hold Aldactone, ARB, and potassium supplements - nephrology recs appreciated - repeat in AM - nephrology recs Weakness - PT/OT evaluation Chronic A. Fib - not on rate control - Not on anticoagulation Elevated troponin -Suspect related to demand ischemia -Troponins are flat -Aspirin -Cardiology recs Diabetes mellitus type 2 insulin requiring - 75/25, sliding-scale insulin -Follow blood sugars -Await A1C Hypertension controlled -Aldactone and Cozaar on hold -Continue with atenolol, Lasix, Zaroxolyn, and Imdur -Follow blood pressures Dyslipidemia -Statin Parkinson's disease -Continue with Sinemet Chronic: Coronary artery disease, BPH, tremor, ischemic colitis, permanent pacemaker implantation Case discussed with social insurance specialist and patient now agreeable to our. Anticipate discharge in a.m. If renal function stable DVT prophylaxis: SCDs Discussed with: Patient,nursing, cardio Anticipated discharge date: In a.m. Anticipated discharge place: SNF A total of 35 minutes was spent on the care of this complex patient more than 50% of the time was spent in counseling and care coordination. Objective - Vital Signs Vital signs: Vital Signs Temp 98.0 F 06/12/20 16:00 Pulse 58 L 06/12/20 16:00 Resp 18 06/12/20 16:00 BP 132/60 06/12/20 16:00 Pulse Ox 96 06/12/20 12:35 Intake & Output 06/11/20 06/12/20 06/12/20 18:59 06:59 18:59 Intake Total 1440 480 Output Total 802 2 Balance 638 478 Weight 112 kg 112.6 kg 112.7 kg Intake: Oral 1440 480 Output: Urine 800 Stool 2 2 Other: Voiding Method Toilet Toilet Toilet Bedside Commode Bedside Commode Bedside Commode # Voids 1 4 # Bowel Movements 1 1 - Labs CBC & Chem 7: 06/12/20 09:57 06/12/20 09:57 Labs: Abnormal Lab Results - Last 24 Hours (Table) 06/11/20 06/11/20 06/12/20 Range/Units 07:50 20:16 01:05 RBC (4.30-5.90) m/uL Hgb (13.0-17.5) gm/dL Hct (39.0-53.0) % RDW (11.5-15.5) % Sodium (137-145) mmol/L Chloride (98-107) mmol/L Carbon Dioxide (22-30) mmol/L BUN (9-20) mg/dL Creatinine (0.66-1.25) mg/dL Glucose (74-99) mg/dL POC Glucose (mg/dL) 223 H 46 L (75-99) mg/dL Hemoglobin A1c 9.2 H (4.0-6.0) % Calcium (8.4-10.2) mg/dL 06/12/20 06/12/20 06/12/20 Range/Units 01:25 04:19 06:09 RBC (4.30-5.90) m/uL Hgb (13.0-17.5) gm/dL Hct (39.0-53.0) % RDW (11.5-15.5) % Sodium (137-145) mmol/L Chloride (98-107) mmol/L Carbon Dioxide (22-30) mmol/L BUN (9-20) mg/dL Creatinine (0.66-1.25) mg/dL Glucose (74-99) mg/dL POC Glucose (mg/dL) 70 L 237 H 170 H (75-99) mg/dL Hemoglobin A1c (4.0-6.0) % Calcium (8.4-10.2) mg/dL 06/12/20 06/12/20 06/12/20 Range/Units 09:57 09:57 11:55 RBC 3.99 L (4.30-5.90) m/uL Hgb 11.8 L (13.0-17.5) gm/dL Hct 36.8 L (39.0-53.0) % RDW 15.8 H (11.5-15.5) % Sodium 134 L (137-145) mmol/L Chloride 88 L (98-107) mmol/L Carbon Dioxide 38 H (22-30) mmol/L BUN 65 H (9-20) mg/dL Creatinine 1.73 H (0.66-1.25) mg/dL Glucose 308 H (74-99) mg/dL POC Glucose (mg/dL) 262 H (75-99) mg/dL Hemoglobin A1c (4.0-6.0) % Calcium 8.0 L (8.4-10.2) mg/dL 06/12/20 Range/Units 17:02 RBC (4.30-5.90) m/uL Hgb (13.0-17.5) gm/dL Hct (39.0-53.0) % RDW (11.5-15.5) % Sodium (137-145) mmol/L Chloride (98-107) mmol/L Carbon Dioxide (22-30) mmol/L BUN (9-20) mg/dL Creatinine (0.66-1.25) mg/dL Glucose (74-99) mg/dL POC Glucose (mg/dL) 295 H (75-99) mg/dL Hemoglobin A1c (4.0-6.0) % Calcium (8.4-10.2) mg/dL
--- NOTE | 2020-06-12 19:25 | PN ---
PROGRESS NOTE The patient is seen for followup for acute kidney injury on top of chronic kidney disease. He was admitted to the hospital with shortness of breath and fluid overload. Renal function had improved with creatinine down to 1.5 yesterday and today it is back up to 1.7. Overall, patient states he is feeling better. His weight has not changed much. A 24 hour urine output documented only at about 802 mL, although I am not sure this is accurate as patient does not have a Ross catheter and he states that he has been voiding quite frequently. PHYSICAL EXAMINATION: On examination today, blood pressure was 126/66, heart rate 63 per minute, he is afebrile. Examination of the heart S1, S2. Examination of the lungs, decreased breath sounds at the bases. Abdomen is soft, nontender. Examination of lower extremities shows 1+ edema bilaterally. AIRWAY CONTROLLER exam grossly intact. LAB: Show sodium 134, potassium 4.4, chloride 88, CO2 is 38, BUN 65, creatinine 1.73, hemoglobin 11.8 g/dL. ASSESSMENT: 1. Acute kidney injury, cardiorenal, currently maintained on Lasix. I will decrease to q.12 hours. The serum creatinine is 1.7 from 1.5 yesterday. However, patient still does not have significant urine output, but I believe his urine output is not accurately charted. 2. Cardiomyopathy with ejection fraction 30-35%. 3. Congestive heart failure , acute on top of chronic, mostly systolic. 4. Chronic kidney disease NKF stage III, secondary to nephrosclerosis, baseline creatinine 1.3-1.4 mg/dL. PLAN: Change Lasix to 40 mg IV q.12 hours and check accurate I's and O's. Possible discharge tomorrow. MMODL / IJN: [id number] /
[2020-06-12 19:56] LABS: Glucose,Whole Blood 403 mg/dL (75-99)
[2020-06-12] MEDS: ATORVASTATIN 40 MG TAB PO SCH (20:38)
[2020-06-12] MEDS: ACETAMINOPHEN TAB 325 MG TAB PO PRN (20:46)
[2020-06-13 04:41] LABS: Glucose,Whole Blood 196 mg/dL (75-99)
[2020-06-13 05:11] VITALS: RESP 18
[2020-06-13 06:02] LABS: Glucose,Whole Blood 182 mg/dL (75-99)
[2020-06-13 06:45] LABS: HGB 12.5 gm/dL (13.0-17.5); MCH 29.8 pg (25.0-35.0); MCHC 32.9 g/dL (31.0-37.0); MCV 90.8 fL (80.0-100.0); Platelet Count 168 k/uL (150-450); RBC 4.18 m/uL (4.30-5.90); WBC 6.4 k/uL (3.8-10.6)
[2020-06-13 06:46] LABS: Hypochromasia Moderate; Mean Platelet Volume 7.6; Poikilocytosis Slight
[2020-06-13 07:07] LABS: Calcium 8.4 mg/dL (8.4-10.2); Magnesium 2.1 mg/dL (1.6-2.3); Potassium 3.5 mmol/L (3.5-5.1)
--- NOTE | 2020-06-13 09:09 | P.DS ---
Providers Date of admission: 06/09/20 12:37 Expected date of discharge: 06/13/20 Attending physician: Naya Eduardo DO Consults: 06/09/20 12:37 Consult Physician Routine Consulting Provider: Orestes Ho Consult Reason/Comments: heart failure Do you want consulting provider notified?: Yes 06/09/20 13:52 Consult Physician Routine Consulting Provider: Guanako Gordillo Consult Reason/Comments: KRIS, Hyperkalemia Do you want consulting provider notified?: Yes Primary care physician: Lissa Lua [place] Hospital Course: This is a 84-year-old male with past medical history noted below presented to the emergency room with worsening shortness of breath. Patient was evaluated in the ER and admitted to the hospital for further management of his medical problems noted below. 1. Acute systolic heart failure exacerbation: Known EF of 30-35%. Patient was started on IV diuresis with Lasix. Overall condition improved. Switch back to home regimen of Lasix 40 mg twice daily and Zaroxolyn again 2.5 mg daily 2. Acute hypoxic respiratory failure requiring nonrebreather on presentation. Improved significantly. Patient was weaned to room air. 3. Chronic medical problems essential hypertension, type 2 diabetes, hyperlipidemia, stage IIIB chronic kidney disease, chronic atrial fibrillation not on anticoagulation, Parkinson's disease, BPH, permanent pacemaker implanta tion Patient will be discharged in a stable condition to [facility] for rehab. For further details about this hospitalization please refer to the electronic chart. Patient Condition at Discharge: Stable Plan - Discharge Summary Discharge Rx Participant: No New Discharge Prescriptions: Continue PARoxetine [Paxil] 20 mg PO DAILY Famotidine [Pepcid] 20 mg PO DAILY Primidone [Mysoline] 50 mg PO QID Atenolol [Tenormin] 50 mg PO BID Potassium Chloride [K-Tab ER] 20 meq PO DAILY Carbidopa/Levodopa [Carbidopa-Levo ER 50-200 Tab] 1 tab PO TID Losartan [Cozaar] 25 mg PO DAILY Spironolactone [Aldactone] 25 mg PO DAILY Atorvastatin [Lipitor] 40 mg PO HS Aspirin EC [Ecotrin Low Dose] 81 mg PO DAILY Baclofen 10 mg PO DAILY Calcium Carbonate [Calcium] 600 mg PO DAILY Isosorbide Mononitrate ER [Imdur] 60 mg PO DAILY 30 Days #30 tab.er.24h Insulin NPL/Insulin Lispro [humaLOG MIX 75-25 VIAL] 40 unit SQ DAILY Multivit-Min/FA/Lycopen/Lutein [Centrum Silver Tablet] 1 tab PO DAILY metOLazone [Zaroxolyn] 2.5 mg PO DAILY Carbidopa-Levodopa 25-100 mg [Sinemet 25-100 mg] 1 tab PO DAILY Furosemide [Lasix] 40 mg PO BID #60 tablet Insulin NPL/Insulin Lispro [humaLOG MIX 75-25 VIAL] 25 units SQ HS #0 Nitroglycerin Sl Tabs [Nitrostat] 0.4 mg SL Q5M PRN PRN Reason: Chest Pain Discharge Medication List Atenolol [Tenormin] 50 mg PO BID 11/20/13 [History] Carbidopa/Levodopa [Carbidopa-Levo ER 50-200 Tab] 1 tab PO TID 11/20/13 [History] Famotidine [Pepcid] 20 mg PO DAILY 11/20/13 [History] PARoxetine [Paxil] 20 mg PO DAILY 11/20/13 [History] Potassium Chloride [K-Tab ER] 20 meq PO DAILY 11/20/13 [History] Primidone [Mysoline] 50 mg PO QID 11/20/13 [History] Losartan [Cozaar] 25 mg PO DAILY 02/12/16 [History] Spironolactone [Aldactone] 25 mg PO DAILY 07/10/16 [History] Aspirin EC [Ecotrin Low Dose] 81 mg PO DAILY 07/11/18 [History] Atorvastatin [Lipitor] 40 mg PO HS 07/11/18 [History] Baclofen 10 mg PO DAILY 09/25/18 [History] Calcium Carbonate [Calcium] 600 mg PO DAILY 07/13/19 [History] Isosorbide Mononitrate ER [Imdur] 60 mg PO DAILY 30 Days #30 tab.er.24h 07/16/19 [Rx] Insulin NPL/Insulin Lispro [humaLOG MIX 75-25 VIAL] 40 unit SQ DAILY 01/16/20 [History] Carbidopa-Levodopa 25-100 mg [Sinemet 25-100 mg] 1 tab PO DAILY 05/16/20 [History] Multivit-Min/FA/Lycopen/Lutein [Centrum Silver Tablet] 1 tab PO DAILY 05/16/20 [History] metOLazone [Zaroxolyn] 2.5 mg PO DAILY 05/16/20 [History] Furosemide [Lasix] 40 mg PO BID #60 tablet 05/18/20 [Rx] Insulin NPL/Insulin Lispro [humaLOG MIX 75-25 VIAL] 25 units SQ HS #0 05/18/20 [Rx] Nitroglycerin Sl Tabs [Nitrostat] 0.4 mg SL Q5M PRN 06/09/20 [History] Follow up Appointment(s)/Referral(s): [facility], [NON-STAFF] - 1 Week Lissa Lua MD [Primary Care Provider] - 1-2 days Discharge Disposition: TRANSFER TO SNF/ECF
[2020-06-13] MEDS ORDERED: FUROSEMIDE 40 MG TAB PO SCH (09:48)
[2020-06-13] MEDS: FAMOTIDINE 20 MG TAB PO SCH (10:20)
[2020-06-13] MEDS: BACLOFEN 10 MG TAB PO SCH (10:20)
[2020-06-13] MEDS: MULTIVITAMINS, THERA 1 EACH TAB PO SCH (10:20)
[2020-06-13] MEDS: CARBIDOPA-LEVODOPA 25-100 MG 1 EACH TAB PO SCH (10:20)
[2020-06-13] MEDS: CALCIUM CARBONATE 500 MG CHEWABLE PO SCH (10:20)
[2020-06-13] MEDS: PARoxetine 20 MG TAB PO SCH (10:20)
[2020-06-13] MEDS: ISOSORBIDE MONONITRATE ER 60 MG TAB.ER.24H PO SCH (10:20)
[2020-06-13] MEDS: atenoloL 50 MG TAB PO SCH (10:20)
[2020-06-13] MEDS: traMADol 50 MG TAB PO PRN (10:21)
[2020-06-13] MEDS: metOLazone 2.5 MG TAB PO SCH (10:21)
[2020-06-13] MEDS: ASPIRIN 81 MG PO SCH (10:21)
[2020-06-13] MEDS: PRIMIDONE 50 MG TAB PO SCH (10:21)
[2020-06-13] MEDS: CARBIDOPA-LEVODOPA ER 50-200MG 1 EACH TABLET.ER PO SCH (10:21)
[2020-06-13 11:09] VITALS: BP 135/78; PULSE 63; TEMP 97.3
[2020-06-13] MEDS: FUROSEMIDE 10 MG/ML 4 ML VIAL IV SCH (11:10)
[2020-06-13] MEDS ORDERED: FUROSEMIDE 10 MG/ML 4 ML VIAL IV SCH (12:00)
== END 2020-06-13 11:20 | DRG 291 ==
LOC: EC 09:34 → 3SCARD 12:37
PROVIDERS: ADMIT Internal Medicine; ATTEND Internal Medicine
DX: I13.0 Hypertensive heart and chronic kidney disease with heart failure and stage 1 through stage 4 chronic kidney disease, or unspecified chronic kidney disease (principal); I50.23 Acute on chronic systolic (congestive) heart failure; J96.01 Acute respiratory failure with hypoxia; I48.20 Chronic atrial fibrillation, unspecified; N17.9 Acute kidney failure, unspecified; J44.1 Chronic obstructive pulmonary disease with (acute) exacerbation; K55.9 Vascular disorder of intestine, unspecified; K86.1 Other chronic pancreatitis; R10.9 Unspecified abdominal pain; I25.10 Atherosclerotic heart disease of native coronary artery without angina pectoris; E87.5 Hyperkalemia; Z79.82 Long term (current) use of aspirin; Z79.4 Long term (current) use of insulin; G20 Parkinson's disease; Z80.0 Family history of malignant neoplasm of digestive organs; E78.5 Hyperlipidemia, unspecified; F32.9 Major depressive disorder, single episode, unspecified; N18.32 Chronic kidney disease, stage 3b; Z66 Do not resuscitate; E11.65 Type 2 diabetes mellitus with hyperglycemia; Z95.1 Presence of aortocoronary bypass graft; Z95.5 Presence of coronary angioplasty implant and graft; Z20.822 Contact with and (suspected) exposure to COVID-19; I48.0 Paroxysmal atrial fibrillation; I25.5 Ischemic cardiomyopathy; N40.0 Benign prostatic hyperplasia without lower urinary tract symptoms; Z95.0 Presence of cardiac pacemaker; E11.22 Type 2 diabetes mellitus with diabetic chronic kidney disease; G25.0 Essential tremor; I25.2 Old myocardial infarction; I27.20 Pulmonary hypertension, unspecified; I45.9 Conduction disorder, unspecified; Z87.19 Personal history of other diseases of the digestive system; Z82.49 Family history of ischemic heart disease and other diseases of the circulatory system; Z96.1 Presence of intraocular lens
CPT/HCPCS: 36415; 51798; 71045; 76770; 80048; 80053; 81003; 83036; 83735; 83880; 84100; 84132; 84484; 85025; 85027; 87635; 93005; 93306; 94640; 96365; 96375; 99291

== ENCOUNTER 2020-07-05 00:50 | Emergency (ER) | payer MEDICARE, OTHER ==
[2020-07-05 00:57] LABS: Glucose,Whole Blood 67 mg/dL (75-99)
[2020-07-05 00:59] VITALS: RESP 18
[2020-07-05 01:11] LABS: Glucose,Whole Blood 94 mg/dL (75-99)
[2020-07-05 01:33] LABS: Glucose,Whole Blood 114 mg/dL (75-99)
[2020-07-05 01:33] LABS: Anisocytosis Slight; Basophils % (A) 1 %; Eosinophils # (A) 0.2 k/uL (0-0.7); Eosinophils % (A) 4 %; HCT 34.4 % (39.0-53.0); HGB 11.1 gm/dL (13.0-17.5); Hypochromasia Moderate; Lymphocytes # (A) 0.5 k/uL (1.0-4.8); Lymphocytes % (A) 10 %; MCH 29.4 pg (25.0-35.0); MCHC 32.3 g/dL (31.0-37.0); MCV 91.1 fL (80.0-100.0); Mean Platelet Volume 8.3; Monocytes # (A) 0.5 k/uL (0-1.0); Monocytes % (A) 9 %; Neutrophils # (A) 4.3 k/uL (1.3-7.7); Neutrophils % (A) 75 %; Platelet Count 129 k/uL (150-450); RBC 3.77 m/uL (4.30-5.90); RDW 16.9 % (11.5-15.5); WBC 5.7 k/uL (3.8-10.6)
[2020-07-05 01:40] LABS: ALT <6 U/L (4-49); AST 43 U/L (17-59); African American GFR (CKD) 45 (>60 ml/min/1.73 sqM); Alkaline Phosphatase 146 U/L (38-126); Anion Gap 5 mmol/L; Blood Urea Nitrogen 52 mg/dL (9-20); Calcium 8.2 mg/dL (8.4-10.2); Carbon Dioxide 35 mmol/L (22-30); Chloride 98 mmol/L (98-107); Glucose 85 mg/dL (74-99); Non-African American GFR(CKD) 39 (>60 ml/min/1.73 sqM); Potassium 4.1 mmol/L (3.5-5.1); Sodium 138 mmol/L (137-145); Total Bilirubin 0.5 mg/dL (0.2-1.3); Total Protein 6.3 g/dL (6.3-8.2)
--- NOTE | 2020-07-05 01:44 | XR ---
EXAM: XR Chest, 2 Views CLINICAL HISTORY: ITS.REASON XR Reason: Weakness TECHNIQUE: Frontal and lateral views of the chest. COMPARISON: June 09, 2020 FINDINGS: Lungs: Prominent perihilar bibasilar vascular and interstitial markings suggesting mild CHF, similar to previous. Pleural space: On the lateral view there is a 8 cm area of increased density in 1 of the costophrenic angles consistent with pleural effusion and/or basilar consolidation, probably on the left. No pneumothorax. Heart: Unremarkable. No cardiomegaly. Mediastinum: Unremarkable. Bones/joints: Unremarkable. Tubes, lines and devices: There are multiple sternal wires with moderate enlargement of the cardiac silhouette. There is a cardiac pacing device in place. IMPRESSION: 1. There are multiple sternal wires with moderate enlargement of the cardiac silhouette. There is a cardiac pacing device in place. 2. Prominent perihilar bibasilar vascular and interstitial markings suggesting mild CHF, similar to previous. 3. On the lateral view there is a 8 cm area of increased density in 1 of the costophrenic angles consistent with pleural effusion and/or basilar consolidation, probably on the left.
[2020-07-05 01:46] LABS: INR 1.1 (<1.2); Partial Thromboplastin Time 24.7 sec (22.0-30.0); Prothrombin Time 11.2 sec (9.0-12.0)
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
[2020-07-05 02:22] LABS: Glucose,Whole Blood 129 mg/dL (75-99)
[2020-07-05 02:58] LABS: Appearance,Urine Clear (Clear); Bilirubin,Urine Negative (Negative); Blood,Urine Negative (Negative); Color,Urine Yellow; Glucose,Urine (UA) Negative (Negative); Ketones,Urine Negative (Negative); Leukocyte Esterase,Urine Negative (Negative); Nitrite,Urine Negative (Negative); PH, Urine 6.5 (5.0-8.0); Protein,Urine Trace (Negative); Specific Gravity,Urine 1.017 (1.001-1.035); Urobilinogen,Urine <2.0 mg/dL (<2.0)
[2020-07-05 03:14] LABS: Glucose,Whole Blood 84 mg/dL (75-99)
[2020-07-05 03:32] VITALS: TEMP 97.4
[2020-07-05 04:04] LABS: Glucose,Whole Blood 95 mg/dL (75-99)
[2020-07-05 04:38] LABS: Glucose,Whole Blood 69 mg/dL (75-99)
[2020-07-05] MEDS ORDERED: DEXTROSE 50% SYRINGE 50 ML IVP STA (04:40)
[2020-07-05 04:52] LABS: Glucose,Whole Blood 288 mg/dL (75-99)
[2020-07-05 05:07] VITALS: BP 112/87; PULSE 81
== END 2020-07-05 05:07 | disposition home or self-care (01) ==
LOC: EC 00:50
DX: E16.2 Hypoglycemia, unspecified (principal); I25.10 Atherosclerotic heart disease of native coronary artery without angina pectoris; E11.9 Type 2 diabetes mellitus without complications; E78.5 Hyperlipidemia, unspecified; I11.0 Hypertensive heart disease with heart failure; I50.9 Heart failure, unspecified; I25.2 Old myocardial infarction; F32.9 Major depressive disorder, single episode, unspecified; M19.90 Unspecified osteoarthritis, unspecified site; Z90.49 Acquired absence of other specified parts of digestive tract; Z95.1 Presence of aortocoronary bypass graft; Z95.5 Presence of coronary angioplasty implant and graft; Z79.4 Long term (current) use of insulin
CPT/HCPCS: 36415; 71046; 80053; 81003; 83605; 83735; 83880; 84443; 84484; 85025; 85610; 85730; 93005; 96374; 99285

== ENCOUNTER 2020-11-03 09:02 | Inpatient (IN) | payer MEDICARE, OTHER ==
[2020-11-03 09:17] LABS: Glucose,Whole Blood 31 mg/dL (75-99)
[2020-11-03 09:30] LABS: Glucose,Whole Blood 53 mg/dL (75-99)
[2020-11-03 09:55] LABS: Glucose,Whole Blood 37 mg/dL (75-99)
[2020-11-03] MEDS ORDERED: DEXTROSE 50% SYRINGE 50 ML IVP STA ×3 (09:59→17:18)
[2020-11-03 10:24] LABS: Anisocytosis Slight; HCT 47.6 % (39.0-53.0); HGB 14.4 gm/dL (13.0-17.5); Hypochromasia Marked; MCHC 30.3 g/dL (31.0-37.0); MCV 85.8 fL (80.0-100.0); Mean Platelet Volume 12.3; Platelet Count 175 k/uL (150-450); Poikilocytosis Slight; RBC 5.54 m/uL (4.30-5.90); RDW 17.7 % (11.5-15.5)
[2020-11-03 10:27] LABS: Glucose,Whole Blood 90 mg/dL (75-99)
[2020-11-03 10:35] LABS: Glucose,Whole Blood 94 mg/dL (75-99)
[2020-11-03 10:57] LABS: Basophils # (M) 0.09 k/uL (0-0.2); Lymphocytes # (M) 0.64 k/uL (1.0-4.8); Monocytes # (M) 0.64 k/uL (0-1.0); Myelocytes # (M) 0.09 k/uL (0); Myelocytes % 1 %; Neutrophils # (M) 7.83 k/uL (1.3-7.7); Neutrophils % (M) 86 %; Nucleated Red Blood Cells 3 /100 WBC (0-0); Total Cells Counted 200; WBC 9.1 k/uL (3.8-10.6)
[2020-11-03 11:11] LABS: Glucose,Whole Blood 124 mg/dL (75-99)
[2020-11-03 11:12] LABS: Albumin 3.4 g/dL (3.5-5.0); Potassium 5.8 mmol/L (3.5-5.1); Total Bilirubin 0.4 mg/dL (0.2-1.3); Total Protein 6.9 g/dL (6.3-8.2)
[2020-11-03 12:36] LABS: Glucose,Whole Blood 106 mg/dL (75-99)
[2020-11-03] MEDS ORDERED: ALBUTEROL NEBULIZED 2.5 MG/3 ML INHALATION STA (12:39)
[2020-11-03] MEDS ORDERED: HYDROcodone/APAP 7.5-325MG 1 EACH TAB PO ONE (12:39)
[2020-11-03] MEDS ORDERED: INSULIN REGULAR 100 UNIT/ML VIAL (IV) IV ONE ×2 (12:40→17:18)
[2020-11-03] MEDS ORDERED: SODIUM POLYSTYRENE SULFONATE 15 GM/60 ML BOTTLE PO STA (12:46)
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
[2020-11-03] MEDS: SODIUM CHLORIDE 0.9% 1,000 ML IV SCH (12:49)
[2020-11-03] MEDS ORDERED: NALOXONE 0.4 MG/ML 1 ML VIAL IV PRN (12:52)
[2020-11-03 13:26] LABS: Glucose,Whole Blood 114 mg/dL (75-99)
[2020-11-03 14:15] LABS: Glucose,Whole Blood 154 mg/dL (75-99)
[2020-11-03 16:10] LABS: Glucose,Whole Blood 86 mg/dL (75-99)
[2020-11-03 16:58] LABS: Calcium 9.1 mg/dL (8.4-10.2); Potassium 5.7 mmol/L (3.5-5.1)
[2020-11-03 18:00] LABS: Glucose,Whole Blood 99 mg/dL (75-99)
[2020-11-03] MEDS: CARBIDOPA-LEVODOPA 25-100 MG 1 EACH TAB PO SCH (18:36)
[2020-11-03] MEDS: RANOLAZINE 500 MG TAB.ER.12H PO SCH (18:37)
[2020-11-03] MEDS ORDERED: METHYL SALICYLATE/MENTHOL CREAM 5 OZ TOPICAL PRN (20:06)
[2020-11-03] MEDS ORDERED: NITROGLYCERIN SL TABS 0.4 MG TAB SUBLINGUAL PRN (20:06)
--- NOTE | 2020-11-03 20:23 | US ---
EXAMINATION TYPE: US venous doppler duplex LE BI DATE OF EXAM: 11/03/2020 8:00 PM COMPARISON: NONE CLINICAL HISTORY: r/o dvt . Bilateral leg edema SIDE PERFORMED: Bilateral TECHNIQUE: The lower extremity deep venous system is examined utilizing real time linear array sonog albertina with graded compression, doppler sonography and color-flow sonography. VESSELS IMAGED: Common Femoral Vein Deep Femoral Vein Greater Saphenous Vein * Femoral Vein Popliteal Vein Small Saphenous Vein * Proximal Calf Veins (* superficial vessels) Right Leg: Negative for DVT Left Leg: Negative for DVT Limited compression imaging as patient would not tolerate compression. Additional color images obtain ed. IMPRESSION: No evidence of deep vein thrombosis in both legs.
[2020-11-03 20:37] LABS: Glucose,Whole Blood 217 mg/dL (75-99)
--- NOTE | 2020-11-03 20:48 | HP ---
HISTORY AND PHYSICAL DATE OF SERVICE: 11/03/2020 CHIEF COMPLAINT: Hypoglycemia. HISTORY OF PRESENT ILLNESS: This 85-year-old gentleman with a past medical history of multiple medical problems, including CAD, CHF, diabetes mellitus, hypertension, hyperlipidemia, being followed by Dr. Zarate in [facility], was noted to have hypoglycemia. The patient apparently was having low glucose and the dose of insulin has been tapered off. The blood sugar was found to be 42 31 here. Patient also had change in mental status. Currently the patient is unable to give a coherent history. There is no history of any fever, rigor, chills. No history of trauma. The patient also had bilateral leg ulcers and both feet are extremely cold to touch with diminished pulsations. There is no history of any trauma. PAST MEDICAL HISTORY: CAD, history of CHF, diabetes mellitus, type 2, hypertension, hyperlipidemia, history of myocardial infarction, cholecystectomy, CAD, CABG, stent. MEDICATIONS: Home medications are Zaroxolyn 5 mg p.o. b.i.d. and 2.5 mg daily, aldactone, Senna, Ranexa, insulin, K-Dur, Paxil, Nitrostat, multivitamin, Biofreeze, Cozaar, Levaquin, Imdur, Humalog, Lipitor. Doses and other medications are reviewed. ALLERGIES: NONE. FAMILY HISTORY: History of cancer in the family per chart. SOCIAL HISTORY: Previous history of smoking per chart. REVIEW OF SYSTEMS: Review of systems could not be taken because the patient is confused. PHYSICAL EXAMINATION: Pulse 74, blood pressure 124/84, respiration 18, temperature 97.6, pulse ox 96% on 3 L. HEENT: Conjunctivae normal. Oral mucosa moist. NECK: No jugular venous distention. No carotid bruit. No lymph node enlargement. CARDIOVASCULAR: S1, S2 muffled. No S3. No S4. RESPIRATION: Breath sounds diminished at the bases. A few scattered rhonchi and crackles. ABDOMEN: Soft, non-tender. Obese. No mass palpable. LEGS: Bilateral leg edema and bilateral leg ulcers also present. Pulses are diminished and both legs are cold to touch. NERVOUS SYSTEM: Higher functions as mentioned earlier. Moves all 4 limbs. Mild diffuse weakness. LYMPHATICS: No lymph node palpable in neck, axillae or groin. SKIN: As mentioned earlier. JOINTS: No active deforming arthropathy. LABS: Sodium ntd potassium 5.7, creatinine is 1.87. The baseline creatinine from the chart was 1.89. ASSESSMENT: 1. Severe hypoglycemia. 2. Change in mental status, acute metabolic encephalopathy secondary to hypoglycemia with acute on chronic metabolic encephalopathy. 3. Hyperkalemia. 4. Chronic kidney disease, stage 3. 5. Hyponatremia. 6. History of coronary artery disease. 7. History of congestive heart failure. 8. Diabetes mellitus, type 2. 9. Hypertension. 10.Hyperlipidemia. 11.History of myocardial infarction. 12.History of prostate disorder. 13.Possible peripheral vascular disease and lower limb ischemia. 14.History of pancreatitis. 15.History of abdominal pain. 16.History of Parkinson's. 17.History of ischemic colitis. 18.History of rectal bleed. 19.History of gastric ulcer. 20.History of benign chronic polyps. 21.History of back pain. 22.History of sick sinus syndrome. 23.History of coronary artery disease, coronary artery bypass grafting, stent. 24.History of pacemaker. 25.Obesity with body mass index 38.6. 26.Depression. 27.History of EtOH abuse remotely. 28.NO CODE, NO CPR, NO VENT. RECOMMENDATIONS AND DISCUSSION: In this 85-year-old gentleman who presented with multiple complex medical issues, we will monitor the patient closely, continue the current medications, continue symptomatic treatment. The patient was given IV dextrose. I would stop all the insulins and monitor closely. Repeat labs. Kayexalate for hyperkalemia. Otherwise, I would also obtain vascular evaluation. Prognosis guarded because of multiple complex medical issues. Further recommendations to follow. A copy of this dictation is being forwarded to Dr. Strong, who is the primary physician. MMODL / IJN: [id number] / [id number]
[2020-11-03] MEDS: HEPARIN SODIUM,PORCINE/PF 5,000 UNIT/0.5 ML SYRINGE SQ SCH ×2 (22:12→22:16)
[2020-11-03] MEDS: PRIMIDONE 50 MG TAB PO SCH (22:12)
[2020-11-03] MEDS: ATORVASTATIN 40 MG TAB PO SCH (22:12)
[2020-11-03] MEDS: INSULIN ASPART (NovoLOG) 100 UNIT/ML VIAL SQ SCH (22:12)
[2020-11-04 01:26] LABS: Glucose,Whole Blood 110 mg/dL (75-99)
[2020-11-04] MEDS: SODIUM CHLORIDE 0.9% 1,000 ML IV SCH (01:35)
[2020-11-04 06:03] LABS: Glucose,Whole Blood 112 mg/dL (75-99)
[2020-11-04] MEDS: ACETAMINOPHEN TAB 500 MG TAB PO PRN ×2 (06:14→12:49)
[2020-11-04] MEDS: CARBIDOPA-LEVODOPA 25-100 MG 1 EACH TAB PO SCH ×3 (06:15→17:22)
[2020-11-04] MEDS: BACLOFEN 10 MG TAB PO SCH ×3 (06:15→17:22)
[2020-11-04] MEDS: PRIMIDONE 50 MG TAB PO SCH ×4 (06:15→22:07)
[2020-11-04] MEDS: PANTOPRAZOLE 40 MG TABLET PO SCH (06:15)
[2020-11-04] MEDS: RANOLAZINE 500 MG TAB.ER.12H PO SCH ×2 (06:15→17:22)
[2020-11-04] MEDS: INSULIN ASPART (NovoLOG) 100 UNIT/ML VIAL SQ SCH ×5 (06:30→22:07)
[2020-11-04 06:49] LABS: Anisocytosis Slight; Basophils # (A) 0.1 k/uL (0-0.2); Basophils % (A) 1 %; Eosinophils # (A) 0.1 k/uL (0-0.7); Eosinophils % (A) 1 %; HGB 11.8 gm/dL (13.0-17.5); Hypochromasia Marked; Lymphocytes # (A) 0.8 k/uL (1.0-4.8); Lymphocytes % (A) 10 %; MCH 27.1 pg (25.0-35.0); MCHC 31.1 g/dL (31.0-37.0); MCV 87.2 fL (80.0-100.0); Mean Platelet Volume 9.2; Monocytes # (A) 0.8 k/uL (0-1.0); Monocytes % (A) 10 %; Neutrophils % (A) 75 %; Platelet Count 164 k/uL (150-450); RBC 4.36 m/uL (4.30-5.90); RDW 17.6 % (11.5-15.5); WBC 8.1 k/uL (3.8-10.6)
[2020-11-04 06:55] LABS: Calcium 8.9 mg/dL (8.4-10.2); Potassium 5.2 mmol/L (3.5-5.1)
[2020-11-04] MEDS: ASPIRIN 81 MG PO SCH (07:53)
[2020-11-04] MEDS: atenoloL 25 MG TAB PO SCH (07:53)
[2020-11-04] MEDS: HEPARIN SODIUM,PORCINE/PF 5,000 UNIT/0.5 ML SYRINGE SQ SCH ×2 (07:53→22:09)
[2020-11-04] MEDS: ISOSORBIDE MONONITRATE ER 60 MG TAB.ER.24H PO SCH (07:53)
[2020-11-04] MEDS ORDERED: LEVOFLOXACIN 500 MG TAB PO SCH (09:00)
[2020-11-04] MEDS ORDERED: LOSARTAN 25 MG TAB PO SCH (09:00)
[2020-11-04] MEDS ORDERED: NON FORMULARY DRUG (Multivit-Min/Fa/Lycopen/Lutein [Centrum Silver Tablet] 1 EACH Tablet) PO SCH (09:00)
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
[2020-11-04] MEDS: FOLIC ACID 1 MG TAB PO SCH (10:48)
[2020-11-04] MEDS: MULTIVITAMINS, THERA 1 EACH TAB PO SCH (10:48)
[2020-11-04] MEDS: THIAMINE 100 MG TAB PO SCH (10:48)
[2020-11-04 10:54] LABS: Glucose,Whole Blood 251 mg/dL (75-99)
--- NOTE | 2020-11-04 11:18 | XR ---
EXAMINATION TYPE: XR chest 1V DATE OF EXAM: 11/04/2020 HISTORY: Shortness of breath. COMPARISON: 07/05/2020 TECHNIQUE: Single view of the chest is submitted. FINDINGS: Demonstrated are scattered senescent parenchymal change. There is no evidence for focal infiltrate. Pulmonary venous congestion without overt failure. Pleural thickening left lower lobe. The heart is stable. Hilar and mediastinal structures are within normal limits. Degenerative changes are seen of the dorsal spine. IMPRESSION: 1. Chronic changes without evidence for acute pulmonary disease.
[2020-11-04] MEDS: TAMSULOSIN 0.4 MG CAP.ER.24H PO SCH ×3 (12:03→17:22)
[2020-11-04 12:39] LABS: Appearance,Urine Clear (Clear); Bilirubin,Urine Negative (Negative); Blood,Urine Negative (Negative); Color,Urine Yellow; Glucose,Urine (UA) Negative (Negative); Hyaline Casts,Urine 4 /lpf (0-2); Ketones,Urine Negative (Negative); Leukocyte Esterase,Urine Negative (Negative); Nitrite,Urine Negative (Negative); Protein,Urine 1+ (Negative); RBC,Urine 1 /hpf (0-5); Specific Gravity,Urine 1.021 (1.001-1.035); Urobilinogen,Urine <2.0 mg/dL (<2.0); WBC,Urine 1 /hpf (0-5)
[2020-11-04] MEDS: INSULN ASP PRT/INSULIN ASPART 100 UNIT/ML 10 ML VIAL SQ SCH (16:55)
[2020-11-04 17:27] LABS: Glucose,Whole Blood 213 mg/dL (75-99)
--- NOTE | 2020-11-04 19:08 | PN ---
PROGRESS NOTE DATE OF SERVICE: 11/04/2020 This 85-year-old gentleman who was admitted with change in mental status and severe hypoglycemia is being closely monitored at this time. The patient also had creatinine of 1.76. The patient had change in mental status as well as multiple abnormalities also. Cultures are negative so far. Past medical history reviewed. Review of systems could not be taken. CURRENT MEDICATIONS: Current medications are reviewed and include Tylenol, aspirin, Tenormin, Lipitor, Lioresal, Sinemet, folic acid. Doses and other medications are reviewed. PHYSICAL EXAMINATION: Patient is conscious, confused. Pulse 67, blood pressure 133/76, respirations 16, temperature 98 degrees, pulse ox 98% on 2 L. HEENT: Conjunctivae normal. NECK: No jugular venous distention. CARDIOVASCULAR: S1, S2 muffled. RESPIRATION: Breath sounds diminished at the bases. A few scattered rhonchi. ABDOMEN: Soft, non-tender. NERVOUS SYSTEM: No focal deficit. LAB STUDIES: WBC 8.2, hemoglobin 11.8. Sodium 137, potassium 5.2. UA noted. ASSESSMENT: 1. Severe hypoglycemia. 2. Change in mental status, acute metabolic encephalitis secondary to hypoglycemia with acute on chronic metabolic encephalopathy. 3. Urinary retention. 4. Hyperkalemia. 5. Chronic kidney disease, stage 3. 6. Hyponatremia. 7. History of coronary artery disease. 8. History of congestive heart failure. 9. Diabetes mellitus, type 2. 10.Hypertension. 11.Hyperlipidemia. 12.History of myocardial infarction. 13.History of prostate disorder. 14.History of peripheral vascular disease and lower limb ischemia. 15.History of pancreatitis. 16.History of abdominal pain. 17.History of Parkinson's. 18.History of ischemic colitis. 19.History of rectal bleed. 20.History of gastric ulcer. 21.Benign colonic polyps. 22.History of back pain. 23.History of sick sinus syndrome. 24.History of coronary artery disease, coronary artery bypass grafting, stent. 25.History of pacemaker. 26.Obesity with body mass index of 38.6. 27.Depression. 28.History of EtOH abuse remotely. 29.NO CODE, NO CPR, NO VENT. RECOMMENDATIONS AND DISCUSSION: I recommend to continue current medications, continue symptomatic treatment. Otherwise at this time, I recommend continuing to hold on the insulins. Monitor blood sugars closely. Guarded prognosis because of multiple complex medical issues. Further recommendations to follow. We will hold off the Aldactone as well as diuretics. A small dose of insulin may be restarted; 75/25 can be restarted with supper. MMODL / IJN: [id number] /
[2020-11-04 20:04] LABS: Glucose,Whole Blood 204 mg/dL (75-99)
[2020-11-04] MEDS: ATORVASTATIN 40 MG TAB PO SCH (22:07)
[2020-11-04] MEDS: SENNOSIDES 8.6 MG TAB PO SCH (22:07)
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
[2020-11-05 06:35] LABS: Glucose,Whole Blood 187 mg/dL (75-99)
[2020-11-05] MEDS: PRIMIDONE 50 MG TAB PO SCH ×3 (06:52→20:14)
[2020-11-05] MEDS: CARBIDOPA-LEVODOPA 25-100 MG 1 EACH TAB PO SCH ×3 (06:52→20:14)
[2020-11-05] MEDS: RANOLAZINE 500 MG TAB.ER.12H PO SCH ×2 (06:52→20:14)
[2020-11-05] MEDS: BACLOFEN 10 MG TAB PO SCH ×3 (06:52→20:14)
[2020-11-05] MEDS: INSULIN ASPART (NovoLOG) 100 UNIT/ML VIAL SQ SCH ×4 (06:52→20:15)
[2020-11-05] MEDS: PANTOPRAZOLE 40 MG TABLET PO SCH (06:52)
[2020-11-05 08:15] LABS: Calcium 8.2 mg/dL (8.4-10.2)
[2020-11-05 08:21] LABS: Potassium 5.7 mmol/L (3.5-5.1)
--- NOTE | 2020-11-05 08:54 | P.PN ---
Subjective Progress Note Date: 11/05/20 Patient is examined at the bedside. Physical therapy is working with patient getting him up to bedside chair. States he has bilateral lower extremity pain. Infectious disease is on consult and has changed his antibiotics to cefazolin, he also recommended medihoney with moist dressing changes. No acute changes through the night, has been afebrile. ABIs completed yesterday right 1.19, left 1.15. Objective - Vital Signs Vital signs: Vital Signs Temp 97.7 F 11/05/20 03:25 Pulse 86 11/05/20 03:25 Resp 19 11/05/20 03:25 BP 120/78 11/05/20 03:25 Pulse Ox 99 11/05/20 03:25 Intake & Output 11/04/20 11/05/20 11/05/20 18:59 06:59 18:59 Intake Total 118 Output Total 750 470 Balance -632 -470 Weight 103 kg Intake: Oral 118 Output: Urine 750 470 Other: Voiding Method Urinal Urinal # Voids 1 # Bowel Movements 1 - Exam General appearance: The patient is alert, oriented, in no acute distress. HET: Head is normocephalic and atraumatic. Neck: Supple without lymphadenopathy. Trachea midline. Abdomen: Soft, nontender, nondistended. Extremities: Bilateral lower extremity edema, thickened skin, good capillary ref ill bilaterally. Lower extremity dressing was clean dry and intact. Neurological: Alert and oriented 1. - Labs CBC & Chem 7: 11/04/20 06:00 11/05/20 07:40 Labs: Abnormal Lab Results - Last 24 Hours (Table) 11/04/20 11/04/20 11/04/20 Range/Units 10:52 12:00 17:25 Sodium (137-145) mmol/L Potassium (3.5-5.1) mmol/L BUN (9-20) mg/dL Creatinine (0.66-1.25) mg/dL Glucose (74-99) mg/dL POC Glucose (mg/dL) 251 H 213 H (75-99) mg/dL Calcium (8.4-10.2) mg/dL Urine Protein 1+ H (Negative) Hyaline Casts 4 H (0-2) /lpf 11/04/20 11/05/20 11/05/20 Range/Units 20:03 06:33 07:40 Sodium 133 L (137-145) mmol/L Potassium 5.7 H (3.5-5.1) mmol/L BUN 62 H (9-20) mg/dL Creatinine 1.85 H (0.66-1.25) mg/dL Glucose 223 H (74-99) mg/dL POC Glucose (mg/dL) 204 H 187 H (75-99) mg/dL Calcium 8.2 L (8.4-10.2) mg/dL Urine Protein (Negative) Hyaline Casts (0-2) /lpf Microbiology - Last 24 Hours (Table) 11/04/20 12:00 Gram Stain - Preliminary Leg - Left Wound Culture - Preliminary Assessment and Plan Assessment: 1. Lower extremity diabetic ulcers 2. Venous stasis 3. History of coronary artery disease 4. History of diabetes mellitus, insulin-dependent 5. History of Parkinson's 6. Dementia Plan: Venous duplex reviewed, negative for DVT bilaterally. Patient has multiphasic Doppler signals from femoral to dorsalis pedis. He has good capillary refill. Likely all related to venous stasis. Recommend elevation of lower extremities and compression stockings. Continue wound care per infectious disease. Recommend outpatient follow-up with wound care clinic. No indication at this ti me for any vascular surgical intervention. Patient may follow up outpatient as needed. Thank you for this consultation, we will sign off at this time. The impression and plan of care has been dictated as directed. I performed a history and examination of this patient, discussed the same with the dictator. I agree with the dictator's note ,documented as a scribe. Any additional findings or plans will be noted.
[2020-11-05] MEDS ORDERED: POTASSIUM CHLORIDE ER 20 MEQ TAB.ER PO SCH (09:00)
[2020-11-05] MEDS ORDERED: LEVOFLOXACIN 250 MG TAB PO SCH (09:00)
[2020-11-05] MEDS: ASPIRIN 81 MG PO SCH (09:24)
[2020-11-05] MEDS: HEPARIN SODIUM,PORCINE/PF 5,000 UNIT/0.5 ML SYRINGE SQ SCH ×2 (09:24→20:15)
[2020-11-05] MEDS: TAMSULOSIN 0.4 MG CAP.ER.24H PO SCH (09:25)
[2020-11-05] MEDS: atenoloL 25 MG TAB PO SCH (09:25)
[2020-11-05] MEDS: ISOSORBIDE MONONITRATE ER 60 MG TAB.ER.24H PO SCH (09:25)
[2020-11-05 11:48] LABS: Glucose,Whole Blood 240 mg/dL (75-99)
--- NOTE | 2020-11-05 12:01 | PN ---
PROGRESS NOTE Patient is seen for followup for chronic kidney disease and acute kidney injury. He is currently being diuresed for volume overload. He did get IV fluids initially. He does have significant lower extremity edema. No complaints of shortness of breath. The patient has underlying CKD with baseline creatinine around 1.3-1.5 mg/dL secondary to diabetic kidney disease. Currently, serum creatinine staying at about 1.8 mg/dL. Lasix was held post admission and IV fluids have also been discontinued. The patient is voiding in a urinal and 24 hour output documented at 1.2 L. PHYSICAL EXAMINATION: On examination today, blood pressure 120/78, heart rate 86 per minute, he is afebrile. Examination of the heart S1, S2. Examination of the lungs, bilateral breath sounds are heard. Abdomen is soft, nontender, obese. Examination of lower extremities shows significant edema bilaterally, 2 to 3+ with some and edema noted. Legs are wrapped. CORPORATE SECRETARY exam grossly intact. LAB: Show sodium 133, potassium 5.7, chloride 98, BUN 62 serum creatinine 1.85. UA shows 1+ protein. ASSESSMENT: 1. Acute kidney injury, ATN, nonoliguric with volume overload. I will resume loop diuretics which will also help with the hyperkalemia. Blood pressure is not significantly low. Continue to hold off on angiotensin receptor blockers for now. Chest x-ray from yesterday shows no acute pulmonary process. 2. Chronic kidney disease stage 3B. Baseline creatinine 1.3-1.5 secondary to diabetic kidney disease. 3. Diabetes with hypoglycemia on initial admission, currently improved. 4. Hyperkalemia associated with acute kidney injury, angiotensin receptor blockers, Aldactone and potassium supplementation. Potassium remains on the higher side. We will continue to hold off on the Cozaar for now. 5. Chronic systolic congestive heart failure, EF 30-35% with mild mitral and tricuspid regurgitation. 6. Pulmonary hypertension. PLAN: Resume loop diuretics. Continue off IV fluids. Check accurate I's and O's. Maintain low-potassium diet. Check bladder scan. Rule out urine retention. Continue with the Flomax as well. MMODL / IJN: [id number] /
[2020-11-05] MEDS: MULTIVITAMINS, THERA 1 EACH TAB PO SCH (13:28)
[2020-11-05] MEDS: FOLIC ACID 1 MG TAB PO SCH (13:28)
[2020-11-05] MEDS: THIAMINE 100 MG TAB PO SCH (13:28)
--- NOTE | 2020-11-05 13:28 | PN ---
PROGRESS NOTE DATE OF SERVICE: 11/05/2020 REASON FOR FOLLOWUP: Bilateral lower extremity wound with cellulitis, left greater than right. INTERVAL HISTORY: The patient is afebrile. The patient denies having any chest pain, shortness of breath or cough. No abdominal pain or any worsening pain in the lower extremity. PHYSICAL EXAMINATION: Blood pressure 133/70 with a pulse of 87, temperature 96.4. He is 100% on 2 L nasal cannula. GENERAL DESCRIPTION: General description is an elderly male lying in bed in no distress. RESPIRATORY SYSTEM: Unlabored breathing. Clear to auscultation anteriorly. HEART: S1, S2. Regular rate and rhythm. ABDOMEN: Soft. No tenderness. Legs are currently wrapped up. Left leg redness is slightly decreased. LABS: BUN of 62, creatinine 1.85. Cultures currently pending. DIAGNOSTIC IMPRESSION AND PLAN: Patient has bilateral lower extremity venostasis ulcers with cellulitis in patient's left leg in this patient currently covered with cefazolin; to continue while waiting for the culture to finalize and monitor his clinical course closely. MMODL / IJN: [id number] /
[2020-11-05] MEDS ORDERED: SODIUM POLYSTYRENE SULFONATE 15 GM/60 ML BOTTLE PO STA (13:52)
--- NOTE | 2020-11-05 15:18 | PN ---
PROGRESS NOTE DATE OF SERVICE: 11/05/2020 This 85-year-old gentleman was admitted with significant hypoxia, also with change in mental status. The patient is confused. The lower extremity ultrasound is pending at this time. Multiple consultants following the patient closely. The patient's creatinine is 1.85 today, sodium 130. potassium 5.7. PAST MEDICAL HISTORY: Reviewed. REVIEW OF SYSTEMS: Could not be taken, the patient is confused. CURRENT MEDICATIONS: Are reviewed include Tylenol, aspirin, Tenormin, Lipitor Lioresal, Sinemet, cefazolin. Doses reviewed. PHYSICAL EXAMINATION: Patient is conscious, arousable, stuporous, confused. Pulse 87, blood pressure 130/70, respiration 20, temperature 96.4, pulse ox 94% on 2 L. HEENT: Conjunctivae normal. Oral mucosa moist. NECK: No jugular venous distention. No lymph node enlargement. CARDIOVASCULAR: S1, S2, muffled. No S3, no S4, RESPIRATORY: Diminished breath sounds at the bases. A few scattered rhonchi and crackles. ABDOMEN: Soft, nontender. LEGS: No edema, no swelling. NERVOUS SYSTEM: Diffusely weak. LABS: Sodium 133, potassium 5.7. WBC 8.2, hemoglobin 11.8. ASSESSMENT: 1. Severe hypoglycemia. 2. Change in mental status, acute on chronic metabolic encephalopathy secondary to hypoglycemia, multifactorial. 3. Urinary retention. 4. Hyperkalemia. 5. Mild hyponatremia. 6. Chronic kidney disease stage 3. 7. History of coronary artery disease. 8. History of congestive heart failure, ejection fraction unknown. 9. Diabetes type 2. 10.Hypertension. 11.Hyperlipidemia. 12.History of myocardial infarction. 13.History of prostate disorder. 14.History of peripheral vascular disease with lower limb ischemia. 15.History of pancreatitis. 16.History of abdominal pain. 17.History of Parkinson's. 18.History of ischemic colitis. 19.History of rectal bleed. 20.History of gastric ulcer. 21.Benign colonic polyps. 22.History of back pain. 23.History of sick sinus syndrome. 24.History of CAD, CABG, stent. 25.History of pacemaker. 26.Obesity with body mass index of 38.6. 27.Depression. 28.History of EtOH abuse remotely. 29.NO CODE, NO CPR, NO VENT. RECOMMENDATIONS AND DISCUSSION: I recommend to continue current management and symptomatic treatment. Otherwise, hold off any hyperkalemic medications. Dose of Kayexalate. Low potassium diet. Other than that, repeat labs. Closely follow with multiple consultants. The blood sugars are 213, 204, 187, 240. The patient was taking Sinemet 25, 40 and 30. Will initiate 10 and 10 and continue to monitor. Guarded prognosis. Further recommendations to follow. The patient is started on 20 units with supper. We will continue to monitor. MMODL / IJN: [id number] /
[2020-11-05] MEDS: ACETAMINOPHEN TAB 500 MG TAB PO PRN ×2 (15:46→20:13)
[2020-11-05] MEDS: PARoxetine 20 MG TAB PO SCH (15:46)
[2020-11-05 17:11] LABS: Glucose,Whole Blood 258 mg/dL (75-99)
[2020-11-05] MEDS: INSULN ASP PRT/INSULIN ASPART 100 UNIT/ML 10 ML VIAL SQ SCH (18:00)
[2020-11-05 20:05] LABS: Glucose,Whole Blood 248 mg/dL (75-99)
[2020-11-05] MEDS: ATORVASTATIN 40 MG TAB PO SCH (20:14)
[2020-11-05] MEDS: FUROSEMIDE 10 MG/ML 4 ML VIAL IV SCH (20:14)
[2020-11-05] MEDS: SENNOSIDES 8.6 MG TAB PO SCH (20:14)
[2020-11-06] MEDS: PRIMIDONE 50 MG TAB PO SCH ×5 (00:21→23:52)
[2020-11-06 06:17] LABS: Glucose,Whole Blood 67 mg/dL (75-99)
[2020-11-06 06:30] LABS: Glucose,Whole Blood 44 mg/dL (75-99)
[2020-11-06 06:33] LABS: Glucose,Whole Blood 48 mg/dL (75-99)
[2020-11-06 06:45] LABS: Glucose,Whole Blood 55 mg/dL (75-99)
[2020-11-06] MEDS: INSULIN ASPART (NovoLOG) 100 UNIT/ML VIAL SQ SCH ×4 (06:46→20:27)
[2020-11-06] MEDS: CARBIDOPA-LEVODOPA 25-100 MG 1 EACH TAB PO SCH ×3 (06:52→20:26)
[2020-11-06] MEDS: ACETAMINOPHEN TAB 500 MG TAB PO PRN ×2 (06:52→20:27)
[2020-11-06] MEDS: PANTOPRAZOLE 40 MG TABLET PO SCH (06:52)
[2020-11-06] MEDS: BACLOFEN 10 MG TAB PO SCH ×3 (06:52→20:27)
[2020-11-06] MEDS: RANOLAZINE 500 MG TAB.ER.12H PO SCH ×2 (06:52→20:26)
[2020-11-06 07:03] LABS: Glucose,Whole Blood 68 mg/dL (75-99)
[2020-11-06 07:17] LABS: Glucose,Whole Blood 75 mg/dL (75-99)
[2020-11-06] MEDS: PARoxetine 20 MG TAB PO SCH (08:49)
[2020-11-06] MEDS: ISOSORBIDE MONONITRATE ER 60 MG TAB.ER.24H PO SCH (08:49)
[2020-11-06] MEDS: ASPIRIN 81 MG PO SCH (08:49)
[2020-11-06] MEDS: atenoloL 25 MG TAB PO SCH (08:49)
[2020-11-06] MEDS: TAMSULOSIN 0.4 MG CAP.ER.24H PO SCH ×2 (08:49→17:53)
[2020-11-06] MEDS: HEPARIN SODIUM,PORCINE/PF 5,000 UNIT/0.5 ML SYRINGE SQ SCH ×2 (08:50→20:27)
[2020-11-06] MEDS: FUROSEMIDE 10 MG/ML 4 ML VIAL IV SCH ×2 (10:22→20:27)
[2020-11-06] MEDS: DAPTOmycin 350 MG in SODIUM CHLORIDE 0.9% 50 ML IVPB SCH (10:23)
[2020-11-06 10:59] LABS: Anisocytosis Slight; Basophils % (A) 0 %; Eosinophils # (A) 0.2 k/uL (0-0.7); Eosinophils % (A) 3 %; HCT 33.1 % (39.0-53.0); HGB 10.3 gm/dL (13.0-17.5); Hypochromasia Marked; Lymphocytes # (A) 0.6 k/uL (1.0-4.8); Lymphocytes % (A) 11 %; MCH 26.5 pg (25.0-35.0); MCHC 31.2 g/dL (31.0-37.0); MCV 84.9 fL (80.0-100.0); Mean Platelet Volume 9.1; Monocytes # (A) 0.5 k/uL (0-1.0); Monocytes % (A) 8 %; Neutrophils # (A) 4.2 k/uL (1.3-7.7); Neutrophils % (A) 75 %; Platelet Count 151 k/uL (150-450); Poikilocytosis Slight; RDW 17.6 % (11.5-15.5); WBC 5.7 k/uL (3.8-10.6)
[2020-11-06 11:09] LABS: Calcium 7.8 mg/dL (8.4-10.2); Potassium 3.2 mmol/L (3.5-5.1)
[2020-11-06 11:50] LABS: Glucose,Whole Blood 267 mg/dL (75-99)
--- NOTE | 2020-11-06 12:08 | PN ---
PROGRESS NOTE Patient is seen for followup for acute kidney injury. The patient's serum creatinine is slightly improved to 1.6 from 1.8. His diuretics were restarted yesterday secondary to underlying volume overload and lower extremity edema. Currently patient is voiding in a urinal. Twenty-four output documented at 1.7 L. On examination today, patient is awake, comfortable. Blood pressure 138/72, heart rate 84 per minute. He is afebrile. EXAMINATION OF THE HEART: S1 and S2. EXAMINATION OF LUNGS: Bilateral breath sounds are heard. ABDOMEN: Soft, nontender. LOWER EXTREMITIES: Examination of lower extremities shows edema 2+ to 3+ bilaterally with chronic skin changes. Left lower extremity is currently wrapped. Labs show sodium 131, potassium 3.2, chloride 94. CO2 is 31, BUN 56, creatinine 1.62, hemoglobin 10.3 g/dL. ASSESSMENT: 1. Acute kidney injury, most likely cardiorenal, currently slightly improved. Continue with IV Lasix for now. 2. Chronic kidney disease, stage IIIB. Baseline creatinine 1.3 to 1.5 secondary to diabetic kidney disease. 3. Diabetes with hypoglycemia on initial admission, currently improved. 4. Hyperkalemia associated with acute kidney injury, use of angiotensin receptor blockers, Aldactone and potassium supplementation, now improved, and potassium is actually on the lower side. We will replace cautiously. 5. Volume overload. Continue with IV Lasix for now. PLAN: Continue with IV Lasix. Replace potassium cautiously, as patient was hyperkalemic. I would avoid use of Kayexalate. The patient received a dose yesterday. MMODL / IJN: [id number] /
[2020-11-06] MEDS ORDERED: INSULN ASP PRT/INSULIN ASPART 100 UNIT/ML 10 ML VIAL SQ ONE (12:45)
[2020-11-06] MEDS: MULTIVITAMINS, THERA 1 EACH TAB PO SCH (13:01)
[2020-11-06] MEDS: THIAMINE 100 MG TAB PO SCH (13:01)
[2020-11-06] MEDS: FOLIC ACID 1 MG TAB PO SCH (13:01)
[2020-11-06 17:05] LABS: Glucose,Whole Blood 222 mg/dL (75-99)
[2020-11-06 19:57] LABS: Glucose,Whole Blood 198 mg/dL (75-99)
[2020-11-06] MEDS: SENNOSIDES 8.6 MG TAB PO SCH (20:27)
--- NOTE | 2020-11-06 23:04 | PN ---
PROGRESS NOTE DATE OF SERVICE: 11/06/2020 REASON FOR FOLLOWUP: Left lower extremity venostasis ulcer with cellulitis MRSA. INTERVAL HISTORY: The patient is afebrile. The patient is breathing comfortably. The patient is not a very good historian, though denies any worsening pain to the left leg. No chest pain, shortness of breath or cough. PHYSICAL EXAMINATION: Blood pressure 119/77, pulse of 60, temperature 98. He is 96% on 2 L nasal cannula. GENERAL DESCRIPTION: General description is an elderly male lying in bed in no distress. RESPIRATORY SYSTEM: Unlabored breathing. Clear to auscultation anteriorly. HEART: S1, S2. Regular rate and rhythm. ABDOMEN: Soft. No tenderness. Left leg swelling and redness slightly decreased. LABS: Hemoglobin is 10.3 with a white count of 5.7, BUN of 56, creatinine 1.62. DIAGNOSTIC IMPRESSION AND PLAN: Patient with a left lower extremity wound with secondary cellulitis. Culture positive for presumption MRSA in this patient with renal insufficiency, vancomycin. Antibiotic has been adjusted to daptomycin. Local care to continue as ordered and monitor his clinical course closely. MMODL / IJN: [id number] /
--- NOTE | 2020-11-07 03:22 | P.PN ---
Subjective Progress Note Date: 11/06/20 This is an 85 year old male who was recently admitted with significant hypoxia also change in mental status and being closely monitored. Multiple medical consultations including vascular surgery, infectious disease, nephrology following. Patient IV antibiotics changed to Daptomycin with preliminary cultu res of left lower extremity cellulitis showing presumptive MRSA and awaiting finalized cultures. Patient may require IV antibiotic therapy outpatient. PT/OT to evaluate the patient. Patient to continue on IV lasix with nephrology following closely. Creatinine today is trending down at 1.6 and potassium is 3.3 and will replace and closely monitor as patient was hyperkalemic. Aldactone discontinued. Social work following as patient will return to [facility] on discharge. Review of systems: Unable to obtain as patient continues to be confused Active Medications Acetaminophen (Acetaminophen Tab 500 Mg Tab) 1,000 mg PO Q6HR PRN PRN Reason: Pain Last Admin: 11/06/20 06:52 Dose: 1,000 mg Documented by: Aspirin (Aspirin 81 Mg) 81 mg PO DAILY [facility] Last Admin: 11/06/20 08:49 Dose: 81 mg Documented by: Atenolol (Atenolol 25 Mg Tab) 75 mg PO DAILY [facility] Last Admin: 11/06/20 08:49 Dose: 75 mg Documented by: Baclofen (Baclofen 10 Mg Tab) 10 mg PO TID@0700,1300,1900 [facility] Last Admin: 11/06/20 13:01 Dose: 10 mg Documented by: Carbidopa/Levodopa (Carbidopa-Levodopa 25-100 Mg 1 Each Tab) 1 each PO TID@0700,1300,1900 [facility] Last Admin: 11/06/20 13:01 Dose: 1 each Documented by: Folic Acid (Folic Acid 1 Mg Tab) 1 mg PO DAILY@1200 [facility] Last Admin: 11/06/20 13:01 Dose: 1 mg Documented by: Furosemide (Furosemide 10 Mg/Ml 4 Ml Vial) 40 mg IV Q12HR [facility] Last Admin: 11/06/20 10:22 Dose: 40 mg Documented by: Heparin Sodium (Porcine) (Heparin Sodium,Porcine/Pf 5,000 Unit/0.5 Ml Syringe) 5,000 unit SQ Q12HR [facility] Last Admin: 11/06/20 08:50 Dose: 5,000 unit Documented by: Daptomycin 350 mg/ Sodium (Chloride) 50 mls @ 100 mls/hr IVPB Q24HR [facility]; Protoc ol Last Admin: 11/06/20 10:23 Dose: 100 mls/hr Documented by: Insulin Aspart (Insulin Aspart (Novolog) 100 Unit/Ml Vial) 0 unit SQ [facility]; Protocol Last Admin: 11/06/20 13:02 Dose: 6 unit Documented by: Insulin Aspart (Insuln Asp Prt/Insulin Aspart 100 Unit/Ml 10 Ml Vial) 20 unit SQ [facility] Isosorbide Mononitrate (Isosorbide Mononitrate Er 60 Mg Tab.Er.24h) 60 mg PO DAILY [facility] Last Admin: 11/06/20 08:49 Dose: 60 mg Documented by: Methyl Salicylate (Methyl Salicylate/Menthol Cream 5 Oz) 1 applic TOPICAL TID PRN PRN Reason: Pain Multivitamins (Multivitamins, Thera 1 Each Tab) 1 each PO DAILY@1200 [facility] Last Admin: 11/06/20 13:01 Dose: 1 each Documented by: Naloxone HCl (Naloxone 0.4 Mg/Ml 1 Ml Vial) 0.2 mg IV Q2M PRN PRN Reason: Opioid Reversal Nitroglycerin (Nitroglycerin Sl Tabs 0.4 Mg Tab) 0.4 mg SUBLINGUAL Q5M PRN PRN Reason: Chest Pain Pantoprazole Sodium (Pantoprazole 40 Mg Tablet) 40 mg PO [facility] Last Admin: 11/06/20 06:52 Dose: 40 mg Documented by: Paroxetine HCl (Paroxetine 20 Mg Tab) 20 mg PO DAILY [facility] Last Admin: 11/06/20 08:49 Dose: 20 mg Documented by: Primidone (Primidone 50 Mg Tab) 50 mg PO QID@0700,1300,1900,2300 [facility] Last Admin: 11/06/20 13:01 Dose: 50 mg Documented by: Ranolazine (Ranolazine 500 Mg Tab.Er.12h) 500 mg PO BID@0700,1900 [facility] Last Admin: 11/06/20 06:52 Dose: 500 mg Documented by: Senna (Sennosides 8.6 Mg Tab) 8.6 mg PO HS@2000 [facility] Last Admin: 11/05/20 20:14 Dose: 8.6 mg Documented by: Tamsulosin HCl (Tamsulosin 0.4 Mg Cap.Er.24h) 0.4 mg PO PC-BRKFST [facility] Last Admin: 11/06/20 08:49 Dose: 0.4 mg Documented by: Tamsulosin HCl (Tamsulosin 0.4 Mg Cap.Er.24h) 0.4 mg PO PC-SUPPER [facility] Last Admin: 11/04/20 17:22 Dose: 0.4 mg Documented by: Thiamine HCl (Thiamine 100 Mg Tab) 100 mg PO DAILY@1200 [facility] Last Admin: 11/06/20 13:01 Dose: 100 mg Documented by: Objective - Vital Signs Vital signs: Vital Signs Temp 97.0 F L 11/06/20 08:00 Pulse 84 11/06/20 08:00 Resp 19 11/06/20 03:49 BP 138/72 11/06/20 08:00 Pulse Ox 100 11/06/20 08:00 Intake & Output 11/05/20 11/06/20 11/06/20 18:59 06:59 18:59 Intake Total 100 300 240 Output Total 1750 800 Balance 100 -1450 -560 Weight 85 kg Intake: Oral 100 300 240 Output: Urine 1750 800 Other: Voiding Method Urinal Urinal Urinal # Voids 625 - Exam Gen: This is a 85-year-old male lying in bed, confused, asleep but arousable. Temp is 97.0F, pulse is 84, blood pressure is 138/72, oxygen saturation is 100% on 2 L via nasal cannula HEENT: Head is atraumatic, normocephalic. Pupils equal, round. Sclerae is anicteric. NECK: Supple. No JVD. No lymphadenopathy. No thyromegaly. LUNGS: Diminished breath sounds at the bases with a few scattered rhonchi and crackles noted. No intercostal retractions. HEART: S1, S2 are muffled ABDOMEN: Soft. Bowel sounds are present. No masses. No tenderness. EXTREMITIES: No calf tenderness. bilateral lower extremity edema noted with left leg cellulitis NEUROLOGICAL: Patient is asleep but arousable, confused. Diffusely weak. - Labs CBC & Chem 7: 11/06/20 10:31 11/06/20 10:31 Labs: Abnormal Lab Results - Last 24 Hours (Table) 11/05/20 11/05/20 11/06/20 Range/Units 17:08 20:03 06:16 RBC (4.30-5.90) m/uL Hgb (13.0-17.5) gm/dL Hct (39.0-53.0) % RDW (11.5-15.5) % Lymphocytes # (1.0-4.8) k/uL Sodium (137-145) mmol/L Potassium (3.5-5.1) mmol/L Chloride (98-107) mmol/L Carbon Dioxide (22-30) mmol/L BUN (9-20) mg/dL Creatinine (0.66-1.25) mg/dL Glucose (74-99) mg/dL POC Glucose (mg/dL) 258 H 248 H 67 L (75-99) mg/dL Calcium (8.4-10.2) mg/dL 11/06/20 11/06/20 11/06/20 Range/Units 06:28 06:31 06:44 RBC (4.30-5.90) m/uL Hgb (13.0-17.5) gm/dL Hct (39.0-53.0) % RDW (11.5-15.5) % Lymphocytes # (1.0-4.8) k/uL Sodium (137-145) mmol/L Potassium (3.5-5.1) mmol/L Chloride (98-107) mmol/L Carbon Dioxide (22-30) mmol/L BUN (9-20) mg/dL Creatinine (0.66-1.25) mg/dL Glucose (74-99) mg/dL POC Glucose (mg/dL) 44 L 48 L 55 L (75-99) mg/dL Calcium (8.4-10.2) mg/dL 11/06/20 11/06/20 11/06/20 Range/Units 07:00 10:31 10:31 RBC 3.90 L (4.30-5.90) m/uL Hgb 10.3 L (13.0-17.5) gm/dL Hct 33.1 L (39.0-53.0) % RDW 17.6 H (11.5-15.5) % Lymphocytes # 0.6 L (1.0-4.8) k/uL Sodium 131 L (137-145) mmol/L Potassium 3.2 L (3.5-5.1) mmol/L Chloride 94 L (98-107) mmol/L Carbon Dioxide 31 H (22-30) mmol/L BUN 56 H (9-20) mg/dL Creatinine 1.62 H (0.66-1.25) mg/dL Glucose 294 H (74-99) mg/dL POC Glucose (mg/dL) 68 L (75-99) mg/dL Calcium 7.8 L (8.4-10.2) mg/dL 11/06/20 Range/Units 11:48 RBC (4.30-5.90) m/uL Hgb (13.0-17.5) gm/dL Hct (39.0-53.0) % RDW (11.5-15.5) % Lymphocytes # (1.0-4.8) k/uL Sodium (137-145) mmol/L Potassium (3.5-5.1) mmol/L Chloride (98-107) mmol/L Carbon Dioxide (22-30) mmol/L BUN (9-20) mg/dL Creatinine (0.66-1.25) mg/dL Glucose (74-99) mg/dL POC Glucose (mg/dL) 267 H (75-99) mg/dL Calcium (8.4-10.2) mg/dL Microbiology - Last 24 Hours (Table) 11/04/20 12:00 Gram Stain - Preliminary Leg - Left Wound Culture - Preliminary Presumptive MRSA Assessment and Plan Assessment: Severe hypoglycemia Change in mental status acute on chronic metabolic encephalopathy secondary to hypoglycemia, multifactorial left leg venous stasis ulcer with surrounding cellulitis with cultures showing presumptive MRSA Urinary retention Mild hyponatremia Hyperkalemia, currently hypokalemic Chronic kidney disease stage III History of coronary artery disease history of congestive heart failure, ejection fraction unknown Diabetes mellitus type 2, uncontrolled with hypoglycemia on admission Hypertension Hyperlipidemia History of myocardial infarction history of prostate disorder history of peripheral vascular disease with lower limb ischemia History of pancreatitis history of abdominal pain history of Parkinson's History of ischemic colitis History of rectal bleed History of gastric ulcer Benign colonic polyps history back pain history of sick sinus syndrome History of coronary artery disease, CABG with stents History of pacemaker Depression history of EtOH abuse remotely No code, no CPR, no vent Recommendations and discussion: Recommend continue with current medications, management, and symptomatic treatment. Patient to continue with low potassium diet. Potassium is 3.3 today and being replaced cautiously. Nephrology following closely along with ID. Patient IV antibiotics changed to daptomycin with preliminary cultures showing presumptive MRSA. Will discuss with infectious disease about possible outpatient IV antibiotic therapy. Recommend continue with Accu-Cheks before meals and at bedtime and as needed. Recommend sliding scale and have added 70/30 as sugars have now improved and trending higher. Social work following as patient will be returning to [facility] once stabilized and discharged. Patient continues with gen eralized edema and maintained on IV lasix. Will repeat am labs. Elevate lower extremities and compression stockings or jagdish wraps from toes to knees. Due to multiple complex medical issues, prognosis is guarded.
[2020-11-07 06:08] LABS: Glucose,Whole Blood 133 mg/dL (75-99)
[2020-11-07 07:01] LABS: Glucose,Whole Blood 145 mg/dL (75-99)
[2020-11-07] MEDS: INSULIN ASPART (NovoLOG) 100 UNIT/ML VIAL SQ SCH ×4 (07:49→21:03)
[2020-11-07] MEDS: FUROSEMIDE 10 MG/ML 4 ML VIAL IV SCH ×2 (07:49→21:03)
[2020-11-07] MEDS: CARBIDOPA-LEVODOPA 25-100 MG 1 EACH TAB PO SCH ×3 (07:50→21:02)
[2020-11-07] MEDS: atenoloL 25 MG TAB PO SCH (07:50)
[2020-11-07] MEDS: PANTOPRAZOLE 40 MG TABLET PO SCH (07:50)
[2020-11-07] MEDS: ASPIRIN 81 MG PO SCH (07:50)
[2020-11-07] MEDS: HEPARIN SODIUM,PORCINE/PF 5,000 UNIT/0.5 ML SYRINGE SQ SCH ×2 (07:50→21:03)
[2020-11-07] MEDS: TAMSULOSIN 0.4 MG CAP.ER.24H PO SCH ×2 (07:50→21:02)
[2020-11-07] MEDS: ISOSORBIDE MONONITRATE ER 60 MG TAB.ER.24H PO SCH (07:50)
[2020-11-07] MEDS: PRIMIDONE 50 MG TAB PO SCH ×3 (07:50→21:02)
[2020-11-07] MEDS: PARoxetine 20 MG TAB PO SCH (07:51)
[2020-11-07] MEDS: BACLOFEN 10 MG TAB PO SCH ×3 (07:51→21:02)
[2020-11-07] MEDS: INSULN ASP PRT/INSULIN ASPART 100 UNIT/ML 10 ML VIAL SQ SCH (11:27)
[2020-11-07] MEDS: DAPTOmycin 350 MG in SODIUM CHLORIDE 0.9% 50 ML IVPB SCH (11:28)
[2020-11-07 11:29] LABS: Glucose,Whole Blood 220 mg/dL (75-99)
[2020-11-07] MEDS: RANOLAZINE 500 MG TAB.ER.12H PO SCH ×2 (11:29→21:02)
--- NOTE | 2020-11-07 12:25 | PN ---
PROGRESS NOTE Patient is seen for followup for chronic kidney disease and acute kidney injury. Currently patient is being diuresed for volume overload and significant lower extremity edema. He has cellulitis of his lower extremities as well with ulcers, being seen by Infectious Disease. On examination today, blood pressure 151/87, heart rate 65 per minute. Patient is afebrile. EXAMINATION OF THE HEART: S1 and S2. EXAMINATION OF LUNGS: Bilateral breath sounds are heard. ABDOMEN: Soft, nontender, obese. LOWER EXTREMITIES: Examination of lower extremities shows edema 1+ with chronic skin changes and ulcers noted in bilateral lower extremities, currently being dressed. Labs from 11/06/2020 show sodium 131, potassium 3.2, chloride 94. CO2 is 31, BUN 56, creatinine 1.62, hemoglobin 10.3 g/dL. ASSESSMENT: 1. Acute kidney injury, cardiorenal, currently slightly improved. No labs from today. 2. 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 3. Hyperkalemia associated with acute kidney injury, use of angiotensin receptor blockers, Aldactone, potassium supplementation, currently improved. Potassium was low yesterday. We will recheck again in a.m. 4. Volume overload, maintained on IV Lasix. PLAN: Continue with IV Lasix. Repeat labs in a.m. Switch to p.o. Lasix tomorrow. MMODL / IJN: [id number] /
[2020-11-07] MEDS: MULTIVITAMINS, THERA 1 EACH TAB PO SCH (12:57)
[2020-11-07] MEDS: FOLIC ACID 1 MG TAB PO SCH (12:57)
[2020-11-07] MEDS: THIAMINE 100 MG TAB PO SCH (12:57)
--- NOTE | 2020-11-07 13:47 | PN ---
PROGRESS NOTE DATE OF SERVICE: 11/07/2020 REASON FOR FOLLOWUP: Bilateral lower extremity wounds with cellulitis, MRSA. INTERVAL HISTORY: The patient is afebrile. The patient is currently breathing comfortably. Denies having any chest pain or shortness of breath or cough. No abdominal pain or worsening pain to the lower extremities. PHYSICAL EXAMINATION: Blood pressure 151/87, pulse of 65, temperature 97.5. He is 95% on room air. GENERAL DESCRIPTION: General description is an elderly male lying in bed in no distress. RESPIRATORY SYSTEM: Unlabored breathing. Clear to auscultation anteriorly. HEART: S1, S2. Regular rate and rhythm. ABDOMEN: Soft. No tenderness. Bilateral leg wounds with minimal slough tissue. Surrounding redness has decreased. LABS: Wound culture with MRSA. DIAGNOSTIC IMPRESSION AND PLAN: Patient with bilateral lower extremity wounds with secondary cellulitis. Culture positive for MRSA. Patient is covered with daptomycin as high risk for vancomycin and Bactrim toxicity. May continue with the daptomycin through the midline for another 7-10 days. Local care with [facility]. Close outpatient followup. MMODL / IJN: [id number] / BISI
[2020-11-07 16:30] LABS: Glucose,Whole Blood 276 mg/dL (75-99)
[2020-11-07] MEDS: ACETAMINOPHEN TAB 500 MG TAB PO PRN (21:02)
[2020-11-07] MEDS: SENNOSIDES 8.6 MG TAB PO SCH ×2 (21:02→21:05)
[2020-11-07 21:03] LABS: Glucose,Whole Blood 202 mg/dL (75-99)
[2020-11-08] MEDS: PRIMIDONE 50 MG TAB PO SCH ×3 (00:16→12:22)
--- NOTE | 2020-11-08 02:41 | P.PN ---
Subjective Progress Note Date: 11/07/20 This is an 85 year old male who was recently admitted with significant hypoxia also change in mental status and being closely monitored. Multiple medical consultations including vascular surgery, infectious disease, nephrology following. Patient IV antibiotics changed to Daptomycin with preliminary cultu res of left lower extremity cellulitis showing presumptive MRSA and awaiting finalized cultures. Patient may require IV antibiotic therapy outpatient. PT/OT to evaluate the patient. Patient to continue on IV lasix with nephrology following closely. Creatinine today is trending down at 1.6 and potassium is 3.3 and will replace and closely monitor as patient was hyperkalemic. Aldactone discontinued. Social work following as patient will return to [facility] on discharge. 11/07/2020 Patient is seen and evaluated this morning and continues to be closely monitored. Patient continues on IV daptomycin and ID following closely. Patient with MRSA of the cultures and continued with bilateral lower extremity edema and cellulitis noted. Local wound care with Medihoney and dressing changes per order. Patient does have a midline and will be receiving IV antibiotics in the outpatient setting. Patient denies any worsening shortness of breath and denies chest pain. Patient is afebrile. Will repeat labs and continue with IV lasix for now with transitioning to oral in am. Blood sugars being closely monitored and maintained on sliding scale along with 70/30. Review of systems: Unable to obtain as patient continues to be confused Objective - Vital Signs Vital signs: Vital Signs Temp 97.5 F L 11/07/20 08:00 Pulse 65 11/07/20 08:00 Resp 18 11/07/20 08:00 BP 151/87 11/07/20 08:00 Pulse Ox 95 11/07/20 08:00 Intake & Output 11/06/20 11/07/20 11/07/20 18:59 06:59 18:59 Intake Total 480 Output Total 800 1660 Balance -320 -1660 Intake: Oral 480 Output: Urine 800 1660 Other: Voiding Method Urinal Urinal # Voids 4 - Exam Gen: This is a 85-year-old male lying in bed, confused, asleep but arousable. Temp is 97.5F, pulse is 65, blood pressure is 151/87, oxygen saturation is 95% on RA HEENT: Head is atraumatic, normocephalic. Pupils equal, round. Sclerae is anicteric. NECK: Supple. No JVD. No lymphadenopathy. No thyromegaly. LUNGS: Diminished breath sounds at the bases with a few scattered rhonchi noted. No intercostal retractions. HEART: S1, S2 are muffled ABDOMEN: Soft. Bowel sounds are present. No masses. No tenderness. EXTREMITIES: No calf tenderness. bilateral lower extremity edema noted NEUROLOGICAL: Patient is asleep but arousable, confused. Diffusely weak. - Labs CBC & Chem 7: 11/06/20 10:31 11/06/20 10:31 Labs: Abnormal Lab Results - Last 24 Hours (Table) 11/06/20 11/06/20 11/06/20 Range/Units 10:31 10:31 11:48 RBC 3.90 L (4.30-5.90) m/uL Hgb 10.3 L (13.0-17.5) gm/dL Hct 33.1 L (39.0-53.0) % RDW 17.6 H (11.5-15.5) % Lymphocytes # 0.6 L (1.0-4.8) k/uL Sodium 131 L (137-145) mmol/L Potassium 3.2 L (3.5-5.1) mmol/L Chloride 94 L (98-107) mmol/L Carbon Dioxide 31 H (22-30) mmol/L BUN 56 H (9-20) mg/dL Creatinine 1.62 H (0.66-1.25) mg/dL Glucose 294 H (74-99) mg/dL POC Glucose (mg/dL) 267 H (75-99) mg/dL Calcium 7.8 L (8.4-10.2) mg/dL 11/06/20 11/06/20 11/07/20 Range/Units 17:03 19:56 06:06 RBC (4.30-5.90) m/uL Hgb (13.0-17.5) gm/dL Hct (39.0-53.0) % RDW (11.5-15.5) % Lymphocytes # (1.0-4.8) k/uL Sodium (137-145) mmol/L Potassium (3.5-5.1) mmol/L Chloride (98-107) mmol/L Carbon Dioxide (22-30) mmol/L BUN (9-20) mg/dL Creatinine (0.66-1.25) mg/dL Glucose (74-99) mg/dL POC Glucose (mg/dL) 222 H 198 H 133 H (75-99) mg/dL Calcium (8.4-10.2) mg/dL 11/07/20 Range/Units 06:54 RBC (4.30-5.90) m/uL Hgb (13.0-17.5) gm/dL Hct (39.0-53.0) % RDW (11.5-15.5) % Lymphocytes # (1.0-4.8) k/uL Sodium (137-145) mmol/L Potassium (3.5-5.1) mmol/L Chloride (98-107) mmol/L Carbon Dioxide (22-30) mmol/L BUN (9-20) mg/dL Creatinine (0.66-1.25) mg/dL Glucose (74-99) mg/dL POC Glucose (mg/dL) 145 H (75-99) mg/dL Calcium (8.4-10.2) mg/dL Assessment and Plan Assessment: Severe hypoglycemia Change in mental status acute on chronic metabolic encephalopathy secondary to hypoglycemia, multifactorial left leg venous stasis ulcer with surrounding cellulitis with cultures showing presumptive MRSA Urinary retention Mild hyponatremia Hyperkalemia, currently hypokalemic Chronic kidney disease stage III History of coronary artery disease history of congestive heart failure, ejection fraction unknown Diabetes mellitus type 2, uncontrolled with hypoglycemia on admission Hypertension Hyperlipidemia History of myocardial infarction history of prostate disorder history of peripheral vascular disease with lower limb ischemia History of pancreatitis history of abdominal pain history of Parkinson's History of ischemic colitis History of rectal bleed History of gastric ulcer Benign colonic polyps history back pain history of sick sinus syndrome History of coronary artery disease, CABG with stents History of pacemaker Depression history of EtOH abuse remotely No code, no CPR, no vent Recommendations and discussion: Recommend continue with current medications, management, and symptomatic treatment. Nephrology following closely along with ID. Patient continues on IV antibiotics in the form of daptomycin with presumptive MRSA. Patient does have a midline and will continue with daptomycin daily for 7-10 days at the [facility]. Recommend continue with Accu-Cheks before meals and at bedtime and as needed. Continue sliding scale and 70/30. Social work following as patient will be returning to [facility] once stabilized and discharged. Patient continues with generalized edema and maintained on IV lasix. Will repeat am labs. Elevate lower extremities and compression stockings or jagdish wraps from toes to knees. Transition to oral lasix in am. Due to multiple complex medical issues, prognosis is guarded. Possible discharge in 24 hours.
[2020-11-08 07:22] LABS: Glucose,Whole Blood 149 mg/dL (75-99)
[2020-11-08 08:06] VITALS: BP 116/58; PULSE 61; RESP 16; TEMP 97.8
[2020-11-08] MEDS: BACLOFEN 10 MG TAB PO SCH ×2 (08:06→12:22)
[2020-11-08] MEDS: INSULIN ASPART (NovoLOG) 100 UNIT/ML VIAL SQ SCH ×2 (08:07→12:20)
[2020-11-08] MEDS: RANOLAZINE 500 MG TAB.ER.12H PO SCH (08:07)
[2020-11-08] MEDS: CARBIDOPA-LEVODOPA 25-100 MG 1 EACH TAB PO SCH ×2 (08:07→12:22)
[2020-11-08] MEDS: atenoloL 25 MG TAB PO SCH (08:08)
[2020-11-08] MEDS: PANTOPRAZOLE 40 MG TABLET PO SCH (08:08)
[2020-11-08] MEDS: TAMSULOSIN 0.4 MG CAP.ER.24H PO SCH (08:08)
[2020-11-08] MEDS: ASPIRIN 81 MG PO SCH (08:08)
[2020-11-08] MEDS: FOLIC ACID 1 MG TAB PO SCH (08:09)
[2020-11-08] MEDS: HEPARIN SODIUM,PORCINE/PF 5,000 UNIT/0.5 ML SYRINGE SQ SCH (08:09)
[2020-11-08] MEDS: THIAMINE 100 MG TAB PO SCH (08:09)
[2020-11-08] MEDS: MULTIVITAMINS, THERA 1 EACH TAB PO SCH (08:09)
[2020-11-08] MEDS: ISOSORBIDE MONONITRATE ER 60 MG TAB.ER.24H PO SCH (08:09)
[2020-11-08] MEDS: PARoxetine 20 MG TAB PO SCH (08:09)
[2020-11-08] MEDS: DAPTOmycin 350 MG in SODIUM CHLORIDE 0.9% 50 ML IVPB SCH (09:57)
[2020-11-08] MEDS: INSULN ASP PRT/INSULIN ASPART 100 UNIT/ML 10 ML VIAL SQ SCH (09:57)
[2020-11-08] MEDS: FUROSEMIDE 10 MG/ML 4 ML VIAL IV SCH (09:58)
[2020-11-08 11:44] VITALS: BMI 26.9
[2020-11-08 11:58] LABS: Glucose,Whole Blood 279 mg/dL (75-99)
--- NOTE | 2020-11-08 13:29 | P.DS ---
Providers Date of admission: 11/03/20 12:57 Expected date of discharge: 11/08/20 Attending physician: Janae Dukes Consults: 11/03/20 19:25 Consult Physician Routine Consulting Provider: Jessica Marcelino Consult Reason/Comments: LE wounds Do you want consulting provider notified?: Yes 11/03/20 19:26 Consult Physician Routine Consulting Provider: Nichole Ross Consult Reason/Comments: LE wounds Do you want consulting provider notified?: Yes 11/03/20 21:24 Consult Physician Routine Consulting Provider: Gauri Herrera Consult Reason/Comments: decreased urine output; BUN and creatinine trending up Do you want consulting provider notified?: Yes, Notify in am Primary care physician: Jaret Zarate [place] [facility] Course: Final diagnosis Severe hypoglycemia Change in mental status acute on chronic metabolic encephalopathy secondary to hypoglycemia, multifactorial left leg venous stasis ulcer with surrounding cellulitis with cultures showing presumptive MRSA Urinary retention Mild hyponatremia Hyperkalemia, currently hypokalemic Chronic kidney disease stage III History of coronary artery disease history of congestive heart failure, ejection fraction unknown Diabetes mellitus type 2, uncontrolled with hypoglycemia on admission Hypertension Hyperlipidemia History of myocardial infarction history of prostate disorder history of peripheral vascular disease with lower limb ischemia History of pancreatitis history of abdominal pain history of Parkinson's History of ischemic colitis History of rectal bleed History of gastric ulcer Benign colonic polyps history back pain history of sick sinus syndrome History of coronary artery disease, CABG with stents History of pacemaker Depression history of EtOH abuse remotely No code, no CPR, no vent Discharge disposition Patient is being discharged in a stable condition with guarded prognosis to [facility] as he is a resident there. Patient will follow-up with Dr. Zarate in the outpatient setting upon discharge. Patient is to also follow-up with Dr. Marcelino infectious disease along with nephrology [facility] outpatient. Patient is to continue with IV antibiotics in the form of daptomycin for the next 10 days. Total time taken is greater than 35 minutes. Hospital course This is an 85-year-old male who was recently admitted with significant hypoxia also change in mental status and being closely monitored. Patient was maintained on IV Lasix and have transitioned oral Lasix and recommend close outpatient follow-up of kidney functions along with electrolytes as patient has had episodes of hyperkalemia and hypokalemia. Patient with significant cellulitis of the bilateral lower extremities and culture showing MRSA and patient is maintained on IV daptomycin and does have a midline and will continue with this for 10 days. Recommend outpatient follow-up with infectious disease along with nephrology. Continue with local wound care with therahoney and dressings as mentioned below. Recommend to continue monitoring blood sugars before meals and at bedtime and treat accordingly with sliding scale along with long acting and hold insulins if blood sugar is 120 or less. Currently no reports of chest pain, shortness of breath, or palpitations. Patient is afebrile. No reports of nausea or vomiting and patient is tolerating diet. Patient will be going to [facility] today. Guarded prognosis. On exam vital signs are stable. Cardio S1, S2 are muffled. Respiratory system shows diminished breath sounds at the bases with no wheezing or rhonchi noted. Abdomen is soft and obese, and nontender. Nervous system shows diffuse weakness. Please refer to medication reconciliation sheet for a list of medications. Patient Condition at Discharge: Stable Plan - Discharge Summary Discharge Rx Participant: No New Discharge Prescriptions: New Tamsulosin [Flomax] 0.4 mg PO PC-SUPPER Folic Acid 1 mg PO DAILY@1200 tab INSULIN ASPART (NovoLOG) [NovoLOG (formulary)] 0 unit SQ ACHS ml Pantoprazole [Protonix] 40 mg PO AC-BRKFST tab DAPTOmycin [Cubicin] 350 mg IVPB Q24HR #10 each Furosemide [Lasix] 40 mg PO BID #60 tablet Insuln Asp Prt/Insulin Aspart [NovoLOG MIX 70-30 VIAL] 20 unit SQ AC-BRKFST ml Thiamine [Vitamin B-1] 100 mg PO DAILY@1200 tab Continue PARoxetine [Paxil] 20 mg PO DAILY Primidone [Mysoline] 50 mg PO QID Atenolol [Tenormin] 75 mg PO DAILY Atorvastatin [Lipitor] 40 mg PO HS Aspirin EC [Ecotrin Low Dose] 81 mg PO DAILY Baclofen 10 mg PO TID@0700,1300,1900 Isosorbide Mononitrate ER [Imdur] 60 mg PO DAILY 30 Days #30 tab.er.24h Multivit-Min/FA/Lycopen/Lutein [Centrum Silver Tablet] 1 tab PO DAILY Carbidopa-Levodopa 25-100 mg [Sinemet 25-100 mg] 1 tab PO TID@0700,1300,1900 Acetaminophen Tab [Tylenol] 1,000 mg PO Q6HR PRN PRN Reason: Pain Glucagon Emergency Kit 1 mg IM ONCE PRN PRN Reason: Hypoglycemia Menthol [Biofreeze] 1 applic TOPICAL TID PRN PRN Reason: Pain Sennosides [Senna] 9.2 mg PO HS@2000 Nitroglycerin Sl Tabs [Nitrostat] 0.4 mg SL Q5M PRN PRN Reason: Chest Pain Minerin Lotion 1 applic TOPICAL HS Ranolazine [Ranexa] 500 mg PO BID@0700,190 Discontinued Losartan [Cozaar] 25 mg PO DAILY Spironolactone [Aldactone] 25 mg PO DAILY Insulin NPL/Insulin Lispro [humaLOG MIX 75-25 VIAL] 30 unit SQ W/SUPPER metOLazone [Zaroxolyn] 2.5 mg PO DAILY Insulin NPL/Insulin Lispro [humaLOG MIX 75-25 VIAL] 40 units SQ DAILY Levofloxacin [Levaquin] 500 mg PO DAILY metOLazone [Zaroxolyn] 5 mg PO BID Potassium Chloride ER [K-Dur 20] 20 meq PO BID Discharge Medication List Atenolol [Tenormin] 75 mg PO DAILY 11/20/13 [History] PARoxetine [Paxil] 20 mg PO DAILY 11/20/13 [History] Primidone [Mysoline] 50 mg PO QID 11/20/13 [History] Aspirin EC [Ecotrin Low Dose] 81 mg PO DAILY 07/11/18 [History] Atorvastatin [Lipitor] 40 mg PO HS 07/11/18 [History] Baclofen 10 mg PO TID@0700,1300,1900 09/25/18 [History] Isosorbide Mononitrate ER [Imdur] 60 mg PO DAILY 30 Days #30 tab.er.24h 07/16/19 [Rx] Carbidopa-Levodopa 25-100 mg [Sinemet 25-100 mg] 1 tab PO TID@0700,1300,1900 05/16/20 [History] Multivit-Min/FA/Lycopen/Lutein [Centrum Silver Tablet] 1 tab PO DAILY 05/16/20 [History] Nitroglycerin Sl Tabs [Nitrostat] 0.4 mg SL Q5M PRN 06/09/20 [History] Acetaminophen Tab [Tylenol] 1,000 mg PO Q6HR PRN 11/03/20 [History] Glucagon Emergency Kit 1 mg IM ONCE PRN 11/03/20 [History] Menthol [Biofreeze] 1 applic TOPICAL TID PRN 11/03/20 [History] Minerin Lotion 1 applic TOPICAL HS 11/03/20 [History] Ranolazine [Ranexa] 500 mg PO BID@0700,1900 11/03/20 [History] Sennosides [Senna] 9.2 mg PO HS@199911/03/20 [History] DAPTOmycin [Cubicin] 350 mg IVPB Q24HR #10 each 11/08/20 [Rx] Folic Acid 1 mg PO DAILY@1200 tab 11/08/20 [Rx] Furosemide [Lasix] 40 mg PO BID #60 tablet 11/08/20 [Rx] INSULIN ASPART (NovoLOG) [NovoLOG (formulary)] 0 unit SQ ACHS ml 11/08/20 [Rx] Insuln Asp Prt/Insulin Aspart [NovoLOG MIX 70-30 VIAL] 20 unit SQ AC-BRKFST ml 11/08/20 [Rx] Pantoprazole [Protonix] 40 mg PO AC-BRKFST tab 11/08/20 [Rx] Tamsulosin [Flomax] 0.4 mg PO PC-SUPPER 11/08/20 [Rx] Thiamine [Vitamin B-1] 100 mg PO DAILY@1200 tab 11/08/20 [Rx] Follow up Appointment(s)/Referral(s): Jaret Zarate MD [Primary Care Provider] - 1-2 days Gauri Herrera MD [STAFF PHYSICIAN] - 1 Week Jessica Marcelino MD [STAFF PHYSICIAN] - 1 Week Ambulatory/Diagnostic Orders: Basic Metabolic Panel [LAB.AMB] Time Frame: 3 Days, Location: None Selected Activity/Diet/Wound Care/Special Instructions: Patient is returning to [facility] Activity as tolerated Continue renal diet, heart healthy, low potassium, low phosphorus Continue with IV antibiotics for the next 10 days Follow-up outpatient with vascular surgery Follow-up outpatient with nephrology Follow-up outpatient with infectious disease Continue wound care of bilateral lower extremities a cleansing the area with saline and applying Arabella honey to the wounds with wet-to-dry dressing and loose Kerlix to cover and change as often as needed if becomes soiled Recommend repeat labs in 2-3 days to monitor kidney functions and electrolytes Recommend to continue to monitor Accu-Cheks before meals and at bedtime and treat accordingly with sliding scale and long-acting hold insulin if blood sugar is 120 or less NovoLog sliding scale 0-150 equals 0 units 151-200 equals 2 units 201-250 equals 4 units 251-300 equals 6 units 301-350 equals 8 units 351-400 equals 10 units Please notify provider if blood sugar is 400 or above Discharge Disposition: TRANSFER TO SNF/ECF
--- NOTE | 2020-11-08 14:24 | PN ---
PROGRESS NOTE Patient is seen for followup for acute kidney injury on top of chronic kidney disease. He is currently being diuresed for volume overload. There are plans for discharge. EXAMINATION: Today blood pressure 116/58, heart rate 61 per minute, he is afebrile. Examination of the heart S1, S2. Examination of the lungs, bilateral breath sounds are heard. Abdomen is soft, nontender. Examination of lower extremities shows bilateral edema with chronic skin changes and superficial ulcerations. Legs are wrapped. LABS: No labs available from today. ASSESSMENT: 1. Chronic kidney disease, NKF stage 3B secondary to diabetic kidney disease and nephrosclerosis. 2. Acute kidney injury, cardiorenal, improved. 3. Hyperkalemia associated with acute kidney injury, use of angiotensin receptor blockers, Aldactone, potassium supplementation, improved. 4. Volume overload, maintained on IV Lasix plan. 5. Lower extremity cellulitis and ulcers, currently maintained on topical treatment. PLAN: Check labs today. Switch to p.o. Lasix on discharge. MMODL / IJN: [id number] /
--- NOTE | 2020-11-08 14:59 | P.PN ---
Progress Note - Text Progress Note Date: 11/08/20 REASON FOR FOLLOWUP: Bilateral lower extremity wounds with cellulitis, MRSA. INTERVAL HISTORY: The patient remains to be afebrile. The patient is currently breathing comfortably. Denies having any chest pain or shortness of breath or cough. No abdominal pain or worsening pain to the lower extremities. PHYSICAL EXAMINATION: Blood pressure 150/80, pulse of 60, temperature 97.5. He is 95% on room air. GENERAL DESCRIPTION: General description is an elderly male lying in bed in no distress. RESPIRATORY SYSTEM: Unlabored breathing. Clear to auscultation anteriorly. HEART: S1, S2. Regular rate and rhythm. ABDOMEN: Soft. No tenderness. Bilateral leg wounds are currently dressed no drainage of the dressing LABS: Wound culture with MRSA. Blood cultures negative DIAGNOSTIC IMPRESSION AND PLAN: Patient with bilateral lower extremity wounds with secondary cellulitis. Culture positive for MRSA. Patient is covered with daptomycin as the patient is high risk for vancomycin and Bactrim toxicity. Patient will continue with the daptomycin through the midline for another 10 days to finish his course of therapy Local care with [facility]. Close outpatient followup.
== END 2020-11-08 14:51 | DRG 637 ==
LOC: EC 09:02 → 3SCARD 12:57 → 4SSUR 11-07 06:26
PROVIDERS: ADMIT Internal Medicine; ATTEND Internal Medicine
PROC: 05HF33Z Insertion of Infusion Device into Left Cephalic Vein, Percutaneous Approach (ICD-10-PCS; principal; 2020-11-06 09:00)
DX: E11.649 Type 2 diabetes mellitus with hypoglycemia without coma (principal); G93.41 Metabolic encephalopathy; E87.1 Hypo-osmolality and hyponatremia; I48.20 Chronic atrial fibrillation, unspecified; I83.218 Varicose veins of right lower extremity with both ulcer of other part of lower extremity and inflammation; L03.115 Cellulitis of right lower limb; I13.0 Hypertensive heart and chronic kidney disease with heart failure and stage 1 through stage 4 chronic kidney disease, or unspecified chronic kidney disease; I50.22 Chronic systolic (congestive) heart failure; I83.228 Varicose veins of left lower extremity with both ulcer of other part of lower extremity and inflammation; L97.819 Non-pressure chronic ulcer of other part of right lower leg with unspecified severity; L97.829 Non-pressure chronic ulcer of other part of left lower leg with unspecified severity; L03.116 Cellulitis of left lower limb; N17.0 Acute kidney failure with tubular necrosis; E11.22 Type 2 diabetes mellitus with diabetic chronic kidney disease; B95.62 Methicillin resistant Staphylococcus aureus infection as the cause of diseases classified elsewhere; G25.0 Essential tremor; I49.5 Sick sinus syndrome; I27.20 Pulmonary hypertension, unspecified; E11.51 Type 2 diabetes mellitus with diabetic peripheral angiopathy without gangrene; E11.622 Type 2 diabetes mellitus with other skin ulcer; F02.80 Dementia in other diseases classified elsewhere, unspecified severity, without behavioral disturbance, psychotic disturbance, mood disturbance, and anxiety; G20 Parkinson's disease; N18.32 Chronic kidney disease, stage 3b; Z79.4 Long term (current) use of insulin; Z66 Do not resuscitate; I25.10 Atherosclerotic heart disease of native coronary artery without angina pectoris; E87.5 Hyperkalemia; G89.29 Other chronic pain; E78.5 Hyperlipidemia, unspecified; I25.2 Old myocardial infarction; F10.11 Alcohol abuse, in remission; F32.9 Major depressive disorder, single episode, unspecified; I44.7 Left bundle-branch block, unspecified; N40.1 Benign prostatic hyperplasia with lower urinary tract symptoms; R33.8 Other retention of urine; R09.02 Hypoxemia; E87.6 Hypokalemia; I08.1 Rheumatic disorders of both mitral and tricuspid valves; E66.9 Obesity, unspecified; M19.90 Unspecified osteoarthritis, unspecified site; Z68.26 Body mass index [BMI] 26.0-26.9, adult; Z79.82 Long term (current) use of aspirin; Z79.899 Other long term (current) drug therapy; Z87.891 Personal history of nicotine dependence; Z87.11 Personal history of peptic ulcer disease; Z87.19 Personal history of other diseases of the digestive system; Z95.0 Presence of cardiac pacemaker; Z95.1 Presence of aortocoronary bypass graft; Z71.3 Dietary counseling and surveillance; Z96.1 Presence of intraocular lens; Z95.5 Presence of coronary angioplasty implant and graft; Z98.42 Cataract extraction status, left eye; Z98.41 Cataract extraction status, right eye; Z86.010 Personal history of colon polyps; Z90.49 Acquired absence of other specified parts of digestive tract; Z94.5 Skin transplant status; Z98.890 Other specified postprocedural states; Z80.0 Family history of malignant neoplasm of digestive organs; Z80.8 Family history of malignant neoplasm of other organs or systems; Z83.3 Family history of diabetes mellitus; Z82.49 Family history of ischemic heart disease and other diseases of the circulatory system
CPT/HCPCS: 36410; 36415; 71045; 76937; 80048; 80053; 81001; 83735; 84132; 84443; 85025; 87070; 87077; 87186; 87205; 93005; 93922; 93970; 94640; 94760; 96374; 99285